=== PATIENT | male | born 1955 | race African-American/Black ===

== ENCOUNTER 2018-01-19 10:02 | Inpatient (IN) | payer MEDICARE, OTHER ==
[~2018-01-19] VITALS: Ht 172.7 cm; Wt 89.6 kg
[~2018-01-19 10:02] MED LIST: AMLODIPINE BESY10 MG PO; CARVEDILOL12.5 MG PO; CLONIDINE HCL0.1 MG PO; DOC-Q-LACE100 MG PO; FUROSEMIDE20 MG PO; GABAPENTIN300 MG PO; HYDRALAZINE HCL50 MG PO; LISINOPRIL10 MG PO; NAPROXEN500 MG PO; NOVOLIN N100 UNIT/1 INJ; OMEPRAZOLE40 MG PO; PANTOPRAZOLE SO40 MG PO; SPIRIVA18 MCG INH; SUCRALFATE1 GM PO; SULFAMETHOXAZO1 EAC1 PO; TAMSULOSIN HCL0.4 MG
--- OUTSIDE RECORDS SUMMARY | 2018-01-19 10:05 | XMS REPORT | Clinical Summary ---
Author Author [employer] Organization [employer] Address Unknown Phone Unavailable Care Team Providers Care Secondary Education Professor Name Role Phone Asked, Pcp PCP Unavailable Allergies Not on File Current Medications Prescription Sig. Disp. Refills Start End Date Status Date clonIDINE HCl (CATAPRES) Take 1 tablet (0.2 mg 30 tablet 0 05/21/20 06/20/20 0.2 MG tablet total) by mouth daily for 17 17 30 days. hydrALAZINE (APRESOLINE) Take 1 tablet (100 mg 90 tablet 0 05/21/20 06/20/20 100 MG tablet total) by mouth every 8 17 17 (eight) hours for 30 days. amLODIPine (NORVASC) 10 Take 1 tablet (10 mg 30 tablet 0 05/21/20 mg tablet total) by mouth daily for 17 17 30 days. insulin GLARGINE (LANTUS) Inject 15 Units under the 4.5 mL 0 05/21/20 06/20/20 100 unit/mL injection skin daily before 17 17 (vial) breakfast for 30 days. insulin lispro (HumaLOG) Inject 0-7 Units under 10 mL 12 05/21/20 100 unit/mL injection the skin 3 (three) times 17 17 a day with meals for 30 days. levoFLOXacin (LEVAQUIN) Take 1 tablet (500 mg 1 tablet 0 05/21/20 500 MG tablet total) by mouth daily for 17 17 1 day. 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 (Primary Dx); Anemia, unspecified type; Normocytic hypochromic anemia 12/01/2017 Lab Lab Teofilo Edmond Jr., MD Severe uncontrolled diabetes mellitus (Primary Dx) 11/24/2017 Lab Lab Teofilo Edmond Jr., MD Hyperglycemic coma (Primary Dx); Hypertensive heart disease with congestive heart failure; Hypothyroidism, unspecified type 05/13/2017 Procedure Pass General Internal Medicine 05/13/2017 Procedure Pass General Internal Medicine 05/12/2017 [facility] General Internal Medicine Felicia Soria, Sepsis, due to - Encounter MD unspecified organism 05/21/2017 Silviano Davis MD (Primary Dx); Todd Muhammad DO DAWIT (acute kidney injury); Hypothermia, initial encounter; Bradycardia; Acute encephalopathy; Anemia, unspecified type; Pneumonia due to infectious organism, unspecified laterality, unspecified part of lung after 01/18/2017 Social History Tobacco Use Types Packs/Day Years Used Date Unknown If Ever Smoked Sex Assigned at Date Recorded Not on file Last Filed Vital Signs Vital Sign Reading Time Taken Blood Pressure 139/62 05/21/2017 1:27 PM CDT Pulse 72 05/21/2017 1:27 PM CDT Temperature 36.1 C (97 F) 05/21/2017 1:27 PM CDT Respiratory Rate 16 05/21/2017 1:27 PM CDT Oxygen Saturation 94% 05/21/2017 1:27 PM CDT Inhaled Oxygen - - Concentration Weight 70.3 kg (155 lb) 05/12/2017 5:00 PM CDT Height 172.7 cm (5' 8") 05/12/2017 3:43 PM CDT Body Mass Index 23.57 05/12/2017 5:00 PM CDT Plan of Treatment Health Maintenance Due Date Last Done Comments FOOT EXAM 1964 OPHTHALMOLOGY EXAM 1965 URINE MICROALBUMIN 1964 COLONOSCOPY 2004 ZOSTER VACCINE 2014 INFLUENZA VACCINE 06/13/2017 Procedures Procedure Name Priority Date/Time Associated Diagnosis Comments CT INSERT NON-TUNNEL CV Routine 05/13/2017 Results for this CATH 11:01 AM CDT procedure are in the results section. INTUBATION Routine 05/13/2017 Results for this 11:01 AM CDT procedure are in the results section. CT CRITICAL CARE, E/M Routine 05/13/2017 Results for this 30-74 MINUTES 11:01 AM CDT procedure are in the results section. ECHOCARDIOGRAM 2D Routine 05/13/2017 Results for this COMPLETE W MMODE SPECTRAL 9:31 AM CDT procedure are in the COLOR DOPPLER (05478) results section. after 01/18/2017 Results * Total iron binding capacity (12/15/2017 10:00 AM) Component Value Ref Range Iron level 80 76 - 198 ug/dL Iron binding capacity 250 (L) 271 - 474 ug/dL % Saturation 32.0 20.0 - 40.0 % Specimen Performing Laboratory Plasma specimen [facility] DEPARTMENT OF PATHOLOGY AND GENOMIC MEDICINE [address] [place] [address] * Occult blood, stool (12/15/2017 10:00 AM) Component Value Ref Range Occult blood, stool Negative for occult blood. Comment: Specimen Information Specimen Source: Stool Specimen Site: non preserved Specimen Performing Laboratory Stool [facility] DEPARTMENT OF PATHOLOGY AND GENOMIC MEDICINE [address] [place] [address] * Manual differential (12/01/2017 1:00 PM) Only the most recent of 7 results within the time period is included. Component Value Ref Range Manual differential PERFORMED Neutrophils 72.0 (H) 36.0 - 66.0 % Lymphocytes 19.0 (L) 24.0 - 44.0 % Monocytes 6.0 0.0 - 6.0 % Eosinophils 1.0 0.0 - 6.0 % Basophils 0.0 0.0 - 1.2 % Metamyelocytes 0 0 - 1 % Promyelocytes 0 0 - 1 % Reactive lymphocytes 2.0 Platelet slide review Decreased (A) Anisocytosis 1+ Polychromasia 1+ Schistocytes 1+ Ovalocytes 1+ Enlarged platelets 1+ Specimen Performing Laboratory [facility] DEPARTMENT OF PATHOLOGY AND GENOMIC MEDICINE [address] [place] [address] Narrative PLS FAX TO [facility] * CBC with platelet and differential (12/01/2017 1:00 PM) Only the most recent of 10 results within the time period is included. Component Value Ref Range WBC 7.2 4.2 - 11.0 k/uL RBC 3.25 (L) 4.04 - 5.86 m/uL HGB 8.4 (L) 13.0 - 17.3 g/dL HCT 25.5 (L) 34.0 - 45.0 % MCV 78.5 (L) 80.0 - 98.0 fL MCH 25.8 (L) 27.0 - 34.0 pg MCHC 32.9 31.5 - 36.5 g/dL RDW - SD 45.3 37.0 - 51.0 fL MPV SEE COMMENTComment: No report 7.4 - 10.4 fL Platelet count 70 (L) 150 - 400 k/uL Nucleated RBC 0.00 /100 WBC Neutrophils 72.0 (H) 36.0 - 66.0 % Lymphocytes 19.0 (L) 24.0 - 44.0 % Monocytes 6.0 0.0 - 6.0 % Eosinophils 1.0 0.0 - 6.0 % Basophils 0.0 0.0 - 1.2 % Specimen Performing Laboratory Blood [facility] DEPARTMENT OF PATHOLOGY AND GENOMIC MEDICINE [address] [place] [address] [place] [address] Narrative PLS FAX TO [employer] * Estimated GFR (11/24/2017 11:00 AM) Only the most recent of 13 results within the time period is included. Component Value Ref Range GFR Non Af Amer 18 (A) mL/min/1.73 m2 GFR Af Amer 22 (A) mL/min/1.73 m2 Comment: Chronic kidney disease: <60 mL/min/1.73m2 Kidney failure: <15 mL/min/1.73m2 The estimated GFR is calculated from the IDMS-traceable Modification of Diet in Renal Disease Equation. The accuracy of the calculation is poor when the creatinine is normal. Calculated values >90 mL/min/1.73m2 are not reported. This equation has not been validated in children (<18 years), women, the elderly (>70 years), or ethnic groups other than Caucasians and Americans. Specimen Performing Laboratory Plasma specimen [facility] DEPARTMENT OF PATHOLOGY AND [facility]IC[facility] [address] [place] [address] [employer] PLS FAX TO [employer] * Thyroid stimulating hormone (11/24/2017 11:00 AM) Only the most recent of 4 results within the time period is included. Component Value Ref Range TSH 0.95 0.38 - 4.82 uIU/mL Specimen Performing Laboratory Plasma specimen [facility] DEPARTMENT OF PATHOLOGY AND GENOMIC MEDICINE [address] [place] [address] Narrative PLS FAX TO [employer] [facility] * Comprehensive metabolic panel (11/24/2017 11:00 AM) Only the most recent of 4 results within the time period is included. Component Value Ref Range Sodium 140 135 - 150 mEq/L Potassium 4.5 3.5 - 5.0 mEq/L Chloride 106 100 - 109 mEq/L CO2 27 24 - 32 mmol/L Anion gap 7 7 - 15 mEq/L Comment: Starting from February , anion gap calculation no longer incorporates potassium. Please note the change. BUN 52 (H) 7 - 18 mg/dL Creatinine 3.5 (H) 0.8 - 1.5 mg/dL Glucose 154 (H) 65 - 100 mg/dL Calcium 7.8 (L) 8.6 - 10.7 mg/dL Protein 6.2 (L) 6.3 - 8.2 g/dL Albumin 2.4 (L) 3.2 - 5.0 g/dL A/G ratio 0.6 (L) 0.7 - 3.8 Alkaline phosphatase 128 (H) 30 - 120 U/L AST 13 (L) 15 - 37 U/L ALT 21 (L) 30 - 65 U/L Total bilirubin 0.4 0.2 - 1.2 mg/dL Specimen Performing Laboratory Plasma specimen [facility] DEPARTMENT OF PATHOLOGY AND GENOMIC MEDICINE [address] [place] [address] Narrative PLS FAX TO [facility] * POC glucose (05/21/2017 11:27 AM) Only the most recent of 45 results within the time period is included. Component Value Ref Range POC glucose 162 (H) 65 - 100 mg/dL Comment: Meter ID: [id number] [employer] Farmworker: Deny Aguirre Specimen Performing Laboratory [facility] DEPARTMENT OF PATHOLOGY AND GENOMIC MEDICINE [address] [place] [address] * Phosphorus level (05/21/2017 6:18 AM) Only the most recent of 7 results within the time period is included. Component Value Ref Range Phosphorus 4.0 2.5 - 4.5 mg/dL Specimen Performing Laboratory Plasma specimen [facility] DEPARTMENT OF PATHOLOGY AND GENOMIC MEDICINE [address] [place] [address] * Magnesium level (05/21/2017 6:18 AM) Only the most recent of 7 results within the time period is included. Component Value Ref Range Magnesium 2.50 (H) 1.60 - 2.40 mg/dL Specimen Performing Laboratory Plasma specimen [facility] DEPARTMENT OF PATHOLOGY AND GENOMIC MEDICINE [address] [facility] [place] [address] * Basic metabolic panel (05/21/2017 6:18 AM) Only the most recent of 9 results within the time period is included. Component Value Ref Range Sodium 146 135 - 150 mEq/L Potassium 4.6 3.5 - 5.0 mEq/L Chloride 112 (H) 100 - 109 mEq/L CO2 25 24 - 32 mmol/L Anion gap 9 7 - 15 mEq/L Comment: Starting from February , anion gap calculation no longer incorporates potassium. Please note the change. BUN 53 (H) 7 - 18 mg/dL Creatinine 4.0 (H) 0.8 - 1.5 mg/dL Glucose 91 65 - 100 mg/dL Calcium 8.8 8.6 - 10.7 mg/dL Specimen Performing Laboratory Plasma specimen [facility] DEPARTMENT OF PATHOLOGY AND GENOMIC MEDICINE [address] [facility] [place] [address] * Smear review (05/21/2017 5:51 AM) Only the most recent of 3 results within the time period is included. Component Value Ref Range Platelet slide review Mkd decreased (A) Polychromasia Few Schistocytes Few Target cells Occasional Specimen Performing Laboratory [facility] DEPARTMENT OF PATHOLOGY AND GENOMIC MEDICINE [address] [place] [address] [place] [address] * Immature platelet fraction (05/21/2017 5:51 AM) Only the most recent of 5 results within the time period is included. Component Value Ref Range IPF percentage 11.1 (H) 1.0 - 5.8 % Specimen Performing Laboratory [facility] DEPARTMENT OF PATHOLOGY AND GENOMIC MEDICINE [address] [place] [address] [place] [address] * PV carotid duplex (05/14/2017 10:04 PM) Specimen Performing Laboratory [address] [address] Narrative Examination: US CAROTID DUPLEX BILATERAL CLINICAL HISTORY: CVA TECHNIQUE: Examination includes full duplex Doppler scan (real-time B mode grayscale, Doppler spectral analysis, Doppler color flow imaging) of the common carotid, internal carotid, external carotid, and vertebral arteries. Velocity parameters are based upon studies using distal internal carotid artery diameter as a denominator for stenosis calculation. COMPARISON:None. FINDINGS: Right common carotid artery demonstrates a peak systolic velocity measuring 79 cm/s. The right internal carotid artery demonstrates a peak systolic velocity measuring 33 cm/s. Right ICA/CC ratio is 0.4. The right external carotid artery demonstrates a peak systolic velocity measuring 76 cm/s. Right vertebral artery demonstrates antegrade flow. Left common carotid artery demonstrates a peak systolic velocity measuring 89 cm /s. Left internal carotid artery demonstrates a peak systolic velocity measuring 42 cm/s. Left ICA/CCA ratio is 0.5. The left external carotid artery demonstrates a peak systolic velocity measuring 61 cm/s. Left vertebral artery demonstrates antegrade flow. IMPRESSION: Normal bilateral carotid Doppler examination. No hemodynamically significant stenosis in either carotid artery (less than 50%). Bilateral antegrade vertebral flow. [facility]-[id number] Procedure Note [facility], Radiology Results Incoming - 05/14/2017 10:34 PM CDT Examination: US CAROTID DUPLEX BILATERAL CLINICAL HISTORY: CVA TECHNIQUE: Examination includes full duplex Doppler scan (real-time B mode grayscale, Doppler spectral analysis, Doppler color flow imaging) of the common carotid, internal carotid, external carotid, and vertebral arteries. Velocity parameters are based upon studies using distal internal carotid artery diameter as a denominator for stenosis calculation. COMPARISON:None. FINDINGS: Right common carotid artery demonstrates a peak systolic velocity measuring 79 cm/s. The right internal carotid artery demonstrates a peak systolic velocity measuring 33 cm/s. Right ICA/CC ratio is 0.4. The right external carotid artery demonstrates a peak systolic velocity measuring 76 cm/s. Right vertebral artery demonstrates antegrade flow. Left common carotid artery demonstrates a peak systolic velocity measuring 89 cm /s. Left internal carotid artery demonstrates a peak systolic velocity measuring 42 cm/s. Left ICA/CCA ratio is 0.5. The left external carotid artery demonstrates a peak systolic velocity measuring 61 cm/s. Left vertebral artery demonstrates antegrade flow. IMPRESSION: Normal bilateral carotid Doppler examination. No hemodynamically significant stenosis in either carotid artery (less than 50%). Bilateral antegrade vertebral flow. [facility]-[id number] * Arterial blood gas (05/14/2017 7:15 AM) Only the most recent of 4 results within the time period is included. Component Value Ref Annual Giving Officer [facility] Collection site RRA O2 therapy VENT Respiratory rate 16 bpm Tidal volume 450.0 mL .PEEP 5 cmH2O pH, arterial 7.390 7.350 - 7.450 units pCO2, arterial 37.0 35.0 - 45.0 mmHg pO2, arterial 77.8 (L) 80.0 - 90.0 mmHg O2 saturation, arterial 96.8 95.0 - 100.0 % Base excess, arterial -2.5 mEq/L Bicarbonate 22.4 21.0 - 28.0 mEq/L O2 content 12.5 VOL% FiO2, inspired O2% 40.0 % Carboxyhemoglobin 1.0 0.0 - 1.4 % Comment: Reference Ranges: Carboxyhemoglobin Non smoker: 0.0 - 2.0% Smoker: 2.1 - 5.0% Heavy smoker: 5.1 - 9% Methemoglobin 0.1 0.0 - 1.0 % Hemoglobin, blood gas 9.2 (L) 14.0 - 18.0 g/dL CMV, pulmonary func 16 pO2, A-a 168.8 mmHg Specimen Performing Laboratory Blood [facility] DEPARTMENT OF PATHOLOGY AND GENOMIC MEDICINE [address] [place] [address]. [place] [address] * XR Chest 1 Vw Portable (05/14/2017 6:48 AM) Only the most recent of 4 results within the time period is included. Specimen Performing Laboratory [place] [address] Narrative EXAMINATION:XR CHEST 1 VW PORTABLE CLINICAL HISTORY:Ventilator Patient COMPARISON:Yesterday IMPRESSION: Support lines and tubes unchanged. Extensive airspace opacities bilaterally have worsened bilaterally. Otherwise stable [facility]-[id number] Procedure Note Hm Interface, Radiology Results Incoming - 05/14/2017 7:09 AM CDT EXAMINATION: XR CHEST 1 VW PORTABLE CLINICAL HISTORY: Ventilator Patient COMPARISON: Yesterday IMPRESSION: Support lines and tubes unchanged. Extensive airspace opacities bilaterally have worsened bilaterally. Otherwise stable [facility]-[id number] * MRI Brain Wo Contrast (05/13/2017 5:56 PM) Specimen Performing Laboratory [employer] [address] [place] [address] Narrative EXAMINATION:MRI BRAIN WO CONTRAST CLINICAL HISTORY:cva COMPARISON: CT brain exam dated 05/12/2017. FINDINGS: Noncontrast MRI of the brain is interpreted. Subtle linear increased diffusion signal in the deep white matter of the posterior right frontal lobe is consistent with subtle recent infarct. There is no hemorrhage or mass effect. Chronic insult is noted within the left thalamus. Chronic insults are noted within the mirna. Chronic insults are noted within the left basal ganglia extending in the white matter. Small chronic insult is noted within the left cerebellum. Mild involutional changes of the brain are otherwise noted. No extra-axial collection or mass effect is seen. No hemorrhage is identified. Major vascular flow-voids are preserved. IMPRESSION: Small linear acute infarct involving the posterior right frontal lobe deep white matter. A preliminary report was provided the patient's nurse, Cheri, at 6:10 PM. She verbalized understanding. [facility]-[id number] Procedure Note Interface, Radiology Results Incoming - 05/13/2017 6:14 PM CDT EXAMINATION: MRI BRAIN WO CONTRAST CLINICAL HISTORY: cva COMPARISON: CT brain exam dated 05/12/2017. FINDINGS: Noncontrast MRI of the brain is interpreted. Subtle linear increased diffusion signal in the deep white matter of the posterior right frontal lobe is consistent with subtle recent infarct. There is no hemorrhage or mass effect. Chronic insult is noted within the left thalamus. Chronic insults are noted within the mirna. Chronic insults are noted within the left basal ganglia extending in the white matter. Small chronic insult is noted within the left cerebellum. Mild involutional changes of the brain are otherwise noted. No extra-axial collection or mass effect is seen. No hemorrhage is identified. Major vascular flow-voids are preserved. IMPRESSION: Small linear acute infarct involving the posterior right frontal lobe deep white matter. A preliminary report was provided the patient's nurse, Cheri, at 6:10 PM. She verbalized understanding. [id number] * MRI Cervical Spine Wo Contrast (05/13/2017 5:56 PM) Specimen Performing Laboratory [facility] [address] [place] [address] Narrative EXAMINATION:MRI CERVICAL SPINE WO CONTRAST CLINICAL HISTORY:epidural abcess COMPARISON: None. FINDINGS: Noncontrast MRI of the cervical spine is interpreted. No definite cord signal abnormality is seen. Subtle increased T2 signal over the cervical cord at the C6-7 level is likely artifactual. There is mild reversal normal cervical lordosis. Bone marrow signal is normal. The cervical canal is developmentally stenotic. No intraspinal collection is identified. C2-3: Unremarkable. C3-4: Mild disc bulge. Minimal spondylosis. Mild canal stenosis. Mild left foraminal narrowing. C4-5: Mild spondylosis with mild disc bulge. Mild bilateral foraminal stenosis and moderate canal stenosis. C5-6: Ankylosis. Slight grade 1 retrolisthesis. Mild bilateral foraminal stenosis. Moderate canal stenosis. C6-7: Shallow right central disc protrusion. Mild spondylosis. Mild left foraminal stenosis. Moderate canal stenosis. C7-T1: Unremarkable. Paraspinous soft tissues are unremarkable. IMPRESSION: No evidence of epidural abscess or other acute abnormality of the cervical spine. Mild cervical spondylosis superimposed on congenitally narrow canal results in multilevel moderate canal stenosis. [facility]-[id number] Procedure Note Hm Interface, Radiology Results Incoming - 05/13/2017 6:06 PM CDT EXAMINATION: MRI CERVICAL SPINE WO CONTRAST CLINICAL HISTORY: epidural abcess COMPARISON: None. FINDINGS: Noncontrast MRI of the cervical spine is interpreted. No definite cord signal abnormality is seen. Subtle increased T2 signal over the cervical cord at the C6-7 level is likely artifactual. There is mild reversal normal cervical lordosis. Bone marrow signal is normal. The cervical canal is developmentally stenotic. No intraspinal collection is identified. C2-3: Unremarkable. C3-4: Mild disc bulge. Minimal spondylosis. Mild canal stenosis. Mild left foraminal narrowing. C4-5: Mild spondylosis with mild disc bulge. Mild bilateral foraminal stenosis and moderate canal stenosis. C5-6: Ankylosis. Slight grade 1 retrolisthesis. Mild bilateral foraminal stenosis. Moderate canal stenosis. C6-7: Shallow right central disc protrusion. Mild spondylosis. Mild left foraminal stenosis. Moderate canal stenosis. C7-T1: Unremarkable. Paraspinous soft tissues are unremarkable. IMPRESSION: No evidence of epidural abscess or other acute abnormality of the cervical spine. Mild cervical spondylosis superimposed on congenitally narrow canal results in multilevel moderate canal stenosis. [facility]-[id number] * Respiratory pathogen panel (05/13/2017 11:30 AM) Component Value Ref Range Respiratory pathogen Negative for all pathogens tested: panel Negative for Adenovirus Negative for Coronavirus HKU1 Negative for Coronavirus NL63 Negative for Coronavirus 229E Negative for Coronavirus OC43 Negative for Human Metapneumovirus Negative for Rhinovirus/Enterovirus Negative for Influenza A Negative for Influenza A/H1 Negative for Influenza A/H3 Negative for Influenza A/H1-2009 Negative for Influenza B Negative for Parainfluenza Virus 1 Negative for Parainfluenza Virus 2 Negative for Parainfluenza Virus 3 Negative for Parainfluenza Virus 4 Negative for Respiratory Syncytial Virus Negative for Bordetella pertussis Negative for Chlamydophila pneumoniae Negative for Mycoplasma pneumoniae This real-time PCR assay detects the presence of nucleic acids (RNA or DNA) for the respiratory pathogens listed. A result of "Not-detected" does not exclude the possibility of the presence of one or more pathogens at concentrations less than the detectable limits of the assay. Comment: Specimen Information Specimen Source: Nares Specimen Site: Left Specimen Performing Laboratory Nares - Left [facility] DEPARTMENT OF PATHOLOGY AND GENOMIC MEDICINE [address] [place] [address] * Streptococcus pneumoniae urinary antigen (05/13/2017 11:30 AM) Component Value Ref Range Strep pneumo urinary Ag Negative for Streptococcus pneumoniae antigen. Comment: Specimen Information Specimen Source: Urine Specimen Site: [place] Specimen Performing Laboratory Urine - [facility] DEPARTMENT OF PATHOLOGY AND [facility] MEDICINE [address] [place] [address] * Legionella urinary antigen (05/13/2017 11:30 AM) Component Value Ref Range Legionella urinary Negative for Legionella serogroup 1 antigen. antigen Comment: Specimen Information Specimen Source: Urine Specimen Site: [place] Specimen Performing Laboratory Urine - [facility] DEPARTMENT OF PATHOLOGY AND GENOMIC MEDICINE [address] [place] [address] * Influenza antigen (05/13/2017 11:30 AM) Component Value Ref Range Influenza antigen Negative for Influenza A/B antigen. Comment: Specimen Information Specimen Source: Nares Specimen Site: Right Specimen Performing Laboratory Nares Right [facility] DEPARTMENT OF PATHOLOGY AND GENOMIC MEDICINE [facility] [place] [address] * ECG ED Preliminary Interpretation - NOT AN ORDER (05/13/2017 11:01 AM) Leana Soria MD 05/13/2017 11:01 AM ECG ED Preliminary Interpretation - Not an Order Performed by: FELICIA SORIA Authorized by: FELICIA SORIA ECG reviewed by ED Physician in the absence of a prime minister: yes Previous ECG: Previous ECG:Unavailable Rate: ECG rate:53 ECG rate assessment: bradycardic Rhythm: Rhythm: sinus bradycardia ST segments: ST segments:Normal T waves: T waves: normal * CRITICAL CARE (05/13/2017 11:01 AM) Leana Soria MD 05/13/2017 11:01 AM Critical Care Performed by: FELICIA SORIA Authorized by: FELICIA SORIA Critical care provider statement: Critical care time (minutes):60 Critical care start time:05/12/2017 2:00 PM Critical care end time:05/12/2017 4:30 PM Critical care time was exclusive of:Separately billable procedures and treating other patients Critical care was necessary to treat or prevent imminent or life-threatening deterioration of the following conditions:Cardiac failure, sepsis, shock and circulatory failure Critical care was time spent personally by me on the following activities:Evaluation of patient's response to treatment, examination of patient, re-evaluation of patient's condition, ordering and review of radiographic studies, ordering and review of laboratory studies, ordering and performing treatments and interventions, discussions with consultants, discussions with primary provider, vascular access procedures, pulse oximetry and ventilator management Elliot 'yes' if you are taking over critical care for this patient from another provider.: no * INTUBATION (05/13/2017 11:01 AM) Leana Soria MD 05/13/2017 11:01 AM Intubation Performed by: FELICIA SORIA Authorized by: FELICIA SORIA Consent: Consent obtained:Emergent situation [place] protocol: Imaging studies available: yes Patient identity confirmed:Arm band Pre-procedure details: Patient status:Altered mental status Mallampati score:2 Pretreatment medications:None Induction:Etomidate Paralytics:Succinylcholine Procedure details: Preoxygenation:Nasal cannula CPR in progress: no Intubation method:Oral Laryngoscope blade:Mac 4 Grade view:3 Difficult airway?: Yes Tube size (mm):7.5 Tube type:Cuffed Number of attempts:1 Cricoid pressure: yes Tube visualized through cords: yes Placement assessment: ETT to lip:25 Tube secured with:ETT majano Breath sounds:Equal Placement verification: chest rise, CXR verification, equal breath sounds and ETCO2 detector Post-procedure details: Patient tolerance of procedure:Tolerated well, no immediate complications * CENTRAL LINE (05/13/2017 11:01 AM) Leana Soria MD 05/13/2017 11:01 AM Central Line Performed by: FELICIA SORIA Authorized by: FELICIA SORIA Consent: Consent obtained:Emergent situation [place] protocol: Patient identity confirmed:Arm band Pre-procedure details: Hand hygiene: Hand hygiene performed prior to insertion Sterile barrier technique: All elements of maximal sterile technique followed Skin preparation:ChloraPrep Skin preparation agent: Skin preparation agent completely dried prior to procedure Sedation: Sedation Type:Systemic Anesthesia (see MAR for exact dosages): Anesthesia method:None Procedure details: Catheter type:Triple lumen Catheter site: femoral vein Catheter Site Laterality:Left Site selection rationale:Site selected due thrombocytopenia and bradycardia Patient position:Flat Landmarks identified: yes Ultrasound guidance: yes Sterile ultrasound techniques: Sterile gel and sterile probe covers were used Number of attempts:2 Successful placement: yes Post-procedure details: Post-procedure:Dressing applied and line sutured Assessment:Blood return through all ports Patient tolerance of procedure:Tolerated well, no immediate complications * Echocardiogram complete w contrast and 3D if needed (05/13/2017 9:31 AM) Component Value Ref Range Velocity Ratio (V1/V2) 0.73 m/s IVS,d 1.23 (A) 0.6 - 1.2 cm EF 64.43 % LVPWD,d 1.01 cm AoV Mean PG 4.74 mmHg AV LVOT peak gradient 4.32 mmHg MV mean gradient 1.78 mmHg MV valve area p 1/2 3.62 cm2 method PV Pk Grad 4.38 mmHg E/A ratio 1.98 E wave decelartion time 114.68 msec LVOT Diam,S 2.18 cm LVOT area 3.73 cm2 LVOT Vmax 1.04 m/s LVOT VTI 0.22 m AoV Peak PG 8.21 mmHg PV Mean Grad 2.10 mmHg MV Peak E Martin 1.25 m/s MV stenosis pressure 1/2 60.83 ms time MV Peak A Martin 0.63 m/s AoV Area, Vmax 2.87 cm2 AoV Area, VTI 3.54 cm2 AoV Vmax 1.43 m/s IVS/LVPW,2D 1.21 Left Atrium Dimension 2.81 cm Anterior LV,d 4.89 cm LV,s 3.17 cm PV VMAX 1.05 m/s PV VTI 0.20 m RVSP (TR) 50.74 mmHg TR Vpeak 3.19 mm/s MV E A ratio 1.97 mmHg TR pk grad 40.74 mmHg MR Vmax 5.06 m/s MR peak grad 4.67 mmHg PV Vmn 0.67 RVSP 50.74 mmHg Ao Root Diameter 3.35 cm LV SYS VOL 39.88 ml LV YUSUF VOL 112.12 ml LV SV Teich 2D 72.24 ml LV Vol s Teich PSAX 39.88 ml LVOT CO 5.88 l/min LVOT HR for LVOT CO 71.99 bpm MV Vmax 1.08 m MV VTI Tips 0.23 m AoV Vmn 1.03 IVS s 2D 1.22 LV FS Cube 2D 35.24 LV FS Teich 2D 35.24 Ao Root Diameter 3.35 cm AoV VTI 0.29 m LV EF,2D 72.84 % MV AE ratio 0.51 LVOT Vmn 0.71 Aov area Vmn 2.68 cm2 LVOT mean grad 2.25 mmHg MAX Pred HR 157.20 85 of MPHR 133.62 Calc MPHR 157.20 bpm IVS pct thck PLAX -0.07 % LV SV Cube 2D 85.01 ml LV vol d cube 2D 116.72 ml LV vol s cube 2D 31.71 ml LVPW pct thck PLAX 95.22 % LVPW s PLAX 1.97 cm MV Decel slope 10.86 m/s2 Pred Exer Dur R1 8.28 Pred METS R1 8.58 Specimen Performing Laboratory [facility] [address] [place] [address] * Troponin (05/13/2017 4:25 AM) Only the most recent of 3 results within the time period is included. Component Value Ref Range Troponin 0.02 0.00 - 0.60 ng/mL Comment: 0.11 - 1.49 ng/ml May indicate increased risk of acute coronary syndrome. >=1.5 ng/ml Consistent with acute myocardial infarction. The diagnostic value of a single normal or non-diagnostic result is questionable. Serial samples at 2-6 hour intervals are required to rule out acute myocardial injury. Specimen Performing Laboratory Plasma specimen [facility] DEPARTMENT OF PATHOLOGY AND GENOMIC MEDICINE [address] [place] [address] * Partial thromboplastin time, activated (05/13/2017 4:25 AM) Only the most recent of 3 results within the time period is included. Component Value Ref Range PTT 52.0 (H) 23.0 - 36.0 sec Comment: PTT therapeutic range for unfractionated heparin is 61.0-112.0 seconds which corresponds to Anti-Xa 0.3-0.7 U/ml. Note: Change in Panic Value The PTT Panic Value is changing from 110 sec. to 100 sec. due to new instrumentation and reagents. Correlation studies have been performed to validate this result. Specimen Performing Laboratory Blood [facility] DEPARTMENT OF PATHOLOGY AND GENOMIC MEDICINE [address] [place] [address] [place] [address] * Prothrombin time with INR (05/13/2017 4:25 AM) Only the most recent of 3 results within the time period is included. Component Value Ref Range Prothrombin time 18.0 (H) 12.0 - 15.0 sec INR 1.47 (H) 0.92 - 1.12 Comment: For patients on anticoagulant therapy, reference ranges below: Indication: INR Value Treatment of Venous Thrombosis, 2.0-3.0 pulmonary emboli, or prophylaxis of a venous thrombosis, or systemic emboli. High dose, high risk patients 3.0-4.5 with mechanical valves. NOTE: INR values over 3.0 are sometimes associated with gastrointestinal hemorrhage, especially values over 4.0. Specimen Performing Laboratory Blood [facility] DEPARTMENT OF PATHOLOGY AND GENOMIC MEDICINE [address] [place] [address] [place] [address] * T3, free (05/13/2017 4:25 AM) Component Value Ref Range T3, free 3.80 2.18 - 3.98 pmol/L Specimen Performing Laboratory Plasma specimen [facility] DEPARTMENT OF PATHOLOGY AND GENOMIC MEDICINE [address] [place] [address] [place] [address] * B natriuretic peptide (05/13/2017 4:25 AM) Component Value Ref Range BNP 506 (H) 0 - 100 pg/mL Specimen Performing Laboratory [facility] DEPARTMENT OF PATHOLOGY AND GENOMIC MEDICINE [address] [place] [address] [place] [address] * Lactic acid level (05/13/2017 4:25 AM) Only the most recent of 3 results within the time period is included. Component Value Ref Range Lactic acid 1.3 0.5 - 2.2 mmol/L Specimen Performing Laboratory Blood [facility] DEPARTMENT OF PATHOLOGY AND GENOMIC MEDICINE [address] [place] [address] [place] [address] * Hemoglobin A1c (05/13/2017 4:25 AM) Component Value Ref Range Hemoglobin A1C 6.4 (H) 4.0 - 6.0 % Comment: Less than 6% - Goal of therapy for Type II Diabetes Less than 7%- Goal of therapy for Type I Diabetes Less than 8%- Acceptable control for Type I or Type II Diabetes Greater than 8%- Unacceptable control; action indicated. (A DA94) Specimen Performing Laboratory [facility] DEPARTMENT OF PATHOLOGY AND GENOMIC MEDICINE [address] [place], [place] [id number] * Ionized calcium (05/13/2017 4:25 AM) Only the most recent of 2 results within the time period is included. Component Value Ref Range pH 7.36 Ionized calcium 1.17 1.11 - 1.32 mmol/L Specimen Performing Laboratory Plasma specimen [facility] DEPARTMENT OF PATHOLOGY AND GENOMIC MEDICINE [address] [place] [address] * Vancomycin level, random (05/13/2017 4:25 AM) Component Value Ref Range Vancomycin, random 15.2 ug/mL Comment: Therapeutic Ranges: Peak 30.0 - 40.0 ug/mL Trough 10.0 - 20.0 ug/mL Specimen Performing Laboratory Blood [facility] DEPARTMENT OF PATHOLOGY AND GENOMIC MEDICINE [address] [place], [place] [id number] * Lipid panel (05/13/2017 4:25 AM) Component Value Ref Range Cholesterol 120 120 - 200 mg/dL Triglycerides 92 50 - 150 mg/dL HDL cholesterol 51 40 - 60 mg/dL LDL cholesterol 42Comment: Result obtained by direct LDL mg/dL measurement Specimen Performing Laboratory Plasma specimen [facility] DEPARTMENT OF PATHOLOGY AND GENOMIC MEDICINE [address] [place] [address] * CT Abdomen Pelvis Wo Contrast (05/12/2017 8:50 PM) Specimen Performing Laboratory [facility] [address] [place] [address] Narrative EXAMINATION:CT ABDOMEN PELVIS WO CONTRAST CLINICAL HISTORY:adrenal adenomas TECHNIQUE: Multiple axial images of the abdomen and pelvis were obtained without intravenous administration of iodinated contrast. Sagittal and coronal computerized reformatted images were also obtained. The lack of intravenous contrast reduces the sensitivity of detecting solid organ disease.Automatic exposure control and iterative reconstruction techniques used to reduce dose. COMPARISON:November 26, 2015 FINDINGS: Interval development of extensive alveolar infiltrate throughout the bilateral lower lobes and right middle lobe with air bronchograms present. A multifocal pneumonia is suspected. Stable 2.9 cm adenoma in the right adrenal gland. Stable 2.9 cm adenoma in the left adrenal gland. Large staghorn calculus filling the lower pole of the left kidney on prior examination has a completely been removed. No residual renal calculi are present. Multiple cysts are present. No hydronephrosis present The liver, gallbladder, spleen, and pancreas are within normal limits No significant lymphadenopathy free fluid present Diffuse calcified atherosclerotic vascular disease throughout the arterial structures. There is a large amount retained stool in colon. Constipation cannot be excluded The bladder is decompressed with a Vargas catheter in place Diffuse calcified atherosclerotic vascular disease throughout the arterial structures. IMPRESSION: Interval development of diffuse alveolar infiltrates in the bilateral lower lobes and right middle lobe worrisome for multifocal pneumonia. Stable bilateral adrenal adenomas Large calculus in the left kidney on prior examination is no longer present [facility]-[id number] Procedure Note [facility], Radiology Results Incoming - 05/12/2017 9:07 PM CDT EXAMINATION: CT ABDOMEN PELVIS WO CONTRAST CLINICAL HISTORY: adrenal adenomas TECHNIQUE: Multiple axial images of the abdomen and pelvis were obtained without intravenous administration of iodinated contrast. Sagittal and coronal computerized reformatted images were also obtained. The lack of intravenous contrast reduces the sensitivity of detecting solid organ disease.Automatic exposure control and iterative reconstruction techniques used to reduce dose. COMPARISON: November 26, 2015 FINDINGS: Interval development of extensive alveolar infiltrate throughout the bilateral lower lobes and right middle lobe with air bronchograms present. A multifocal pneumonia is suspected. Stable 2.9 cm adenoma in the right adrenal gland. Stable 2.9 cm adenoma in the left adrenal gland. Large staghorn calculus filling the lower pole of the left kidney on prior examination has a completely been removed. No residual renal calculi are present. Multiple cysts are present. No hydronephrosis present The liver, gallbladder, spleen, and pancreas are within normal limits No significant lymphadenopathy free fluid present Diffuse calcified atherosclerotic vascular disease throughout the arterial structures. There is a large amount retained stool in colon. Constipation cannot be excluded The bladder is decompressed with a Vargas catheter in place Diffuse calcified atherosclerotic vascular disease throughout the arterial structures. IMPRESSION: Interval development of diffuse alveolar infiltrates in the bilateral lower lobes and right middle lobe worrisome for multifocal pneumonia. Stable bilateral adrenal adenomas Large calculus in the left kidney on prior examination is no longer present [facility]-[id number] * CT Chest Wo Contrast (05/12/2017 8:49 PM) Specimen Performing Laboratory [facility] [address] [place] [address] Narrative EXAMINATION: CT CHEST WO CONTRAST CLINICAL HISTORY: Pulmonary edemapneumonia TECHNIQUE: Multiple axial images of the chest were obtained without intravenous contrast. The lack of intravenous contrast reduces the sensitivity of detecting solid organ disease and evaluating vasculature. Sagittal and coronal computerized reformatted images were also obtained.Automatic exposure control and iterative reconstruction techniques used to reduce dose. COMPARISON: None. FINDINGS: Extensive alveolar infiltrate is present throughout all segments of both lungs. Air bronchograms are noted throughout. Finding is compatible with a multifocal pneumonia. Endotracheal tube terminates above the harlan Small pericardial effusion Small nonspecific subcentimeter mediastinal lymph nodes present No pleural or pericardial effusions present Bilateral adrenal adenomas IMPRESSION: Extensive airspace infiltrates throughout all segments of both lungs worrisome for extensive multifocal pneumonia. Procedure Note Interface, Radiology Results Incoming - 05/12/2017 9:08 PM CDT EXAMINATION: CT CHEST WO CONTRAST CLINICAL HISTORY: Pulmonary edema pneumonia TECHNIQUE: Multiple axial images of the chest were obtained without intravenous contrast. The lack of intravenous contrast reduces the sensitivity of detecting solid organ disease and evaluating vasculature. Sagittal and coronal computerized reformatted images were also obtained.Automatic exposure control and iterative reconstruction techniques used to reduce dose. COMPARISON: None. FINDINGS: Extensive alveolar infiltrate is present throughout all segments of both lungs. Air bronchograms are noted throughout. Finding is compatible with a multifocal pneumonia. Endotracheal tube terminates above the harlan Small pericardial effusion Small nonspecific subcentimeter mediastinal lymph nodes present No pleural or pericardial effusions present Bilateral adrenal adenomas IMPRESSION: Extensive airspace infiltrates throughout all segments of both lungs worrisome for extensive multifocal pneumonia. * Prepare platelet pheresis, 1 Units (05/12/2017 8:20 PM) Component Value Ref Range Product name Apheresis Platelet ACDA LRIRR #1 Unit number [id number] Product code [id number] Dispense status Transfused Blood expiration date 20170513 Blood type code 8400Comment: 22:10 Kay Manjarrez Blood type AB POSITIVE Specimen Performing Laboratory [facility] DEPARTMENT OF PATHOLOGY AND GENOMIC MEDICINE [address] [place] [address] * Prepare RBC, 2 Units (05/12/2017 8:20 PM) Component Value Ref Range Product name Apheresis -1 LR #2 Unit number [id number] Product code [id number] Dispense status Transfused Blood expiration date 20170531 Blood type code 5100Comment: 22:13 Kay Manjarrez Blood type O POSITIVE Product name Apheresis -1 LR #1 Unit number [id number] Product code [id number] Dispense status Transfused Blood expiration date 20170606 Blood type code 5100 Blood type O POSITIVE Specimen Performing Laboratory [facility] DEPARTMENT OF PATHOLOGY AND GENOMIC MEDICINE [address] [place] [address] [place] [address] * Type and screen (05/12/2017 8:20 PM) Component Value Ref Range ABO grouping O Rh type POS Antibody screen (gel) NEG Specimen Performing Laboratory Blood [facility] DEPARTMENT OF PATHOLOGY AND GENOMIC MEDICINE [address] [place] [address] [place] [address] * Sputum culture (05/12/2017 8:14 PM) Component Value Ref Range Sputum culture isolate Normal oral cathy isolated. Comment: Specimen Information Specimen Source: Sputum Specimen Site: Induced Specimen Performing Laboratory Sputum - Induced [facility] DEPARTMENT OF PATHOLOGY AND GENOMIC MEDICINE [address] [place] [address] * Gram stain (05/12/2017 8:14 PM) Only the most recent of 2 results within the time period is included. Component Value Ref Range Gram stain isolate Rare WBC's Occasional Gram positive cocci in pairs Comment: Specimen Information Specimen Source: Sputum Specimen Site: Induced Specimen Performing Laboratory Sputum - Induced [facility] DEPARTMENT OF PATHOLOGY AND GENOMIC MEDICINE [address] [place] [address] * Cortisol, 30 minutes (05/12/2017 7:43 PM) Component Value Ref Range Cortisol, 30 min 10 ug/dL Comment: Normal response to 0.25 mg 1-24 ACTH (cosyntropin) is a peak cortisol concentration of greater than 14 ug/dL at either 30 minutes or 60 minutes post-stimulation. Specimen Performing Laboratory Plasma specimen [facility] DEPARTMENT OF PATHOLOGY AND GENOMIC MEDICINE [address] [place] [address] * Consult to Sepsis Response Team (05/12/2017 7:14 PM) Leana Musa NP 05/12/20177:14 PM Patient has possible sepsis due to the above criteria.ID is managing abx. Sepsis Clinical Assessment Performed by: NAZARIO MUSA Authorized by: NAZARIO MUSA Sepsis Clinical Assessment General Assessment Information Current sepsis score:6 On comfort care?: No If score does not worsen, snooze alerts until:05/13/2017 19:13 CDT SIRS Criteria SIRS criteria met: Temperature < 36.0 C (96.8 F) and Altered mental status Organ Dysfunction Organ dysfunction criteria met: Creatinine > 2.0 mg/dL and Platelet count < 100,000/mcL Sepsis Assessment Clinical suspicion of infection? Yes Time of suspicion of infection:05/12/2017 7:13 PM Clinical suspicion of sepsis?: Yes Sepsis staging:Sepsis Sepsis protocol started?Yes Where did the protocol start?:ED Started Clinical disposition:Remain in room Sepsis Related Vitals Heart rate: 45 Temperature: (!) 83.3 F Respiratory rate: 16 Altered mental status: Unable to assess WBC (k/uL) Date Value 05/12/2017 5.4 05/25/2016 11.6 (H) Weight-Based Fluid Bolus Calculation The recommended weight-based bolus volume: 2,244 mL (dosing weight) Please refer to the [facility] for actual med/fluid administrations. * CK-MB (05/12/2017 7:10 PM) Component Value Ref Range CK-MB 6.7 (H) 0.5 - 3.2 ng/mL Specimen Performing Laboratory Plasma specimen [facility] DEPARTMENT OF PATHOLOGY AND GENOMIC MEDICINE [facility] [place] [address] * Adrenocorticotropic hormone (05/12/2017 7:10 PM) Component Value Ref Range Adrenocorticotropic <1.0 (L) 7.2 - 63.3 pg/mL hormone Specimen Performing Laboratory Blood [facility] DEPARTMENT OF PATHOLOGY AND GENOMIC MEDICINE [address] [place] [address] * T3 (05/12/2017 7:10 PM) Component Value Ref Range T3 59 (L) 80 - 200 ng/dL Specimen Performing Laboratory Plasma specimen [facility] DEPARTMENT OF PATHOLOGY AND GENOMIC MEDICINE [address] [place] [address] * T4, free (05/12/2017 7:10 PM) Component Value Ref Range T4, free 1.39 0.70 - 1.61 ng/dL Specimen Performing Laboratory Plasma specimen [facility] DEPARTMENT OF PATHOLOGY AND GENOMIC MEDICINE [facility] [place] [address] * Lipase level (05/12/2017 7:10 PM) Component Value Ref Range Lipase 99 65 - 230 U/L Specimen Performing Laboratory Plasma specimen [facility] DEPARTMENT OF PATHOLOGY AND GENOMIC MEDICINE [address] [place] [address] * Creatine kinase, total (CPK) (05/12/2017 7:10 PM) Component Value Ref Range Creatine kinase 60 (L) 61 - 224 U/L Specimen Performing Laboratory Plasma specimen [facility] DEPARTMENT OF PATHOLOGY AND GENOMIC MEDICINE [address] [place] [address] * Cortisol level, random (05/12/2017 7:10 PM) Component Value Ref Range Cortisol, random 10 ug/dL Comment: Reference Ranges are not established for non-timed Cortisol levels. Reference Range for Timed Cortisol: 6 - 10 AM 6 - 18 ug/dl 4 - 8 PM 3 - 11 ug/dl Specimen Performing Laboratory Plasma specimen [facility] DEPARTMENT OF PATHOLOGY AND [facility] MEDICINE [address] [place] [address] * ECG 12 lead (05/12/2017 6:18 PM) Only the most recent of 2 results within the time period is included. Component Value Ref Range Ventricular rate [address] interval 140 QRSD interval 130 QT interval 526 QTC interval 465 P axis 1 40 QRS axis 1 55 T wave axis 47 EKG impression Marked sinus bradycardia with premature atrial complexes-Nonspecific intraventricular block-Nonspecific T wave abnormality-Abnormal ECG-In automated comparison with ECG of 12-MAY-2017 14:02,-premature atrial complexes are now present-QRS duration has decreased-Nonspecific T wave abnormality has replaced inverted T waves in Inferior leads-T wave inversion no longer evident in Anterolateral leads- Specimen Performing Laboratory [facility] [address] [place], [place] [id number] * CT Head Wo Contrast (05/12/2017 3:31 PM) Specimen Performing Laboratory [facility] [address] [place] [address] Narrative EXAMINATION: CT HEAD WO CONTRAST CLINICAL HISTORY: STROKE COMPARISON:None TECHNIQUE: Noncontrast CT of the brain was performed from the skull base to the vertex. Both soft tissue and bone reconstruction algorithms are interpreted. CT imaging was performed with iterative reconstruction techniques and/or automated exposure control to reduce radiation dose. FINDINGS: No intracranial hemorrhage, extra-axial collection, or mass-effect is seen. No acute cortical infarct is identified. No hyperdense vessel is seen. Chronic insult is noted in the left thalamus. Chronic ill-defined insult is noted within the deep white matter on the left. Small chronic insult is noted within left cerebellum. There is opacification of the left maxillary sinus with hyperdense material which may represent is inspissated secretions or fungal colonization.. Mastoid air cells are clear. Post treatment changes are noted within the left ocular globe. IMPRESSION: No acute intracranial abnormality identified. Chronic changes as described. [id number] Procedure Note [facility], Radiology Results Incoming - 05/12/2017 3:38 PM CDT EXAMINATION: CT HEAD WO CONTRAST CLINICAL HISTORY: STROKE COMPARISON: None TECHNIQUE: Noncontrast CT of the brain was performed from the skull base to the vertex. Both soft tissue and bone reconstruction algorithms are interpreted. CT imaging was performed with iterative reconstruction techniques and/or automated exposure control to reduce radiation dose. FINDINGS: No intracranial hemorrhage, extra-axial collection, or mass-effect is seen. No acute cortical infarct is identified. No hyperdense vessel is seen. Chronic insult is noted in the left thalamus. Chronic ill-defined insult is noted within the deep white matter on the left. Small chronic insult is noted within left cerebellum. There is opacification of the left maxillary sinus with hyperdense material which may represent is inspissated secretions or fungal colonization.. Mastoid air cells are clear. Post treatment changes are noted within the left ocular globe. IMPRESSION: No acute intracranial abnormality identified. Chronic changes as described. [facility]-[id number] * Blood culture, aerobic & anaerobic (05/12/2017 3:17 PM) Only the most recent of 2 results within the time period is included. Component Value Ref Range Blood culture isolate No growth after 5 days of incubation. Comment: Specimen Information Specimen Source: Blood Specimen Site: Left Wrist Specimen Performing Laboratory Blood [facility] DEPARTMENT OF PATHOLOGY AND GENOMIC MEDICINE [address] [place] [address] * Ammonia level (05/12/2017 3:00 PM) Component Value Ref Range Ammonia 18 3 - 37 umol/L Specimen Performing Laboratory Plasma specimen [facility] DEPARTMENT OF PATHOLOGY AND GENOMIC MEDICINE [address] [place] [address] * Alcohol level, blood (05/12/2017 3:00 PM) Component Value Ref Range Alcohol None Detected mg/dL Comment: Normal None Detected Legal Intoxication in [place] 80 mg/dL (0.08%) Toxic Concentration 200 mg/dL (0.2%) Potentially Fatal 350-500 mg/dL (0.35%-0.5%) Alcohol percent None Detected % Specimen Performing Laboratory Blood [facility] DEPARTMENT OF PATHOLOGY AND GENOMIC MEDICINE [address] [place] [address] * Digoxin level (05/12/2017 3:00 PM) Component Value Ref Range Digoxin 0.2 (L) 0.8 - 2.0 ng/mL Comment: For valid Digoxin results, at least 6 hours should elapse between time of last dose and collection of blood. Otherwise, result may be false high. Therapeutic Range: 0.8 - 2.0 ng/mL Specimen Performing Laboratory Blood [facility] DEPARTMENT OF PATHOLOGY AND GENOMIC MEDICINE [address] [place] [address] * Urinalysis screen and microscopy, with reflex to culture (05/12/2017 2:10 PM) Component Value Ref Range Specimen site Catheterized Color, UA Yellow Appearance, UA Cloudy Specific gravity, UA 1.011 1.001 - 1.035 pH, UA 5.0 5.0 - 8.5 Protein, UA 3+ (A) Negative Glucose, UA Negative Negative Ketones, UA Negative Negative Bilirubin, UA Negative Negative Blood, UA Small (A) Negative Nitrite, UA Negative Negative Urobilinogen, UA Negative <2.0 Leukocyte esterase, UA Large (A) Negative Epithelial cells, UA Many /HPF WBC, UA >200 (H) 0 - 1 /HPF RBC, UA 11 (H) 0 - 1 /HPF Bacteria, UA Few None seen Yeast, UA None seen Yeast with pseudohyphae, None seen UA Specimen Performing Laboratory Urine [facility] DEPARTMENT OF PATHOLOGY AND GENOMIC MEDICINE [address] [place] [address] * Mycoplasma pneumoniae Ab, IgM (05/12/2017 2:10 PM) Component Value Ref Range Mycoplasma pneumo IgM 0.36 <=0.76 U/L Comment: INTERPRETIVE INFORMATION: Mycoplasma pneumoniae Ab, IgM 0.76 U/L or less .......... Negative: No clinically significant amount of M. pneumoniae IgM antibody detected. 0.77 - 0.95 U/L ........... Low Positive: M. pneumoniae- specific IgM presumptively detected. Collection of a follow-up sample in 1-2 weeks is recommended to assure reactivity. 0.96 U/L or greater ....... Positive: Highly significant amount of M. pneumoniae- specific IgM antibody detected. However, low levels of IgM antibodies may occasionally persist for more than 12 months post-infection. Performed by [facility], [address] [place] [address] [email or web address] Javier Spencer MD - Lab. Director Specimen Performing Laboratory Serum [facility] [address] [place] [address] * Urine drugs of abuse screen (05/12/2017 2:10 PM) Component Value Ref Range Amphetamine screen, urine NEG Barbiturate screen, urine NEG Benzodiazepine screen, NEG urine Cocaine screen, urine NEG Methadone screen, urine NEG Opiates screen, urine NEG Phencyclidine screen, NEG urine Cannabinoid screen, urine NEG Comment: Drug screen minimum concentration of detectability Amphetamines 1000 ng/mL Methamphetamines 1000 ng/mL Barbiturates 300 ng/mL Benzodiazepines 300 ng/mL Cocaine 300 ng/mL Methadone 3 00 ng/mL Opiates 300 ng/mL Phencyclidine 25 ng/mL Cannabinoids 50 ng/mL Tricyclics 1000 ng/mL Negative test results indicates presumptive evidence of lack of clinically significant drug concentration in this urine specimen. Positive test results are presumptive evidence of clinically significant drug concentration in this urine specimen. Testing performed for medical purposes only. Specimen Performing Laboratory Urine [facility] DEPARTMENT OF PATHOLOGY AND GENOMIC MEDICINE [address] [place] [address] * Urine culture (05/12/2017 2:10 PM) Component Value Ref Range Urine culture isolate Gram positive cathy 10-1 cfu/ml (A) Comment: Specimen Information Specimen Source: Urine Specimen Site: See Specimen Performing Laboratory Urine [facility] DEPARTMENT OF PATHOLOGY AND GENOMIC MEDICINE [address] [place] [phone] after 01/18/2017 Insurance Payer Benefit Subscriber ID Type Phone Address Plan / Group [employer] xxxxxxxx [facility] MEDICAID [facility] xxxxxxxxx HMO COMM STAR+ [id number]
[2018-01-19 10:55] LABS: BASOPHILS % 0.4 % (0.0-1.0); EOSINOPHILS # (AUTO) 0.1 (0.0-0.4); EOSINOPHILS % 0.9 % (0.0-6.0); HEMATOCRIT 27.6 % (38.2-49.6); HEMOGLOBIN 9.2 g/dL (14.0-18.0); LYMPHOCYTES # (AUTO) 2.4 (1.0-3.2); LYMPHOCYTES % 21.7 % (18.0-39.1); MEAN CORPUSCULAR HEMOGLOBIN 25.4 pg (28-32); MEAN CORPUSCULAR HGB CONC 33.3 g/dL (31-35); MEAN CORPUSCULAR VOLUME 76.2 fL (81-99); MONOCYTES # (AUTO) 0.8 (0.2-0.8); MONOCYTES % 7.5 % (4.4-11.3); NEUTROPHILS # (AUTO) 7.6 (2.1-6.9); NEUTROPHILS % 68.9 % (38.7-80.0); PLATELET COUNT 189 x10e3/uL (140-360); RED BLOOD COUNT 3.62 x10e6/uL (4.3-5.7); RED CELL DISTRIBUTION WIDTH 16.5 % (11.7-14.4)
[2018-01-19] MEDS ORDERED: ONDANSETRON HCL INJ 2 MG/ML VIAL IV STA (10:58)
[2018-01-19] MEDS ORDERED: SODIUM CHLORIDE 0.9% 1000ML 500 ML IV STA (10:58)
[2018-01-19] MEDS ORDERED: SODIUM CHLORIDE 0.9% 1000ML 1,000 ML IV STA (10:58)
[2018-01-19] MEDS ORDERED: PANTOPRAZOLE 40 MG 10ML VIAL IV STA (10:58)
[2018-01-19] MEDS ORDERED: FENTANYL CITRATE/PF 100MCG/2 ML INJ IV ONE (11:00)
[2018-01-19 11:01] LABS: INR 1.2; PROTHROMBIN TIME 14.3 seconds (11.9-14.5)
[2018-01-19 11:02] LABS: PARTIAL THROMBOPLASTIN TIME 32.7 seconds (23.8-35.5)
[2018-01-19 11:11] LABS: MAGNESIUM 1.8 MG/DL (1.3-2.1)
[2018-01-19] MEDS ORDERED: LEVOFLOXACIN 500MG/D5W 100ML 100 ML IV ONE (11:15)
[2018-01-19] MEDS ORDERED: METRONIDAZOLE 500MG/NS 100ML 100 ML IV ONE (11:15)
[2018-01-19 11:25] LABS: ALBUMIN 3.2 g/dL (3.5-5.0); ALBUMIN/GLOBULIN RATIO 0.9 (0.8-2.0); ANION GAP 17.3 mmol/L (8-16); CALCIUM 8.4 mg/dL (8.4-10.2); CREATININE, SERUM 3.93 mg/dL (0.72-1.25); POTASSIUM 4.3 mmol/L (3.5-5.1)
--- NOTE | 2018-01-19 11:27 | Diagnostic Imaging Report ---
PROCEDURE: A single AP view of the chest. COMPARISON: 12/01/16 INDICATIONS: LOSS OF APPETITIE, UPPER ABDOMINAL PAIN FINDINGS: Lines/tubes: None. Lungs: Low lung volumes. Mild central vascular congestion and prominent interstitial lung markings, accentuated by low lung volumes. There is no evidence of pneumonia or pulmonary edema. Pleura: There is no pleural effusion or pneumothorax. Heart and mediastinum: The cardiomediastinal silhouette is enlarged. Bones: No acute bony abnormality. Degenerative changes of the shoulder joints. IMPRESSION: Enlarged cardiomediastinal silhouette, mild central vascular congestion, and prominent interstitial lung markings, accentuated by low lung volumes. Dictated by: Hector Giordano M.D. on 01/19/2018 at 11:27 Electronically approved by: Hector Giordano M.D. on 01/19/2018 at 11:27
[2018-01-19] MEDS ORDERED: SODIUM CHLORIDE 0.9% 1000ML 1,000 ML IV SCH ×2 (11:33→11:45)
[2018-01-19] MEDS ORDERED: ONDANSETRON HCL INJ 2 MG/ML VIAL IV PRN (11:45)
[2018-01-19] MEDS ORDERED: DEXTROSE 50% SYRINGE 50 ML IV PRN (11:45)
--- OUTSIDE RECORDS SUMMARY | 2018-01-19 12:13 | XMS REPORT | Clinical Summary ---
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); Anemia, unspecified type; Normocytic hypochromic anemia 12/01/2017 Lab Lab Teofilo Edmond Jr., MD Severe uncontrolled diabetes mellitus (Primary Dx) 11/24/2017 Lab Lab Teofilo Edmond Jr., MD Hyperglycemic coma (Primary Dx); Hypertensive heart disease with congestive heart failure; Hypothyroidism, unspecified type 05/13/2017 Procedure Pass General Internal Medicine 05/13/2017 Procedure Pass General Internal Medicine 05/12/2017 [facility] General Internal Medicine Felicia Soria, Sepsis, [...] Procedure Name Priority Date/Time Associated Diagnosis Comments CO INSERT NON-TUNNEL CV Routine 05/13/2017 Results for this CATH 11:01 AM CDT procedure are in the results section. INTUBATION Routine 05/13/2017 Results for this 11:01 AM CDT procedure are in the results section. CO CRITICAL CARE, E/M Routine 05/13/2017 Results for this 30-74 MINUTES 11:01 AM CDT procedure are in the results section. ECHOCARDIOGRAM 2D Routine 05/13/2017 Results for this COMPLETE W MMODE SPECTRAL 9:31 AM CDT procedure are in the COLOR DOPPLER (20110) results section. after 01/18/2017 Results * Total iron binding capacity (12/15/2017 10:00 AM) Component Value Ref Range Iron level 80 76 - 198 ug/dL Iron binding capacity 250 (L) 271 - 474 ug/dL % Saturation 32.0 20.0 - 40.0 % Specimen Performing Laboratory Plasma specimen [facility] DEPARTMENT OF PATHOLOGY AND GENOMIC MEDICINE [address] [place] [address] * Occult blood, stool (12/15/2017 10:00 AM) Component Value Ref Range Occult blood, stool Negative for occult blood. Comment: Specimen Information Specimen Source: Stool Specimen Site: non preserved Specimen Performing Laboratory Stool [facility] DEPARTMENT OF PATHOLOGY AND GENOMIC MEDICINE [address] [place] [address] * Manual differential (12/01/2017 1:00 PM) Only [...] Enlarged platelets 1+ Specimen Performing Laboratory [facility] DEPARTMENT OF PATHOLOGY AND GENOMIC MEDICINE [place] [address] Narrative PLS FAX TO [facility] * CBC with platelet and differential [...] 1.2 % Specimen Performing Laboratory Blood [facility] DEPARTMENT OF PATHOLOGY AND GENOMIC MEDICINE [address] [place] [address] [place] [address] Narrative PLS FAX TO [employer] * Estimated GFR (11/24/2017 11:00 AM) Only [...] Americans. Specimen Performing Laboratory Plasma specimen [facility] DEPARTMENT OF PATHOLOGY AND [employer] MEDICINE [address] [place] [address] [facility] PLS FAX TO [employer] * Thyroid stimulating hormone (11/24/2017 11:00 AM) Only the most recent of 4 results within the time period is included. Component Value Ref Range TSH 0.95 0.38 - 4.82 uIU/mL Specimen Performing Laboratory Plasma specimen [facility] DEPARTMENT OF PATHOLOGY AND GENOMIC MEDICINE [address] [place] [address] Narrative PLS FAX TO [facility] * Comprehensive metabolic panel (11/24/2017 11:00 AM) [...] mg/dL Specimen Performing Laboratory Plasma specimen [facility] DEPARTMENT OF PATHOLOGY AND GENOMIC MEDICINE [address] [place] [address] Narrative PLS FAX TO [facility] * POC glucose (05/21/2017 11:27 AM) Only the most recent of 45 results within the time period is included. Component Value Ref Range POC glucose 162 (H) 65 - 100 mg/dL Comment: Meter ID: [id number] Fuel Yard Operator: Deny Aguirre Specimen Performing Laboratory [facility] DEPARTMENT OF PATHOLOGY AND GENOMIC MEDICINE [address] [place] [address] * Phosphorus level (05/21/2017 6:18 AM) Only the most recent of 7 results within the time period is included. Component Value Ref Range Phosphorus 4.0 2.5 - 4.5 mg/dL Specimen Performing Laboratory Plasma specimen [facility] DEPARTMENT OF PATHOLOGY AND GENOMIC MEDICINE [address] [place] [address] * Magnesium level (05/21/2017 6:18 AM) Only the most recent of 7 results within the time period is included. Component Value Ref Range Magnesium 2.50 (H) 1.60 - 2.40 mg/dL Specimen Performing Laboratory Plasma specimen [facility] DEPARTMENT OF PATHOLOGY AND GENOMIC MEDICINE [address] [place] [address] * Basic metabolic panel (05/21/2017 6:18 AM) [...] mg/dL Specimen Performing Laboratory Plasma specimen [facility] DEPARTMENT OF PATHOLOGY AND GENOMIC MEDICINE [address] [facility] [place] [address] * Smear review (05/21/2017 5:51 AM) Only the most recent of 3 results within the time period is included. Component Value Ref Range Platelet slide review Mkd decreased (A) Polychromasia Few Schistocytes Few Target cells Occasional Specimen Performing Laboratory [facility] DEPARTMENT OF PATHOLOGY AND GENOMIC MEDICINE [address] [place] [address] [place] [address] * Immature platelet fraction (05/21/2017 5:51 AM) Only the most recent of 5 results within the time period is included. Component Value Ref Range IPF percentage 11.1 (H) 1.0 - 5.8 % Specimen Performing Laboratory [facility] DEPARTMENT OF PATHOLOGY AND GENOMIC MEDICINE [address] [place] [address] [place] [address] * PV carotid duplex (05/14/2017 10:04 PM) Specimen Performing Laboratory [address] [address] Narrative Examination: US CAROTID DUPLEX BILATERAL CLINICAL [...] (less than 50%). Bilateral antegrade vertebral flow. [facility]-[id number] Procedure Note [facility], Radiology Results Incoming - 05/14/2017 10:34 PM [...] (less than 50%). Bilateral antegrade vertebral flow. [facility]-[id number] * Arterial blood gas (05/14/2017 7:15 AM) Only the most recent of 4 results within the time period is included. Component Value Ref Non Destructive Testing Inspector [facility] Collection site RRA O2 therapy VENT Respiratory [...] 168.8 mmHg Specimen Performing Laboratory Blood [facility] DEPARTMENT OF PATHOLOGY AND GENOMIC MEDICINE [address] [place] [address]. [place] [address] * XR Chest 1 Vw Portable (05/14/2017 6:48 AM) Only the most recent of 4 results within the time period is included. Specimen Performing Laboratory [facility] [place] [address] Narrative EXAMINATION:XR CHEST 1 VW PORTABLE CLINICAL HISTORY:Ventilator Patient COMPARISON:Yesterday IMPRESSION: Support lines and tubes unchanged. Extensive airspace opacities bilaterally have worsened bilaterally. Otherwise stable [facility]-[id number] Procedure Note Hm Interface, Radiology Results Incoming - 05/14/2017 7:09 AM CDT EXAMINATION: XR CHEST 1 VW PORTABLE CLINICAL HISTORY: Ventilator Patient COMPARISON: Yesterday IMPRESSION: Support lines and tubes unchanged. Extensive airspace opacities bilaterally have worsened bilaterally. Otherwise stable [facility]-[id number] * MRI Brain Wo Contrast (05/13/2017 5:56 PM) Specimen Performing Laboratory [facility] [address] [place] [address] Narrative EXAMINATION:MRI BRAIN WO CONTRAST CLINICAL HISTORY:cva [...] Cheri, at 6:10 PM. She verbalized understanding. [facility]-[id number] Procedure Note Interface, Radiology Results Incoming - [...] Cheri, at 6:10 PM. She verbalized understanding. [facility]-[id number] * MRI Cervical Spine Wo Contrast (05/13/2017 5:56 PM) Specimen Performing Laboratory [facility] [address] [place] [address] Narrative EXAMINATION:MRI CERVICAL SPINE WO CONTRAST CLINICAL [...] canal results in multilevel moderate canal stenosis. [facility]-[id number] Procedure Note Hm Interface, Radiology Results Incoming [...] canal results in multilevel moderate canal stenosis. [facility]-[id number] * Respiratory pathogen panel (05/13/2017 11:30 AM) [...] Left Specimen Performing Laboratory Nares - Left [facility] DEPARTMENT OF PATHOLOGY AND GENOMIC MEDICINE [address] [place] [address] * Streptococcus pneumoniae urinary antigen (05/13/2017 11:30 AM) Component Value Ref Range Strep pneumo urinary Ag Negative for Streptococcus pneumoniae antigen. Comment: Specimen Information Specimen Source: Urine Specimen Site: [place] Specimen Performing Laboratory Urine - [facility] DEPARTMENT OF PATHOLOGY AND [facility] MEDICINE [address] [place] [address] * Legionella urinary antigen (05/13/2017 11:30 AM) Component Value Ref Range Legionella urinary Negative for Legionella serogroup 1 antigen. antigen Comment: Specimen Information Specimen Source: Urine Specimen Site: [place] Specimen Performing Laboratory Urine - [facility] DEPARTMENT OF PATHOLOGY AND GENOMIC MEDICINE [address] [place] [address] * Influenza antigen (05/13/2017 11:30 AM) Component Value Ref Range Influenza antigen Negative for Influenza A/B antigen. Comment: Specimen Information Specimen Source: Nares Specimen Site: Right Specimen Performing Laboratory Nares Right [facility] DEPARTMENT OF PATHOLOGY AND GENOMIC MEDICINE [facility] [place] [address] * ECG ED Preliminary Interpretation - NOT AN ORDER (05/13/2017 11:01 AM) Leana Soria MD 05/13/2017 11:01 AM ECG ED Preliminary Interpretation - Not an Order Performed by: FELICIA SORIA Authorized by: FELICIA SORIA ECG reviewed by ED Physician in the absence of a human resources designate: yes Previous ECG: Previous ECG:Unavailable Rate: ECG [...] by: FELICIA SORIA Consent: Consent obtained:Emergent situation [place]ett protocol: Imaging studies available: yes Patient identity [...] by: FELICIA SORIA Consent: Consent obtained:Emergent situation Cro[place]ett protocol: Patient identity confirmed:Arm band Pre-procedure details: [...] R1 8.58 Specimen Performing Laboratory [facility] [address] [place] [address] * Troponin (05/13/2017 4:25 AM) Only the [...] injury. Specimen Performing Laboratory Plasma specimen [facility] DEPARTMENT OF PATHOLOGY AND GENOMIC MEDICINE [place] [address] * Partial thromboplastin time, activated (05/13/2017 4:25 [...] this result. Specimen Performing Laboratory Blood [facility] DEPARTMENT OF PATHOLOGY AND GENOMIC MEDICINE [address] [place] [address] [place] [address] * Prothrombin time with INR (05/13/2017 4:25 [...] over 4.0. Specimen Performing Laboratory Blood [facility] DEPARTMENT OF PATHOLOGY AND GENOMIC MEDICINE [address] [place] [address] [place] [address] * T3, free (05/13/2017 4:25 AM) Component Value Ref Range T3, free 3.80 2.18 - 3.98 pmol/L Specimen Performing Laboratory Plasma specimen [facility] DEPARTMENT OF PATHOLOGY AND GENOMIC MEDICINE [address] [place] [address] [place] [address] * B natriuretic peptide (05/13/2017 4:25 AM) Component Value Ref Range BNP 506 (H) 0 - 100 pg/mL Specimen Performing Laboratory [facility] DEPARTMENT OF PATHOLOGY AND GENOMIC MEDICINE [address] [place] [address] [place] [address] * Lactic acid level (05/13/2017 4:25 AM) Only the most recent of 3 results within the time period is included. Component Value Ref Range Lactic acid 1.3 0.5 - 2.2 mmol/L Specimen Performing Laboratory Blood [facility] DEPARTMENT OF PATHOLOGY AND GENOMIC MEDICINE [address] [place] [address] [place] [address] * Hemoglobin A1c (05/13/2017 4:25 AM) Component [...] indicated. (A DA94) Specimen Performing Laboratory [facility] DEPARTMENT OF PATHOLOGY AND GENOMIC MEDICINE [address] [place], [place] [address] * Ionized calcium (05/13/2017 4:25 AM) Only the most recent of 2 results within the time period is included. Component Value Ref Range pH 7.36 Ionized calcium 1.17 1.11 - 1.32 mmol/L Specimen Performing Laboratory Plasma specimen [facility] DEPARTMENT OF PATHOLOGY AND GENOMIC MEDICINE [address] [place] [address] * Vancomycin level, random (05/13/2017 4:25 AM) Component Value Ref Range Vancomycin, random 15.2 ug/mL Comment: Therapeutic Ranges: Peak 30.0 - 40.0 ug/mL Trough 10.0 - 20.0 ug/mL Specimen Performing Laboratory Blood [facility] DEPARTMENT OF PATHOLOGY AND GENOMIC MEDICINE [address] [place], [place] [address] * Lipid panel (05/13/2017 4:25 AM) Component Value Ref Range Cholesterol 120 120 - 200 mg/dL Triglycerides 92 50 - 150 mg/dL HDL cholesterol 51 40 - 60 mg/dL LDL cholesterol 42Comment: Result obtained by direct LDL mg/dL measurement Specimen Performing Laboratory Plasma specimen [facility] DEPARTMENT OF PATHOLOGY AND GENOMIC MEDICINE [address] [place] [address] * CT Abdomen Pelvis Wo Contrast (05/12/2017 8:50 PM) Specimen Performing Laboratory [facility] [address] [place] [address] Narrative EXAMINATION:CT ABDOMEN PELVIS WO CONTRAST CLINICAL [...] on prior examination is no longer present [facility]-[id number] Procedure Note [facility], Radiology Results Incoming - 05/12/2017 9:07 PM [...] on prior examination is no longer present [facility]-[id number] * CT Chest Wo Contrast (05/12/2017 8:49 PM) Specimen Per[facility] [address] [place] [address] Narrative EXAMINATION: CT CHEST WO CONTRAST CLINICAL [...] Apheresis Platelet ACDA LRIRR #1 Unit number [id number] Product code [id number] Dispense status Transfused Blood expiration date 20170513 Blood type code 8400Comment: 22:10 Kay Manjarrez Blood type AB POSITIVE Specimen Performing Laboratory [facility] DEPARTMENT OF PATHOLOGY AND GENOMIC MEDICINE [address] [place] [address] * Prepare RBC, 2 Units (05/12/2017 8:20 PM) Component Value Ref Range Product name Apheresis -1 LR #2 Unit number [id number] Product code [id number] Dispense status Transfused Blood expiration date 20170531 Blood type code 5100Comment: 22:13 Kay Manjarrez Blood type O POSITIVE Product name Apheresis -1 LR #1 Unit number [id number] Product code [id number] Dispense status Transfused Blood expiration date 20170606 Blood type code 5100 Blood type O POSITIVE Specimen Performing Laboratory [facility] DEPARTMENT OF PATHOLOGY AND GENOMIC MEDICINE [address] [place] [address] [place] [address] * Type and screen (05/12/2017 8:20 PM) Component Value Ref Range ABO grouping O Rh type POS Antibody screen (gel) NEG Specimen Performing Laboratory Blood [facility] DEPARTMENT OF PATHOLOGY AND GENOMIC MEDICINE [address] [place] [address] [place] [address] * Sputum culture (05/12/2017 8:14 PM) Component Value Ref Range Sputum culture isolate Normal oral cathy isolated. Comment: Specimen Information Specimen Source: Sputum Specimen Site: Induced Specimen Performing Laboratory Sputum - Induced [facility] DEPARTMENT OF PATHOLOGY AND GENOMIC MEDICINE [address] [place] [address] * Gram stain (05/12/2017 8:14 PM) Only the most recent of 2 results within the time period is included. Component Value Ref Range Gram stain isolate Rare WBC's Occasional Gram positive cocci in pairs Comment: Specimen Information Specimen Source: Sputum Specimen Site: Induced Specimen Performing Laboratory Sputum - Induced [facility] DEPARTMENT OF PATHOLOGY AND GENOMIC MEDICINE [address] [place] [address] * Cortisol, 30 minutes (05/12/2017 7:43 PM) Component Value Ref Range Cortisol, 30 min 10 ug/dL Comment: Normal response to 0.25 mg 1-24 ACTH (cosyntropin) is a peak cortisol concentration of greater than 14 ug/dL at either 30 minutes or 60 minutes post-stimulation. Specimen Performing Laboratory Plasma specimen [facility] DEPARTMENT OF PATHOLOGY AND GENOMIC MEDICINE [address] [place] [address] * Consult to Sepsis Response Team (05/12/2017 [...] mL (dosing weight) Please refer to the [facility] for actual med/fluid administrations. * CK-MB (05/12/2017 7:10 PM) Component Value Ref Range CK-MB 6.7 (H) 0.5 - 3.2 ng/mL Specimen Performing Laboratory Plasma specimen [facility] DEPARTMENT OF PATHOLOGY AND GENOMIC MEDICINE [facility] [address] * Adrenocorticotropic hormone (05/12/2017 7:10 PM) Component Value Ref Range Adrenocorticotropic <1.0 (L) 7.2 - 63.3 pg/mL hormone Specimen Performing Laboratory Blood [facility] DEPARTMENT OF PATHOLOGY AND GENOMIC MEDICINE [address] [place] [address] * T3 (05/12/2017 7:10 PM) Component Value Ref Range T3 59 (L) 80 - 200 ng/dL Specimen Performing Laboratory Plasma specimen [facility] DEPARTMENT OF PATHOLOGY AND GENOMIC MEDICINE [address] [place] [address] * T4, free (05/12/2017 7:10 PM) Component Value Ref Range T4, free 1.39 0.70 - 1.61 ng/dL Specimen Performing Laboratory Plasma specimen [facility] DEPARTMENT OF PATHOLOGY AND GENOMIC MEDICINE [facility] [address] * Lipase level (05/12/2017 7:10 PM) Component Value Ref Range Lipase 99 65 - 230 U/L Specimen Performing Laboratory Plasma specimen [facility] DEPARTMENT OF PATHOLOGY AND GENOMIC MEDICINE [address] [place] [address] * Creatine kinase, total (CPK) (05/12/2017 7:10 PM) Component Value Ref Range Creatine kinase 60 (L) 61 - 224 U/L Specimen Performing Laboratory Plasma specimen [facility] DEPARTMENT OF PATHOLOGY AND GENOMIC MEDICINE [address] [place] [address] * Cortisol level, random (05/12/2017 7:10 PM) Component Value Ref Range Cortisol, random 10 ug/dL Comment: Reference Ranges are not established for non-timed Cortisol levels. Reference Range for Timed Cortisol: 6 - 10 AM 6 - 18 ug/dl 4 - 8 PM 3 - 11 ug/dl Specimen Performing Laboratory Plasma specimen [facility] DEPARTMENT OF PATHOLOGY AND [facility] MEDICINE [address] [place] [address] * ECG 12 lead (05/12/2017 6:18 PM) Only the most recent of 2 results within the time period is included. Component Value Ref Range Ventricular rate 47 Atrial rate 47 CO interval 140 QRSD interval 130 QT interval [...] evident in Anterolateral leads- Specimen Performing Laboratory [facility] [address]USE [address] [place], [place] [id number] * CT Head Wo Contrast (05/12/2017 3:31 PM) Specimen Performing Laboratory [facility] [address] [place] [address] Narrative EXAMINATION: CT HEAD WO CONTRAST CLINICAL [...] intracranial abnormality identified. Chronic changes as described. [id number] Procedure Note [facility], Radiology Results Incoming - 05/12/2017 3:38 PM [...] intracranial abnormality identified. Chronic changes as described. [facility]-[id number] * Blood culture, aerobic & anaerobic (05/12/2017 3:17 PM) Only the most recent of 2 results within the time period is included. Component Value Ref Range Blood culture isolate No growth after 5 days of incubation. Comment: Specimen Information Specimen Source: Blood Specimen Site: Left Wrist Specimen Performing Laboratory Blood [facility] DEPARTMENT OF PATHOLOGY AND GENOMIC MEDICINE [address] [place] [address] * Ammonia level (05/12/2017 3:00 PM) Component Value Ref Range Ammonia 18 3 - 37 umol/L Specimen Performing Laboratory Plasma specimen [facility] DEPARTMENT OF PATHOLOGY AND GENOMIC MEDICINE [address] [place] [address] * Alcohol level, blood (05/12/2017 3:00 PM) Component Value Ref Range Alcohol None Detected mg/dL Comment: Normal None Detected Legal Intoxication in [place] 80 mg/dL (0.08%) Toxic Concentration 200 mg/dL (0.2%) Potentially Fatal 350-500 mg/dL (0.35%-0.5%) Alcohol percent None Detected % Specimen Performing Laboratory Blood [facility] DEPARTMENT OF PATHOLOGY AND GENOMIC MEDICINE [address] [facility] [address] [place] [address] * Digoxin level (05/12/2017 3:00 PM) Component Value Ref Range Digoxin 0.2 (L) 0.8 - 2.0 ng/mL Comment: For valid Digoxin results, at least 6 hours should elapse between time of last dose and collection of blood. Otherwise, result may be false high. Therapeutic Range: 0.8 - 2.0 ng/mL Specimen Performing Laboratory Blood [facility] DEPARTMENT OF PATHOLOGY AND GENOMIC MEDICINE [address] [place] [address] * Urinalysis screen and microscopy, with reflex [...] seen UA Specimen Performing Laboratory Urine [facility] DEPARTMENT OF PATHOLOGY AND GENOMIC MEDICINE [address] [place] [address] * Mycoplasma pneumoniae Ab, IgM (05/12/2017 2:10 [...] more than 12 months post-infection. Performed by [employer], [address] [place] [address] [email or web address], Javier Spencer MD - Lab. Director Specimen Performing Laboratory Serum [facility] [address] [place] [address] * Urine drugs of abuse screen (05/12/2017 [...] purposes only. Specimen Performing Laboratory Urine [facility] DEPARTMENT OF PATHOLOGY AND GENOMIC MEDICINE [address] [facility] [place] [address] * Urine culture (05/12/2017 2:10 PM) Component Value Ref Range Urine culture isolate Gram positive cathy 10-1 cfu/ml (A) Comment: Specimen Information Specimen Source: Urine Specimen Site: See Specimen Performing Laboratory Urine [facility] DEPARTMENT OF PATHOLOGY AND GENOMIC MEDICINE [address] [place] [address] after 01/18/2017 Insurance Payer Benefit Subscriber ID Type Phone Address Plan / Group [employer] WE[employer] xxxxxxxx O [facility] HMO COMM STAR+ QAMAR
--- OUTSIDE RECORDS SUMMARY | 2018-01-19 12:13 | XMS REPORT ---
Author Author [facility] Address Unknown Phone Unavailable Care Team Providers Care Ore Bridge Operator Name Role Phone HERMANN ACUNA Unavailable Unavailable Problems This patient has no known problems. Allergies, Adverse Reactions, Alerts This patient has no known allergies or adverse reactions. Medications This patient has no known medications. Results Test Description Test Time Test Comments Text Results Atomic Results Result Comments CHEST SINGLE (PORTABLE) [place] [id number] [place] [address] Patient Name: ANUJ GARZA MR #: [id number] : 1955 Age/Sex: 62/M Req #: [id number] Adm Physician: Ordered by: AUGIE RIGGS LASER/ELECTRO OPTICS TECHNICIAN Report #: [id number] Location: ER Room/Bed: Procedure: [id number] DX/CHEST SINGLE (PORTABLE) Exam Date: 01/19/18 Exam Time: 1106 REPORT STATUS: Signed PROCEDURE: A single AP view of the chest. COMPARISON: 12/01/16 INDICATIONS: LOSS OF APPETITIE, UPPER ABDOMINAL PAIN FINDINGS: Lines/tubes: None. Lungs: Low lung volumes. Mild central vascular congestion and prominent interstitial lung markings, accentuated by low lung volumes. There is no evidence of pneumonia or pulmonary edema. Pleura: There is no pleural effusion or pneumothorax. Heart and mediastinum: The cardiomediastinal silhouette is enlarged. Bones: No acute bony abnormality. Degenerative changes of the shoulder joints. IMPRESSION: Enlarged cardiomediastinal silhouette, mild central vascular congestion, and prominent interstitial lung markings, accentuated by low lung volumes. Dictated by: Hector Miller M.D. on 01/19/2018 at 11:27 Electronically approved by: Hector Miller M.D. on 01/19/2018 at 11:27 Dictated By: HECTOR MILLER MD [id number] Transcribed By: TRISTON on 01/19/18 1127 COPY TO: AUGIE RIGGS NP
[2018-01-19 12:34] LABS: BILIRUBIN,URINE NEGATIVE (NEGATIVE); KETONES,URINE NEGATIVE (NEGATIVE); LEUKOCYTE ESTERASE ,URINE NEGATIVE (NEGATIVE); NITRITE,URINE NEGATIVE (NEGATIVE); URINE UROBILINOGEN 0.2 mg/dL (0.2 - 1)
[2018-01-19 12:35] LABS: PROTEIN,URINE DIPSTICK 2+ (NEGATIVE)
[2018-01-19 12:36] LABS: CLARITY,URINE HAZY (CLEAR); COLOR,URINE YELLOW (YELLOW)
[2018-01-19 12:41] VITALS: BP 195/93
[2018-01-19 12:52] LABS: CREATINE KINASE MB 9.4 ng/mL (0-5.0)
--- NOTE | 2018-01-19 12:54 | Diagnostic Imaging Report ---
EXAM: CT Abdomen and Pelvis WITHOUT contrast INDICATION: \S\ABD PAIN \S\[id number] \S\1200 COMPARISON: Renal ultrasound dated 09/27/2016 TECHNIQUE: Abdomen and pelvis were scanned utilizing a multidetector helical scanner from the lung base to the pubic symphysis without administration of IV contrast. Absence of intravenous contrast decreases sensitivity for detection of focal lesions and vascular pathology. Coronal and sagittal reformations were obtained. Routine protocol was performed. IV CONTRAST: None ORAL CONTRAST: Water COMPLICATIONS: None RADIATION DOSE: Total DLP: 451.38 mGy*cm Estimated effective dose: (DLP x 0.015 x size factor) mSv CTDIvol has been reviewed. It is below the limits set by the Radiation Protocol Committee (RPC). FINDINGS: LINES and TUBES: None. LOWER THORAX: Cardiomegaly. Mild posterior right base hazy opacities (series 2, image 1). HEPATOBILIARY: Ill-defined 1 cm hypodensity (series 2, image 22) is too small to characterize on this unenhanced study. Another too small to characterize segment 7 hypodensity (series 2, image 14). No biliary ductal dilation. GALLBLADDER: Not clearly visualized, probably contracted. SPLEEN: No splenomegaly. PANCREAS: No focal masses or ductal dilatation. ADRENALS: 2.5 x 2.3 cm left adrenal and 3.4 x 2.3 cm right adrenal nodules with internal attenuation of 10 Hounsfield units or less, representing adenomas. KIDNEYS/URETERS: No hydronephrosis. There are bilateral renal parenchymal hypodensities which cannot be fully characterized without intravenous contrast and are probably cysts. For example 2.0 cm anterior left inferior pole hypodensity. There is also anterior left inferior pole cortical calcification. No stones. GI TRACT: No abnormal distention or evidence of bowel obstruction. Low rectal wall thickening. Appendix is normal. PELVIC ORGANS/BLADDER: Bladder wall thickening. LYMPH NODES: No lymphadenopathy. VESSELS: Limited evaluation without intravenous contrast. No abdominal aortic aneurysm. Moderate aortoiliac atherosclerotic calcifications. PERITONEUM / RETROPERITONEUM: No free air or fluid. 1.1 cm irregular left retroperitoneal nodule (series 2, image 32), related to prior procedures. BONES: Degenerative changes of spine. L5 vertebral body sclerotic focus is probably a bone island (series 2, image 54). SOFT TISSUES: Partially imaged 4.2 x 2.2 right breast mass versus gynecomastia (series 2, image 1). Mild subcutaneous edema. IMPRESSION: Limited study without intravenous contrast. 1. Mild posterior right lung base haziness may represent atelectasis versus less likely developing pneumonia. 2. Bilateral adrenal nodules, representing adenomas. 3. Low rectal wall thickening, may represent proctitis in the appropriate clinical setting. 4. Bladder wall thickening, can represent cystitis. Please correlate with urinalysis. 5. Partially imaged right breast mass versus gynecomastia. Recommend correlation with physical exam and if indicated nonurgent ultrasound. 6. Renal hypodensities as well as subcentimeter hepatic hypodensities cannot be evaluated on this unenhanced study. If clinically indicated, nonurgent abdominal ultrasound can be obtained for further evaluation. 7. 1.1 cm left retroperitoneal nodule could be related to prior procedures. Recommend attention on follow-up examination. Signed by: Dr. Hector Giordano MD on 01/19/2018 12:50 PM
[2018-01-19 12:56] LABS: BACTERIA,URINE RARE /HPF; EPITHELIAL CELLS,URINE RARE /LPF
[2018-01-19 12:57] LABS: AMORPHOUS SEDIMENT,URINE MODERATE (FEW)
[2018-01-19] MEDS: IPRATROPIUM BROMIDE 0.02% 2.5 ML NEB NEB SCH ×2 (13:00→20:15)
[2018-01-19] MEDS: ALBUTEROL SULF 0.083% NEB SOLN 3 ML NEB NEB SCH ×2 (13:00→20:15)
[2018-01-19] MEDS: LEVOFLOXACIN 250MG/D5W 50ML 50 ML IV SCH (13:00)
--- NOTE | 2018-01-19 13:23 | Diagnostic Imaging Report ---
PROCEDURE:US GALLBLADDER COMPARISON:Same day CT abdomen and pelvis. INDICATIONS:abdominal pain TECHNIQUE: Gutierrez-scale and color doppler transverse and longitudinal images of the right upper quadrant of the abdomen were obtained. FINDINGS: Liver: 14.4 cm in length in the right midclavicular line. Normal hepatic parenchymal echogenicity. No focal hepatic mass. Main portal vein: One cm in caliber. Hepatopedal flow. Gallbladder: No calculi, wall thickening, or pericholecystic fluid. Common Bile Duct: 0.6 cm in caliber. Sonographic Davis's sign: Reported as negative. Right kidney: 10.7 cm in length. Increased parenchymal echogenicity. No solid masses or hydronephrosis. 1.9 x 1.6 x 1.8 cm simple parenchymal cyst in the upper pole. Pancreas: The visualized portions are unremarkable. Inferior vena cava: Patent Aorta: Nonaneurysmal Ascites: None in the right upper quadrant of the abdomen. CONCLUSION: No sonographic evidence of cholelithiasis or acute cholecystitis. Simple right renal cyst. Increased renal cortical echogenicity suggestive of medical renal disease. Dictated by: Todd Fernandez M.D. on 01/19/2018 at 13:23 Electronically approved by: Todd Fernandez M.D. on 01/19/2018 at 13:23
[2018-01-19 13:27] LABS: THYROID STIMULATING HORMONE 0.426 uIU/mL (0.350-4.940)
[2018-01-19] MEDS ORDERED: METRONIDAZOLE 500MG/NS 100ML IV SCH (14:00)
[2018-01-19] MEDS: FENTANYL CITRATE/PF 100MCG/2 ML INJ IV SCH ×3 (14:00→21:42)
[2018-01-19] MEDS: CLONIDINE HCL 0.2 MG/24 HR 1 EA PATCH TOP SCH (14:32)
[2018-01-19] MEDS: HYDRALAZINE HCL 25 MG TAB PO SCH (15:32)
[2018-01-19] MEDS: METRONIDAZOLE 500MG/NS 100ML 100 ML IV SCH ×2 (15:48→21:42)
[2018-01-19 15:59] VITALS: BP 195/93
[2018-01-19 16:00] VITALS: BP 209/84
[2018-01-19 16:11] VITALS: BP 195/93
[2018-01-19] MEDS: INSULIN REGULAR, HUMAN 100 UNIT/1 ML 3ML VIAL SQ SCH ×2 (16:46→21:03)
[2018-01-19 21:12] VITALS: BP 177/88
[2018-01-19] MEDS: ACETAMINOPHEN 325 MG TAB PO PRN (21:35)
[2018-01-20] VITALS (7 sets, daily range): BP systolic 174–211; BP diastolic 74–93
[2018-01-20] MEDS: ALBUTEROL SULF 0.083% NEB SOLN 3 ML NEB NEB SCH ×4 (00:15→19:00)
[2018-01-20] MEDS: IPRATROPIUM BROMIDE 0.02% 2.5 ML NEB NEB SCH ×4 (00:15→19:00)
[2018-01-20] MEDS: HYDRALAZINE HCL 25 MG TAB PO SCH ×4 (00:49→18:21)
[2018-01-20] MEDS: FENTANYL CITRATE/PF 100MCG/2 ML INJ IV SCH ×3 (02:00→10:00)
[2018-01-20] MEDS: METRONIDAZOLE 500MG/NS 100ML 100 ML IV SCH ×3 (06:00→21:14)
[2018-01-20 07:02] LABS: BASOPHILS % 0.4 % (0.0-1.0); EOSINOPHILS % 0.5 % (0.0-6.0); HEMATOCRIT 23.6 % (38.2-49.6); LYMPHOCYTES # (AUTO) 1.6 (1.0-3.2); LYMPHOCYTES % 19.5 % (18.0-39.1); MEAN CORPUSCULAR HEMOGLOBIN 25.2 pg (28-32); MEAN CORPUSCULAR HGB CONC 32.6 g/dL (31-35); MEAN CORPUSCULAR VOLUME 77.1 fL (81-99); MONOCYTES # (AUTO) 0.6 (0.2-0.8); MONOCYTES % 7.3 % (4.4-11.3); NEUTROPHILS # (AUTO) 5.7 (2.1-6.9); NEUTROPHILS % 71.4 % (38.7-80.0); PLATELET COUNT 143 x10e3/uL (140-360); RED BLOOD COUNT 3.06 x10e6/uL (4.3-5.7); RED CELL DISTRIBUTION WIDTH 16.2 % (11.7-14.4)
[2018-01-20 07:21] LABS: HEMOGLOBIN 7.7 g/dL (14.0-18.0)
[2018-01-20] MEDS: INSULIN REGULAR, HUMAN 100 UNIT/1 ML 3ML VIAL SQ SCH ×2 (07:30→12:07)
[2018-01-20 07:31] LABS: ALBUMIN 2.9 g/dL (3.5-5.0); ALBUMIN/GLOBULIN RATIO 0.9 (0.8-2.0); ANION GAP 13.8 mmol/L (8-16); CALCIUM 8.3 mg/dL (8.4-10.2); CREATININE, SERUM 3.9 mg/dL (0.72-1.25); POTASSIUM 4.8 mmol/L (3.5-5.1)
[2018-01-20] MEDS ORDERED: PANTOPRAZOLE 40 MG 10ML VIAL IV SCH (09:00)
[2018-01-20] MEDS: METOPROLOL TARTRATE 50 MG TAB PO SCH ×2 (09:00→17:00)
[2018-01-20 09:15] LABS: LARGE PLATELETS FEW; PLATELET ESTIMATE ADEQUATE; RBC MORPHOLOGY COMMENT NORMAL
[2018-01-20] MEDS: LEVOFLOXACIN 250MG/D5W 50ML 50 ML IV SCH ×2 (11:45→12:03)
[2018-01-20] MEDS ORDERED: DEXTROSE 50% SYRINGE 50 ML IV PRN (13:45)
[2018-01-20] MEDS: QUETIAPINE FUMARATE 25 MG TAB PO SCH ×2 (14:25→21:14)
[2018-01-20] MEDS: GABAPENTIN 300 MG CAP PO SCH ×2 (14:26→20:27)
[2018-01-20] MEDS ORDERED: NIFEDIPINE CR 30 MG TAB PO ONE (14:30)
[2018-01-20] MEDS ORDERED: METOPROLOL TARTRATE 50 MG TAB PO ONE (14:30)
--- NOTE | 2018-01-20 15:48 | Diagnostic Imaging Report ---
EXAM: CT Chest WITHOUT contrast INDICATION: \S\PNEUMONIA \S\[id number] \S\1432 COMPARISON: CT abdomen/pelvis dated 01/19/2018 TECHNIQUE: Chest was scanned utilizing a multidetector helical scanner from the lung apex through the level of the adrenal glands without administration of IV contrast. Absence of intravenous contrast decreases sensitivity for detection of lymphadenopathy and vascular pathology. Coronal and sagittal reformations were obtained. Routine protocol was performed. IV CONTRAST: None COMPLICATIONS: None RADIATION DOSE: Total DLP: 491.08 mGy*cm Estimated effective dose: (DLP x 0.014 x size factor) mSv CTDIvol has been reviewed. It is below the limits set by the Radiation Protocol Committee (RPC). FINDINGS: LINES/ TUBES: None. LUNGS AND AIRWAYS: Evaluation of the lungs are limited by respiratory motion. Mild upper lobe predominant centrilobular emphysematous changes. Unchanged mild bilateral lower lobe hazy opacities. There is increased lower lobe linear atelectasis. Airways are normal. PLEURA: Trace bilateral pleural effusions. HEART AND MEDIASTINUM: The visualized thyroid gland is grossly unremarkable. No mediastinal, hilar or axillary lymphadenopathy. Scattered subcentimeter nonspecific mediastinal lymph nodes. Cardiomegaly. Hypodense blood pool, indicative of anemia. There is no pericardial effusion. Atherosclerotic calcification of coronary arteries. Main pulmonary artery measures 3.5 cm, suggestive of pulmonary hypertension. UPPER ABDOMEN: 3.5 cm right and 3.1 cm left adrenal adenomas. Internal attenuations are below 10 Hounsfield units. BONES: The visualized bony thorax is within normal limits. SOFT TISSUES: Bilateral symmetric gynecomastia. IMPRESSION: New trace bilateral pleural effusions with increased adjacent atelectasis. Unchanged minimal bilateral lower lobe groundglass/hazy opacities, which could represent atelectasis or less likely pneumonia. Please correlate clinically. Bilateral adrenal masses, consistent with adenomas. Signed by: Dr. Hector Giordano MD on 01/20/2018 3:44 PM
[2018-01-20] MEDS: INSULIN LISPRO 100 UNIT/1 ML 3ML VIAL SQ SCH ×2 (16:30→20:28)
[2018-01-20] MEDS: SENNOSIDES 8.6 MG TAB PO SCH (17:15)
[2018-01-20] MEDS: INSULIN DETEMIR 100 UNIT/ML PEN SQ SCH (17:15)
[2018-01-20] MEDS: TAMSULOSIN HCL 0.4 MG CAP PO SCH (20:27)
[2018-01-20] MEDS: HEPARIN SOD (PORCINE) 5,000 UNIT/ML VIAL SC SCH (20:28)
[2018-01-20] MEDS: HYDROCODONE/APAP 7.5MG-325MG 1 EA TAB PO PRN (20:29)
[2018-01-21] VITALS (7 sets, daily range): BP systolic 129–193; BP diastolic 66–94
[2018-01-21] MEDS: HYDRALAZINE HCL 25 MG TAB PO SCH ×4 (00:35→18:02)
[2018-01-21] MEDS: IPRATROPIUM BROMIDE 0.02% 2.5 ML NEB NEB SCH ×4 (01:00→19:00)
[2018-01-21] MEDS: ALBUTEROL SULF 0.083% NEB SOLN 3 ML NEB NEB SCH ×4 (01:00→19:00)
[2018-01-21] MEDS: HYDRALAZINE HCL 20 MG/ML VIAL IV PRN (03:28)
[2018-01-21] MEDS: QUETIAPINE FUMARATE 25 MG TAB PO SCH ×3 (05:38→21:10)
[2018-01-21] MEDS: METRONIDAZOLE 500MG/NS 100ML 100 ML IV SCH ×3 (05:38→21:10)
[2018-01-21] MEDS: NIFEDIPINE CR 30 MG TAB PO SCH ×2 (05:38→09:59)
[2018-01-21] MEDS: HYDROCODONE/APAP 7.5MG-325MG 1 EA TAB PO PRN (05:39)
[2018-01-21 07:43] LABS: BASOPHILS % 0.4 % (0.0-1.0); EOSINOPHILS # (AUTO) 0.1 (0.0-0.4); EOSINOPHILS % 1.1 % (0.0-6.0); HEMATOCRIT 24.9 % (38.2-49.6); HEMOGLOBIN 8.1 g/dL (14.0-18.0); LYMPHOCYTES # (AUTO) 1.9 (1.0-3.2); LYMPHOCYTES % 24.2 % (18.0-39.1); MEAN CORPUSCULAR HEMOGLOBIN 25.6 pg (28-32); MEAN CORPUSCULAR HGB CONC 32.5 g/dL (31-35); MEAN CORPUSCULAR VOLUME 78.5 fL (81-99); MONOCYTES # (AUTO) 0.7 (0.2-0.8); MONOCYTES % 8.3 % (4.4-11.3); NEUTROPHILS # (AUTO) 5.2 (2.1-6.9); NEUTROPHILS % 65.3 % (38.7-80.0); PLATELET COUNT 144 x10e3/uL (140-360); RED BLOOD COUNT 3.17 x10e6/uL (4.3-5.7); RED CELL DISTRIBUTION WIDTH 16.1 % (11.7-14.4)
[2018-01-21] MEDS: PANTOPRAZOLE SOD 40 MG TABEC PO SCH (07:57)
[2018-01-21] MEDS: INSULIN LISPRO 100 UNIT/1 ML 3ML VIAL SQ SCH ×5 (07:59→22:31)
[2018-01-21] MEDS: INSULIN DETEMIR 100 UNIT/ML PEN SQ SCH ×2 (07:59→17:02)
[2018-01-21 08:06] LABS: ANION GAP 12.9 mmol/L (8-16); CALCIUM 8.6 mg/dL (8.4-10.2); CREATININE, SERUM 3.78 mg/dL (0.72-1.25); POTASSIUM 4.9 mmol/L (3.5-5.1)
[2018-01-21] MEDS: METOPROLOL TARTRATE 50 MG TAB PO SCH ×2 (09:59→17:01)
[2018-01-21] MEDS: SENNOSIDES 8.6 MG TAB PO SCH ×2 (09:59→17:01)
[2018-01-21] MEDS: GABAPENTIN 300 MG CAP PO SCH ×3 (09:59→21:09)
[2018-01-21] MEDS: HEPARIN SOD (PORCINE) 5,000 UNIT/ML VIAL SC SCH ×2 (10:00→22:31)
[2018-01-21] MEDS: LEVOFLOXACIN 250MG/D5W 50ML 50 ML IV SCH (11:37)
[2018-01-21] MEDS: TAMSULOSIN HCL 0.4 MG CAP PO SCH (21:09)
[2018-01-21] MEDS ORDERED: SODIUM CHLORIDE 0.9% 250ML 250 ML ONE (21:17)
[2018-01-22] VITALS (7 sets, daily range): BP systolic 160–177; BP diastolic 72–93
[2018-01-22] MEDS: HYDRALAZINE HCL 25 MG TAB PO SCH ×4 (00:24→16:47)
[2018-01-22] MEDS: ALBUTEROL SULF 0.083% NEB SOLN 3 ML NEB NEB SCH ×4 (01:00→20:25)
[2018-01-22] MEDS: IPRATROPIUM BROMIDE 0.02% 2.5 ML NEB NEB SCH ×4 (01:00→20:25)
[2018-01-22] MEDS: METRONIDAZOLE 500MG/NS 100ML 100 ML IV SCH ×3 (05:16→22:25)
[2018-01-22] MEDS: QUETIAPINE FUMARATE 25 MG TAB PO SCH ×3 (05:17→22:26)
[2018-01-22 06:40] LABS: BASOPHILS % 0.4 % (0.0-1.0); EOSINOPHILS # (AUTO) 0.2 (0.0-0.4); EOSINOPHILS % 1.8 % (0.0-6.0); HEMATOCRIT 23.5 % (38.2-49.6); HEMOGLOBIN 7.8 g/dL (14.0-18.0); LYMPHOCYTES # (AUTO) 2.3 (1.0-3.2); LYMPHOCYTES % 27.7 % (18.0-39.1); MEAN CORPUSCULAR HEMOGLOBIN 25.9 pg (28-32); MEAN CORPUSCULAR HGB CONC 33.2 g/dL (31-35); MEAN CORPUSCULAR VOLUME 78.1 fL (81-99); MONOCYTES # (AUTO) 0.8 (0.2-0.8); MONOCYTES % 9.2 % (4.4-11.3); NEUTROPHILS # (AUTO) 4.9 (2.1-6.9); NEUTROPHILS % 60.3 % (38.7-80.0); PLATELET COUNT 141 x10e3/uL (140-360); RED BLOOD COUNT 3.01 x10e6/uL (4.3-5.7)
[2018-01-22 07:04] LABS: ANION GAP 11.9 mmol/L (8-16); CALCIUM 8.4 mg/dL (8.4-10.2); CREATININE, SERUM 3.88 mg/dL (0.72-1.25); POTASSIUM 4.9 mmol/L (3.5-5.1)
[2018-01-22] MEDS: INSULIN LISPRO 100 UNIT/1 ML 3ML VIAL SQ SCH ×4 (07:30→21:49)
[2018-01-22 07:42] LABS: ACANTHOCYTES FEW; ANISOCYTOSIS SLIGHT; HYPOCHROMASIA MODERATE; PLATELET ESTIMATE SLIGHTLY DECREASED; PLATELET MORPHOLOGY COMMENT NORMAL; RBC MORPHOLOGY COMMENT NORMAL
[2018-01-22] MEDS: INSULIN DETEMIR 100 UNIT/ML PEN SQ SCH ×2 (08:15→16:47)
[2018-01-22] MEDS: PANTOPRAZOLE SOD 40 MG TABEC PO SCH (08:15)
[2018-01-22] MEDS: HEPARIN SOD (PORCINE) 5,000 UNIT/ML VIAL SC SCH ×2 (09:26→21:48)
[2018-01-22] MEDS: METOPROLOL TARTRATE 50 MG TAB PO SCH ×2 (09:26→16:46)
[2018-01-22] MEDS: GABAPENTIN 300 MG CAP PO SCH ×3 (09:26→21:47)
[2018-01-22] MEDS: SENNOSIDES 8.6 MG TAB PO SCH ×2 (09:26→16:47)
[2018-01-22] MEDS: NIFEDIPINE CR 30 MG TAB PO SCH (09:26)
[2018-01-22] MEDS: LEVOFLOXACIN 250MG/D5W 50ML 50 ML IV SCH (10:30)
[2018-01-22 10:46] LABS: THYROID STIMULATING HORMONE 0.535 uIU/mL (0.350-4.940)
[2018-01-22 10:50] LABS: FOLATE 9.1 ng/mL (7.0-15.4)
[2018-01-22] MEDS: TAMSULOSIN HCL 0.4 MG CAP PO SCH (21:47)
[2018-01-22] MEDS: HYDRALAZINE HCL 20 MG/ML VIAL IV PRN (22:26)
[2018-01-23] VITALS (7 sets, daily range): BP systolic 152–194; BP diastolic 75–107
[2018-01-23] MEDS: ALBUTEROL SULF 0.083% NEB SOLN 3 ML NEB NEB SCH ×4 (01:10→19:40)
[2018-01-23] MEDS: IPRATROPIUM BROMIDE 0.02% 2.5 ML NEB NEB SCH ×4 (01:10→19:40)
[2018-01-23] MEDS: HYDRALAZINE HCL 20 MG/ML VIAL IV PRN ×4 (01:52→22:15)
[2018-01-23] MEDS: HYDRALAZINE HCL 25 MG TAB PO SCH ×4 (01:52→16:27)
[2018-01-23] MEDS: METRONIDAZOLE 500MG/NS 100ML 100 ML IV SCH ×3 (05:54→23:00)
[2018-01-23] MEDS: QUETIAPINE FUMARATE 25 MG TAB PO SCH ×3 (05:55→22:26)
[2018-01-23 08:33] LABS: BASOPHILS % 0.4 % (0.0-1.0); EOSINOPHILS # (AUTO) 0.1 (0.0-0.4); EOSINOPHILS % 1.4 % (0.0-6.0); HEMATOCRIT 25.2 % (38.2-49.6); HEMOGLOBIN 8.4 g/dL (14.0-18.0); LYMPHOCYTES # (AUTO) 2.8 (1.0-3.2); LYMPHOCYTES % 33.3 % (18.0-39.1); MEAN CORPUSCULAR HEMOGLOBIN 25.8 pg (28-32); MEAN CORPUSCULAR HGB CONC 33.3 g/dL (31-35); MEAN CORPUSCULAR VOLUME 77.5 fL (81-99); MONOCYTES # (AUTO) 0.6 (0.2-0.8); MONOCYTES % 7.4 % (4.4-11.3); NEUTROPHILS # (AUTO) 4.8 (2.1-6.9); NEUTROPHILS % 56.8 % (38.7-80.0); PLATELET COUNT 161 x10e3/uL (140-360); RED BLOOD COUNT 3.25 x10e6/uL (4.3-5.7); RED CELL DISTRIBUTION WIDTH 15.8 % (11.7-14.4)
[2018-01-23 08:49] LABS: ANION GAP 12.9 mmol/L (8-16); CALCIUM 8.3 mg/dL (8.4-10.2); CREATININE, SERUM 4.06 mg/dL (0.72-1.25); POTASSIUM 4.9 mmol/L (3.5-5.1)
[2018-01-23] MEDS: GABAPENTIN 300 MG CAP PO SCH ×3 (09:10→22:26)
[2018-01-23] MEDS: INSULIN DETEMIR 100 UNIT/ML PEN SQ SCH ×2 (09:10→16:27)
[2018-01-23] MEDS: METOPROLOL TARTRATE 50 MG TAB PO SCH ×2 (09:10→16:27)
[2018-01-23] MEDS: SENNOSIDES 8.6 MG TAB PO SCH ×2 (09:11→16:27)
[2018-01-23] MEDS: NIFEDIPINE CR 30 MG TAB PO SCH (09:11)
[2018-01-23] MEDS: HEPARIN SOD (PORCINE) 5,000 UNIT/ML VIAL SC SCH ×2 (09:11→22:10)
[2018-01-23] MEDS: PANTOPRAZOLE SOD 40 MG TABEC PO SCH (09:12)
[2018-01-23] MEDS: INSULIN LISPRO 100 UNIT/1 ML 3ML VIAL SQ SCH ×4 (09:12→22:10)
[2018-01-23] MEDS: LEVOFLOXACIN 250MG/D5W 50ML 50 ML IV SCH (11:04)
[2018-01-23] MEDS: SODIUM CHLORIDE 0.45% 1,000 ML IV SCH (17:40)
[2018-01-23] MEDS ORDERED: PEG (High)/E-LYTE SOLN 4,000 ML BTL PO ONE (20:30)
[2018-01-23] MEDS: IRON SUCROSE 100 MG in SODIUM CHLORIDE 0.9% 100 ML 100 ML IV SCH (22:00)
[2018-01-23] MEDS: TAMSULOSIN HCL 0.4 MG CAP PO SCH (22:26)
[2018-01-24] VITALS (8 sets, daily range): BP systolic 155–178; BP diastolic 77–99
[2018-01-24] MEDS: HYDRALAZINE HCL 25 MG TAB PO SCH ×4 (00:32→17:56)
[2018-01-24] MEDS: ALBUTEROL SULF 0.083% NEB SOLN 3 ML NEB NEB SCH ×4 (00:55→20:05)
[2018-01-24] MEDS: IPRATROPIUM BROMIDE 0.02% 2.5 ML NEB NEB SCH ×4 (00:55→20:05)
[2018-01-24] MEDS: QUETIAPINE FUMARATE 25 MG TAB PO SCH ×3 (05:39→21:19)
[2018-01-24] MEDS: SODIUM CHLORIDE 0.45% 1,000 ML IV SCH ×2 (05:39→13:30)
[2018-01-24] MEDS: METRONIDAZOLE 500MG/NS 100ML 100 ML IV SCH ×3 (05:39→22:50)
[2018-01-24 06:39] LABS: BASOPHILS % 0.4 % (0.0-1.0); EOSINOPHILS # (AUTO) 0.1 (0.0-0.4); EOSINOPHILS % 1.5 % (0.0-6.0); HEMATOCRIT 24.8 % (38.2-49.6); HEMOGLOBIN 7.9 g/dL (14.0-18.0); LYMPHOCYTES # (AUTO) 2.1 (1.0-3.2); LYMPHOCYTES % 25.7 % (18.0-39.1); MEAN CORPUSCULAR HEMOGLOBIN 25.2 pg (28-32); MEAN CORPUSCULAR HGB CONC 31.9 g/dL (31-35); MONOCYTES # (AUTO) 0.7 (0.2-0.8); MONOCYTES % 9.1 % (4.4-11.3); NEUTROPHILS # (AUTO) 5.1 (2.1-6.9); NEUTROPHILS % 62.7 % (38.7-80.0); PLATELET COUNT 166 x10e3/uL (140-360); RED BLOOD COUNT 3.14 x10e6/uL (4.3-5.7); RED CELL DISTRIBUTION WIDTH 15.8 % (11.7-14.4)
[2018-01-24 06:48] LABS: ANION GAP 13.8 mmol/L (8-16); CREATININE, SERUM 3.97 mg/dL (0.72-1.25); POTASSIUM 4.8 mmol/L (3.5-5.1)
[2018-01-24] MEDS: INSULIN LISPRO 100 UNIT/1 ML 3ML VIAL SQ SCH ×4 (07:30→21:00)
[2018-01-24] MEDS: PANTOPRAZOLE SOD 40 MG TABEC PO SCH (07:30)
[2018-01-24] MEDS: INSULIN DETEMIR 100 UNIT/ML PEN SQ SCH ×2 (07:30→16:19)
[2018-01-24] MEDS: NIFEDIPINE CR 30 MG TAB PO SCH (09:00)
[2018-01-24] MEDS: METOPROLOL TARTRATE 50 MG TAB PO SCH ×2 (09:00→16:20)
[2018-01-24] MEDS: GABAPENTIN 300 MG CAP PO SCH ×3 (09:00→20:54)
[2018-01-24] MEDS: HEPARIN SOD (PORCINE) 5,000 UNIT/ML VIAL SC SCH ×2 (09:00→21:00)
[2018-01-24] MEDS: SENNOSIDES 8.6 MG TAB PO SCH ×2 (09:00→16:20)
[2018-01-24 09:29] LABS: PLATELET MORPHOLOGY COMMENT NORMAL
[2018-01-24 09:30] LABS: PLATELET ESTIMATE ADEQUATE
[2018-01-24] MEDS: LEVOFLOXACIN 250MG/D5W 50ML 50 ML IV SCH (11:45)
[2018-01-24 17:26] LABS: CHOL/HDL RATIO 3.7 (3.9-4.7)
[2018-01-24 17:46] LABS: THYROID STIMULATING HORMONE 0.701 uIU/mL (0.350-4.940)
--- NOTE | 2018-01-24 18:29 | Diagnostic Imaging Report ---
PROCEDURE: Frontal and lateral views of the chest. COMPARISON: Chest x-ray 01/19/2018. INDICATIONS: ABDOMINAL PAIN FINDINGS: Lines/tubes: None. Lungs: The lungs are hypo-inflated with perihilar vascular crowding. Mild bibasilar atelectasis. There is no evidence of pneumonia or pulmonary edema. Pleura: There is no pleural effusion or pneumothorax. Heart and mediastinum: The heart and the mediastinum are normal. Bones: No acute bony abnormality. IMPRESSION: 1. Hypoinflated lungs. No acute pulmonary opacities. 2. Multiple overlying EKG wires in the middle of the chest. Dictated by: Jude Rachel M.D. on 01/24/2018 at 18:28 Electronically approved by: Jude Rachel M.D. on 01/24/2018 at 18:28
[2018-01-24 19:19] LABS: CREATININE,URINE RANDOM 51.74 mg/dL (63-166); TOTAL PROTEIN, URINE 171.2 mg/dL (1-14)
[2018-01-24] MEDS: IRON SUCROSE 100 MG in SODIUM CHLORIDE 0.9% 100 ML 100 ML IV SCH (20:17)
--- NOTE | 2018-01-24 20:45 | Diagnostic Imaging Report ---
EXAM: Renal Ultrasound INDICATION: CHRONIC KIDNEY DISEASES. Abdominal pain. COMPARISON: None TECHNIQUE: Transverse and longitudinal images of the kidneys and bladder were obtained. FINDINGS: Right Kidney: Length: 9.9 cm Appearance: Increased echogenicity. Collecting system: No hydronephrosis Stones: None Cyst/Mass: Anechoic lesion in the interpolar region measures 1.6 x 1.6 x 1.6 cm, consistent with a simple cyst. Left Kidney: Length: 9.9 cm Appearance: Increased echogenicity. Collecting system: No hydronephrosis Stones: None Cyst/Mass: Complex septated lesion in the lateral left kidney measures 1.9 x 2.4 x 1.4 cm. Anechoic lesion in the lower pole measures 2.3 x 1.9 x 2.2 cm. Bladder: Wall thickening likely reflect decompression by Vargas catheter. IMPRESSION: 1. Increased echogenicity of the renal cortex bilaterally suggestive of medical renal disease. No hydronephrosis. 2. 2.3 complex cyst in the left kidney. Recommend follow-up ultrasound in relation 6 months to evaluate stability or lack thereof (this could be further evaluated with CT or MRI examination renal mass protocol if renal function permits/if glomerular infiltration rate is greater than 30, gadolinium could be administered if clinically warranted). Signed by: Dr. Irina Oseguera M.D. on 01/24/2018 8:41 PM
[2018-01-24] MEDS: TAMSULOSIN HCL 0.4 MG CAP PO SCH (20:54)
[2018-01-25] MEDS: SODIUM CHLORIDE 0.45% 1,000 ML IV SCH ×3 (00:09→20:28)
[2018-01-25 00:22] VITALS: BP 179/90
[2018-01-25] MEDS: HYDRALAZINE HCL 25 MG TAB PO SCH ×4 (00:46→16:44)
[2018-01-25] MEDS: IPRATROPIUM BROMIDE 0.02% 2.5 ML NEB NEB SCH ×4 (01:15→20:10)
[2018-01-25] MEDS: ALBUTEROL SULF 0.083% NEB SOLN 3 ML NEB NEB SCH ×4 (01:15→20:10)
[2018-01-25 05:01] VITALS: BP 194/96
[2018-01-25] MEDS: QUETIAPINE FUMARATE 25 MG TAB PO SCH ×3 (05:11→20:28)
[2018-01-25] MEDS: METRONIDAZOLE 500MG/NS 100ML 100 ML IV SCH ×3 (05:11→22:28)
[2018-01-25 06:09] LABS: BASOPHILS % 0.2 % (0.0-1.0); EOSINOPHILS # (AUTO) 0.2 (0.0-0.4); EOSINOPHILS % 1.9 % (0.0-6.0); HEMATOCRIT 25.6 % (38.2-49.6); HEMOGLOBIN 8.4 g/dL (14.0-18.0); LYMPHOCYTES % 24.5 % (18.0-39.1); MEAN CORPUSCULAR HEMOGLOBIN 25.5 pg (28-32); MEAN CORPUSCULAR HGB CONC 32.8 g/dL (31-35); MEAN CORPUSCULAR VOLUME 77.8 fL (81-99); MONOCYTES # (AUTO) 0.7 (0.2-0.8); MONOCYTES % 8.2 % (4.4-11.3); NEUTROPHILS # (AUTO) 5.4 (2.1-6.9); NEUTROPHILS % 64.6 % (38.7-80.0); PLATELET COUNT 140 x10e3/uL (140-360); RED BLOOD COUNT 3.29 x10e6/uL (4.3-5.7); RED CELL DISTRIBUTION WIDTH 15.7 % (11.7-14.4)
[2018-01-25] MEDS: HYDRALAZINE HCL 20 MG/ML VIAL IV PRN (06:14)
[2018-01-25 06:45] LABS: ANION GAP 14.9 mmol/L (8-16); CREATININE, SERUM 3.8 mg/dL (0.72-1.25); POTASSIUM 4.9 mmol/L (3.5-5.1)
[2018-01-25] MEDS: INSULIN LISPRO 100 UNIT/1 ML 3ML VIAL SQ SCH ×4 (07:30→20:01)
[2018-01-25] MEDS: PANTOPRAZOLE SOD 40 MG TABEC PO SCH (07:30)
[2018-01-25] MEDS: INSULIN DETEMIR 100 UNIT/ML PEN SQ SCH ×2 (07:30→16:17)
[2018-01-25 08:00] VITALS: BP 210/94
[2018-01-25 08:06] VITALS: BP 171/84
[2018-01-25] MEDS: HEPARIN SOD (PORCINE) 5,000 UNIT/ML VIAL SC SCH ×2 (09:00→20:28)
[2018-01-25] MEDS: NIFEDIPINE CR 30 MG TAB PO SCH (09:00)
[2018-01-25] MEDS: SENNOSIDES 8.6 MG TAB PO SCH ×2 (09:00→16:44)
[2018-01-25] MEDS: METOPROLOL TARTRATE 50 MG TAB PO SCH ×2 (09:00→16:43)
[2018-01-25] MEDS: GABAPENTIN 300 MG CAP PO SCH ×3 (09:00→20:28)
[2018-01-25] MEDS: LEVOFLOXACIN 250MG/D5W 50ML 50 ML IV SCH (11:45)
[2018-01-25 12:02] VITALS: BP 131/65
--- NOTE | 2018-01-25 18:26 | Consultation ---
DATE OF CONSULTATION: January 25, 2018 History is predominantly from the chart and the daughter. Connor Gil is known to our nephrology service. He is a clinic patient of ours with chronic kidney disease, stage 3. He is demented, legally blind, totally dependent on activities of daily living with a left BKA, underlying type-2 diabetes with end-organ damage, underlying hypertension. Admitted with pain apparently. Currently lying supine in no apparent distress. Unable to give any history or follow any commands. Unable to get review of systems due to medical condition. ALLERGIES: NO APPARENT DRUG ALLERGIES. MEDICATIONS: Currently receivin. Iron sucrose 100 mg daily. 2. Levaquin 250 mg IV q.24. 3. Metronidazole. 4. Also receiving IV normal saline at 100 mL an hour. 5. Albuterol. 6. Clonidine 0.2 mg Catapres patch. 7. Gabapentin 300 mg p.o. t.i.d. 8. Insulin. 9. Hydralazine 50 mg p.o. q.6. 10. Hydrocodone p.r.n. 11. Insulin detemir 10 units subcutaneous b.i.d. 12. Metoprolol 50 mg p.o. b.i.d. 13. Nifedipine 60 mg daily. 14. Flomax 0.4 mg daily. 15. Zofran p.r.n. SOCIAL HISTORY: He does not smoke or drink. FAMILY HISTORY: Significant for hypertension. PHYSICAL EXAMINATION GENERAL: Awake. Patient lying supine, arousable though with no apparent distress. VITALS: Blood pressure 131/65. Pulse rate 82. Afebrile. HEAD AND NECK: Corneal opacification noted. LUNGS: Harsh vesicular breath sounds relatively clear. HEART: S1, S2 audible. ABDOMEN: Otherwise soft and nontender. LOWER EXTREMITIES: No edema. IMPRESSION AND PLAN 1. Vfszy-qi-gwavqva kidney failure with underlying chronic kidney disease 3. 2. BPH. 3. Diabetes. 4. Multiple comorbids. 5. There is a complex cyst in the left kidney. Otherwise, approximately 10 cm bilateral echogenic kidneys. Volume status appears dry. 6. Underlying hypertension on multiple antihypertensive medications. Please see orders. Job#: [id number]
[2018-01-25 19:56] VITALS: BP 173/78
[2018-01-25] MEDS: TAMSULOSIN HCL 0.4 MG CAP PO SCH (20:28)
[2018-01-25] MEDS: IRON SUCROSE 100 MG in SODIUM CHLORIDE 0.9% 100 ML 100 ML IV SCH (20:28)
[2018-01-26] VITALS (7 sets, daily range): BP systolic 148–190; BP diastolic 68–94
[2018-01-26] MEDS: HYDRALAZINE HCL 25 MG TAB PO SCH ×5 (00:15→23:45)
[2018-01-26] MEDS: HYDRALAZINE HCL 20 MG/ML VIAL IV PRN ×2 (00:17→05:30)
[2018-01-26] MEDS: IPRATROPIUM BROMIDE 0.02% 2.5 ML NEB NEB SCH ×4 (00:55→19:27)
[2018-01-26] MEDS: ALBUTEROL SULF 0.083% NEB SOLN 3 ML NEB NEB SCH ×4 (00:55→19:27)
[2018-01-26] MEDS: METRONIDAZOLE 500MG/NS 100ML 100 ML IV SCH ×3 (05:19→21:49)
[2018-01-26] MEDS: QUETIAPINE FUMARATE 25 MG TAB PO SCH ×3 (05:19→21:49)
[2018-01-26] MEDS ORDERED: CITRATE OF MAGNESIA 300ML BOTTLE PO ONE (05:30)
[2018-01-26] MEDS: SODIUM CHLORIDE 0.45% 1,000 ML IV SCH ×2 (05:30→16:56)
[2018-01-26 07:15] LABS: ALBUMIN 2.8 g/dL (3.5-5.0); ALBUMIN/GLOBULIN RATIO 0.9 (0.8-2.0); ANION GAP 11.8 mmol/L (8-16); CALCIUM 8.2 mg/dL (8.4-10.2); CREATININE, SERUM 3.65 mg/dL (0.72-1.25); POTASSIUM 4.8 mmol/L (3.5-5.1)
[2018-01-26] MEDS: INSULIN LISPRO 100 UNIT/1 ML 3ML VIAL SQ SCH ×4 (07:30→21:00)
[2018-01-26] MEDS: PANTOPRAZOLE SOD 40 MG TABEC PO SCH (08:30)
[2018-01-26] MEDS: SENNOSIDES 8.6 MG TAB PO SCH ×2 (08:56→16:58)
[2018-01-26] MEDS: HEPARIN SOD (PORCINE) 5,000 UNIT/ML VIAL SC SCH ×2 (08:56→22:40)
[2018-01-26] MEDS: GABAPENTIN 300 MG CAP PO SCH ×3 (08:56→21:48)
[2018-01-26] MEDS: INSULIN DETEMIR 100 UNIT/ML PEN SQ SCH ×2 (08:57→16:58)
[2018-01-26] MEDS ORDERED: NIFEDIPINE CR 30 MG TAB PO SCH (09:00)
[2018-01-26] MEDS: METOPROLOL TARTRATE 50 MG TAB PO SCH ×2 (09:00→16:57)
[2018-01-26] MEDS ORDERED: SODIUM CHLORIDE 0.9% 1000ML 1,000 ML IV ONE (09:30)
--- NOTE | 2018-01-26 10:47 | Cardiology Report ---
DATE OF STUDY: January 24, 2018 ECHOCARDIOGRAM M-MODE: Borderline dilated left atrium. Left ventricular hypertrophy. Normal contractility. Normal mitral and aortic valves. Small posterior pericardial effusion. SECTOR SCAN: Dilated left atrium. Left ventricular hypertrophy. Normal contractility. Ejection fraction is approximately 60%. Mitral, aortic, and tricuspid valves grossly normal. Small posterior pericardial effusion measuring 0.7 cm. CARDIAC DOPPLER STUDY WITH COLOR: Trace mitral and tricuspid regurgitation. Trace pulmonic regurgitation. CONCLUSIONS 1. Small posterior pericardial effusion. 2. Trace mitral and tricuspid regurgitation. 3. Evidence of diastolic dysfunction. CONCLUSIONS 1. Small posterior pericardial effusion measuring approximately 0.7 cm. 2. Concentric left ventricular hypertrophy with ejection fraction of approximately 60%, with evidence of diastolic dysfunction. 3. Trace mitral and tricuspid regurgitation, trace pulmonic regurgitation. Job#: [id number] ND cc:MARSHA NERI MD
[2018-01-26] MEDS: LEVOFLOXACIN 250MG/D5W 50ML 50 ML IV SCH (11:10)
[2018-01-26] MEDS: CLONIDINE HCL 0.2 MG/24 HR 1 EA PATCH TOP SCH (13:48)
--- NOTE | 2018-01-26 18:11 | Diagnostic Imaging Report ---
#[id number] - USBRECOMRT ULTRASOUND OF THE RIGHT BREAST : 01/26/2018 No prior exams were available for comparison. Color flow and real-time ultrasound were performed on the entire right breast. -There is gynecosmastia present without definable mass. Comparison to the left breast demonstrates similar changes. IMPRESSION: BENIGN There is no sonographic evidence of malignancy. Follow-up with ACR/ACS guidelines. Kenneth Ibanez Jr., D.O. cw/:01/26/2018 14:39:05 Tying Machine Operator: AISHWARYA PITTMAN, [facility] letter sent: Normal Exam Ultrasound BI-RADS: 2 Benign
[2018-01-26] MEDS: TAMSULOSIN HCL 0.4 MG CAP PO SCH (21:48)
[2018-01-26] MEDS: NIFEDIPINE CR 30 MG TAB PO SCH (21:48)
[2018-01-26] MEDS: ACETAMINOPHEN 325 MG TAB PO PRN (22:47)
[2018-01-27] VITALS: BP 127/61
[2018-01-27] MEDS: SODIUM CHLORIDE 0.45% 1,000 ML IV SCH (01:30)
[2018-01-27] MEDS: IPRATROPIUM BROMIDE 0.02% 2.5 ML NEB NEB SCH ×2 (02:40→06:51)
[2018-01-27] MEDS: ALBUTEROL SULF 0.083% NEB SOLN 3 ML NEB NEB SCH ×2 (02:40→06:51)
[2018-01-27 04:00] VITALS: BP 140/65
[2018-01-27] MEDS: METRONIDAZOLE 500MG/NS 100ML 100 ML IV SCH (05:29)
[2018-01-27] MEDS: QUETIAPINE FUMARATE 25 MG TAB PO SCH (05:30)
[2018-01-27] MEDS: HYDRALAZINE HCL 25 MG TAB PO SCH (05:40)
[2018-01-27] MEDS: INSULIN LISPRO 100 UNIT/1 ML 3ML VIAL SQ SCH (07:30)
[2018-01-27] MEDS ORDERED: INSULIN DETEMIR 100 UNIT/ML PEN SQ SCH (07:30)
[2018-01-27 08:00] VITALS: BP 162/74
[2018-01-27] MEDS: PANTOPRAZOLE SOD 40 MG TABEC PO SCH (08:42)
[2018-01-27] MEDS: HEPARIN SOD (PORCINE) 5,000 UNIT/ML VIAL SC SCH (08:43)
[2018-01-27] MEDS: METOPROLOL TARTRATE 50 MG TAB PO SCH (08:43)
[2018-01-27] MEDS: GABAPENTIN 300 MG CAP PO SCH (08:43)
[2018-01-27] MEDS: NIFEDIPINE CR 30 MG TAB PO SCH (08:43)
[2018-01-27] MEDS: SENNOSIDES 8.6 MG TAB PO SCH (08:43)
[2018-01-27 08:49] LABS: BASOPHILS % 0.3 % (0.0-1.0); EOSINOPHILS # (AUTO) 0.1 (0.0-0.4); EOSINOPHILS % 1.9 % (0.0-6.0); HEMATOCRIT 24.4 % (38.2-49.6); LYMPHOCYTES # (AUTO) 1.9 (1.0-3.2); LYMPHOCYTES % 26.6 % (18.0-39.1); MEAN CORPUSCULAR HEMOGLOBIN 25.6 pg (28-32); MEAN CORPUSCULAR HGB CONC 32.4 g/dL (31-35); MEAN CORPUSCULAR VOLUME 79.2 fL (81-99); MONOCYTES # (AUTO) 0.5 (0.2-0.8); NEUTROPHILS # (AUTO) 4.6 (2.1-6.9); NEUTROPHILS % 63.6 % (38.7-80.0); PLATELET COUNT 150 x10e3/uL (140-360); RED BLOOD COUNT 3.08 x10e6/uL (4.3-5.7); RED CELL DISTRIBUTION WIDTH 15.9 % (11.7-14.4)
[2018-01-27 08:55] LABS: HEMOGLOBIN 7.9 g/dL (14.0-18.0)
[2018-01-27 09:07] LABS: ALBUMIN 2.7 g/dL (3.5-5.0); ALBUMIN/GLOBULIN RATIO 0.9 (0.8-2.0); ANION GAP 10.7 mmol/L (8-16); CALCIUM 8.5 mg/dL (8.4-10.2); CREATININE, SERUM 3.9 mg/dL (0.72-1.25); POTASSIUM 4.7 mmol/L (3.5-5.1)
[2018-01-27] MEDS ORDERED: EPOETIN ALFA 10000 UNIT/ML VIAL SC SCH (09:15)
--- NOTE | 2018-01-28 13:13 | Discharge Summary ---
The patient presented to the emergency room were he was hospitalized by the emergency room physician to the service of Dr. Cummins. See also history and physical and emergency room records. Initially the patient reported abdominal discomfort. He later stated he had no abdominal discomfort. Course was complicated by the patient's dementia and blindness. He has a history of diabetes mellitus with chronic insulin treatment. Diabetes well controlled prior to admission. Peripheral vascular disease with prior left BKA. He had not kept his last office to my office on the 17 of January. He had not kept his referral appointment to lead scientist because of progressive kidney failure. Nephrology consultants were asked to see the patient while here and did so. See notes. History also includes staghorn calculi and prior partial nephrectomy here. See prior notes. The patient has chronic malignant hypertension. Database was ordered to be obtained and monitored. The patient was significantly anemic. He was seen by his sales floor manager while here. The patient's family stated he had had recent EGD and colonoscopy in [place], and records were requested but have not been forthcoming to this date. Hemoccult was negative. Erythropoietin was administered, Epogen 10,000 units subcutaneous on the . The patient is to follow up with his lead scientist as an outpatient and be considered for chronic erythropoietin. He may need further treatment for his renal failure later. Blood pressure was medically controlled. The patient, per ER and initial admitting MD, was administered empiric antibiotics. He was also prescribed protein pump inhibitors. See also serial orders as documented. AK was ruled out by cardiac markers in ER. The patient was found to have a right breast mass. Radiologist recommended mammogram and ultrasound, and these were ordered. Ultrasound was benign. Mammogram report was pending at the time of discharge. The patient was anxious to be discharged after arrival. Stay here was essentially uneventful. Hemoglobin January 20 was 7.7 grams. No bleeding observed. Hemoglobin 7.9 grams on January 27. White counts normal. Indices low. Platelet counts normal. Pro time, PTT within normal range. INR 1.2. Urinalysis revealed proteinuria. Blood sugars were controlled here medically. A1c 5.1. Natriuretic peptide 209. B12 level 420, normal. Folic acid level 9.1, normal. TSH normal at 0.53. Iron low at 62, TIBC low at 202, percent saturation normal at 31. Urine culture ordered per ER was normal. ER ordered abdominal and pelvic CT. Impression: Mild posterior right lung base haziness may represent atelectasis versus less likely developing pneumonia. Clinically not pneumonia. Bilateral adrenal nodules, adenomas. Low rectal wall thickening. Bladder wall thickening. Right breast mass versus gynecomastia. "Recommend ultrasound." Renal hypodensities. Subcentimeter hepatic hypodensities. Unenhanced study because of the patient's renal failure. One-centimeter left retroperitoneal nodule could be related to prior procedures. Interpreted by Dr. Hector Giordano, radiologist here. Admission BUN 84, creatinine 3.93 January 19. January 26, BUN 62, creatinine 3.65. Ultimately the patient was released for outpatient care and counseled to make a more thorough attempt to keep outpatient appointments and follow up with his lead scientist and primary care physician. FINAL IMPRESSIONS 1. Abdominal pain, resolved. 2. Right benign breast mass. 3. Type 2 diabetes mellitus with nephropathy and advancing renal failure. 4. Secondary anemia. 5. Rectal wall thickening, to follow up with GI. Says recent colonoscopy normal. Records requested and pending. 6. Adrenal adenomas. 7. Diabetic retinopathy with blindness. 8. Peripheral vascular disease with left below-knee amputation, old. 9. Complex renal cyst was seen and will be followed up later with followup imaging for comparison. Contrast studies are not now an option. 10. Malignant hypertension. 11. Peripheral neuropathy. 12. History of gastroesophagitis. The patient will resume his jdshc-ey-edekknsac medical regimen. Prognosis is poor. MARSHA NERI MD Job#: [id number] EV
== END 2018-01-27 11:09 | disposition home or self-care (01) | DRG 177 ==
LOC: ER 10:02 → ERHOLD 12:10 → MED/SURG2 12:12
PROVIDERS: ADMIT Internal Medicine; ATTEND Internal Medicine
DX: J69.0 Pneumonitis due to inhalation of food and vomit (principal); G93.40 Encephalopathy, unspecified; N17.9 Acute kidney failure, unspecified; E11.21 Type 2 diabetes mellitus with diabetic nephropathy; F03.90 Unspecified dementia, unspecified severity, without behavioral disturbance, psychotic disturbance, mood disturbance, and anxiety; E11.42 Type 2 diabetes mellitus with diabetic polyneuropathy; N18.3 Chronic kidney disease, stage 3 (moderate); E11.22 Type 2 diabetes mellitus with diabetic chronic kidney disease; I12.9 Hypertensive chronic kidney disease with stage 1 through stage 4 chronic kidney disease, or unspecified chronic kidney disease; E11.51 Type 2 diabetes mellitus with diabetic peripheral angiopathy without gangrene; Z89.512 Acquired absence of left leg below knee; H54.8 Legal blindness, as defined in USA; N40.0 Benign prostatic hyperplasia without lower urinary tract symptoms; Z79.4 Long term (current) use of insulin; N28.1 Cyst of kidney, acquired; D50.9 Iron deficiency anemia, unspecified; R53.81 Other malaise; R53.1 Weakness; E86.0 Dehydration; T46.5X6A Underdosing of other antihypertensive drugs, initial encounter; D35.00 Benign neoplasm of unspecified adrenal gland; I16.0 Hypertensive urgency; E11.319 Type 2 diabetes mellitus with unspecified diabetic retinopathy without macular edema; N63.10 Unspecified lump in the right breast, unspecified quadrant
CPT/HCPCS: 36415; 51700; 71045; 71046; 71250; 74176; 76705; 76770; 80048; 80053; 80061; 81001; 82270; 82550; 82553; 82570; 82607; 82746; 82948; 83036; 83540; 83690; 83735; 83880; 84156; 84443; 84466; 84484; 85025; 85610; 85730; 86850; 86900; 87086; 93005; 93306; 94640; 97139; 99284; J0360; J1644; J1756; J1956; J2405; J7030; J7050; Q4081

== ENCOUNTER 2018-05-12 10:26 | Inpatient (IN) | payer MEDICARE, OTHER ==
[~2018-05-12] VITALS: Ht 172.7 cm; Wt 67.8 kg
[2018-05-12] MEDS ORDERED: ASPIRIN 81 MG CHEW TAB PO ONE (11:45)
[2018-05-12 12:11] LABS: BASOPHILS % 0.3 % (0.0-1.0); EOSINOPHILS # (AUTO) 0.1 (0.0-0.4); EOSINOPHILS % 0.8 % (0.0-6.0); HEMATOCRIT 26.2 % (38.2-49.6); HEMOGLOBIN 8.7 g/dL (14.0-18.0); LYMPHOCYTES % 21.2 % (18.0-39.1); MEAN CORPUSCULAR HEMOGLOBIN 25.1 pg (28-32); MEAN CORPUSCULAR HGB CONC 33.2 g/dL (31-35); MEAN CORPUSCULAR VOLUME 75.7 fL (81-99); MONOCYTES # (AUTO) 0.8 (0.2-0.8); MONOCYTES % 8.2 % (4.4-11.3); NEUTROPHILS # (AUTO) 6.5 (2.1-6.9); NEUTROPHILS % 68.5 % (38.7-80.0); PLATELET COUNT 166 x10e3/uL (140-360); RED BLOOD COUNT 3.46 x10e6/uL (4.3-5.7); RED CELL DISTRIBUTION WIDTH 16.8 % (11.7-14.4)
[2018-05-12 12:22] LABS: INR 1.24; PROTHROMBIN TIME 14.7 seconds (11.9-14.5)
[2018-05-12 12:23] LABS: PARTIAL THROMBOPLASTIN TIME 33.5 seconds (23.8-35.5)
[2018-05-12 12:34] LABS: ALBUMIN 3.4 g/dL (3.5-5.0); ALBUMIN/GLOBULIN RATIO 0.9 (0.8-2.0); ANION GAP 14.4 mmol/L (8-16); CALCIUM 9.3 mg/dL (8.4-10.2); CREATININE, SERUM 4.52 mg/dL (0.72-1.25); MAGNESIUM 2.1 MG/DL (1.3-2.1); POTASSIUM 4.4 mmol/L (3.5-5.1)
[2018-05-12 12:41] LABS: CREATINE KINASE MB 2.4 ng/mL (0-5.0)
--- NOTE | 2018-05-12 12:49 | Diagnostic Imaging Report ---
Examination: Single AP view of the chest. COMPARISON: None. INDICATION: Elevated blood pressure DISCUSSION: Lines/tubes: None. Lungs: Pulmonary venous congestion. No pneumonia. Pleura: There is no pleural effusion or pneumothorax. Heart and mediastinum: Cardiomegaly. Bones and soft tissues: No acute bony abnormalities. IMPRESSION: 1. Cardiomegaly with pulmonary venous congestion Signed by: Dr. Frederick Santiago M.D. on 05/12/2018 12:45 PM
--- NOTE | 2018-05-12 13:20 | Diagnostic Imaging Report ---
EXAMINATION: Head CT HISTORY: Headache, hypertension COMPARISON: Head CT on 02/27/2016 and brain MRI of 02/29/2016 TECHNIQUE: Multidetector axial images were obtained with, without contrast from the foramen magnum to the vertex . The images were reconstructed using brain and bone algorithms. Thin section brain images were reformatted into coronal and sagittal planes. Intravenous contrast: None. Motion/streaking artifact limits the evaluation of the skull base and posterior cranial fossa. FINDINGS: Parenchyma: 1. Mild progression to moderate chronic microvascular ischemic changes. 2. Again seen chronic lacunar infarct in the left frontal cuellar radiata, left subinsular region, left greater than right thalami, left thalamocapsular region, mirna and left cerebellum. 3. No mass or hemorrhage. No CT evidence of acute territorial vascular insult. Extra-axial spaces:No abnormal density. No extra-axial fluid collections Brain volume: Mild generalized volume loss Ventricles: No hydrocephalus or displacement. Arteries: No density suggestive of thrombus. Dural sinuses: No abnormal density. Extra-axial spaces: No abnormal density. Foramen magnum: No mass, Chiari malformation, or basilar invagination. Sella: No obvious mass. Paranasal/mastoid sinuses: Imaged portions unremarkable. Skull/Scalp: No lytic or blastic lesions. No fractures. Orbits: Postoperative changes in the bilateral lobes are unchanged. IMPRESSION: 1. No acute intracranial hemorrhage or CT evidence of acute territorial cortical infarct. 2. Moderate chronic microvascular ischemic changes and multiple chronic infarcts. Signed by: Dr. Marielle Church M.D. on 05/12/2018 1:16 PM
[2018-05-12 13:37] LABS: BILIRUBIN,URINE NEGATIVE (NEGATIVE); CLARITY,URINE CLEAR (CLEAR); COLOR,URINE YELLOW (YELLOW); KETONES,URINE NEGATIVE (NEGATIVE); LEUKOCYTE ESTERASE ,URINE NEGATIVE (NEGATIVE); NITRITE,URINE NEGATIVE (NEGATIVE); PROTEIN,URINE DIPSTICK 2+ (NEGATIVE); URINE UROBILINOGEN 0.2 mg/dL (0.2 - 1)
[2018-05-12] MEDS ORDERED: FUROSEMIDE INJ 10 MG/ML 4 ML VIAL IV ONE ×2 (13:45→14:00)
[2018-05-12 13:50] LABS: BACTERIA,URINE FEW /HPF; EPITHELIAL CELLS,URINE FEW /LPF; WBC,URINE (MAN) 0-5 /HPF (0-5)
[2018-05-12] MEDS ORDERED: SODIUM CHLORIDE FLUSH 10 ML SYR INJ PRN (14:00)
[2018-05-12] MEDS ORDERED: ASPIRIN 81 MG CHEW TAB PO PRN (14:00)
[2018-05-12] MEDS ORDERED: DEXTROSE 50% SYRINGE 50 ML IV PRN (14:00)
[2018-05-12] MEDS ORDERED: PIPER-TAZ 3.375 GM 50 ML IV ONE ×2 (14:00→17:45)
[2018-05-12] MEDS ORDERED: METOLAZONE 5 MG TAB PO ONE (14:00)
[2018-05-12 16:22] VITALS: BP 181/73
[2018-05-12] MEDS: INSULIN REGULAR, HUMAN 100 UNIT/1 ML 3ML VIAL SQ SCH ×2 (16:30→21:00)
[2018-05-12] MEDS ORDERED: FUROSEMIDE INJ 10 MG/ML 4 ML VIAL IV SCH (17:00)
[2018-05-12 17:24] VITALS: BP 181/73
[2018-05-12] MEDS ORDERED: METOLAZONE 5 MG TAB PO NR (17:45)
[2018-05-12] MEDS ORDERED: SODIUM CHLORIDE 0.9% 250ML 250 ML ONE (17:52)
[2018-05-12 18:05] LABS: CHOL/HDL RATIO 4.4 (3.9-4.7)
[2018-05-12 18:24] LABS: THYROID STIMULATING HORMONE 0.806 uIU/mL (0.350-4.940)
--- NOTE | 2018-05-12 19:03 | History and Physical ---
See also ER notes. The patient was sent to the emergency room by his visiting home nurse. Visiting home nurse told the emergency room that the patient had multiple difficulties including high blood pressure, dyspnea with low O2 saturation at home, low blood sugars, reduced sensorium, weakness, poor oral intake. The patient was hospitalized after being seen by the emergency room physician. This is a chronically ill gentleman with multiple severe medical illnesses related to his chronic diabetes mellitus. See also old records here reviewed. The patient has an element of dementia and is a poor historian. On review of systems he reports he is chronically blind. Denies headache or symptoms of URI. Denies trauma. He denies shortness of breath or chest pain. He denies nausea, vomiting or diarrhea. No abdominal pain per patient. Denies extremity discomfort. He is sedentary. The patient is unaware of contributory family history. HE IS UNAWARE OF ALLERGIES. His history is not reliable. 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 Old left nfcbb-[id number]-rbul amputation. See also home meds listed per computer. PHYSICAL EXAMINATION GENERAL: Patient is cooperative and in no distress. VITALS: Blood pressure 158/73. Pulse is 60 and regular. Respiratory rate 18, not labored. Temperature 96.2. O2 sat here is 100% on room air. HEENT: Patient has scarring of the right cornea. Blind bilaterally and states he does not see light on either eye. Throat is clear. Hydrated mucous membranes. Turgor within normal range. NECK: Flexes. Carotid weak on left without bruit on either side. No palpable goiter. CHEST: Do not feel any breast mass now. The patient is unable to cooperate adequately for pulmonary auscultation. Cardiac sounds S1 and S2 within normal limits. ABDOMEN: Soft. Bowel sounds are normal. Left partial nephrectomy scar. EXTREMITIES: Femoral pulses are palpable. Pulses lower are not palpable. Healed old left ucbjp-gwg-ufiv amputation. NEURO: Deep tendon reflexes depressed. Sensation peripherally reduced. Strength generally reduced and nonfocal. LABS: Available labs and electronic medical record reviewed. Labs include hemoglobin 8.7. On January 24, 2018, complex left renal cyst. An echoic 2.3 cm lesion of the left kidney then. Current blood sugar on arrival was 104, then 50. Then the patient was given carbohydrates, and the sugar was 119. Creatinine 4.52 with BUN 69 and natriuretic peptide 235. Head CT with multiple lacunar infarcts. Chest x-ray compatible with pulmonary venous congestion. CURRENT IMPRESSION 1. Type-2 diabetes mellitus. 2. Retinopathy. 3. Neuropathy. 4. Nephropathy. 5. Peripheral vascular disease with old left gukag-cdw-yymh amputation. 6. Chronic insulin requirements. Plan to continue to monitor the patient's blood sugars and treat as needed. Blood sugars are currently labile at home lately. I was not called today by the patient's home nurse prior to the patient being sent here. 7. Chronic primary hypertension with left ventricular hypertrophy on prior echocardiogram. 8. Multi-infarct dementia. 9. Chronic obstructive pulmonary disease by past records. 10. Benign prostatic hypertrophy by past records. 11. Gastroesophagitis by past records. 12. Anemia secondary to renal failure. PLAN: Control blood pressure. Treat pulmonary venous congestion as able. The patient's chip crusher operator (he has been seeing the patient on prior admissions here and as an outpatient) is seeing the patient. Appreciate input. Patient needs bed sore avoidance. Skin is clear now. Supplemental O2 if needed. Patient may well need placement in a more structured environment when stable enough to leave this hospital. See also initial and followup orders as mentioned. Job#: [id number] KEV
[2018-05-12 20:00] VITALS: BP 196/97
[2018-05-12 20:12] LABS: CREATINE KINASE MB 2.4 ng/mL (0-5.0)
[2018-05-13] VITALS (9 sets, daily range): BP systolic 152–198; BP diastolic 76–91
[2018-05-13] MEDS: AMLODIPINE BESYLATE 10 MG TAB PO SCH ×3 (00:11→08:03)
[2018-05-13 05:50] LABS: BASOPHILS % 0.4 % (0.0-1.0); EOSINOPHILS % 0.4 % (0.0-6.0); HEMATOCRIT 24.7 % (38.2-49.6); HEMOGLOBIN 8.1 g/dL (14.0-18.0); LYMPHOCYTES # (AUTO) 1.5 (1.0-3.2); LYMPHOCYTES % 15.3 % (18.0-39.1); MEAN CORPUSCULAR HEMOGLOBIN 24.9 pg (28-32); MEAN CORPUSCULAR HGB CONC 32.8 g/dL (31-35); MONOCYTES # (AUTO) 0.6 (0.2-0.8); MONOCYTES % 6.4 % (4.4-11.3); NEUTROPHILS # (AUTO) 7.5 (2.1-6.9); NEUTROPHILS % 76.6 % (38.7-80.0); PLATELET COUNT 154 x10e3/uL (140-360); RED BLOOD COUNT 3.25 x10e6/uL (4.3-5.7); RED CELL DISTRIBUTION WIDTH 16.6 % (11.7-14.4)
[2018-05-13] MEDS: TIOTROPIUM 18 MCG INH POWDER INH SCH (06:00)
[2018-05-13 06:06] LABS: ALBUMIN 3.4 g/dL (3.5-5.0); ALBUMIN/GLOBULIN RATIO 0.9 (0.8-2.0); CALCIUM 9.5 mg/dL (8.4-10.2); CREATININE, SERUM 4.53 mg/dL (0.72-1.25)
[2018-05-13 06:31] LABS: CREATINE KINASE MB 2.4 ng/mL (0-5.0)
[2018-05-13] MEDS: INSULIN REGULAR, HUMAN 100 UNIT/1 ML 3ML VIAL SQ SCH ×4 (08:00→21:22)
[2018-05-13] MEDS: TAMSULOSIN HCL 0.4 MG CAP PO SCH (08:02)
[2018-05-13] MEDS: FUROSEMIDE 40 MG TAB PO SCH (08:02)
[2018-05-13] MEDS: PANTOPRAZOLE SOD 40 MG TABEC PO SCH (08:03)
[2018-05-13 12:39] LABS: CREATINE KINASE MB 2.3 ng/mL (0-5.0)
--- NOTE | 2018-05-13 13:45 | Diagnostic Imaging Report ---
EXAMINATION: CHEST 2 VIEWS INDICATION: \S\abn cxr \[id number] \S\[id number] \S\Y COMPARISON: Chest radiograph 05/12/2018 FINDINGS: PA and lateral views TUBES and LINES: None. LUNGS: Lungs are well inflated. Bibasilar atelectasis. Bilateral pulmonary edema. PLEURA: No pleural effusion or pneumothorax. HEART AND MEDIASTINUM: Stable mild enlargement of the cardiac silhouette. BONES AND SOFT TISSUES: No acute osseous lesion. Soft tissues are unremarkable. UPPER ABDOMEN: No free air under the diaphragm. IMPRESSION: Bilateral pulmonary edema, worse when compared to prior exam. Signed by: Dr. Precious Rodríguez M.D. on 05/13/2018 1:42 PM
[2018-05-13] MEDS: CARVEDILOL 12.5 MG TAB PO SCH (17:00)
[2018-05-13] MEDS: CLONIDINE HCL 0.1 MG TAB PO SCH (17:00)
[2018-05-13] MEDS: ATORVASTATIN 10 MG TAB PO SCH (21:06)
[2018-05-14] VITALS (7 sets, daily range): BP systolic 164–189; BP diastolic 70–86
[2018-05-14] MEDS: TIOTROPIUM 18 MCG INH POWDER INH SCH (07:00)
[2018-05-14] MEDS: CARVEDILOL 12.5 MG TAB PO SCH ×2 (09:29→18:25)
[2018-05-14] MEDS: PANTOPRAZOLE SOD 40 MG TABEC PO SCH (09:29)
[2018-05-14] MEDS: TAMSULOSIN HCL 0.4 MG CAP PO SCH (09:29)
[2018-05-14] MEDS: CLONIDINE HCL 0.1 MG TAB PO SCH ×2 (09:29→18:25)
[2018-05-14] MEDS: AMLODIPINE BESYLATE 10 MG TAB PO SCH (09:30)
[2018-05-14] MEDS: FUROSEMIDE 40 MG TAB PO SCH (09:30)
[2018-05-14] MEDS: INSULIN REGULAR, HUMAN 100 UNIT/1 ML 3ML VIAL SQ SCH ×4 (09:30→21:00)
[2018-05-14 19:20] LABS: HEMATOCRIT 22.8 % (38.2-49.6); HEMOGLOBIN 7.2 g/dL (14.0-18.0)
[2018-05-14] MEDS: HYDRALAZINE HCL 25 MG TAB PO SCH (21:57)
[2018-05-14] MEDS: ATORVASTATIN 10 MG TAB PO SCH (21:57)
[2018-05-15] VITALS (8 sets, daily range): BP systolic 140–224; BP diastolic 72–95
[2018-05-15] MEDS: TIOTROPIUM 18 MCG INH POWDER INH SCH (06:00)
[2018-05-15 06:09] LABS: BASOPHILS % 0.5 % (0.0-1.0); EOSINOPHILS % 0.5 % (0.0-6.0); HEMATOCRIT 23.4 % (38.2-49.6); HEMOGLOBIN 7.7 g/dL (14.0-18.0); LYMPHOCYTES % 24.8 % (18.0-39.1); MEAN CORPUSCULAR HEMOGLOBIN 25.2 pg (28-32); MEAN CORPUSCULAR HGB CONC 32.9 g/dL (31-35); MEAN CORPUSCULAR VOLUME 76.7 fL (81-99); MONOCYTES # (AUTO) 0.7 (0.2-0.8); MONOCYTES % 8.3 % (4.4-11.3); NEUTROPHILS # (AUTO) 5.2 (2.1-6.9); NEUTROPHILS % 65.2 % (38.7-80.0); PLATELET COUNT 139 x10e3/uL (140-360); RED BLOOD COUNT 3.05 x10e6/uL (4.3-5.7)
[2018-05-15 06:31] LABS: ALBUMIN 3.3 g/dL (3.5-5.0); ANION GAP 14.8 mmol/L (8-16); CALCIUM 9.2 mg/dL (8.4-10.2); CREATININE, SERUM 5.32 mg/dL (0.72-1.25); POTASSIUM 4.8 mmol/L (3.5-5.1)
[2018-05-15 07:35] LABS: PLATELET ESTIMATE SLIGHTLY DECREASED; PLATELET MORPHOLOGY COMMENT NORMAL; RBC MORPHOLOGY COMMENT NORMAL
[2018-05-15 07:36] LABS: ANISOCYTOSIS SLIGHT; HYPOCHROMASIA MODERATE
[2018-05-15] MEDS: INSULIN REGULAR, HUMAN 100 UNIT/1 ML 3ML VIAL SQ SCH ×4 (08:00→20:50)
[2018-05-15] MEDS: PANTOPRAZOLE SOD 40 MG TABEC PO SCH (08:38)
[2018-05-15] MEDS: HYDRALAZINE HCL 25 MG TAB PO SCH ×3 (08:38→20:30)
[2018-05-15] MEDS: FUROSEMIDE 40 MG TAB PO SCH (08:38)
[2018-05-15] MEDS: AMLODIPINE BESYLATE 10 MG TAB PO SCH (08:38)
[2018-05-15] MEDS: TAMSULOSIN HCL 0.4 MG CAP PO SCH (08:38)
[2018-05-15] MEDS: CARVEDILOL 12.5 MG TAB PO SCH ×2 (08:38→17:27)
[2018-05-15] MEDS: CLONIDINE HCL 0.1 MG TAB PO SCH (08:38)
[2018-05-15] MEDS ORDERED: EPOETIN ALFA 10000 UNIT/ML VIAL SC NR (10:45)
[2018-05-15] MEDS ORDERED: LABETALOL HCL 5 MG/ML 20ML VIAL IV NR (10:45)
[2018-05-15] MEDS ORDERED: CLONIDINE HCL 0.1 MG TAB PO SCH (15:00)
[2018-05-15] MEDS: CLONIDINE HCL 0.3 MG TAB PO SCH ×2 (15:01→20:30)
[2018-05-15] MEDS: ATORVASTATIN 10 MG TAB PO SCH (20:30)
[2018-05-16] VITALS (7 sets, daily range): BP systolic 164–191; BP diastolic 76–94
[2018-05-16 06:07] LABS: BASOPHILS # (AUTO) 0.1 (0.0-0.1); BASOPHILS % 0.6 % (0.0-1.0); EOSINOPHILS # (AUTO) 0.1 (0.0-0.4); EOSINOPHILS % 0.8 % (0.0-6.0); HEMATOCRIT 24.4 % (38.2-49.6); HEMOGLOBIN 8.1 g/dL (14.0-18.0); LYMPHOCYTES % 25.1 % (18.0-39.1); MEAN CORPUSCULAR HEMOGLOBIN 25.3 pg (28-32); MEAN CORPUSCULAR HGB CONC 33.2 g/dL (31-35); MEAN CORPUSCULAR VOLUME 76.3 fL (81-99); MONOCYTES # (AUTO) 0.6 (0.2-0.8); NEUTROPHILS % 64.5 % (38.7-80.0); PLATELET COUNT 150 x10e3/uL (140-360); RED CELL DISTRIBUTION WIDTH 16.9 % (11.7-14.4)
[2018-05-16 06:31] LABS: ANION GAP 17.9 mmol/L (8-16); CALCIUM 9.2 mg/dL (8.4-10.2); CREATININE, SERUM 4.96 mg/dL (0.72-1.25); POTASSIUM 4.9 mmol/L (3.5-5.1)
[2018-05-16] MEDS: TIOTROPIUM 18 MCG INH POWDER INH SCH (07:00)
[2018-05-16] MEDS: PANTOPRAZOLE SOD 40 MG TABEC PO SCH (07:30)
[2018-05-16] MEDS: INSULIN REGULAR, HUMAN 100 UNIT/1 ML 3ML VIAL SQ SCH ×4 (07:30→20:41)
[2018-05-16] MEDS: FUROSEMIDE 40 MG TAB PO SCH (09:28)
[2018-05-16] MEDS: HYDRALAZINE HCL 25 MG TAB PO SCH ×3 (09:28→20:40)
[2018-05-16] MEDS: CARVEDILOL 12.5 MG TAB PO SCH ×2 (09:28→17:03)
[2018-05-16] MEDS: CLONIDINE HCL 0.3 MG TAB PO SCH ×3 (09:28→20:40)
[2018-05-16] MEDS: TAMSULOSIN HCL 0.4 MG CAP PO SCH (09:28)
--- NOTE | 2018-05-16 11:25 | Diagnostic Imaging Report ---
EXAMINATION: CHEST 2 VIEWS INDICATION: Pulmonary edema. COMPARISON: Chest radiograph 05/13/2018. FINDINGS: PA and lateral views TUBES and LINES: None. LUNGS: Mild bilateral pulmonary venous congestion. Bibasilar atelectasis. PLEURA: No pleural effusion or pneumothorax. HEART AND MEDIASTINUM: Stable mild enlargement of the cardiac silhouette. BONES AND SOFT TISSUES: No acute osseous lesion. Soft tissues are unremarkable. UPPER ABDOMEN: No free air under the diaphragm. IMPRESSION: Cardiomegaly and mild pulmonary venous congestion bilaterally. Decreased interstitial edema. Signed by: Dr. Irina Oseguera M.D. on 05/16/2018 11:22 AM
[2018-05-16] MEDS: ATORVASTATIN 10 MG TAB PO SCH (20:41)
[2018-05-16] MEDS ORDERED: INSULIN DETEMIR 100 UNIT/ML PEN SQ SCH (21:00)
[2018-05-17 00:06] VITALS: BP 180/87
[2018-05-17 04:45] VITALS: BP 184/88
[2018-05-17] MEDS: PANTOPRAZOLE SOD 40 MG TABEC PO SCH (07:30)
[2018-05-17] MEDS: INSULIN REGULAR, HUMAN 100 UNIT/1 ML 3ML VIAL SQ SCH (07:30)
[2018-05-17 08:31] VITALS: BP 185/89
[2018-05-17] MEDS: CLONIDINE HCL 0.3 MG TAB PO SCH (08:44)
[2018-05-17] MEDS: HYDRALAZINE HCL 25 MG TAB PO SCH (08:44)
[2018-05-17] MEDS: FUROSEMIDE 40 MG TAB PO SCH (08:45)
[2018-05-17] MEDS: TAMSULOSIN HCL 0.4 MG CAP PO SCH (08:45)
[2018-05-17] MEDS: CARVEDILOL 12.5 MG TAB PO SCH (08:45)
[2018-05-17] MEDS ORDERED: LIPITOR20 MG PO (10:01)
[2018-05-17] MEDS: TIOTROPIUM 18 MCG INH POWDER INH SCH (10:45)
[2018-05-17 12:23] VITALS: BP 160/81
--- NOTE | 2018-05-17 14:59 | Discharge Summary ---
HISTORY OF PRESENT ILLNESS: The patient was sent to the emergency room by his visiting home nurse who reported multiple difficulties including high blood pressure, dyspnea with low O2 saturation at home (O2 saturations here were normal), low blood sugars, reduced sensorium, weakness, poor oral intake. See ER notes. ER physician saw the patient on arrival and admitted the patient for observation. He was subsequently seen by his electrical installation supervisor, who admitted the patient as an inpatient, sees his orders. Per electronic medical record. The patient's blood pressures were monitored and treated medically. His renal status was reassessed. His diabetes was followed and treated medically. Sensorium remained reduced although this has chronically been his baseline. Oral intake here was excellent when this blind gentleman was assisted with feedings. The case was discussed with his family. Hemodialysis was offered, and the family declined. [facility] home placement was recommended, and the family declined. The patient did receive some diuretics here under the guidance of his electrical installation supervisor. See also serial orders, laboratory and imaging studies reviewed daily by electronic medical record here. These include hemoglobin on May 12 of 8.7 with white count 9400, platelet count 166,000. The patient did receive Epogen while here. Floor Plan Adjuster stated intent to continue administering Epogen on an outpatient basis. Iron studies were normal although indices were low. INR 1.24, PTT 33.5. Urinalysis, 6 red cells per high power field. Patient has a long history of nephrolithiasis and partial left renal resection secondary to staghorn prior calculus. RPR nonreactive. Chemistries were monitored including blood sugars, monitored closely with adjustment in treatment serially as indicated. May 12 BUN 69, creatinine 4.52. No significant acidosis or hyperkalemia. Cardiac enzymes negative for acute [place], ordered per ER. Hemoglobin A1c was 5.2. BUN 76, creatinine 5.32 on May 15. Cultures of blood and urine negative. Admission May 12 chest x-ray with cardiomegaly and pulmonary venous congestion. This improved on serial films. ER ordered head CT, compatible with multi infarcts. The patient was given a list of recommended home meds and asked to return to clinic in 5 days. He has had difficulty with keeping outpatient appointments. He already has a visiting home nurse as mentioned above. See also discharge medicine reconciliation list. Prognosis is poor. Final impression as above. Echocardiogram this admission. Left ventricular hypertrophy. Systolic function normal. Ejection fraction 55% to 60%. FINAL IMPRESSION: Chronic type 2 diabetes mellitus with retinopathy, neuropathy, nephropathy. Peripheral vascular disease. Old left sqsfu-sky-beka amputation. This patient is blind. He requires chronic insulin. Primary hypertension with left ventricular hypertrophy. Multi-infarct dementia. Chronic obstructive pulmonary disease. Prostatic hypertrophy. Gastroesophagitis. Anemia secondary to renal failure. Fluid overload on admission secondary to chronic renal failure. Normal ejection fraction LV as mentioned above. MARSHA NERI MD Job#: [id number] EV
== END 2018-05-17 11:54 | disposition home or self-care (01) | DRG 684 ==
LOC: ER 10:26 → ERHOLD 14:09 → IMCU 14:53 → OBSVTOIN 05-14 16:40 → MED/SURG2 05-14 20:15
PROVIDERS: ADMIT Internal Medicine; ATTEND Internal Medicine
DX: N17.9 Acute kidney failure, unspecified (principal); I12.9 Hypertensive chronic kidney disease with stage 1 through stage 4 chronic kidney disease, or unspecified chronic kidney disease; E11.319 Type 2 diabetes mellitus with unspecified diabetic retinopathy without macular edema; E11.40 Type 2 diabetes mellitus with diabetic neuropathy, unspecified; E11.21 Type 2 diabetes mellitus with diabetic nephropathy; Z89.512 Acquired absence of left leg below knee; H54.8 Legal blindness, as defined in USA; Z79.84 Long term (current) use of oral hypoglycemic drugs; I51.7 Cardiomegaly; K21.9 Gastro-esophageal reflux disease without esophagitis; D63.1 Anemia in chronic kidney disease; N40.0 Benign prostatic hyperplasia without lower urinary tract symptoms; J44.9 Chronic obstructive pulmonary disease, unspecified; Z90.5 Acquired absence of kidney; Z79.4 Long term (current) use of insulin; F01.50 Vascular dementia, unspecified severity, without behavioral disturbance, psychotic disturbance, mood disturbance, and anxiety; I73.9 Peripheral vascular disease, unspecified; E11.22 Type 2 diabetes mellitus with diabetic chronic kidney disease; N18.9 Chronic kidney disease, unspecified; I69.398 Other sequelae of cerebral infarction
CPT/HCPCS: 36415; 70450; 71045; 71046; 80048; 80053; 80061; 81001; 81050; 82140; 82150; 82550; 82553; 82575; 82728; 82948; 83036; 83540; 83605; 83690; 83735; 83880; 84100; 84156; 84443; 84466; 84484; 85014; 85018; 85025; 85610; 85730; 86592; 87040; 87086; 93005; 93306; 97139; 99284; G0378; J1940; J2543; J7050; J7799; Q4081

== ENCOUNTER 2019-04-13 11:05 | Emergency (ER) | payer MEDICARE, OTHER ==
[~2019-04-13] VITALS: Ht 172.7 cm; Wt 67.6 kg
[~2019-04-13 11:05] MED LIST changes: +LIPITOR20 MG PO
--- OUTSIDE RECORDS SUMMARY | 2019-04-13 11:11 | XMS REPORT | Clinical Summary ---
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 08/24/2018 doxazosin (CARDURA) 4 MG Take 1 tablet 60 tablet 0 tablet (4 mg total) 8 by mouth every 12 (twelve) hours for 30 days. 08/26/2018 clonIDINE (CATAPRES-TTS) Place 1 patch 4 patch 0 0.3 mg/24 hr (0.3 mg 8 total) on the skin once a week for 30 days. 08/24/2018 hydrALAZINE (APRESOLINE) Take 1 tablet 90 tablet 0 100 MG tablet (100 mg 8 total) by mouth every 8 (eight) hours for 30 days. 08/24/2018 NIFEdipine XL (PROCARDIA Take 1 tablet 60 tablet 0 XL) 60 MG 24 hr tablet (60 mg total) 8 by mouth 2 (two) times a day for 30 days. 08/25/2018 furosemide (LASIX) 40 mg Take 1 tablet 30 tablet 0 tablet (40 mg total) 8 by mouth daily for 30 days. 08/25/2018 pantoprazole (PROTONIX) Take 1 tablet 30 tablet 0 40 MG EC tablet (40 mg total) 8 by mouth daily for 30 days. Active Problems Problem Noted Date CKD (chronic kidney disease) stage 4, GFR 15-29 ml/min 07/25/2018 Anemia 07/15/2018 Sepsis 05/12/2017 Acute hypoxemic respiratory failure 05/12/2017 Pneumonia due to infectious organism 05/12/2017 Bradycardia 05/12/2017 Hypothermia 05/12/2017 Thrombocytopathia 05/12/2017 Acute encephalopathy 05/12/2017 Hypertension Diabetes mellitus Resolved Problems Problem Noted Date Resolved Date Hypoglycemia 07/13/2018 07/25/2018 DAWIT (acute kidney injury) 05/12/2017 07/25/2018 Encounters Care Team Description Date Type Specialty Julio Pena MD 07/23/2018 Anesthesia General Surgery Event Allen Grigsby MD LUE AV fistula creation 07/23/2018 Surgery General Surgery Nikolai Jo MD Morris, David, DO Yerramadha, Muralidhar Reddy, MD Bavare, MD Tray Meyers Matthew Thomas, DO Nichols, Dacia Carter MD Hypoglycemia (Primary Dx); Anemia, unspecified type; Acute UTI; DAWIT (acute kidney injury); CKD (chronic kidney disease) stage 4, GFR 15-29 ml/min 07/13/2018 [facility] General Internal Medicine - Encounter 07/25/2018 Janene Garza MA 07/11/2018 Telephone Cardiovascular after 04/12/2018 Social History Date Tobacco Use Types Packs/Day Years Used Unknown If Ever Smoked Smokeless Tobacco: Never Used Sex Assigned at Date Recorded Not on file Industry Job Start Date Occupation Not on file Not on file Not on file Travel End Travel History Travel Start No recent travel history available. Last Filed Vital Signs Time Taken Vital Sign Reading 07/25/2018 4:11 PM CDT Blood Pressure 177/79 07/25/2018 4:11 PM CDT Pulse 71 07/25/2018 4:11 PM CDT Temperature 36.4 C (97.5 F) 07/25/2018 4:11 PM CDT Respiratory Rate 18 07/25/2018 4:11 PM CDT Oxygen Saturation 98% - Inhaled Oxygen - Concentration 07/18/2018 5:15 AM CDT Weight 65.4 kg (144 lb 2.2 oz) 07/18/2018 5:15 AM CDT Height 167.6 cm (5' 6") 07/18/2018 5:15 AM CDT Body Mass Index 23.26 Plan of Treatment Health Maintenance Due Date Last Done Comments DIABETIC RETINAL EYE EXAM 1954 DIABETIC FOOT EXAM 1964 SHINGLES VACCINES (#1) 2004 INFLUENZA VACCINE 06/13/2019 COLON CANCER SCREENING 12/15/2027 12/15/2017 Procedures Comments Procedure Name Priority Date/Time Associated Diagnosis SMEAR REVIEW Routine 04/03/2019 2:00 PM CDT ESTIMATED GFR Routine 04/03/2019 2:00 PM CDT URINE PROTEIN/CREATININE Routine 04/03/2019 Type 2 diabetes mellitus RATIO, RANDOM 2:00 PM CDT with complication, unspecified whether fdc insulin use (HCC) Chronic kidney disease, stage V (HCC) Parenchymal renal hypertension, 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 BASIC METABOLIC PANEL Routine 04/03/2019 Type 2 diabetes mellitus 2:00 PM CDT with complication, unspecified whether exterminator termite insulin use (HCC) Chronic kidney disease, stage V (HCC) Parenchymal renal hypertension, 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 HEMOGLOBIN & HEMATOCRIT Routine 04/03/2019 Type 2 diabetes mellitus 2:00 PM CDT with complication, unspecified whether fdc insulin use (HCC) Chronic kidney disease, stage V (HCC) Parenchymal renal hypertension, 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 PHOSPHORUS LEVEL Routine 04/03/2019 Type 2 diabetes mellitus 2:00 PM CDT with complication, unspecified whether fdc insulin use (HCC) Chronic kidney disease, stage V (HCC) Parenchymal renal hypertension, 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 MAGNESIUM LEVEL Routine 04/03/2019 Type 2 diabetes mellitus 2:00 PM CDT with complication, unspecified whether fdc insulin use (HCC) Chronic kidney disease, stage V (HCC) Parenchymal renal hypertension, 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 SMEAR REVIEW Routine 03/08/2019 6:30 PM CDT ESTIMATED GFR Routine 03/08/2019 6:30 PM CDT HEMOGLOBIN & HEMATOCRIT Routine 03/08/2019 Type 2 diabetes mellitus 6:30 PM CDT with complication, unspecified whether fdc insulin use (HCC) Chronic kidney disease, stage V (HCC) Parenchymal renal hypertension, 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 BASIC METABOLIC PANEL Routine 03/08/2019 Type 2 diabetes mellitus 6:30 PM CDT with complication, unspecified whether exterminator termite insulin use (HCC) Chronic kidney disease, stage V (HCC) Parenchymal renal hypertension, 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 PARATHYROID HORMONE Routine 01/25/2019 11:20 AM CDT ESTIMATED GFR Routine 01/25/2019 11:20 AM CDT HC COMPLETE BLD COUNT Routine 01/25/2019 Type 2 diabetes mellitus W/AUTO DIFF 11:20 AM CDT with complication, unspecified whether fdc insulin use (HCC) Parenchymal renal hypertension, 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 Chronic kidney disease, stage IV (severe) (HCC) Anemia of chronic renal failure, unspecified CKD stage Hyperpotassemia Avitaminosis D HEMOGLOBIN A1C Routine 01/25/2019 Type 2 diabetes mellitus 11:20 AM CDT with complication, unspecified whether fdc insulin use (HCC) Parenchymal renal hypertension, 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 Chronic kidney disease, stage IV (severe) (HCC) Anemia of chronic renal failure, unspecified CKD stage Hyperpotassemia Avitaminosis D PHOSPHORUS LEVEL Routine 01/25/2019 Type 2 diabetes mellitus 11:20 AM CDT with complication, unspecified whether fdc insulin use (HCC) Parenchymal renal hypertension, 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 Chronic kidney disease, stage IV (severe) (HCC) Anemia of chronic renal failure, unspecified CKD stage Hyperpotassemia Avitaminosis D MAGNESIUM LEVEL Routine 01/25/2019 Type 2 diabetes mellitus 11:20 AM CDT with complication, unspecified whether fdc insulin use (HCC) Parenchymal renal hypertension, 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 Chronic kidney disease, stage IV (severe) (HCC) Anemia of chronic renal failure, unspecified CKD stage Hyperpotassemia Avitaminosis D URINE PROTEIN/CREATININE Routine 01/25/2019 Type 2 diabetes mellitus RATIO, RANDOM 11:20 AM CDT with complication, unspecified whether fdc insulin use (HCC) Parenchymal renal hypertension, 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 Chronic kidney disease, stage IV (severe) (HCC) Anemia of chronic renal failure, unspecified CKD stage Hyperpotassemia Avitaminosis D BASIC METABOLIC PANEL Routine 01/25/2019 Type 2 diabetes mellitus 11:20 AM CDT with complication, unspecified whether exterminator termite insulin use (HCC) Parenchymal renal hypertension, 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 Chronic kidney disease, stage IV (severe) (HCC) Anemia of chronic renal failure, unspecified CKD stage Hyperpotassemia Avitaminosis D ESTIMATED GFR Routine 11/23/2018 10:45 AM SHEETROCK APPLICATOR FERRITIN LEVEL Routine 11/23/2018 Parenchymal renal 10:45 AM SHEETROCK APPLICATOR hypertension, 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 Chronic kidney disease, stage IV (severe) (HCC) Erythropoietin deficiency anemia TOTAL IRON BINDING Routine 11/23/2018 Parenchymal renal CAPACITY 10:45 AM SHEETROCK APPLICATOR hypertension, 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 Chronic kidney disease, stage IV (severe) (HCC) Erythropoietin deficiency anemia HEMOGLOBIN & HEMATOCRIT Routine 11/23/2018 Parenchymal renal 10:45 AM SHEETROCK APPLICATOR hypertension, 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 Chronic kidney disease, stage IV (severe) (HCC) Erythropoietin deficiency anemia URIC ACID LEVEL Routine 11/23/2018 Parenchymal renal 10:45 AM SHEETROCK APPLICATOR hypertension, 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 Chronic kidney disease, stage IV (severe) (HCC) Erythropoietin deficiency anemia BASIC METABOLIC PANEL Routine 11/23/2018 Parenchymal renal 10:45 AM SHEETROCK APPLICATOR hypertension, 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 Chronic kidney disease, stage IV (severe) (HCC) Erythropoietin deficiency anemia URINALYSIS, AUTOMATED Routine 10/01/2018 Parenchymal renal WITH MICROSCOPY 12:00 PM SHEETROCK APPLICATOR hypertension, 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 Chronic kidney disease, stage IV (severe) (HCC) Anemia of chronic renal failure, unspecified CKD stage Avitaminosis D Chronic disease anemia Type 2 diabetes mellitus with complication, unspecified whether fdc insulin use (HCC) Essential hypertension, malignant ESTIMATED GFR Routine 10/01/2018 11:00 AM SHEETROCK APPLICATOR VITAMIN D 25 HYDROXY Routine 10/01/2018 Parenchymal renal LEVEL 11:00 AM SHEETROCK APPLICATOR hypertension, 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 Chronic kidney disease, stage IV (severe) (HCC) Anemia of chronic renal failure, unspecified CKD stage Avitaminosis D Chronic disease anemia Type 2 diabetes mellitus with complication, unspecified whether fdc insulin use (HCC) Essential hypertension, malignant URINE PROTEIN/CREATININE Routine 10/01/2018 Parenchymal renal RATIO, RANDOM 11:00 AM SHEETROCK APPLICATOR hypertension, 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 Chronic kidney disease, stage IV (severe) (HCC) Anemia of chronic renal failure, unspecified CKD stage Avitaminosis D Chronic disease anemia Type 2 diabetes mellitus with complication, unspecified whether exterminator termite insulin use (HCC) Essential hypertension, malignant HC COMPLETE BLD COUNT Routine 10/01/2018 Parenchymal renal W/AUTO DIFF 11:00 AM SHEETROCK APPLICATOR hypertension, 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 Chronic kidney disease, stage IV (severe) (HCC) Anemia of chronic renal failure, unspecified CKD stage Avitaminosis D Chronic disease anemia Type 2 diabetes mellitus with complication, unspecified whether exterminator termite insulin use (HCC) Essential hypertension, malignant PARATHYROID HORMONE Routine 10/01/2018 Parenchymal renal 11:00 AM SHEETROCK APPLICATOR hypertension, 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 Chronic kidney disease, stage IV (severe) (HCC) Anemia of chronic renal failure, unspecified CKD stage Avitaminosis D Chronic disease anemia Type 2 diabetes mellitus with complication, unspecified whether exterminator termite insulin use (HCC) Essential hypertension, malignant HEMOGLOBIN A1C Routine 10/01/2018 Parenchymal renal 11:00 AM SHEETROCK APPLICATOR hypertension, 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 Chronic kidney disease, stage IV (severe) (HCC) Anemia of chronic renal failure, unspecified CKD stage Avitaminosis D Chronic disease anemia Type 2 diabetes mellitus with complication, unspecified whether exterminator termite insulin use (HCC) Essential hypertension, malignant URIC ACID LEVEL Routine 10/01/2018 Parenchymal renal 11:00 AM SHEETROCK APPLICATOR hypertension, 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 Chronic kidney disease, stage IV (severe) (HCC) Anemia of chronic renal failure, unspecified CKD stage Avitaminosis D Chronic disease anemia Type 2 diabetes mellitus with complication, unspecified whether exterminator termite insulin use (HCC) Essential hypertension, malignant THYROID STIMULATING Routine 10/01/2018 Parenchymal renal HORMONE 11:00 AM SHEETROCK APPLICATOR hypertension, 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 Chronic kidney disease, stage IV (severe) (HCC) Anemia of chronic renal failure, unspecified CKD stage Avitaminosis D Chronic disease anemia Type 2 diabetes mellitus with complication, unspecified whether fdc insulin use (HCC) Essential hypertension, malignant PHOSPHORUS LEVEL Routine 10/01/2018 Parenchymal renal 11:00 AM SHEETROCK APPLICATOR hypertension, 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 Chronic kidney disease, stage IV (severe) (HCC) Anemia of chronic renal failure, unspecified CKD stage Avitaminosis D Chronic disease anemia Type 2 diabetes mellitus with complication, unspecified whether exterminator termite insulin use (HCC) Essential hypertension, malignant MAGNESIUM LEVEL Routine 10/01/2018 Parenchymal renal 11:00 AM SHEETROCK APPLICATOR hypertension, 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 Chronic kidney disease, stage IV (severe) (HCC) Anemia of chronic renal failure, unspecified CKD stage Avitaminosis D Chronic disease anemia Type 2 diabetes mellitus with complication, unspecified whether exterminator termite insulin use (HCC) Essential hypertension, malignant FERRITIN LEVEL Routine 10/01/2018 Parenchymal renal 11:00 AM SHEETROCK APPLICATOR hypertension, 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 Chronic kidney disease, stage IV (severe) (HCC) Anemia of chronic renal failure, unspecified CKD stage Avitaminosis D Chronic disease anemia Type 2 diabetes mellitus with complication, unspecified whether exterminator termite insulin use (HCC) Essential hypertension, malignant TOTAL IRON BINDING Routine 10/01/2018 Parenchymal renal CAPACITY 11:00 AM SHEETROCK APPLICATOR hypertension, 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 Chronic kidney disease, stage IV (severe) (HCC) Anemia of chronic renal failure, unspecified CKD stage Avitaminosis D Chronic disease anemia Type 2 diabetes mellitus with complication, unspecified whether fdc insulin use (HCC) Essential hypertension, malignant COMPREHENSIVE METABOLIC Routine 10/01/2018 Parenchymal renal PANEL 11:00 AM SHEETROCK APPLICATOR hypertension, 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 Chronic kidney disease, stage IV (severe) (HCC) Anemia of chronic renal failure, unspecified CKD stage Avitaminosis D Chronic disease anemia Type 2 diabetes mellitus with complication, unspecified whether fdc insulin use (HCC) Essential hypertension, malignant SMEAR REVIEW Routine 07/31/2018 10:00 AM CDT ESTIMATED GFR Routine 07/31/2018 10:00 AM CDT HEMOGLOBIN & HEMATOCRIT Routine 07/31/2018 Chronic kidney disease, 10:00 AM CDT stage V Chronic disease anemia PHOSPHORUS LEVEL Routine 07/31/2018 Chronic kidney disease, 10:00 AM CDT stage V Chronic disease anemia BASIC METABOLIC PANEL Routine 07/31/2018 Chronic kidney disease, 10:00 AM CDT stage V Chronic disease anemia POC GLUCOSE Routine 07/25/2018 4:12 PM CDT ECG 12-LEAD STAT 07/25/2018 12:02 PM CDT POC GLUCOSE Routine 07/25/2018 11:00 AM CDT POC GLUCOSE Routine 07/25/2018 6:42 AM CDT ESTIMATED GFR Routine 07/25/2018 5:54 AM CDT HC COMPLETE BLD COUNT Routine 07/25/2018 W/AUTO DIFF 5:54 AM CDT BASIC METABOLIC PANEL Routine 07/25/2018 5:54 AM CDT POC GLUCOSE Routine 07/24/2018 9:45 PM CDT POC GLUCOSE Routine 07/24/2018 4:50 PM CDT POC GLUCOSE Routine 07/24/2018 4:22 PM CDT POC GLUCOSE Routine 07/24/2018 11:18 AM CDT ZZESTIMATED GFR Routine 07/24/2018 8:09 AM CDT MAGNESIUM LEVEL Routine 07/24/2018 8:09 AM CDT HC COMPLETE BLD COUNT Routine 07/24/2018 W/AUTO DIFF 8:09 AM CDT BASIC METABOLIC PANEL Routine 07/24/2018 8:09 AM CDT POC GLUCOSE Routine 07/24/2018 7:46 AM CDT POC GLUCOSE Routine 07/23/2018 5:37 PM CDT NH AN ELECTIVE Routine 07/23/2018 SUPRAGLOTTIC AIRWAY 4:05 PM CDT Procedure Note - Mckenzie Martino MD - 07/23/2018 4:05 PM CDT Airway Date/Time: 07/23/2018 4:01 PM Performed by: MCKENZIE MARTINO Authorized by: MCKENZIE MARTINO Location: OR Urgency: Elective Difficult Airway: No Anesthesio logist: MCKENZIE MARTINO Performed by: anesthesio logist Preoxygena freddy with 100% O2: Yes C-spine Precaution s Maintained Throughout : Yes Mask Ventilatio n: Not attempted Final Airway Type: Supraglott ic airway Final LMA: Unique LMA Size: 4 Number of Attempts at Approach: 1 ECG PRE/POST OP Routine 07/23/2018 2:15 PM CDT POC GLUCOSE Routine 07/23/2018 11:04 AM CDT POC GLUCOSE Routine 07/23/2018 6:37 AM CDT ZZESTIMATED GFR Routine 07/23/2018 6:22 AM CDT TYPE AND SCREEN Routine 07/23/2018 6:22 AM CDT HC COMPLETE BLD COUNT Routine 07/23/2018 W/AUTO DIFF 6:22 AM CDT BASIC METABOLIC PANEL Routine 07/23/2018 6:22 AM CDT POC GLUCOSE Routine 07/22/2018 8:43 PM CDT POC GLUCOSE Routine 07/22/2018 4:59 PM CDT POC GLUCOSE Routine 07/22/2018 4:40 PM CDT POC GLUCOSE Routine 07/22/2018 11:28 AM CDT POC GLUCOSE Routine 07/22/2018 6:16 AM CDT POC GLUCOSE Routine 07/21/2018 9:42 PM CDT POC GLUCOSE Routine 07/21/2018 4:35 PM CDT POC GLUCOSE Routine 07/21/2018 12:39 PM CDT POC GLUCOSE Routine 07/21/2018 11:14 AM CDT SMEAR REVIEW Timed 07/21/2018 8:40 AM CDT HC COMPLETE BLD COUNT Timed 07/21/2018 W/AUTO DIFF 8:40 AM CDT POC GLUCOSE Routine 07/21/2018 8:34 AM CDT ZZESTIMATED GFR Timed 07/21/2018 6:39 AM CDT PHOSPHORUS LEVEL Timed 07/21/2018 6:39 AM CDT MAGNESIUM LEVEL Timed 07/21/2018 6:39 AM CDT BASIC METABOLIC PANEL Timed 07/21/2018 6:39 AM CDT POC GLUCOSE Routine 07/20/2018 4:46 PM CDT POC GLUCOSE Routine 07/20/2018 11:47 AM CDT POC GLUCOSE Routine 07/20/2018 7:55 AM CDT MANUAL DIFFERENTIAL Timed 07/20/2018 6:40 AM CDT ZZESTIMATED GFR Timed 07/20/2018 6:40 AM CDT PHOSPHORUS LEVEL Timed 07/20/2018 6:40 AM CDT MAGNESIUM LEVEL Timed 07/20/2018 6:40 AM CDT CBC WITH PLATELET AND Timed 07/20/2018 DIFFERENTIAL 6:40 AM CDT BASIC METABOLIC PANEL Timed 07/20/2018 6:40 AM CDT POC GLUCOSE Routine 07/19/2018 8:32 PM CDT POC GLUCOSE Routine 07/19/2018 4:55 PM CDT POC GLUCOSE Routine 07/19/2018 11:16 AM CDT POC GLUCOSE Routine 07/19/2018 7:27 AM CDT MANUAL DIFFERENTIAL Timed 07/19/2018 5:06 AM CDT ZZESTIMATED GFR Timed 07/19/2018 5:06 AM CDT PHOSPHORUS LEVEL Timed 07/19/2018 5:06 AM CDT MAGNESIUM LEVEL Timed 07/19/2018 5:06 AM CDT CBC WITH PLATELET AND Timed 07/19/2018 DIFFERENTIAL 5:06 AM CDT BASIC METABOLIC PANEL Timed 07/19/2018 5:06 AM CDT POC GLUCOSE Routine 07/19/2018 4:02 AM CDT POC GLUCOSE Routine 07/18/2018 8:10 PM CDT TRANSFUSE RED BLOOD CELLS Routine 07/18/2018 5:36 PM CDT TRANSFUSE RED BLOOD CELLS Routine 07/18/2018 5:36 PM CDT TRANSFUSE PLATELETS Routine 07/18/2018 5:36 PM CDT POC GLUCOSE Routine 07/18/2018 4:59 PM CDT POC GLUCOSE Routine 07/18/2018 11:35 AM CDT MANUAL DIFFERENTIAL Timed 07/18/2018 7:46 AM CDT ZZESTIMATED GFR Timed 07/18/2018 7:46 AM CDT PHOSPHORUS LEVEL Timed 07/18/2018 7:46 AM CDT MAGNESIUM LEVEL Timed 07/18/2018 7:46 AM CDT CBC WITH PLATELET AND Timed 07/18/2018 DIFFERENTIAL 7:46 AM CDT BASIC METABOLIC PANEL Timed 07/18/2018 7:46 AM CDT POC GLUCOSE Routine 07/18/2018 7:15 AM CDT POC GLUCOSE Routine 07/17/2018 9:01 PM CDT POC GLUCOSE Routine 07/17/2018 3:56 PM CDT US VEIN MAPPING UPPER Routine 07/17/2018 EXTREMITY BILATERAL 1:44 PM CDT POC GLUCOSE Routine 07/17/2018 10:54 AM CDT POC GLUCOSE Routine 07/17/2018 6:47 AM CDT SMEAR REVIEW Routine 07/17/2018 4:33 AM CDT CBC HEMOGRAM Routine 07/17/2018 4:33 AM CDT ZZESTIMATED GFR Routine 07/17/2018 4:33 AM CDT BASIC METABOLIC PANEL Routine 07/17/2018 4:33 AM CDT POC GLUCOSE Routine 07/16/2018 9:34 PM CDT POC GLUCOSE Routine 07/16/2018 4:42 PM CDT POC GLUCOSE Routine 07/16/2018 11:33 AM CDT MANUAL DIFFERENTIAL Routine 07/16/2018 7:06 AM CDT ZZESTIMATED GFR Routine 07/16/2018 7:06 AM CDT CBC WITH PLATELET AND Routine 07/16/2018 DIFFERENTIAL 7:06 AM CDT BASIC METABOLIC PANEL Routine 07/16/2018 7:06 AM CDT POC GLUCOSE Routine 07/16/2018 6:32 AM CDT HC COMPLETE BLD COUNT Timed 07/15/2018 W/AUTO DIFF 9:56 PM CDT POC GLUCOSE Routine 07/15/2018 8:59 PM CDT TRANSFUSE RED BLOOD CELLS Routine 07/15/2018 8:19 PM CDT POC GLUCOSE Routine 07/15/2018 4:41 PM CDT POC GLUCOSE Routine 07/15/2018 11:11 AM CDT PREPARE RBC Timed 07/15/2018 9:14 AM CDT FLOW CYTOMETRY EVALUATION Routine 07/15/2018 9:14 AM CDT VITAMIN B12 LEVEL Routine 07/15/2018 9:14 AM CDT FOLATE LEVEL Routine 07/15/2018 9:14 AM CDT FERRITIN LEVEL Routine 07/15/2018 9:14 AM CDT MANUAL DIFFERENTIAL Routine 07/15/2018 9:14 AM CDT CBC WITH PLATELET AND Routine 07/15/2018 DIFFERENTIAL 9:14 AM CDT TYPE AND SCREEN Timed 07/15/2018 9:14 AM CDT POC GLUCOSE Routine 07/15/2018 6:36 AM CDT MANUAL DIFFERENTIAL Routine 07/15/2018 4:53 AM CDT ZZESTIMATED GFR Routine 07/15/2018 4:53 AM CDT BASIC METABOLIC PANEL Routine 07/15/2018 4:53 AM CDT CBC WITH PLATELET AND Routine 07/15/2018 DIFFERENTIAL 4:53 AM CDT POC GLUCOSE Routine 07/14/2018 10:15 PM CDT POC GLUCOSE Routine 07/14/2018 4:46 PM CDT POC GLUCOSE Routine 07/14/2018 11:25 AM CDT POC GLUCOSE Routine 07/14/2018 6:35 AM CDT B NATRIURETIC PEPTIDE STAT 07/14/2018 5:15 AM CDT TROPONIN Timed 07/14/2018 5:15 AM CDT POC GLUCOSE Routine 07/14/2018 2:48 AM CDT POC GLUCOSE Routine 07/13/2018 11:40 PM CDT URINALYSIS SCREEN AND Routine 07/13/2018 MICROSCOPY, WITH REFLEX 10:28 PM CDT TO CULTURE URINE CULTURE Routine 07/13/2018 10:28 PM CDT GRAM STAIN Routine 07/13/2018 10:28 PM CDT MANUAL DIFFERENTIAL STAT 07/13/2018 10:05 PM CDT CREATINE KINASE, TOTAL STAT 07/13/2018 (CPK) 10:05 PM CDT TROPONIN STAT 07/13/2018 10:05 PM CDT ZZESTIMATED GFR STAT 07/13/2018 10:05 PM CDT LACTIC ACID LEVEL, SEPSIS STAT 07/13/2018 - NOW AND REPEAT 2X EVERY 10:05 PM CDT 3 HOURS LIPASE LEVEL STAT 07/13/2018 10:05 PM CDT COMPREHENSIVE METABOLIC STAT 07/13/2018 PANEL 10:05 PM CDT CBC WITH PLATELET AND STAT 07/13/2018 DIFFERENTIAL 10:05 PM CDT XR CHEST 1 VW PORTABLE STAT 07/13/2018 9:39 PM CDT POC GLUCOSE Routine 07/13/2018 8:57 PM CDT ZZESTIMATED GFR Routine 06/28/2018 12:30 PM CDT URINE PROTEIN/CREATININE Routine 06/28/2018 Type 2 diabetes mellitus RATIO, RANDOM 12:30 PM CDT with complication, unspecified fdc insulin use status Parenchymal renal hypertension, 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 Chronic kidney disease, stage V Chronic disease anemia Vitamin D deficiency disease URINALYSIS, AUTOMATED Routine 06/28/2018 WITH MICROSCOPY 11:48 AM CDT GRAM STAIN Routine 06/28/2018 11:48 AM CDT URINE CULTURE Routine 06/28/2018 11:48 AM CDT ZZESTIMATED GFR Routine 06/27/2018 10:00 AM CDT PHOSPHORUS LEVEL Routine 06/27/2018 Type 2 diabetes mellitus 10:00 AM CDT with complication, unspecified fdc insulin use status Chronic kidney disease, stage V Chronic disease anemia Avitaminosis D MAGNESIUM LEVEL Routine 06/27/2018 Type 2 diabetes mellitus 10:00 AM CDT with complication, unspecified exterminator termite insulin use status Chronic kidney disease, stage V Chronic disease anemia Avitaminosis D BASIC METABOLIC PANEL Routine 06/27/2018 Type 2 diabetes mellitus 10:00 AM CDT with complication, unspecified exterminator termite insulin use status Chronic kidney disease, stage V Chronic disease anemia Avitaminosis D VITAMIN D 25 HYDROXY Routine 06/27/2018 Type 2 diabetes mellitus LEVEL 10:00 AM CDT with complication, unspecified fdc insulin use status Chronic kidney disease, stage V Chronic disease anemia Avitaminosis D PARATHYROID HORMONE Routine 06/27/2018 Type 2 diabetes mellitus 10:00 AM CDT with complication, unspecified exterminator termite insulin use status Chronic kidney disease, stage V Chronic disease anemia Avitaminosis D HEMOGLOBIN & HEMATOCRIT Routine 06/27/2018 Type 2 diabetes mellitus 10:00 AM CDT with complication, unspecified exterminator termite insulin use status Chronic kidney disease, stage V Chronic disease anemia Avitaminosis D SMEAR REVIEW Routine 06/06/2018 9:00 AM CDT ZZESTIMATED GFR Routine 06/06/2018 9:00 AM CDT BASIC METABOLIC PANEL Routine 06/06/2018 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 HC COMPLETE BLD COUNT Routine 06/06/2018 Benign hypertensive heart W/AUTO DIFF 9:00 AM CDT and renal disease ZZESTIMATED GFR Routine 05/30/2018 10:50 AM CDT BASIC METABOLIC PANEL Routine 05/30/2018 Benign hypertensive heart 10:50 AM CDT and renal disease ZZESTIMATED GFR Routine 05/25/2018 10:00 AM CDT BASIC METABOLIC PANEL Routine 05/25/2018 10:00 AM CDT MANUAL DIFFERENTIAL Routine 05/11/2018 2:20 PM CDT ZZESTIMATED GFR Routine 05/11/2018 2:20 PM CDT CBC WITH PLATELET AND Routine 05/11/2018 Hypertensive heart DIFFERENTIAL 2:20 PM 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, 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 HEMOGLOBIN A1C Routine 05/11/2018 Hypertensive heart 2:20 PM 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 Pathologist [facility] [place] Smear review Scan Not Req [facility] Specimen Performing Organization Address City/State/Zipcode Phone Number [facility] [address] [place] [address] PATHOLOGY AND GENOMIC MEDICINE [address] * Estimated GFR (04/03/2019 2:00 PM CDT) Only the most recent of 7 results within the time period is included. Pathologist [facility] [place] Estimated GFR 20 (A) mL/min/1.73 m2 [facility] Comment: [facility] G1 >=90 Normal or high G2 60-89Mildly decreased [id number] Mildly to moderately decreased [id number] Moderately to severely decreased G4 15-29Severely decreased G5 <15Kidney failure The eGFR was calculated using the Chronic Kidney Disease Epidemiology Collaboration (CKD-EPI) equation. Interpretation is based on recommendations of the National Kidney Foundation-Kidney Disease Outcomes Quality Initiative (NKF-KDOQI) published in 2014. Specimen Plasma specimen Performing Organization Address City/State/Zipcode Phone Number [facility] [address] [place] [place] [address] PATHOLOGY AND GENOMIC MEDICINE [address] * Hemoglobin & hematocrit (04/03/2019 2:00 PM CDT) Only the most recent of 5 results within the time period is included. HGB 7.9 (L) 13.0 - 17.3 g/dL [facility] HCT 25.2 (L) 34.0 - 45.0 % [facility] Specimen Blood Performing Organization Address City/[facility] Phone Number [place] [address] [place] [phone] PATHOLOGY AND [facility] MEDICINE [address] * Urine protein/creatinine ratio, random (04/03/2019 2:00 PM CDT) Only the most recent of 4 results within the time period is included. Protein, urine 151 mg/dL [facility] random [facility] Protein 7.1 6.3 - 8.3 g/dL [facility] Protein 21.27 [facility] clearance, [facility] Creatinine, 59 mg/dL [facility] urine, random [facility] Creatinine 3.50 (H) 0.70 - 1.20 mg/dL [facility] Urine 16.86 [facility] creatinine [facility] Prot/creat 126.16 [facility] ratio, urine [facility] Specimen Urine Performing Organization Address City/[facility] Phone Number [facility] [address] [place] [phone] PATHOLOGY AND [facility] MEDICINE [address] * Phosphorus level (04/03/2019 2:00 PM CDT) Only the most recent of 9 results within the time period is included. Phosphorus 3.2 2.4 - 4.5 mg/dL [facility] Specimen Plasma specimen Performing Organization Address City/[facility] Phone Number [place] [address] [place] [address] PATHOLOGY AND [facility] MEDICINE [address] * Magnesium level (04/03/2019 2:00 PM CDT) Only the most recent of 9 results within the time period is included. Pathologist [facility] [place] Magnesium 2.00 1.60 - 2.40 mg/dL [facility] Specimen Plasma specimen Performing Organization Address City/[facility]/Zipcode Phone Number [facility] [place] [address] PATHOLOGY AND [facility] MEDICINE [address] * Basic metabolic panel (04/03/2019 2:00 PM CDT) Only the most recent of 19 results within the time period is included. Pathologist [facility] Sodium 146 135 - 150 mEq/L [facility] Potassium 4.3 3.5 - 5.0 mEq/L [facility] Chloride 110 98 - 112 mEq/L [facility] CO2 22 (L) 24 - 31 mmol/L [facility] Anion gap 14@ANIO 7 - 15 mEq/L [facility] BUN 42 (H) 7 - 18 mg/dL [facility] Creatinine 3.50 (H) 0.70 - 1.20 mg/dL [facility] Glucose 154 (H) 65 - 100 mg/dL [facility] Calcium 9.3 8.8 - 10.2 mg/dL [facility] Specimen Plasma specimen Performing Organization Address City/[facility]/Zipcode Phone Number [place] [phone] PATHOLOGY AND [facility] MEDICINE [address] * CBC with platelet and differential (01/25/2019 11:20 AM CDT) Only the most recent of 16 results within the time period is included. Pathologist [facility] WBC 8.5 4.2 - 11.0 k/uL [facility] RBC 3.18 (L) 4.04 - 5.86 m/uL [facility] HGB 7.9 (L) 13.0 - 17.3 g/dL [facility] HCT 25.6 (L) 34.0 - 45.0 % [facility] MCV 80.5 80.0 - 98.0 fL [facility] MCH 24.8 (L) 27.0 - 34.0 pg [facility] MCHC 30.9 (L) 31.5 - 36.5 g/dL [facility] RDW - SD 50.9 37.0 - 51.0 fL [facility] MPV SEE COMMENTComment: No report 7.4 - 10.4 fL [facility] Platelet count 100 (L) 150 - 400 k/uL [facility] Nucleated RBC 0.00 /100 WBC [facility] Neutrophils 56.3 36.0 - 66.0 % [facility] Lymphocytes 32.4 24.0 - 44.0 % [facility] Monocytes 7.4 (H) 0.0 - 6.0 % [facility] Eosinophils 1.5 0.0 - 6.0 % [facility] Basophils 0.5 0.0 - 1.2 % [facility] Immature 1.9 (H) 0.0 - 1.0 % [facility] granulocytes [facility] Specimen Blood Performing Organization Address City/State/Zipcode Phone Number [facility] [address] [place] [address] PATHOLOGY AND GENOMIC MEDICINE [facility] [address] [place], [place] [id number] [place] [address] * Parathyroid hormone (01/25/2019 11:20 AM CDT) Only the most recent of 3 results within the time period is included. PTH 111 (H) 15 - 65 pg/mL [facility] Specimen Performing Organization Address City/[facility]/Zipcode Phone Number [facility] DEPARTMENT OF [address] [place] [address] PATHOLOGY AND GENOMIC MEDICINE [facility] [address] [place] [address] [facility] * Hemoglobin A1c (01/25/2019 11:20 AM CDT) Only the most recent of 3 results within the time period is included. Hemoglobin A1C 5.4 4.0 - 6.0 % [facility] Comment: [facility] Less than 6% - Goal of therapy for Type II Diabetes Less than 7%-Goal of therapy for Type I Diabetes Less than 8%-Accepta ble control for Type I or Type II Diabetes Greater than 8%-Unacceptabl e control; action indicated. ([id number]) Specimen Blood Performing Organization Address City/[facility] [place] [address] PATHOLOGY AND [facility] MEDICINE [address] * Total iron binding capacity (11/23/2018 10:45 AM SHEETROCK APPLICATOR) Only the most recent of 2 results within the time period is included. [facility] Iron level 63 59 - 158 ug/dL [facility] Iron binding 191 (L) 271 - 474 ug/dL [facility] % Saturation 33.0 20.0 - 40.0 % [facility] Specimen Plasma specimen Narrative Performed At [facility] FAX TO [facility] DEPARTMENT OF PATHOLOGY AND GENOMIC MEDICINE Performing Organization Address City/State/[place] [address] PATHOLOGY AND GENOMIC MEDICINE [address] * Uric acid level (11/23/2018 10:45 AM SHEETROCK APPLICATOR) Only the most recent of 2 results within the time period is included. Uric acid 9.6 (H) 3.4 - 7.0 mg/dL [facility] Specimen Plasma specimen Narrative Performed At [facility] FAX TO [facility] DEPARTMENT OF PATHOLOGY AND GENOMIC MEDICINE Performing Organization Address City/State/Zipcode Phone Number [facility] [address] [place] [address] PATHOLOGY AND GENOMIC MEDICINE [address] * Ferritin level (11/23/2018 10:45 AM SHEETROCK APPLICATOR) Only the most recent of 3 results within the time period is included. Ferritin level 691 (H) 30 - 400 ng/mL [facility] Specimen Serum Narrative Performed At [facility] FAX TO [facility] DEPARTMENT OF PATHOLOGY AND GENOMIC MEDICINE Performing Organization Address City/State/Zipcode Phone Number [place] [address] [facility] [place] [address] PATHOLOGY AND GENOMIC MEDICINE [address] * Urinalysis, automated with microscopy (10/01/2018 12:00 PM SHEETROCK APPLICATOR) Only the most recent of 2 results within the time period is included. Color, UA Yellow [facility] Appearance, UA Clear [facility] Specific 1.009 1.001 - 1.035 [facility] gravity, [facility] pH, UA 5.0 5.0 - 8.5 [facility] Protein, UA 2+ (A) Negative [facility] Glucose, UA Negative Negative [facility] Ketones, UA Negative Negative [facility] Bilirubin, UA Negative Negative [facility] Blood, UA Negative Negative [facility] Nitrite, UA Negative Negative [facility] Urobilinogen, Negative <2.0 [facility] Leukocyte Negative Negative [facility] esterase, UA [facility] Epithelial Few /HPF [facility] cells, UA [facility] WBC, UA <1 0 - 1 /HPF [facility] RBC, UA 1 0 - 5 /HPF [facility] Bacteria, UA None seen None seen [facility] Yeast, UA None seen [facility] Yeast with None seen [facility] pseudohyphae, [facility] Specimen Urine Performing Organization Address City/State/Zipcode Phone Number [facility] [address] [place] [phone] PATHOLOGY AND GENOMIC MEDICINE [facility] [address] * Vitamin D 25 hydroxy level (10/01/2018 11:00 AM SHEETROCK APPLICATOR) Only the most recent of 2 results within the time period is included. Vitamin D, 15.9 (L) 30.0 - 150.0 ng/mL [facility] 25-hydroxy Comment: [facility] This assay reports the sum of HOSPITAL 25-hydroxy vitamin D3 and 25-hydroxy vitamin D2. Reference range: 0-17 years: Deficiency: less than 20ng/mL Optimum level: greater than or equal to 20 ng/mL. 18 years and older: Deficiency: less than 20ng/mL Insufficiency: 20-29 ng/mL Optimum Level: 30-80 ng/mL The assay reportable range is 3.4155.9 ng/mL. Levels higher than 150 ng/mL may be associated with toxicity. If toxicity is clinically suspected and the reported result is >155.9 ng/mL,contact lab for alternative methods to obtain a definitivelevel. If separate quantitation of 25-hydroxy vitamin D3 and 25-hydroxy vitamin D2 is needed, please contact lab for alternative methods. Specimen Plasma specimen Performing Organization Address City/[facility]/Zipcode Phone Number [facility] DEPARTMENT OF [address] [place] [address] PATHOLOGY AND [facility] MEDICINE [address] * Thyroid stimulating hormone (10/01/2018 11:00 AM SHEETROCK APPLICATOR) TSH 0.56 0.27 - 4.20 uIU/mL [facility] Specimen Plasma specimen Performing Organization Address City/State/Zipcode Phone Number [facility] [address] [place] [phone] PATHOLOGY AND GENOMIC MEDICINE [facility] [address] * Comprehensive metabolic panel (10/01/2018 11:00 AM SHEETROCK APPLICATOR) Only the most recent of 3 results within the time period is included. [facility] Sodium 143 135 - 150 mEq/L [facility] Potassium 5.0 3.5 - 5.0 mEq/L [facility] Chloride 108 98 - 112 mEq/L [facility] CO2 23 (L) 24 - 31 mmol/L [facility] Anion gap 12@ANIO 7 - 15 mEq/L [facility] BUN 52 (H) 7 - 18 mg/dL [facility] Creatinine 3.50 (H) 0.70 - 1.20 mg/dL [facility] Glucose 173 (H) 65 - 100 mg/dL [facility] Calcium 9.0 8.8 - 10.2 mg/dL [facility] Protein 6.7 6.3 - 8.3 g/dL [facility] Albumin 3.2 (L) 3.5 - 5.0 g/dL [facility] A/G ratio 0.9 0.7 - 3.8 [facility] Alkaline 122 0 - 129 U/L [facility] phosphatase [facility] AST 19 10 - 50 U/L [facility] ALT 21 5 - 50 U/L [facility] Total bilirubin 0.5 0.2 - 1.2 mg/dL [facility] Specimen Plasma specimen Performing Organization Address City/State/Zipcode Phone Number [place] [address] [place] [address] PATHOLOGY AND GENOMIC MEDICINE [place] [address] [address] * POC glucose (07/25/2018 4:12 PM CDT) Only the most recent of 52 results within the time period is included. [facility] POC glucose 210 (H) 65 - 100 mg/dL [facility] Comment: OF PATHOLOGY Meter ID: [id number] AND GENOMIC Tacker Off: Rebekah Batista MEDICINE Specimen Performing Organization Address City/State/Zipcode Phone Number [place] [address] [address] [place] [phone] PATHOLOGY AND GENOMIC MEDICINE * ECG 12 lead (07/25/2018 12:02 PM CDT) Ventricular 62 [facility] rate Atrial rate 62 [facility] NH interval 124 [facility] QRSD interval 84 [facility] QT interval 394 [facility] QTC interval 399 [facility] P axis 1 42 [facility] QRS axis 1 66 [facility] T wave axis -4 [facility] EKG impression Normal sinus rhythm-Possible [facility] Inferior infarct , age undetermined-Abnormal ECG-In automated comparison with ECG of 23-JUL-2018 14:15,-premature supraventricular complexes are no longer present-Criteria for Septal infarct are no longer present-Borderline criteria for Inferior infarct are now present-ST now depressed in Inferior leads-T wave inversion now evident in Inferior leads- Specimen Performing Organization Address City/[facility]/Zipcode Phone Number [facility] [address] [place] [address] * Estimated GFR (07/24/2018 8:09 AM CDT) Only the most recent of 16 results within the time period is included. GFR Non Af Amer 17 (A) mL/min/1.73 m2 [facility] OF PATHOLOGY AND GENOMIC MEDICINE GFR Af Amer 20 (A) mL/min/1.73 m2 [facility] Comment: OF PATHOLOGY Chronic kidney disease: <60 AND GENOMIC mL/min/1.73m2 MEDICINE Kidney failure: <15 mL/min/1.73m2 The estimated GFR is calculated from the IDMS-traceable Modification of Diet in Renal Disease Equation. The accuracy of the calculation is poor when the creatinine is normal. Calculated values >90 mL/min/1.73m2 are not reported. This equation has not been validated in children (<18 years), women, the elderly (>70 years), or ethnic groups other than Caucasians and Americans. Specimen Plasma specimen Performing Organization Address City/State/Zipcode Phone Number [facility] [place] [address] PATHOLOGY AND [facility] MEDICINE * ECG Pre/Post Op (07/23/2018 2:15 PM CDT) Ventricular 58 [facility] rate Atrial rate 58 [facility] NH interval 126 [facility] QRSD interval 82 [facility] QT interval 412 H MUSE QTC interval 404 [facility] MUSE P axis 1 72 [facility] QRS axis 1 59 [facility] T wave axis 34 [facility] EKG impression Sinus bradycardia with [facility] MUSE premature supraventricular complexes-Septal infarct , age undetermined-Abnormal ECG-In automated comparison with ECG of 12-MAY-2017 18:18,-QRS duration has decreased-Septal infarct is now present-Nonspecific T wave abnormality, improved in Inferior leads-Nonspecific T wave abnormality no longer evident in Lateral leads-QT has shortened- Specimen Performing Organization Address City/[facility]/Zipcode Phone Number [facility] [address] [place] [address] * Type and screen (07/23/2018 6:22 AM CDT) Only the most recent of 2 results within the time period is included. ABO grouping O [facility] OF PATHOLOGY AND GENOMIC MEDICINE Rh type POS [facility] OF PATHOLOGY AND GENOMIC MEDICINE Antibody screen NEG [facility] (gel) OF PATHOLOGY AND GENOMIC MEDICINE Specimen Blood Performing Organization Address City/[facility]/Zipcode Phone Number [address] [address] PATHOLOGY AND GENOMIC MEDICINE * Manual differential (07/20/2018 6:40 AM CDT) Only the most recent of 8 results within the time period is included. Manual PERFORMED [facility] differential OF PATHOLOGY AND GENOMIC MEDICINE Neutrophils 73.0 (H) 36.0 - 66.0 % [facility] OF PATHOLOGY AND GENOMIC MEDICINE Lymphocytes 18.0 (L) 24.0 - 44.0 % [facility] OF PATHOLOGY AND GENOMIC MEDICINE Monocytes 7.0 (H) 0.0 - 6.0 % [facility] OF PATHOLOGY AND GENOMIC MEDICINE Eosinophils 1.0 0.0 - 6.0 % [facility] OF PATHOLOGY AND GENOMIC MEDICINE Basophils 1.0 0.0 - 1.2 % [facility] OF PATHOLOGY AND GENOMIC MEDICINE Metamyelocytes 0 0 - 1 % [facility] OF PATHOLOGY AND GENOMIC MEDICINE Promyelocytes 0 0 - 1 % [facility] OF PATHOLOGY AND GENOMIC MEDICINE Platelet slide Kacie adequate [facility] review OF PATHOLOGY AND GENOMIC MEDICINE Anisocytosis slight [facility] OF PATHOLOGY AND GENOMIC MEDICINE Polychromasia slight [facility] OF PATHOLOGY AND GENOMIC MEDICINE Tear drop cells Occasional [facility] OF PATHOLOGY AND GENOMIC MEDICINE Schistocytes Occasional [facility] OF PATHOLOGY AND GENOMIC MEDICINE Spherocytes Occasional [facility] OF PATHOLOGY AND GENOMIC MEDICINE Ovalocytes Ocasional [facility] OF PATHOLOGY AND GENOMIC MEDICINE Specimen Performing Organization Address City/State/Zipcode Phone Number [facility] OF [address] [place] [address] PATHOLOGY AND GENOMIC MEDICINE * Transfuse platelets (07/18/2018 5:36 PM CDT) * Transfuse RBC (07/18/2018 5:36 PM CDT) Only the most recent of 4 results within the time period is included. * Pv vein mapping upper extremity (07/17/2018 1:44 PM CDT) Specimen Narrative Performed At EXAM: Bilateral upper extremity vein mapping RADIANT HISTORY: Fistula access planning TECHNIQUE: Bilateral upper extremity venous duplex ultrasound with color flow and Doppler imaging obtained for vein mapping. IMPRESSION: 1.There is no deep venous or superficial vein thrombus in the upper extremities. The right and left internal jugular, subclavian, axillary, brachial, radial, ulnar, basilic, and cephalic veins are patent with no visible thrombus. 2.Bilateral upper extremity vein mapping was performed and was the following: RIGHT ARM--Size(mm)--DEPTH FROM SKIN(mm) Above the antecubital fossa: Brachial at antecubital:3 mm -- 10 mm Median antecubital:3 mm -- 4 mm Cephalic antecubital:3 mm -- 3 mm Cephalic mid arm:3 mm -- 2 mm Cephalic proximal:4 mm -- 5 mm Basilic antecubital:4 mm -- 3 mm Basilic mid arm:3 mm -- 5 mm Basilic proximal:4 mm -- 4 mm Below antecubital fossa: Cephalic wrist:2 mm -- 3 mm Cephalic mid forearm:3 mm -- 3 mm Basilic wrist:2 mm -- 2 mm Basilic mid forearm:2 mm -- 2 mm Arteries--Size(mm): Radial artery:2 mm Ulnar artery:2 mm Brachial artery:3 mm LEFT ARM--Size(mm)--DEPTH FROM SKIN(mm) Above the antecubital fossa: Brachial at antecubital:4 mm -- 9 mm Median antecubital:2 mm -- 3 mm Cephalic antecubital:4 mm -- 3 mm Cephalic mid arm:4 mm -- 4 mm Cephalic proximal:3 mm -- 2 mm Basilic antecubital:2 mm -- 6 mm Basilic mid arm:2 mm -- 2 mm Basilic proximal:4 mm -- 3 mm Below antecubital fossa: Cephalic wrist:3 mm -- 2 mm Cephalic mid forearm:4 mm -- 3 mm Basilic wrist:N/A Basilic mid forearm:3 mm -- 3 mm Arteries--Size(mm): Radial artery:3 mm Ulnar artery:2 mm Brachial artery:4 mm [facility]-[id number] Procedure Note Hm Interface, Radiology Results Incoming - 07/17/2018 3:34 PM CDT EXAM: Bilateral upper extremity vein mapping HISTORY: Fistula access planning TECHNIQUE: Bilateral upper extremity venous duplex ultrasound with color flow and Doppler imaging obtained for vein mapping. IMPRESSION: 1. There is no deep venous or superficial vein thrombus in the upper extremities. The right and left internal jugular, subclavian, axillary, brachial, radial, ulnar, basilic, and cephalic veins are patent with no visible thrombus. 2. Bilateral upper extremity vein mapping was performed and was the following: RIGHT ARM--Size(mm)--DEPTH FROM SKIN(mm) Above the antecubital fossa: Brachial at antecubital: 3 mm -- 10 mm Median antecubital: 3 mm -- 4 mm Cephalic antecubital: 3 mm -- 3 mm Cephalic mid arm: 3 mm -- 2 mm Cephalic proximal: 4 mm -- 5 mm Basilic antecubital: 4 mm -- 3 mm Basilic mid arm: 3 mm -- 5 mm Basilic proximal: 4 mm -- 4 mm Below antecubital fossa: Cephalic wrist: 2 mm -- 3 mm Cephalic mid forearm: 3 mm -- 3 mm Basilic wrist: 2 mm -- 2 mm Basilic mid forearm: 2 mm -- 2 mm Arteries--Size(mm): Radial artery: 2 mm Ulnar artery: 2 mm Brachial artery: 3 mm LEFT ARM--Size(mm)--DEPTH FROM SKIN(mm) Above the antecubital fossa: Brachial at antecubital: 4 mm -- 9 mm Median antecubital: 2 mm -- 3 mm Cephalic antecubital: 4 mm -- 3 mm Cephalic mid arm: 4 mm -- 4 mm Cephalic proximal: 3 mm -- 2 mm Basilic antecubital: 2 mm -- 6 mm Basilic mid arm: 2 mm -- 2 mm Basilic proximal: 4 mm -- 3 mm Below antecubital fossa: Cephalic wrist: 3 mm -- 2 mm Cephalic mid forearm: 4 mm -- 3 mm Basilic wrist: N/A Basilic mid forearm: 3 mm -- 3 mm Arteries--Size(mm): Radial artery: 3 mm Ulnar artery: 2 mm Brachial artery: 4 mm [facility]-[id number] Performing Organization Address City/State/Zipcode Phone Number [facility] [address] [place] [address] * CBC hemogram (07/17/2018 4:33 AM CDT) [facility] WBC 7.0 4.2 - 11.0 k/uL [facility]OM[facility] MEDICINE RBC 3.64 (L) 4.04 - 5.86 m/uL [facility]OMIC MEDICINE HGB 9.4 (L) 13.0 - 17.3 g/dL [facility] AND GENOMIC MEDICINE HCT 29.1 (L) 34.0 - 45.0 % [facility] GENOMIC MEDICINE MCV 79.9 (L) 80.0 - 98.0 fL [facility] GENOMIC MEDICINE MCH 25.8 (L) 27.0 - 34.0 pg [facility] AND GENOMIC MEDICINE MCHC 32.3 31.5 - 36.5 g/dL [facility]Y AND GENOMIC MEDICINE RDW - SD 53.1 (H) 37.0 - 51.0 fL [facility]Y AND GENOMIC MEDICINE MPV SEE COMMENTComment: No report 7.4 - 10.4 fL [facility]Y AND GENOMIC MEDICINE Platelet count 133 (L) 150 - 400 k/uL [facility]Y AND GENOMIC MEDICINE Nucleated RBC 0.00 /100 WBC [facility]OLOGY AND GENOMIC MEDICINE Specimen Performing Organization Address City/[facility]/Zipcode Phone Number [place] [address] [place] [address] PATHOLOGY AND GENOMIC MEDICINE * Flow cytometry evaluation (07/15/2018 9:14 AM CDT) [facility] DEPARTMENT OF PATHOLOGY AND GENOMIC MEDICINE Flow cytometry See link below for PDF Lab [facility] DEPARTMENT evaluation Report OF PATHOLOGY AND GENOMIC MEDICINE Specimen Blood Performing Organization Address City/State/Zipcode Phone Number [facility] DEPARTMENT OF [address] [place] [address] PATHOLOGY AND GENOMIC MEDICINE * Prepare RBC, 2 Units (07/15/2018 9:14 AM CDT) Pathologist [facility] Product name Red Blood Cells -1, Leukored [facility]OMIC MEDICINE Unit number [id number] [facility]OMIC MEDICINE Product code [id number] [facility]Y AND GENOMIC MEDICINE Dispense status Transfused [facility] AND GENOMIC MEDICINE Blood [id number] [facility] expiration date OF PATHOLOGY AND GENOMIC MEDICINE Blood type code 5100 [facility]OLOGY AND GENOMIC MEDICINE Blood type O POSITIVE [facility]OLOGY AND GENOMIC MEDICINE Product name Red Blood Cells -1, Leukored [facility]OLOGY AND GENOMIC MEDICINE Unit number [id number] [facility] AND GENOMIC MEDICINE Product code [id number] [facility]OLOGY AND GENOMIC MEDICINE Dispense status Transfused [facility]OLOGY AND GENOMIC MEDICINE Blood [id number] [facility] expiration date OF PATHOLOGY AND GENOMIC MEDICINE Blood type code 5100 [facility] OF PATHOLOGY AND GENOMIC MEDICINE Blood type O POSITIVE [facility] OF PATHOLOGY AND GENOMIC MEDICINE Specimen Performing Organization Address City/[facility] Phone Number [facility] [address] [place] [address] PATHOLOGY AND GENOMIC MEDICINE * Folate level (07/15/2018 9:14 AM CDT) Pathologist [facility] Folate 5.4 3.4 - 20.0 ng/mL [facility]OLOGY AND GENOMIC MEDICINE Specimen Serum Performing Organization Address City/State/Zipcode Phone Number [facility] [address] [place] [address] PATHOLOGY AND GENOMIC MEDICINE * Vitamin B12 level (07/15/2018 9:14 AM CDT) Pathologist [facility] Vitamin B12 568 231 - 931 pg/mL [facility] Comment: OF PATHOLOGY Significant overlap exists AND GENOMIC between normal and deficiency MEDICINE states. However, most patients with deficiencies will have Serum B12 <200 pg/mL. Specimen Serum Performing Organization Address City/State/[place] [address] PATHOLOGY AND [employer] MEDICINE * Troponin (07/14/2018 5:15 AM CDT) Only the most recent of 2 results within the time period is included. [facility] Troponin <0.30 0.00 - 0.30 ng/mL [facility] Comment: OF PATHOLOGY 0.11 - 1.49 AND GENOMIC ng/mlMay MEDICINE indicate increased risk of acute coronary syndrome. >=1.5 ng/ml Consistent with acute myocardial infarction. The diagnostic value of a single normal or non-diagnostic result is questionable.Serial samples at 2-6 hour intervals are required to rule out acute myocardial injury. Specimen Plasma specimen Performing Organization Address City/[facility]/[place] [address] PATHOLOGY AND [facility] * B natriuretic peptide (07/14/2018 5:15 AM CDT) [facility] BNP 282 (H) 0 - 100 pg/mL [facility] PATHOLOGY [facility] [employer] MEDICINE Specimen Blood Performing Organization Address City/[facility] [place] [address] PATHOLOGY AND [facility] * Urinalysis screen and microscopy, with reflex to culture (07/13/2018 10:28 PM CDT) [facility] Specimen site [facility]OLOGY AND GENOMIC MEDICINE Color, UA Yellow [facility] OF PATHOLOGY AND GENOMIC MEDICINE Appearance, UA Slightly-Cloudy [facility] OF PATHOLOGY AND GENOMIC MEDICINE Specific 1.010 1.001 - 1.035 [facility] gravity, UA OF PATHOLOGY AND GENOMIC MEDICINE pH, UA 5.0 5.0 - 8.5 [facility] OF PATHOLOGY AND GENOMIC MEDICINE Protein, UA 2+ (A) Negative [facility] OF PATHOLOGY AND GENOMIC MEDICINE Glucose, UA Negative Negative [facility] OF PATHOLOGY AND GENOMIC MEDICINE Ketones, UA Negative Negative [facility] OF PATHOLOGY AND GENOMIC MEDICINE Bilirubin, UA Negative Negative [facility] OF PATHOLOGY AND GENOMIC MEDICINE Blood, UA Small (A) Negative [facility] OF PATHOLOGY AND GENOMIC MEDICINE Nitrite, UA Negative Negative [facility] OF PATHOLOGY AND GENOMIC MEDICINE Urobilinogen, Negative <2.0 [facility] UA OF PATHOLOGY AND GENOMIC MEDICINE Leukocyte Trace (A) Negative [facility] esterase, UA OF PATHOLOGY AND GENOMIC MEDICINE Epithelial Few /HPF [facility] cells, UA OF PATHOLOGY AND GENOMIC MEDICINE WBC, UA 7 (H) 0 - 1 /HPF [facility] OF PATHOLOGY AND GENOMIC MEDICINE RBC, UA 3 0 - 5 /HPF [facility] OF PATHOLOGY AND GENOMIC MEDICINE Bacteria, UA Trace None seen [facility] OF PATHOLOGY AND GENOMIC MEDICINE Yeast, UA None seen [facility] OF PATHOLOGY AND GENOMIC MEDICINE Yeast with None seen [facility] pseudohyphae, OF PATHOLOGY UA AND GENOMIC MEDICINE Amorphous Few [facility] crystals OF PATHOLOGY AND GENOMIC MEDICINE Specimen Urine Performing Organization Address City/[facility] Phone Number [facility] [place] [address] [place] [address]. [place] [address] PATHOLOGY AND GENOMIC MEDICINE * Gram stain (07/13/2018 10:28 PM CDT) Only the most recent of 2 results within the time period is included. Gram stain No WBC's or organisms seen. [facility] DE[facility] result Comment: OF PATHOLOGY Specimen Information AND GENOMIC Specimen Source: Urine MEDICINE Specimen Site: [facility] Specimen Urine - [place] Performing Organization Address City/[facility] Phone Number [facility] DEPARTMENT OF [address] [place] [address] PATHOLOGY AND [facility] * Urine culture (07/13/2018 10:28 PM CDT) Only the most recent of 2 results within the time period is included. Urine culture Gram negative rods [facility] DE[facility] isolate 10-1 cfu/ml OF PATHOLOGY (A) AND GENOMIC Comment: MEDICINE Specimen Information Specimen Source: Urine Specimen Site: [facility] Specimen Urine - [place] Performing Organization Address City/[facility] Phone Number [facility] [place] [address] PATHOLOGY AND GENOMIC MEDICINE * Lactic acid level, SEPSIS - Now and repeat 2x every 3 hours (07/13/2018 10:05 PM CDT) Lactic acid 0.8 0.5 - 2.2 mmol/L [facility] OF PATHOLOGY AND GENOMIC MEDICINE Specimen Blood Performing Organization Address City/[facility]/Zipcode Phone Number [facility] [address] [place] [address] PATHOLOGY AND GENOMIC MEDICINE * Lipase level (07/13/2018 10:05 PM CDT) Lipase 13 13 - 60 U/L [facility] OF PATHOLOGY AND GENOMIC MEDICINE Specimen Plasma specimen Performing Organization Address City/State/Zipcode Phone Number [facility] OF [address] [place] [address] PATHOLOGY AND GENOMIC MEDICINE * Creatine kinase, total (CPK) (07/13/2018 10:05 PM CDT) Creatine kinase 83 39 - 308 U/L [facility] OF PATHOLOGY AND GENOMIC MEDICINE Specimen Plasma specimen Performing Organization Address City/[facility]/Zipcode Phone Number [facility] OF [address] [place] [address] PATHOLOGY AND GENOMIC MEDICINE * XR Chest 1 Vw Portable (07/13/2018 9:39 PM CDT) Specimen Narrative Performed At EXAMINATION: XR CHEST 1 VW PORTABLE [facility] CLINICAL HISTORY: hypoglycemia COMPARISON:05/14/2017. IMPRESSION: Mild pulmonary vascular congestion. No focal or confluent airspace consolidation. No pleural effusion or pneumothorax. Cardiac silhouette is enlarged. No acute osseous abnormalities. [facility]-[id number] Procedure Note Hm Interface, Radiology Results Incoming - 07/13/2018 9:47 PM CDT EXAMINATION: XR CHEST 1 VW PORTABLE CLINICAL HISTORY: hypoglycemia COMPARISON: 05/14/2017. IMPRESSION: Mild pulmonary vascular congestion. No focal or confluent airspace consolidation. No pleural effusion or pneumothorax. Cardiac silhouette is enlarged. No acute osseous abnormalities. [facility]-[id number] Performing Organization Address [facility] Hospital[facility] Phone Number [facility] [address] [place] [address] after 04/12/2018 Insurance Type Payer Benefit Subscriber ID Effective Phone Address Plan / Dates Group Medicare MEDICARE MEDICARE xxxxxxxxxxx 2015-P [place], PART A AND resent [place] B O [facility] MEDICAID [facility] xxxxxxxxx 2017-P [employer]+ resent [facility] Advance Directives Patient has advance care planning documents on file. For more information, hui e contact: Bud Tucker [address] [place] [address]
--- OUTSIDE RECORDS SUMMARY | 2019-04-13 11:11 | XMS REPORT ---
[facility] Address Unknown Phone Unavailable Care Team Providers Care Case Briefer Name Role Phone MARSHA NERI Unavailable Unavailable Problems This patient has no known problems. Allergies, Adverse Reactions, Alerts This patient has no known allergies or adverse reactions. Medications This patient has no known medications. Results Test Description Test Time Test Comments Text Results Atomic Results Result Comments CHEST 2 VIEWS 2018-05-16 11:20:00 [facility] [address] [address] Patient Name: ANUJ GARZA MR #: [id number] : 1955 Age/Sex: 62/M Req #: [id number] Adm Physician: MARSHA NERI MD Ordered by: MARSHA NERI MD Report #: [id number] Location: [facility] Room/Bed: [facility] Procedure: [id number] DX/CHEST 2 VIEWS Exam Date: Exam Time: REPORT STATUS: Signed EXAMINATION: CHEST 2 VIEWS INDICATION: Pulmonary edema. COMPARISON: Chest radiograph 05/13/2018. FINDINGS: PA and lateral views TUBES and LINES: None. LUNGS: Mild bilateral pulmonary venous congestion. Bibasilar atelectasis. PLEURA: No pleural effusion or pneumothorax. HEART AND MEDIASTINUM: Stable mild enlargement of the cardiac silhouette. BONES AND SOFT TISSUES: No acute osseous lesion. Soft tissues are unremarkable. UPPER ABDOMEN: No free air under the diaphragm. IMPRESSION: Cardiomegaly and mild pulmonary venous congestion bilaterally. Decreased interstitial edema. Signed by: Dr. Irina Lopez M.D. on 05/16/2018 11:22 AM Dictated By: DAVE LOPEZ MD, MD 21 Transcribed By: MINDA on 05/16/181121 COPY TO: MARSHA NERI MD CHEST 2 VIEWS 2018-05-13 13:40:00 [facility] [address] [place] [address] Patient Name: ANUJ GARZA MR #: [id number] : 1955 Age/Sex: 62/M Req #: [id number] Adm Physician: MARSHA NERI MD Ordered by: MARSHA NERI MD Report #: [id number] Location: [facility] Room/Bed: [address] [place] [address] Procedure: [id number] DX/CHEST 2 VIEWS Exam Date: 05/13/18 Exam Time: 1242 REPORT STATUS: Signed EXAMINATION: CHEST 2 VIEWS INDICATION: COMPARISON: Chest radiograph 05/12/2018 FINDINGS: PA and lateral views TUBES and LINES: None. LUNGS: Lungs are well inflated. Bibasilar atelectasis. Bilateral pulmonary edema. PLEURA: No pleural effusion or pneumothorax. HEART AND MEDIASTINUM: Stable mild enlargement of the cardiac silhouette. BONES AND SOFT TISSUES: No acute osseous lesion. Soft tissues are unremarkable. UPPER ABDOMEN: No free air under the diaphragm. IMPRESSION: Bilateral pulmonary edema, worse when compared to prior exam. Signed by: Dr. Precious Rodríguez M.D. on 05/13/2018 1:42 PM Dictated By: PRECIOUS RODRÍGUEZ MD 1342 T ranscribed By: MINDA on 05/13/18 1342 COPY TO: MARSHA NERI MD CT BRAIN WO 2018-05-12 13:11:00 [place] [address] Patient Name: ANUJ GARZA MR #: [id number] : 1955 Age/Sex: 62/M Req #: [id number] Adm Physician: Ordered by: CHELY ROBBINS MD Report #: [id number] Location: ER Room/Bed: Procedure: [id number] CT/CT BRAIN WO Exam Date: 05/12/18 Exam Time: 1215 REPORT STATUS: Signed EXAMINATION: Head CT HISTORY: Headache, hypertension COMPARISON: Head CT on 02/27/2016 and brain MRI of 02/29/2016 TECHNIQUE: Multidetector axial images were obtained with, without contrast from the foramen magnum to the vertex . The images were reconstructed using brain and bone algorithms. Thin section brain images were reformatted into coronal and sagittal planes. Intravenous contrast: None. Motion/streaking artifact limits the evaluation of the skull base and posterior cranial fossa. FINDINGS: Parenchyma: 1. Mild progression to moderate chronic microvascular ischemic changes. 2. Again seen chronic lacunar infarct in the left frontal cuellar radiata, left subinsular region, left greater than right thalami, left thalamocapsular region, mirna and left cerebellum. 3. No mass or hemorrhage. No CT evidence of acute territorial vascular insult. Extra- axial spaces:No abnormal density. No extra-axial fluid collections Brain volume: Mild generalized volume loss Ventricles: No hydrocephalus or displacement. Arteries: No density suggestive of thrombus. Dural sinuses: No abnormal density. Extra-axial spaces: No abnormal density. Foramen magnum: No mass, Chiari malformation, or basilar invagination. Sella: No obvious mass. Paranasal/mastoid sinuses: Imaged portions unremarkable. Skull/Scalp: No lytic or blastic lesions. No fractures. Orbits: Postoperative changes in the bilateral lobes are unchanged. IMPRESSION: 1. No acute intracranial hemorrhage or CT evidence of acute territorial cortical infarct. 2. Moderate chronic microvascular ischemic changes and multiple chronic infarcts. Signed by: Dr. Zaira Church M.D. on 05/12/2018 1:16 PM Dictated By: ZAIRA CHURCH MD 1316 Transcribed By: MINDA on 05/12/18 1316 COPY TO: CHELY ROBBINS MD CHEST SINGLE (PORTABLE) 2018-05-12 12:44:00 [place] [address] Patient Name: ANUJ GARZA MR #: [id number] : 1955 Age/Sex: 62/M Req #: [id number] Adm Physician: Ordered by: CHELY ROBBINS MD Report #: [id number] Location: ER Room/Bed: Procedure: [id number] DX/CHEST SINGLE (PORTABLE) Exam Date: 05/12/18 Exam Time: 1225 REPORT STATUS: Signed Examination: Single AP view of the chest. COMPARISON: None. INDICATION: Elevated blood pressure DISCUSSION: Lines/tubes: None. Lungs: Pulmonary venous congestion. No pneumonia. Pleura: There is no pleural effusion or pneumothorax. Heart and mediastinum: Cardiomegaly. Bones and soft tissues: No acute bony abnormalities. IMPRESSION: 1. Cardiomegaly with pulmonary venous congestion Signed by: Dr. Stacy Nayak M.D. on 05/12/2018 12:45 PM Dictated By: STACY NAYAK MD 1245 Transcribed By: MINDA on 05/12/18 1245 COPY TO: CHELY ROBBINS MD US BREAST COMPLETE RIGHT [place] [address] Patient Name: ANUJ GARZA MR #: [id number] : 1955 Age/Sex: 62/M Req #: [id number] Adm Physician: MARSHA NERI MD Ordered by: MARSHA NERI MD Report #: [id number] Location: [facility] Room/Bed: [facility] Procedure: [id number] US/US BREAST COMPLETE RIGHT Exam Date: 01/26/18 Exam Time: 1400 REPORT STATUS: Signed #[id number] - USBRECOMRT ULTRASOUND OF THE RIGHT BREAST : 01/26/2018 No prior exams were available for comparison. Color flow and real-time ultrasound were performed on the entire right breast. -There is gynecosmastia present without definable mass. Comparison to the left breast demonstrates similar changes. IMPRESSION: BENIGN There is no sonographic evidence of malignancy. Follow-up with ACR/ACS guidelines. Kenneth Tapia Jr., D.O. cw/:01/26/2018 14:39:05 Community Affairs Manager: AISHWARYA PITTMAN, [facility] letter sent: Normal Exam Ultrasound BI-RADS: 2 Benign Dictated By: KENNETH TAPIA DO 1439 Transcribed By: SCOOTER on 01/26/18 1439 COPY TO: MARSHA NERI MD US RENAL RETROPERITONEAL COMP [place] [address] Patient Name: ANUJ GARZA MR #: [id number] : 1955 Age/Sex: 62/M Req #: [id number] Adm Physician: MARSHA NERI MD Ordered by: KWADWO RINALDI, ISA RINALDI Report #: [id number] Location: MED/SURG2 Room/Bed: [facility] Procedure: [id number] US/US RENAL RETROPERITONEAL COMP Exam Date: 01/24/18 Exam Time: 1939 REPORT STATUS: Signed EXAM: Renal Ultrasound INDICATION: CHRONIC KIDNEY DISEASES. Abdominal pain. COMPARISON: None TECHNIQUE: Transverse and longitudinal images of the kidneys and bladder were obtained. FINDINGS: Right Kidney: Length: 9.9 cm Appearance: Increased echogenicity. Collecting system: No hydronephrosis Stones: None Cyst/Mass: Anechoic lesion in the interpolar region measures 1.6 x 1.6 x 1.6 cm, consistent with a simple cyst. Left Kidney: Length: 9.9 cm Appearance: Increased echogenicity. Collecting system: No hydronephrosis Stones: None Cyst/Mass: Complex septated lesion in the lateral left kidney measures 1.9 x 2.4 x 1.4 cm. Anechoic lesion in the lower pole measures 2.3 x 1.9 x 2.2 cm. Bladder: Wall thickening likely reflect decompression by Vargas catheter. IMPRESSION: 1. Increased echogenicity of the renal cortex bilaterally suggestive of medical renal disease. No hydronephrosis. 2. 2.3 complex cyst in the left kidney. Recommend follow-up ultrasound in relation 6 months to evaluate stability or lack thereof (this could be further evaluated with CT or MRI examination renal mass protocol if renal function permits/if glomerular infiltration rate is greater than 30, gadolinium could be administered if clinically warranted). Signed by: Dr. Irina Lopez M.D. on 01/24/2018 8:41 PM Dictated By: DAVE LOPEZ MD, MD 40 Transcribed By: MINDA on 01/24/182040 COPY TO: ISA BURKETT CHEST 2 VIEWS [place] [address] Patient Name: ANUJ GARZA MR #: [id number] : 1955 Age/Sex: 62/M Req #: [id number] Adm Physician: MARSHA NERI MD Ordered by: MARSHA ENRI MD Report #: [id number] Location: MED/SURG2 Room/Bed: [facility] Procedure: [id number] DX/CHEST 2 VIEWS Exam Date: 01/24/18 Exam Time: 1734 REPORT STATUS: Signed PROCEDURE: Frontal and lateral views of the chest. COMPARISON: Chest x-ray 01/19/2018. INDICATIONS: ABDOMINAL PAIN FINDINGS: Lines/tubes: None. Lungs: The lungs are hypo-inflated with perihilar vascular crowding. Mild bibasilar atelectasis. There is no evidence of pneumonia or pulmonary edema. Pleura: There is no pleural effusion or pneumothorax. Heart and mediastinum: The heart and the mediastinum are normal. Bones: No acute bony abnormality. IMPRESSION: 1. Hypoinflated lungs. No acute pulmonary opacities. 2. Multiple overlying EKG wires in the middle of the chest. Dictated by: Jude Laguerre M.D. on 01/24/2018 at 18:28 Electronically approved by: Jude Laguerre M.D. on 01/24/2018 at 18:28 Dictated By: JUDE LAGUERRE MD Elect ronically Signed By: JUDE LAGUERRE MD on 01/24/181827 Transcribed By: TRISTON on 01/24/181827 COPY TO: MARSHA NERI MD ECHO COMPLETE (ECHOCARDIOGRAM) [place] [address] Patient Name : ANUJ GARZA MR #: [id number] : 1955 Age/Sex: 62/M Adm Physician : MARSHA NERI MD Admit Date : 01/19/18 Location : MED/SURG2 Room/Bed : 208 REPORT: Cardiology Report DATE OF STUDY: January 24, 2018 ECHOCARDIOGRAM M-MODE: Borderline dilated left atrium. Left ventricular hypertrophy. Normal contractility. Normal mitral and aortic valves. Small posterior pericardial effusion. SECTOR SCAN: Dilated left atrium. Left ventricular hypertrophy. Normal contractility. Ejection fraction is approximately 60%. Mitral, aortic, and tricuspid valves grossly normal. Small posterior pericardial effusion measuring 0.7 cm. CARDIAC DOPPLER STUDY WITH COLOR: Trace mitral and tricuspid regurgitation. Trace pulmonic regurgitation. CONCLUSIONS 1. Small posterior pericardial effusion. 2. Trace mitral and tricuspid regurgitation. 3. Evidence of diastolic dysfunction. CONCLUSIONS 1. Small posterior pericardial effusion measuring approximately 0.7 cm. 2. Concentric left ventricular hypertrophy with ejection fraction of approximately 60%, with evidence of diastolic dysfunction. 3. Trace mitral and tricuspid regurgitation, trace pulmonic regurgitation. Job#: [id number] [place] cc: MARSHA NERI MD Signature Date Dictated By: JAJA ALRDIDGE MD Transcribed By: SMEDS on 01/26/18 <Electronically signed by JAJA ALDRIDGE MD><<Signature on File>>01/27/18 1013 COPY TO: CT CHEST WO [place] [address] Patient Name: ANUJ GARZA MR #: [id number] : 1955 Age/Sex: 62/M Req #: [id number] Adm Physician: MARSHA NERI MD Ordered by: JOSE ALFREDO CHERRY MD Report #: [id number] Location: MED/SURG2 Room/Bed: [facility] Procedure: [id number] CT/CT CHEST WO Exam Date: 01/20/18 Exam Time: 1432 REPORT STATUS: Signed EXAM: CT Chest WITHOUT contrast INDICATION: COMPARISON: CT abdomen/pelvis dated 01/19/2018 TECHNIQUE: Chest was scanned utilizing a multidetector helical scanner from the lung apex through the level of the adrenal glands without administration of IV contrast. Absence of intravenous contrast decreases sensitivity for detection of lymphadenopathy and vascular pathology. Coronal and sagittal reformations were obtained. Routine protocol was performed. IV CONTRAST: None COMPLICATIONS: None RADIATION DOSE: Total DLP: 491.08 mGy*cm Estimated effective dose: (DLP x 0.014 x size factor) mSv CTDIvol has been reviewed. It is below the limits set by the Radiation Protocol Committee (RPC). FINDINGS: LINES/ TUBES: None. LUNGS AND AIR WAYS: Evaluation of the lungs are limited by respiratory motion. Mild upper lobe predominant centrilobular emphysematous changes. Unchanged mild bilateral lower lobe hazy opacities. There is increased lower lobe linear atelectasis. Airways are normal. PLEURA: Trace bilateral pleural effusions. HEART AND MEDIASTINUM: The visualized thyroid gland is grossly unremarkable. No mediastinal, hilar or axillary lymphadenopathy. Scattered subcentimeter nonspecific mediastinal lymph nodes. Cardiomegaly. Hypodense blood pool, indicative of anemia. There is no pericardial effusion. Atherosclerotic calcification of coronary arteries. Main pulmonary artery measures 3.5 cm, suggestive of pulmonary hypertension. UPPER ABDOMEN: 3.5 cm right and 3.1 cm left adrenal adenomas. Internal attenuations are below 10 Hounsfield units. BONES: The visualized bony thorax is within normal limits. SOFT TISSUES: Bilateral symmetric gynecomastia. IMPRESSION: New trace bilatera l pleural effusions with increased adjacent atelectasis. Unchanged minimal bilateral lower lobe groundglass/hazy opacities, which could represent atelectasis or less likely pneumonia. Please correlate clinically. Bilateral adrenal masses, consistent with adenomas. Signed by: Dr. Hector Miller MD on 01/20/2018 3:44 PM Dictated By: HECTOR MILLER MD 1544 Transcribed By: MINDA on 01/20/18 1549 COPY TO: JOSE ALFREDO CHERRY MD CHEST SINGLE (PORTABLE) [place] [address] Patient Name: ANUJ GARZA MR #: [id number] : 1955 Age/Sex: 62/M Req #: [id number] Adm Physician: Ordered by: AUGIE RIGGS NP Report #: [id number] Location: ER Room/Bed: Procedure: [id number] DX/CHEST SINGLE (PORTABLE) Exam Date: 01/19/18 Exam [...] at 11:27 Dictated By: HECTOR MILLER MD 112 Transcribed By: TRISTON on 01/19/181126 COPY TO: AUGIE RIGGS PRECISION LATHE OPERATOR US GALLBLADDER [place] [address] Patient Name: ANUJ GARZA MR #: [id number] : 1955 Age/Sex: 62/M Req #: [id number] Adm Physician: MARSHA NERI MD Ordered by: HERMANN ACUNA MD, MD Report #: [id number] Location: MED/SURG2 Room/Bed: [facility] Procedure: [id number] US/US GALLBLADDER Exam Date: Exam Time: REPORT STATUS: Signed PROCEDURE: US GALLBLADDER COMPARISON: Same day CT abdomen and pelvis. INDICATIONS: abdominal pain TECHNIQUE: Gutierrez-scale and color doppler transverse and longitudinal images of the right upper quadrant of the abdomen were obtained. FINDINGS: Liver: 14.4 cm in length in the right midclavicular line. Normal hepatic parenchymal echogenicity. No focal hepatic mass. Main portal vein: One cm in caliber. Hepatopedal flow. Gallbladder: No calculi, wall thickening, or pericholecystic fluid. Common Bile Duct: 0.6 cm in caliber. Sonographic Davis's sign: Reported as negative. Right kidney: 10.7 cm in length. Increased parenchymal echogenicity. No solid masses or hydronephrosis. 1.9 x 1.6 x 1.8 cm simple parenchymal cyst in the upper pole. Pancreas: The visualized portions are unremarkable. Inferior vena cava: Patent Aorta: Nonaneurysmal Ascites: None in the right upper quadrant of the abdomen. CONCLUSION: No sonographic evidence of cholelithiasis or acute cholecystitis. Simple right renal cyst. Increased renal cortical echogenicity suggestive of medical renal disease. Dictated by: Kinza Fernandez M.D. on 01/19/2018 at 13:23 Electronically approved by: Kinza Fernandez M.D. on 01/19/2018 at 13:23 Dictated By: KINZA FERNANDEZ MD 1323 Transcribed By: TRISTON on 01/19/18 1323 COPY TO: HERMANN ACUNA CT ABDOMEN/PELVIS [place] [address] Patient Name: ANUJ GARZA MR #: [id number] : 1955 Age/Sex: 62/M Req #: [id number] Adm Physician: MARSHA NERI MD Ordered by: HERMANN ACUNA MD, MD Report #: [id number] Location: MED/SURG2 Room/Bed: [facility] Procedure: [id number] CT/CT ABDOMEN/PELVIS WO Exam Date: 01/19/18 Exam Time: 1200 REPORT STATUS: Signed EXAM: CT Abdomen and Pelvis WITHOUT contrast INDICATION: COMPARISON: Renal ultrasound dated 09/27/2016 TECHNIQUE: Abdomen and pelvis were scanned utilizing a multidetector helical scanner from the lung base to the pubic symphysis without administration of IV contrast. Absence of intravenous contrast decreases sensitivity for detection of focal lesions and vascular pathology. Coronal and sagittal reformations were obtained. Routine protocol was performed. IV CONTRAST: None ORAL CONTRAST: Water COMPLICATIONS: None RADIATION DOSE: Total DLP: 451.38 mGy*cm Estimated effective dose: (DLP x 0.015 x size factor) mSv CTDIvol has been reviewed. It is below the limits set by the Radiation Protocol Committee (RPC). FINDINGS: LINES and TUBES: None. LOWER THORAX: Cardiomegaly. Mild posterior right base hazy opacities (series 2, image 1). HEPATOBILIARY: Ill-defined 1 cm hypodensity (series 2, image 22) is too small to characterize on this unenhanced study. Another too small to characterize segment 7 hypodensity (series 2, image 14). No biliary ductal dilation. GALLBLADDER: Not clearly visualized, probably contracted. SPLEEN: No splenomegaly. PANCREAS: No focal masses or ductal dilatation. ADRENALS: 2.5 x 2.3 cm left adrenal and 3.4 x 2.3 cm right adrenal nodules with internal attenuation of 10 Hounsfield units or less, representing adenomas. KIDNEYS/URETERS: No hydronephrosis. There are bilateral renal parenchymal hypodensities which cannot be fully characterized without intravenous contrast and are probably cysts. For example 2.0 cm anterior left inferior pole hypodensity. There is also anterior left inferior pole cortical calcification. No stones. GI TRACT: No abnormal distention or evidence of bowel obstruction. Low rectal wall thickening. Appendix is normal. PELVIC ORGANS/BLADDER: Bladder wall thickening. LYMPH NODES: No lymphadenopathy. VESSELS: Limited evaluation without intravenous contrast. No abdominal aortic aneurysm. Moderate aortoiliac atherosclerotic calcifications. PERITONEUM / RETROPERITONEUM: No free air or fluid. 1.1 cm irregular left retroperitoneal nodule (series 2, image 32), related to prior procedures. BONES: Degenerative changes of spine. L5 vertebral body sclerotic focus is probably a bone island (series 2, image 54). SOFT TISSUES: Partially imaged 4.2 x 2.2 right breast mass versus gynecomastia (series 2, image 1). Mild subcutaneous edema. IMPRESSION: Limited study without intravenous contrast. 1. Mild posterior right lung base haziness may represent atelectasis versus less likely developing pneumonia. 2. Bilateral adrenal nodules, representing adenomas. 3. Low rectal wall thickening, may represent proctitis in the appropriate clinical setting. 4. Bladder wall thickening, can represent cystitis. Please correlate with urinaly sis. 5. Partially imaged right breast mass versus gynecomastia. Recommend correlation with physical exam and if indicated nonurgent ultrasound. 6. Renal hypodensities as well as subcentimeter hepatic hypodensities cannot be evaluated on this unenhanced study. If clinically indicated, nonurgent abdominal ultrasound can be obtained for further evaluation. 7. 1.1 cm left retroperitoneal nodule could be related to prior procedures. Recommend attention on follow-up examination. Signed by: Dr. Hector Miller MD on 01/19/2018 12:50 PM Dictated By: HECTOR MILLER MD 1250 Transcribed By: MINDA on 01/19/18 1250 COPY TO: HERMANN ACUNA
--- NOTE | 2019-04-13 12:00 | Diagnostic Imaging Report ---
Examination: Single AP view of the chest. COMPARISON: 05/16/2018. INDICATION: Bleeding from nose. DISCUSSION: Lines/tubes: None. Lungs: The lungs are mildly hypoinflated. Prominence of the pulmonary vasculature bilaterally. Mild patchy density throughout the lungs bilaterally may represent early alveolar pulmonary edema. Pleura: There is no pleural effusion or pneumothorax. Heart and mediastinum: The cardiac silhouette is mildly enlarged. Bones and soft tissues: No acute bony abnormalities. Degenerative changes in the thoracic spine. IMPRESSION: 1. Bilateral pulmonary venous congestion and possibly early edema. Signed by: Dr. Irina Oseguera M.D. on 04/13/2019 11:57 AM
[2019-04-13 12:43] LABS: BASOPHILS % 0.5 % (0.0-1.0); EOSINOPHILS # (AUTO) 0.2 (0.0-0.4); HEMATOCRIT 23.3 % (38.2-49.6); HEMOGLOBIN 7.6 g/dL (14.0-18.0); LYMPHOCYTES # (AUTO) 2.2 (1.0-3.2); LYMPHOCYTES % 25.3 % (18.0-39.1); MEAN CORPUSCULAR HEMOGLOBIN 25.4 pg (28-32); MEAN CORPUSCULAR HGB CONC 32.6 g/dL (31-35); MEAN CORPUSCULAR VOLUME 77.9 fL (81-99); MONOCYTES # (AUTO) 0.7 (0.2-0.8); MONOCYTES % 7.8 % (4.4-11.3); NEUTROPHILS # (AUTO) 5.6 (2.1-6.9); NEUTROPHILS % 63.6 % (38.7-80.0); PLATELET COUNT 138 x10e3/uL (140-360); RED BLOOD COUNT 2.99 x10e6/uL (4.3-5.7); RED CELL DISTRIBUTION WIDTH 19.5 % (11.7-14.4)
[2019-04-13 12:55] LABS: INR 1.09; PARTIAL THROMBOPLASTIN TIME 33.7 seconds (23.8-35.5); PROTHROMBIN TIME 14.6 seconds (11.9-14.5)
[2019-04-13 13:03] LABS: ALBUMIN 3.2 g/dL (3.5-5.0); ALBUMIN/GLOBULIN RATIO 0.9 (0.8-2.0); ANION GAP 14.7 mmol/L (8-16); CALCIUM 8.7 mg/dL (8.4-10.2); CREATININE, SERUM 3.78 mg/dL (0.72-1.25); POTASSIUM 4.7 mmol/L (3.5-5.1)
[2019-04-13 14:08] LABS: BILIRUBIN,URINE NEGATIVE (NEGATIVE); CLARITY,URINE CLOUDY (CLEAR); COLOR,URINE YELLOW (YELLOW); KETONES,URINE NEGATIVE (NEGATIVE); LEUKOCYTE ESTERASE ,URINE LARGE (NEGATIVE); NITRITE,URINE NEGATIVE (NEGATIVE); PROTEIN,URINE DIPSTICK 2+ (NEGATIVE); URINE UROBILINOGEN 0.2 mg/dL (0.2 - 1)
[2019-04-13 14:22] LABS: BACTERIA,URINE MANY /HPF; EPITHELIAL CELLS,URINE FEW /LPF; RBC,URINE 0-5 /HPF (0-5); WBC,URINE (MAN) >50 /HPF (0-5)
[2019-04-13] MEDS ORDERED: CEFTRIAXONE SOD 1 GM/NS 50 ML 50 ML IV NR (15:00)
--- NOTE | 2019-04-13 16:11 | NUR ---
pt's daughter tariq was called to come and roller picker her father as he is being dc'd home.
== END 2019-04-13 17:17 | disposition home or self-care (01) ==
LOC: ER 11:05
DX: D59.9 Acquired hemolytic anemia, unspecified (principal); N39.0 Urinary tract infection, site not specified; I10 Essential (primary) hypertension; E11.9 Type 2 diabetes mellitus without complications; K21.9 Gastro-esophageal reflux disease without esophagitis
CPT/HCPCS: 36415; 71045; 80053; 81001; 83605; 85025; 85610; 85730; 87086; 87186; 93005; 99284; J0696

== ENCOUNTER 2019-08-01 13:26 | Inpatient (IN) | payer MEDICARE, OTHER ==
[~2019-08-01] VITALS: Ht 172.7 cm; Wt 67.6 kg
--- OUTSIDE RECORDS SUMMARY | 2019-08-01 13:31 | XMS REPORT | Clinical Summary ---
Author Author [facility] Organization [place] [facility] Address Unknown Phone Unavailable Care Team Providers Care Doll Surgeon Name Role Phone Teofilo Edmond MD PCP Allergies No Known Allergies Medications End Date Status Medication Sig Dispensed Refills Start Date Active gabapentin (NEURONTIN) Take 300 mg 0 300 mg capsule by mouth 3 (three) times a day. Active amLODIPine (NORVASC) 10 Take 10 mg by 0 mg tablet mouth daily. Active QUEtiapine (SEROquel) 25 Take 25 mg by 0 MG tablet mouth 2 (two) times a day. Active atorvastatin (LIPITOR) 10 Take 10 mg by 0 MG tablet mouth nightly. Active furosemide (LASIX) 20 mg Take 20 mg by 0 tablet mouth daily. Active donepezil (ARICEPT) 5 MG Take 5 mg by 0 tablet mouth nightly. Active clonIDINE HCl (CATAPRES) Take 0.2 mg 0 0.2 MG tablet by mouth nightly. Active hydrALAZINE (APRESOLINE) Take 100 mg 0 100 MG tablet by mouth 3 (three) times a day. Active prednisoLONE sodium Administer 1 0 phosphate 1 % ophthalmic drop to both solution eyes 2 (two) times a day. Active insulin NPH (HumuLIN-N) Inject 25 0 100 unit/mL injection Units under the skin every morning. Active sulfacetamide (BLEPH-10) Administer 1 0 10 % ophthalmic solution drop to both eyes 2 (two) times a day. Active epoetin oren (PROCRIT) Inject under 0 4,000 unit/mL injection the skin. Inject 1 ml SQ every Monday, Monday and Monday08/13/2018 metoprolol tartrate Take 1 tablet 60 tablet [...] 8 by mouth daily for 30 days. 04/25/2019 Discontinued (Stop Taking at Discharge) cefdinir (OMNICEF) 300 MG Take 300 mg 0 capsule by mouth 2 9 (two) times a day. Active Problems Problem Noted Date Delirium 04/15/2019 CKD (chronic kidney disease) stage 4, GFR 15-29 ml/min 07/25/2018 Anemia 07/15/2018 Sepsis 05/12/2017 Acute hypoxemic respiratory failure 05/12/2017 Pneumonia due to infectious organism 05/12/2017 Bradycardia 05/12/2017 Hypothermia 05/12/2017 Thrombocytopathia 05/12/2017 Acute encephalopathy 05/12/2017 Hypertension Diabetes mellitus Encounters Care Team Description Date Type Specialty Vineet Jenkins DO Joglekar, Swati, MD Abouelseoud, Tanseem Hamad Mohamed A, MD Bavare, Arusha Amod, MD Delirium (Primary Dx); Elevated lactic acid level; Chronic kidney disease, unspecified CKD stage; Seizure (HCC); Hypertension, unspecified type; Thrombocytopathia (HCC) 04/15/2019 [facility] General Internal Medicine - Encounter 04/25/2019 04/15/2019 Travel after 07/31/2018 Social History Date Tobacco Use Types Packs/Day Years Used Former Smoker Smokeless Tobacco: Never Used Drinks/Week oz/Week Comments Alcohol Use unknown Never Alcohol Habits Answer Date Recorded How often do you have a drink containing alcohol? Never 04/15/2019 How many drinks containing alcohol do you have on Not asked a typical day when you are drinking? How often do you have six or more drinks on one Not asked occasion? Sex Assigned at Date Recorded Not on file Industry Job Start Date Occupation Not on file Not on file Not on file Travel End Travel History Travel Start No recent travel history available. Last Filed Vital Signs Reading Time Taken Comments Vital Sign 177/70 04/25/2019 4:50 PM CDT Blood Pressure 74 04/25/2019 4:50 PM CDT Pulse 35.8 C (96.5 F) 04/25/2019 4:50 PM CDT Temperature 18 04/25/2019 4:50 PM CDT Respiratory Rate 99% 04/25/2019 4:50 PM CDT Oxygen Saturation - - Inhaled Oxygen Concentration 72.6 kg (160 lb) 04/15/2019 6:36 PM CDT Weight 175.3 cm (5' 9") 04/15/2019 6:36 PM CDT Height 23.63 04/15/2019 6:36 PM CDT Body Mass Index Plan of Treatment Health Maintenance Due Date Last Done Comments DIABETIC RETINAL EYE EXAM 1954 DIABETIC FOOT EXAM 1964 COLONOSCOPY SCREENING 2004 SHINGLES VACCINES (#1) 2004 INFLUENZA VACCINE 06/13/2019 65+ PNEUMOCOCCAL VACCINE 2019 (1 of 2 - PCV13) Procedures Comments Procedure Name Priority Date/Time Associated Diagnosis ESTIMATED GFR Routine 07/04/2019 8:30 PM CDT BASIC METABOLIC PANEL Routine 07/04/2019 8:30 PM CDT MANUAL DIFFERENTIAL Routine 06/03/2019 1:00 PM CDT IMMATURE PLATELET Routine 06/03/2019 FRACTION 1:00 PM CDT ESTIMATED GFR Routine 06/03/2019 1:00 PM CDT MICROALBUMIN, URINE, Routine 06/03/2019 Chronic kidney disease, RANDOM 1:00 PM CDT stage V (HCC) Anemia of chronic renal failure, unspecified CKD stage Hyperpotassemia CBC HEMOGRAM Routine 06/03/2019 Chronic kidney disease, 1:00 PM CDT stage V (HCC) Anemia of chronic renal failure, unspecified CKD stage Hyperpotassemia MAGNESIUM LEVEL Routine 06/03/2019 Chronic kidney disease, 1:00 PM CDT stage V (HCC) Anemia of chronic renal failure, unspecified CKD stage Hyperpotassemia BASIC METABOLIC PANEL Routine 06/03/2019 Chronic kidney disease, 1:00 PM CDT stage V (HCC) Anemia of chronic renal failure, unspecified CKD stage Hyperpotassemia POC GLUCOSE Routine 04/25/2019 4:36 PM CDT POTASSIUM LEVEL Timed 04/25/2019 2:59 PM CDT POC GLUCOSE Routine 04/25/2019 12:35 PM CDT POC GLUCOSE Routine 04/25/2019 11:41 AM CDT IONIZED CALCIUM Routine 04/25/2019 7:29 AM CDT ESTIMATED GFR Timed 04/25/2019 6:55 AM CDT PHOSPHORUS LEVEL Timed 04/25/2019 6:55 AM CDT MAGNESIUM LEVEL Timed 04/25/2019 6:55 AM CDT HC COMPLETE BLD COUNT Timed 04/25/2019 W/AUTO DIFF 6:55 AM CDT BASIC METABOLIC PANEL Timed 04/25/2019 6:55 AM CDT POC GLUCOSE Routine 04/25/2019 6:28 AM CDT POC GLUCOSE Routine 04/24/2019 8:44 PM CDT POC GLUCOSE Routine 04/24/2019 4:35 PM CDT POC GLUCOSE Routine 04/24/2019 11:11 AM CDT POC GLUCOSE Routine 04/24/2019 6:12 AM CDT ESTIMATED GFR Timed 04/24/2019 5:27 AM CDT PHOSPHORUS LEVEL Timed 04/24/2019 5:27 AM CDT MAGNESIUM LEVEL Timed 04/24/2019 5:27 AM CDT HC COMPLETE BLD COUNT Timed 04/24/2019 W/AUTO DIFF 5:27 AM CDT BASIC METABOLIC PANEL Timed 04/24/2019 5:27 AM CDT IONIZED CALCIUM Routine 04/24/2019 5:27 AM CDT POC GLUCOSE Routine 04/23/2019 8:44 PM CDT POC GLUCOSE Routine 04/23/2019 4:54 PM CDT POC GLUCOSE Routine 04/23/2019 11:26 AM CDT POC GLUCOSE Routine 04/23/2019 6:11 AM CDT HC COMPLETE BLD COUNT Routine 04/23/2019 W/AUTO DIFF 4:49 AM CDT PHOSPHORUS LEVEL Routine 04/23/2019 4:49 AM CDT MAGNESIUM LEVEL Routine 04/23/2019 4:49 AM CDT ESTIMATED GFR Routine 04/23/2019 4:49 AM CDT BASIC METABOLIC PANEL Routine 04/23/2019 4:49 AM CDT IONIZED CALCIUM Routine 04/23/2019 4:49 AM CDT URIC ACID LEVEL Routine 04/23/2019 4:49 AM CDT VITAMIN D 25 HYDROXY Routine 04/23/2019 LEVEL 4:49 AM CDT PARATHYROID HORMONE Routine 04/23/2019 4:49 AM CDT B NATRIURETIC PEPTIDE Routine 04/23/2019 4:49 AM CDT POC GLUCOSE Routine 04/22/2019 8:47 PM CDT POC GLUCOSE Routine 04/22/2019 4:14 PM CDT US RENAL Routine 04/22/2019 2:24 PM CDT POC GLUCOSE Routine 04/22/2019 12:08 PM CDT POC GLUCOSE Routine 04/22/2019 6:21 AM CDT ALBUMIN LEVEL Timed 04/22/2019 4:35 AM CDT ESTIMATED GFR Timed 04/22/2019 4:35 AM CDT PHOSPHORUS LEVEL Timed 04/22/2019 4:35 AM CDT MAGNESIUM LEVEL Timed 04/22/2019 4:35 AM CDT HC COMPLETE BLD COUNT Timed 04/22/2019 W/AUTO DIFF 4:35 AM CDT BASIC METABOLIC PANEL Timed 04/22/2019 4:35 AM CDT POC GLUCOSE Routine 04/21/2019 8:19 PM CDT POC GLUCOSE Routine 04/21/2019 4:10 PM CDT POC GLUCOSE Routine 04/21/2019 11:18 AM CDT POC GLUCOSE Routine 04/21/2019 6:34 AM CDT ESTIMATED GFR Timed 04/21/2019 5:39 AM CDT PHOSPHORUS LEVEL Timed 04/21/2019 5:39 AM CDT MAGNESIUM LEVEL Timed 04/21/2019 5:39 AM CDT HC COMPLETE BLD COUNT Timed 04/21/2019 W/AUTO DIFF 5:39 AM CDT BASIC METABOLIC PANEL Timed 04/21/2019 5:39 AM CDT POC GLUCOSE Routine 04/20/2019 9:38 PM CDT POC GLUCOSE Routine 04/20/2019 4:05 PM CDT POC GLUCOSE Routine 04/20/2019 11:16 AM CDT ESTIMATED GFR Timed 04/20/2019 6:36 AM CDT PHOSPHORUS LEVEL Timed 04/20/2019 6:36 AM CDT MAGNESIUM LEVEL Timed 04/20/2019 6:36 AM CDT HC COMPLETE BLD COUNT Timed 04/20/2019 W/AUTO DIFF 6:36 AM CDT BASIC METABOLIC PANEL Timed 04/20/2019 6:36 AM CDT POC GLUCOSE Routine 04/20/2019 6:26 AM CDT POC GLUCOSE Routine 04/19/2019 8:15 PM CDT POC GLUCOSE Routine 04/19/2019 4:[address] HEAD WO CONTRAST STAT 04/19/2019 2:40 PM CDT ESTIMATED GFR Routine 04/19/2019 11:57 AM CDT BASIC METABOLIC PANEL Routine 04/19/2019 11:57 AM CDT HC COMPLETE BLD COUNT Routine 04/19/2019 W/AUTO DIFF 11:57 AM CDT POC GLUCOSE Routine 04/19/2019 11:27 AM CDT POC GLUCOSE Routine 04/19/2019 6:27 AM CDT POC GLUCOSE Routine 04/18/2019 8:38 PM CDT TRANSFUSE RED BLOOD CELLS Routine 04/18/2019 4:00 PM CDT POC GLUCOSE Routine 04/18/2019 3:57 PM CDT POC GLUCOSE Routine 04/18/2019 11:58 AM CDT MANUAL DIFFERENTIAL Routine 04/18/2019 8:42 AM CDT IMMATURE PLATELET Routine 04/18/2019 FRACTION 8:42 AM CDT CBC WITH PLATELET AND Routine 04/18/2019 DIFFERENTIAL 8:42 AM CDT POC GLUCOSE Routine 04/18/2019 6:06 AM CDT ESTIMATED GFR Routine 04/18/2019 4:43 AM CDT COMPREHENSIVE METABOLIC Routine 04/18/2019 PANEL 4:43 AM CDT POC GLUCOSE Routine 04/17/2019 9:49 PM CDT POC GLUCOSE Routine 04/17/2019 4:11 PM CDT POC GLUCOSE Routine 04/17/2019 11:11 AM CDT HEMOGLOBIN A1C Routine 04/17/2019 8:54 AM CDT ESTIMATED GFR Routine 04/17/2019 8:54 AM CDT BASIC METABOLIC PANEL Routine 04/17/2019 8:54 AM CDT POC GLUCOSE Routine 04/17/2019 6:35 AM CDT POC GLUCOSE Routine 04/16/2019 8:24 PM CDT ECHOCARDIOGRAM 2D Routine 04/16/2019 COMPLETE W MMODE SPECTRAL 5:16 PM CDT COLOR DOPPLER ([id number]) POC GLUCOSE Routine 04/16/2019 3:55 PM CDT EEG AWAKE/ASLEEP LESS Routine 04/16/2019 THAN 41 MIN 3:40 PM CDT MRA NECK WO CONTRAST Routine 04/16/2019 12:47 PM CDT MRA HEAD WO CONTRAST Routine 04/16/2019 12:42 PM CDT POC GLUCOSE Routine 04/16/2019 11:[address] RENAL STONE PROTOCOL Routine 04/16/2019 9:33 AM CDT POC GLUCOSE Routine 04/16/2019 7:16 AM CDT LIPID PANEL Routine 04/16/2019 6:49 AM CDT HEMOGLOBIN A1C Routine 04/16/2019 6:49 AM CDT LIPID PANEL Routine 04/16/2019 6:49 AM CDT ESTIMATED GFR Routine 04/16/2019 6:49 AM CDT BASIC METABOLIC PANEL Routine 04/16/2019 6:49 AM CDT HC COMPLETE BLD COUNT Routine 04/16/2019 W/AUTO DIFF 6:49 AM CDT LACTIC ACID LEVEL, SEPSIS Timed 04/16/2019 - NOW AND REPEAT 2X EVERY 6:49 AM CDT 3 HOURS MRI BRAIN WO CONTRAST STAT 04/16/2019 2:16 AM CDT LACTIC ACID LEVEL, SEPSIS Timed 04/16/2019 - NOW AND REPEAT 2X EVERY 12:19 AM CDT 3 HOURS GRAM STAIN Routine 04/15/2019 8:32 PM CDT URINE CULTURE Routine 04/15/2019 8:32 PM CDT URINALYSIS SCREEN AND Routine 04/15/2019 MICROSCOPY, WITH REFLEX 8:23 PM CDT TO CULTURE BLOOD CULTURE, AEROBIC & Routine 04/15/2019 ANAEROBIC 7:04 PM CDT IL CRITICAL CARE, E/M Routine 04/15/2019 30-74 MINUTES 7:00 PM CDT BLOOD CULTURE, AEROBIC & Routine 04/15/2019 ANAEROBIC 6:[address] STROKE BRAIN WO STAT 04/15/2019 CONTRAST 6:18 PM CDT PREPARE RBC Routine 04/15/2019 6:18 PM CDT TYPE AND SCREEN Routine 04/15/2019 6:18 PM CDT B NATRIURETIC PEPTIDE Routine 04/15/2019 6:18 PM CDT ESTIMATED GFR STAT 04/15/2019 6:18 PM CDT LACTIC ACID LEVEL, SEPSIS STAT 04/15/2019 - NOW AND REPEAT 2X EVERY 6:18 PM CDT 3 HOURS MAGNESIUM LEVEL STAT 04/15/2019 6:18 PM CDT PHOSPHORUS LEVEL STAT 04/15/2019 6:18 PM CDT COMPREHENSIVE METABOLIC STAT 04/15/2019 PANEL 6:18 PM CDT PARTIAL THROMBOPLASTIN STAT 04/15/2019 TIME (PTT) 6:18 PM CDT PROTHROMBIN TIME WITH INR STAT 04/15/2019 6:18 PM CDT HC COMPLETE BLD COUNT STAT 04/15/2019 W/AUTO DIFF 6:18 PM CDT SMEAR REVIEW Routine 04/03/2019 2:00 PM CDT ESTIMATED GFR Routine 04/03/2019 2:00 PM CDT URINE PROTEIN/CREATININE Routine 04/03/2019 Type 2 diabetes mellitus RATIO, RANDOM 2:00 PM CDT with complication, unspecified whether diet kitchen cook insulin use (HCC) Chronic kidney disease, stage V (HCC) Parenchymal renal hypertension, 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 BASIC METABOLIC PANEL Routine 04/03/2019 Type 2 diabetes mellitus 2:00 PM CDT with complication, unspecified whether halfway insulin use (HCC) Chronic kidney disease, stage V (HCC) Parenchymal renal hypertension, 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 HEMOGLOBIN & HEMATOCRIT Routine 04/03/2019 Type 2 diabetes mellitus 2:00 PM CDT with complication, unspecified whether diet kitchen cook insulin use (HCC) Chronic kidney disease, stage V (HCC) Parenchymal renal hypertension, 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 PHOSPHORUS LEVEL Routine 04/03/2019 Type 2 diabetes mellitus 2:00 PM CDT with complication, unspecified whether diet kitchen cook insulin use (HCC) Chronic kidney disease, stage V (HCC) Parenchymal renal hypertension, 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 MAGNESIUM LEVEL Routine 04/03/2019 Type 2 diabetes mellitus 2:00 PM CDT with complication, unspecified whether halfway insulin use (HCC) Chronic kidney disease, stage V (HCC) Parenchymal renal hypertension, 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 SMEAR REVIEW Routine 03/08/2019 6:30 PM CDT ESTIMATED GFR Routine 03/08/2019 6:30 PM CDT HEMOGLOBIN & HEMATOCRIT Routine 03/08/2019 Type 2 diabetes mellitus 6:30 PM CDT with complication, unspecified whether diet kitchen cook insulin use (HCC) Chronic kidney disease, stage V (HCC) Parenchymal renal hypertension, 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 BASIC METABOLIC PANEL Routine 03/08/2019 Type 2 diabetes mellitus 6:30 PM CDT with complication, unspecified whether halfway insulin use (HCC) Chronic kidney disease, stage V (HCC) Parenchymal renal hypertension, 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 PARATHYROID HORMONE Routine 01/25/2019 11:20 AM CDT ESTIMATED GFR Routine 01/25/2019 11:20 AM CDT HC COMPLETE BLD COUNT Routine 01/25/2019 Type 2 diabetes mellitus W/AUTO DIFF 11:20 AM CDT with complication, unspecified whether halfway insulin use (HCC) Parenchymal renal hypertension, 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 Chronic kidney disease, stage IV (severe) (HCC) Anemia of chronic renal failure, unspecified CKD stage Hyperpotassemia Avitaminosis D HEMOGLOBIN A1C Routine 01/25/2019 Type 2 diabetes mellitus 11:20 AM CDT with complication, unspecified whether diet kitchen cook insulin use (HCC) Parenchymal renal hypertension, 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 Chronic kidney disease, stage IV (severe) (HCC) Anemia of chronic renal failure, unspecified CKD stage Hyperpotassemia Avitaminosis D PHOSPHORUS LEVEL Routine 01/25/2019 Type 2 diabetes mellitus 11:20 AM CDT with complication, unspecified whether halfway insulin use (HCC) Parenchymal renal hypertension, 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 Chronic kidney disease, stage IV (severe) (HCC) Anemia of chronic renal failure, unspecified CKD stage Hyperpotassemia Avitaminosis D MAGNESIUM LEVEL Routine 01/25/2019 Type 2 diabetes mellitus 11:20 AM CDT with complication, unspecified whether halfway insulin use (HCC) Parenchymal renal hypertension, 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 Chronic kidney disease, stage IV (severe) (HCC) Anemia of chronic renal failure, unspecified CKD stage Hyperpotassemia Avitaminosis D URINE PROTEIN/CREATININE Routine 01/25/2019 Type 2 diabetes mellitus RATIO, RANDOM 11:20 AM CDT with complication, unspecified whether halfway insulin use (HCC) Parenchymal renal hypertension, 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 Chronic kidney disease, stage IV (severe) (HCC) Anemia of chronic renal failure, unspecified CKD stage Hyperpotassemia Avitaminosis D BASIC METABOLIC PANEL Routine 01/25/2019 Type 2 diabetes mellitus 11:20 AM CDT with complication, unspecified whether diet kitchen cook insulin use (HCC) Parenchymal renal hypertension, 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 Chronic kidney disease, stage IV (severe) (HCC) Anemia of chronic renal failure, unspecified CKD stage Hyperpotassemia Avitaminosis D ESTIMATED GFR Routine 11/23/2018 10:45 AM [employer]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 Routine 11/23/2018 Parenchymal renal 10:45 AM 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, 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 Chronic kidney disease, stage IV (severe) (HCC) Erythropoietin deficiency anemia TOTAL IRON BINDING Routine 11/23/2018 Parenchymal renal CAPACITY 10:45 AM 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, 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 Chronic kidney disease, stage IV (severe) (HCC) Erythropoietin deficiency anemia HEMOGLOBIN & HEMATOCRIT Routine 11/23/2018 Parenchymal renal 10:45 AM 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, 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 Chronic kidney disease, stage IV (severe) (HCC) Erythropoietin deficiency anemia URIC ACID LEVEL Routine 11/23/2018 Parenchymal renal 10:45 AM 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, 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 Chronic kidney disease, stage IV (severe) (HCC) Erythropoietin deficiency anemia BASIC METABOLIC PANEL Routine 11/23/2018 Parenchymal renal 10:45 AM 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, 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 Chronic kidney disease, stage IV (severe) (HCC) Erythropoietin deficiency anemia URINALYSIS, AUTOMATED Routine 10/01/2018 Parenchymal renal WITH MICROSCOPY 12:00 PM 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, 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 Chronic kidney disease, stage IV (severe) (HCC) Anemia of chronic renal failure, unspecified CKD stage Avitaminosis D Chronic disease anemia Type 2 diabetes mellitus with complication, unspecified whether halfway insulin use (HCC) Essential hypertension, malignant ESTIMATED GFR Routine 10/01/2018 11:00 AM [employer] VITAMIN D 25 HYDROXY Routine 10/01/2018 Parenchymal renal LEVEL 11:00 AM 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, 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 Chronic kidney disease, stage IV (severe) (HCC) Anemia of chronic renal failure, unspecified CKD stage Avitaminosis D Chronic disease anemia Type 2 diabetes mellitus with complication, unspecified whether diet kitchen cook insulin use (HCC) Essential hypertension, malignant URINE PROTEIN/CREATININE Routine 10/01/2018 Parenchymal renal RATIO, RANDOM 11:00 AM 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, 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 Chronic kidney disease, stage IV (severe) (HCC) Anemia of chronic renal failure, unspecified CKD stage Avitaminosis D Chronic disease anemia Type 2 diabetes mellitus with complication, unspecified whether halfway insulin use (HCC) Essential hypertension, malignant HC COMPLETE BLD COUNT Routine 10/01/2018 Parenchymal renal W/AUTO DIFF 11:00 AM 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, 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 Chronic kidney disease, stage IV (severe) (HCC) Anemia of chronic renal failure, unspecified CKD stage Avitaminosis D Chronic disease anemia Type 2 diabetes mellitus with complication, unspecified whether halfway insulin use (HCC) Essential hypertension, malignant PARATHYROID HORMONE Routine 10/01/2018 Parenchymal renal 11:00 AM 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, 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 Chronic kidney disease, stage IV (severe) (HCC) Anemia of chronic renal failure, unspecified CKD stage Avitaminosis D Chronic disease anemia Type 2 diabetes mellitus with complication, unspecified whether diet kitchen cook insulin use (HCC) Essential hypertension, malignant HEMOGLOBIN A1C Routine 10/01/2018 Parenchymal renal 11:00 AM 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, 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 Chronic kidney disease, stage IV (severe) (HCC) Anemia of chronic renal failure, unspecified CKD stage Avitaminosis D Chronic disease anemia Type 2 diabetes mellitus with complication, unspecified whether halfway insulin use (HCC) Essential hypertension, malignant URIC ACID LEVEL Routine 10/01/2018 Parenchymal renal 11:00 AM 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, 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 Chronic kidney disease, stage IV (severe) (HCC) Anemia of chronic renal failure, unspecified CKD stage Avitaminosis D Chronic disease anemia Type 2 diabetes mellitus with complication, unspecified whether halfway insulin use (HCC) Essential hypertension, malignant THYROID STIMULATING Routine 10/01/2018 Parenchymal renal HORMONE 11:00 AM 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, 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 Chronic kidney disease, stage IV (severe) (HCC) Anemia of chronic renal failure, unspecified CKD stage Avitaminosis D Chronic disease anemia Type 2 diabetes mellitus with complication, unspecified whether halfway insulin use (HCC) Essential hypertension, malignant PHOSPHORUS LEVEL Routine 10/01/2018 Parenchymal renal 11:00 AM 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, 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 Chronic kidney disease, stage IV (severe) (HCC) Anemia of chronic renal failure, unspecified CKD stage Avitaminosis D Chronic disease anemia Type 2 diabetes mellitus with complication, unspecified whether diet kitchen cook insulin use (HCC) Essential hypertension, malignant MAGNESIUM LEVEL Routine 10/01/2018 Parenchymal renal 11:00 AM 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, 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 Chronic kidney disease, stage IV (severe) (HCC) Anemia of chronic renal failure, unspecified CKD stage Avitaminosis D Chronic disease anemia Type 2 diabetes mellitus with complication, unspecified whether diet kitchen cook insulin use (HCC) Essential hypertension, malignant FERRITIN LEVEL Routine 10/01/2018 Parenchymal renal 11:00 AM 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, 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 Chronic kidney disease, stage IV (severe) (HCC) Anemia of chronic renal failure, unspecified CKD stage Avitaminosis D Chronic disease anemia Type 2 diabetes mellitus with complication, unspecified whether halfway insulin use (HCC) Essential hypertension, malignant TOTAL IRON BINDING Routine 10/01/2018 Parenchymal renal CAPACITY 11:00 AM 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, 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 Chronic kidney disease, stage IV (severe) (HCC) Anemia of chronic renal failure, unspecified CKD stage Avitaminosis D Chronic disease anemia Type 2 diabetes mellitus with complication, unspecified whether halfway insulin use (HCC) Essential hypertension, malignant COMPREHENSIVE METABOLIC Routine 10/01/2018 Parenchymal renal PANEL 11:00 AM 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, 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 Chronic kidney disease, stage IV (severe) (HCC) Anemia of chronic renal failure, unspecified CKD stage Avitaminosis D Chronic disease anemia Type 2 diabetes mellitus with complication, unspecified whether diet kitchen cook insulin use (HCC) Essential hypertension, malignant SMEAR [...] AM CDT stage V Chronic disease anemia after 07/31/2018 Results * Estimated GFR (07/04/2019 8:30 PM CDT) Only the most recent of 19 results within the time period is included. Pathologist [facility] Estimated GFR 13 (A) mL/min/1.73 m2 [place] [facility] G[facility] >=90 Normal or high G2 60-89Mildly decreased [id number] Mildly to moderately decreased M2s24-60 Moderately to severely decreased G4 15-29Severely decreased G5 <15Kidney failure The eGFR was calculated using the Chronic Kidney Disease Epidemiology Collaboration (CKD-EPI) equation. Interpretation is based on recommendations of the National Kidney Foundation-Kidney Disease Outcomes Quality Initiative (NKF-KDOQI) published in 2014. Specimen Plasma specimen Narrative Performed At [facility] DEPARTMENT OF FAX TO [phone] PATHOLOGY AND GENOMIC MEDICINE Performing Organization Address City/State/Zipcode Phone Number [facility] [place] DE[place] OF [address] [place] [address] PATHOLOGY AND GENOMIC MEDICINE [facility] [address] [place] [address] HOSPITAL * Basic metabolic panel (07/04/2019 8:30 PM CDT) Only the most recent of 16 results within the time period is included. Pathologist [facility] Sodium 142 135 - 150 mEq/L [facility] Potassium 4.8 3.5 - 5.0 mEq/L [facility] Chloride 104 98 - 112 mEq/L [facility] CO2 21 (L) 24 - 31 mmol/L [facility] Anion gap 17@ANIO (H) 7 - 15 mEq/L [facility] BUN 76 (H) 7 - 18 mg/dL [facility] Creatinine 4.90 (H) 0.70 - 1.20 mg/dL [facility] Glucose 175 (H) 65 - 100 mg/dL [facility] Calcium 9.4 8.8 - 10.2 mg/dL [facility] Specimen Plasma specimen Narrative Performed At [facility] DEPARTMENT OF FAX TO [phone] PATHOLOGY AND GENOMIC MEDICINE Performing Organization Address City/State/Zipcode Phone Number [facility]PARTMENT OF [address] [place] [address] PATHOLOGY AND GENOMIC MEDICINE [place] [id number] * Microalbumin, urine, random (06/03/2019 1:00 PM CDT) Pathologist [facility] Total volume, No volume mL [place] urine [facility] Urine 64 mg/dL [place] creatinine [facility] Urine 65.9 mg/dL [place] microalbumin [facility] Urine 1,030 (H) 0 - 30 mg/g [place] microalbumin/cr [facility] Spec[facility] Urine Performing Organization Address City/[facility] Phone Number [facility] DEPARTMENT OF [address] [place] [address] PATHOLOGY AND GENOMIC MEDICINE [address] * Immature platelet fraction (06/03/2019 1:00 PM CDT) Only the most recent of 2 results within the time period is included. IPF percentage 8.1 (H) 1.0 - 5.8 % [facility] Specimen Performing Organization Address City/State/Zipcode Phone Number [facility] DEPARTMENT OF [address] [place] [address] PATHOLOGY AND GENOMIC MEDICINE [facility] [address] * Manual differential (06/03/2019 1:00 PM CDT) Only the most recent of 2 results within the time period is included. Manual PERFORMED [place] differential [facility] Neutrophils 69.0 (H) 36.0 - 66.0 % [facility] Lymphocytes 20.0 (L) 24.0 - 44.0 % [facility] Monocytes 4.0 0.0 - 6.0 % [facility] Eosinophils 7.0 (H) 0.0 - 6.0 % [facility] Basophils 0.0 0.0 - 1.2 % [facility] Metamyelocytes 0 0 - 1 % [facility] Promyelocytes 0 0 - 1 % [facility] Platelet slide Kacie adequate [place] review [facility] Anisocytosis Moderate [facility] Polychromasia SLIGHT [facility] Basophilic Occasional [place] stippling [facility] Schistocytes Many (A) [facility] Spherocytes Occasional [facility] Enlarged Moderate (A) [place] platelets [facility] Giant platelets Occasional [facility] Specimen Performing Organization Address City/State/Zipcode Phone Number [facility] DEPARTMENT OF [address] [place] [address] PATHOLOGY AND GENOMIC MEDICINE [facility] [address] [facility] [address] * CBC hemogram (06/03/2019 1:00 PM CDT) WBC 5.3 4.2 - 11.0 k/uL [facility] RBC 3.51 (L) 4.04 - 5.86 m/uL [facility] HGB 9.3 (L) 13.0 - 17.3 g/dL [facility] HCT 29.0 (L) 34.0 - 45.0 % [facility] MCV 82.6 80.0 - 98.0 fL [facility] MCH 26.5 (L) 27.0 - 34.0 pg [facility] MCHC 32.1 31.5 - 36.5 g/dL [facility] RDW - SD 54.8 (H) 37.0 - 51.0 fL [facility] MPV SEE COMMENTComment: No report 7.4 - 10.4 fL [facility] Platelet count 46 (LL) 150 - 400 k/uL [place] Comment: EVANGELICAL Results called to and read [place] back by MAHAMED MERA RN [facility]) at 13:39 06/03/2019by _VR_. Nucleated RBC 0.00 /100 WBC [facility] Specimen Blood Performing Organization Address City/State/Zipcode Phone Number [facility] DEPARTMENT OF [address] [place] [address] PATHOLOGY AND GENOMIC MEDICINE [facility] [address] [place] [address] HOSPITAL * Magnesium level (06/03/2019 1:00 PM CDT) Only the most recent of 11 results within the time period is included. Magnesium 2.10 1.60 - 2.40 mg/dL [facility] Specimen Plasma specimen Performing Organization Address City/State/Zipcode Phone Number [facility] DEPARTMENT OF [address] [place] [address] PATHOLOGY AND GENOMIC MEDICINE [facility] [address] [place] [address] HOSPITAL * POC glucose (04/25/2019 4:36 PM CDT) Only the most recent of 40 results within the time period is included. POC glucose 313 (H) 65 - 100 mg/dL [place] Comment: EVANGELICAL Meter ID: [id number] [place] Cash Analyst: Rekha Bills [facility] Specimen Performing Organization Address City/State/Zipcode Phone Number [facility] DEPARTMENT OF [address] [place] [address] PATHOLOGY AND GENOMIC MEDICINE [facility] [address] [place] [address] HOSPITAL * Potassium level (04/25/2019 2:59 PM CDT) Potassium 4.9 3.5 - 5.0 mEq/L [facility] Specimen Plasma specimen Performing Organization Address City/State/[place] [address] PATHOLOGY AND [facility] MEDICINE [address] * Ionized calcium (04/25/2019 7:29 AM CDT) Only the most recent of 3 results within the time period is included. pH 7.35 [facility] Ionized calcium 1.17 1.11 - 1.32 mmol/L [facility] Specimen Plasma specimen Performing Organization Address City/[facility] [place] [address] PATHOLOGY AND [facility] MEDICINE [address] * CBC with platelet and differential (04/25/2019 6:55 AM CDT) Only the most recent of 12 results within the time period is included. WBC 6.6 4.2 - 11.0 k/uL [facility] RBC 3.20 (L) 4.04 - 5.86 m/uL [facility] HGB 8.4 (L) 13.0 - 17.3 g/dL [facility] HCT 26.6 (L) 34.0 - 45.0 % [facility] MCV 83.1 80.0 - 98.0 fL [facility] MCH 26.3 (L) 27.0 - 34.0 pg [facility] MCHC 31.6 31.5 - 36.5 g/dL [facility] RDW - SD 55.5 (H) 37.0 - 51.0 fL [facility] MPV SEE COMMENTComment: No report 7.4 - 10.4 fL [facility] Platelet count 63 (L) 150 - 400 k/uL [facility] Nucleated RBC 0.00 /100 WBC [facility] Neutrophils 57.0 36.0 - 66.0 % [facility] Lymphocytes 30.1 24.0 - 44.0 % [facility] Monocytes 6.9 (H) 0.0 - 6.0 % [facility] Eosinophils 3.0 0.0 - 6.0 % [facility] Basophils 0.6 0.0 - 1.2 % [facility] Immature 2.4 (H) 0.0 - 1.0 % [place] granulocytes [facility] Specimen Blood Performing Organization Address City/State/Zipcode Phone Number [facility] DEPARTMENT [address] [place] [address] PATHOLOGY AND GENOMIC MEDICINE [facility] [address] [place] [address] * Phosphorus level (04/25/2019 6:55 AM CDT) Only the most recent of 11 results within the time period is included. [facility] Phosphorus 3.8 2.4 - 4.5 mg/dL [facility] Specimen Plasma specimen Performing Organization Address City/[facility]/Zipcode Phone Number [facility] [address] [place] [address] PATHOLOGY AND GENOMIC MEDICINE [facility] [address] [place] [address] * Vitamin D 25 hydroxy level (04/23/2019 4:49 AM CDT) Only the most recent of 2 results within the time period is included. [facility] Vitamin D, 17.3 (L) 30.0 - 150.0 ng/mL [place] 25-hydroxy Comment: EVANGELICAL This assay reports the sum of HOSPITAL [...] please contact lab for alternative methods. Specimen Blood Performing Organization Address City/[facility]/Zipcode Phone Number [facility] DEPARTMENT OF [address] [place] [address] PATHOLOGY AND [facility] MEDICINE [address] * Uric acid level (04/23/2019 4:49 AM CDT) Only the most recent of 3 results within the time period is included. Uric acid 9.9 (H) 3.4 - 7.0 mg/dL [facility] Specimen Plasma specimen Performing Organization Address City/[facility] Centercode Phone Number [facility] DEPARTMENT [address] [place] [address] PATHOLOGY AND [facility] MEDICINE [address] * Parathyroid hormone (04/23/2019 4:49 AM CDT) Only the most recent of 3 results within the time period is included. PTH 102 (H) 15 - 65 pg/mL [facility] Specimen Blood Performing Organization Address City/[facility] Centercode Phone Number [facility] DEPARTMENT OF [address] [place] [address] PATHOLOGY AND [facility] MEDICINE [address] * B natriuretic peptide (04/23/2019 4:49 AM CDT) Only the most recent of 2 results within the time period is included. BNP 242 (H) 0 - 100 pg/mL [facility] Specimen Blood Performing Organization Address City/[facility]/Zipcode Phone Number [facility] DEPARTMENT OF [address] [place] [address] PATHOLOGY AND GENOMIC MEDICINE [address] * US Renal (04/22/2019 2:24 PM CDT) Specimen Narrative Performed At EXAMINATION:US RENAL [facility] CLINICAL HISTORY:Renal failurechronic (kidney disease) COMPARISON:None. FINDINGS: The kidneys are normal in size and echogenicity. There is no evidence of any solid renal mass, calculi, or hydronephrosis. The right kidney dtnecroe11.52 cmX5.43 cmX5.90 cm. The left kidney .68 cmX6.05 cm X 6.03 cm The urinary bladder is unremarkable. IMPRESSION: 1.The kidneys of normal size and echotexture. 2. There is no solid renal mass or hydronephrosis. [id number] Procedure Note Hm Interface, Radiology Results Incoming - 04/22/2019 2:38 PM CDT EXAMINATION: US RENAL CLINICAL HISTORY: Renal failure chronic (kidney disease) COMPARISON: None. FINDINGS: The kidneys are normal in size and echogenicity. There is no evidence of any solid renal mass, calculi, or hydronephrosis. The right kidney measures 12.52 cm X 5.43 cm X 5.90 cm. The left kidney measures 10.68 cm X 6.05 cm X 6.03 cm The urinary bladder is unremarkable. IMPRESSION: 1.The kidneys of normal size and echotexture. 2. There is no solid renal mass or hydronephrosis. [id number] Performing Organization Address City/State/Zipcode Phone Number [facility] [address] [place] [address] * Albumin level (04/22/2019 4:35 AM CDT) Albumin 3.1 (L) 3.5 - 5.0 g/dL [facility] Specimen Plasma specimen Performing Organization Address City/State/Zipcode Phone Number [facility] DEPARTMENT OF [address] [place] [address] PATHOLOGY AND GENOMIC MEDICINE [facility] [address] * CT Head Wo Contrast (04/19/2019 2:40 PM CDT) Specimen Narrative Performed At Examination: CT HEAD WO CONTRAST [facility] Clinical History: Altered level of consciousness (LOC)unexplained Comparison: 04/15/2019 Technique: Multiple axial CT images of the brain are obtained without the use of intravenous contrast. CT scans are performed using radiation dose reduction techniques. Technical factors are evaluated and adjusted to ensure appropriate moderation of exposure. Automated dose management technology is applied to adjust radiation dose to minimize exposure, while achieving a diagnostic image. FINDINGS: The visualized paranasal sinuses demonstrates chronic left maxillary, and bilateral ethmoid sinusitis.. The mastoid air cells are well aerated. The ventricles are symmetrical. There is no mass effect or any midline shift. There is no evidence of any extra-axial fluid collection. There is no parenchymal hemorrhage or mass lesion. There is maintenance of the covington-white junction.Periventricular ischemic white matter changes, moderate cortical atrophy is present. A chronic lacunar infarct is seen within the right thalamus. The posterior fossa does not demonstrate any masses. IMPRESSION: 1. There Is no acute intracranial abnormality. 2. Moderate cortical atrophy is present. 3. Periventricular ischemic white matter changes are present. 4. There is no significant interval change from the prior study. [id number] Procedure Note Hm Interface, Radiology Results Incoming - 04/19/2019 2:56 PM CDT Examination: CT HEAD WO CONTRAST Clinical History: Altered level of consciousness (LOC) unexplained Comparison: 04/15/2019 Technique: Multiple axial CT images of the brain are obtained without the use of intravenous contrast. CT scans are performed using radiation dose reduction techniques. Technical factors are evaluated and adjusted to ensure appropriate moderation of exposure. Automated dose management technology is applied to adjust radiation dose to minimize exposure, while achieving a diagnostic image. FINDINGS: The visualized paranasal sinuses demonstrates chronic left maxillary, and bilateral ethmoid sinusitis.. The mastoid air cells are well aerated. The ventricles are symmetrical. There is no mass effect or any midline shift. There is no evidence of any extra-axial fluid collection. There is no parenchymal hemorrhage or mass lesion. There is maintenance of the covington-white junction. Periventricular ischemic white matter changes, moderate cortical atrophy is present. A chronic lacunar infarct is seen within the right thalamus. The posterior fossa does not demonstrate any masses. IMPRESSION: 1. There Is no acute intracranial abnormality. 2. Moderate cortical atrophy is present. 3. Periventricular ischemic white matter changes are present. 4. There is no significant interval change from the prior study. [id number] Performing Organization Address City/State/Zipcode Phone Number [facility] [address] [place] [address] * Transfuse RBC (04/18/2019 4:00 PM CDT) * Comprehensive metabolic panel (04/18/2019 4:43 AM CDT) Only the most recent of 3 results within the time period is included. Pathologist [facility] Sodium 142 135 - 150 mEq/L [facility] Potassium 4.8 3.5 - 5.0 mEq/L [facility] Chloride 107 98 - 112 mEq/L [facility] CO2 24 24 - 31 mmol/L [facility] Anion gap 11@ANIO 7 - 15 mEq/L [facility] BUN 44 (H) 7 - 18 mg/dL [facility] Creatinine 3.70 (H) 0.70 - 1.20 mg/dL [facility] Glucose 189 (H) 65 - 100 mg/dL [facility] Calcium 8.6 (L) 8.8 - 10.2 mg/dL [facility] Protein 6.2 (L) 6.3 - 8.3 g/dL [facility] Albumin 2.9 (L) 3.5 - 5.0 g/dL [facility] A/G ratio 0.9 0.7 - 3.8 [facility] Alkaline 100 0 - 129 U/L [place] phosphatase [facility] AST 24 10 - 50 U/L [facility] ALT 21 5 - 50 U/L [facility] Total bilirubin 0.7 0.2 - 1.2 mg/dL [facility] Specimen Plasma specimen Performing Organization Address City/State/Zipcode Phone Number [facility] DEPARTMENT OF [address] [place] [id number] PATHOLOGY AND GENOMIC MEDICINE [facility] [address] * Hemoglobin A1c (04/17/2019 8:54 AM CDT) Only the most recent of 4 results within the time period is included. Pathologist [facility] Hemoglobin A1C 5.5 4.0 - 5.6 % [place] Comment: [facility] HbA1c cutoffs for diagnosing [facility] diabetes: HOSPITAL 4.0% - 5.6%=normal 5.7% - 6.4%=increased risk for diabetes (prediabetes) >=6.5%=diabetes Goals for glycemic control (ADA 2016) < 7.0%Target for non adults with diabetes. More or less stringent targets may be appropriate for individual patients. <7.5% Target for Children and adolescents with type 1 diabetes. Specimen Blood Performing Organization Address City/State/Zipcode Phone Number [facility] DEPARTMENT OF [address] [place] [address] PATHOLOGY AND GENOMIC MEDICINE [facility] [address] [place] [address] [facility] * Echocardiogram complete w contrast and 3D if needed (04/16/2019 5:16 PM CDT) Velocity Ratio 0.83 m/s [facility] (V1/V2) IVS,d 1.20 cm [facility] EF 53.80 % [facility] Ascending aorta 3.07 cm [facility] LVPWD,d 1.01 cm [facility] AoV Mean PG 2.73 mmHg [facility] AV LVOT peak 3.54 mmHg [facility] gradient MV valve area p 4.36 cm2 [facility] 1/2 method E/A ratio 1.30 [facility] E wave 174.06 msec [facility] decelartion time LVOT Diam,S 2.45 cm [facility] LVOT area 4.71 cm2 [facility] LVOT Vmax 0.96 m/s [facility] LVOT VTI 0.19 m [facility] AoV Peak PG 4.82 mmHg [facility] MV Peak E Martin 0.79 m/s [facility] MV stenosis 50.48 ms [facility] pressure 1/2 time MV Peak A Martin 0.61 m/s [facility] BSA 1.84 m2 [facility] Ao Root 3.36 cm [facility] Diameter AoV Area, Vmax 4.03 cm2 [facility] AoV Area, VTI 3.81 cm2 [facility] AoV Vmax 1.15 m/s [facility] BSA [place] 1.87 m2 [facility] BSA [place] 1.86 m2 [facility] IVS/LVPW,2D 1.19 [facility] Left Atrium 3.68 cm [facility] Dimension Anterior LV,d 5.70 cm [facility] LV,s 4.26 cm [facility] TR Vpeak 2.85 mm/s [facility] BMI 25.06 kg/m2 [facility] MV E A ratio 1.29 [facility] TR pk grad 32.45 mmHg [facility] AoV area i VTI 2.07 cm2/m2 [facility] BSA [place] MR peak grad 67.93 mmHg [facility] Ao Root 3.36 cm [facility] Diameter LV SYS VOL 73.92 ml [facility] LV YUSUF VOL 160.00 ml [facility] LV SI Teich 2D 46.80 ml/m2 [facility] LV SV Teich 2D 86.08 ml [facility] LV Vol s Teich 73.92 ml [facility] PSAX LVOT CI 9.95 l/min/m2 [facility] LVOT CO 18.29 l/min [facility] LVOT HR for 204.08 bpm [facility] LVOT CO LVOT SI 48.73 ml/m2 [facility] AoV Vmn 0.75 [facility] IVS s 2D 1.36 [facility] LV FS Cube 2D 28.18 [facility] LV FS Teich 2D 28.18 [facility] AoV VTI 0.27 m [facility] LV EF,2D 62.96 % [facility] MR Vmax 6.45 m/s [facility] MV AE ratio 0.78 [facility] LVOT Vmn 0.66 [facility] Pt Size 170.18 [facility] Pt Wt 72.57 [facility] Aov area Vmn 4.33 cm2 [facility] LA A_P score P 1.86 [facility] LVOT mean grad 1.88 mmHg [facility] MAX Pred HR 155.28 [facility] 85 of MPHR 131.99 [facility] AoV area I VMN 2.35 cm2/m2 [facility] bsa Calc MPHR 155.28 bpm [facility] IVS pct thck 19.55 % [facility] PLAX LV SI Cube 2D 63.38 ml/m2 [facility] LV SV Cube 2D 116.56 ml [facility] LV vol d cube 185.13 ml [facility] 2D LV vol s cube 68.57 ml [facility] 2D LVPW pct thck 43.55 % [facility] PLAX LVPW s PLAX 1.31 cm [facility] MV Decel slope 4.52 m/s2 [facility] Pred Exer Dur 7.98 [facility] R1 Pred METS R1 8.29 [facility] Specimen Narrative Performed At [facility] Left ventricular systolic function is normal. Left Ventricular ejection fraction is 55 - 60%. Mildly elevated pulmonary artery systolic pressure. [id number] Mm/hg Performing Organization Address City/State/Zipcode Phone Number [employer] [address] [place] [address] * EEG (routine) (04/16/2019 3:40 PM CDT) Narrative Performed At ROUTINE EEG REPORT Patient Name: Connor Gil Date of : 1955 Gender: male Date of Procedure: 04/16/2019 Indication seizure Background activity slow rhythm of 3-4 c/s. Centra activity very poorly organized 2-3 c/s. No focal or lateralizing features detected. Awake Recording: was performed, no abnormality detected Sleep Recording: was not performed Hyperventilation: was not performed Photic Stimulation: was performed, no abnormality detected Impression Generalized slowness of background activity compatible with diffuse encephalopathic process. Clinical correlation required for full interpretation of these findings. ICD10 Code/Diagnosis: Seizure * MRA Neck Wo Contrast (04/16/2019 12:47 PM CDT) Specimen Narrative Performed At EXAMINATION: MRA NECK WO CONTRAST [facility] CLINICAL HISTORY: ischemic stroke COMPARISON:None TECHNIQUE: 2-D and 3-D [id number] MRA images of the cervical vessels were obtained with multiplanar and 3-D reconstructive algorithms. FINDINGS: Aortic Arch: MRA examination shows a left-sided aortic arch with normal branching pattern , there is no evidence of aortic dissection, aneurysms, penetrating ulcer or coarctation. Bilateral common carotid arteries: There is no evidence of flow-limiting stenosis, occlusion, dissection, aneurysms, pseudoaneurysms or vascular malformations. Bilateral carotid bifurcations and cervical ICAs: Shows no evidence of flow-limiting stenosis (by NASCET criteria) , occlusion, dissection, aneurysms, pseudoaneurysms or vascular malformations. Bilateral vertebral arteries: Shows no evidence for flow-limiting stenosis, occlusion, dissection, aneurysms, pseudoaneurysms or vascular malformations. IMPRESSION: Negative for cervical arterial flow-limiting stenosis (by NASCET criteria) , occlusion, dissection, aneurysms, pseudoaneurysms or vascular malformations. [id number] Procedure Note Hm Interface, Radiology Results Incoming - 04/16/2019 1:15 PM CDT EXAMINATION: MRA NECK WO CONTRAST CLINICAL HISTORY: ischemic stroke COMPARISON: None TECHNIQUE: 2-D and 3-D [id number] MRA images of the cervical vessels were obtained with multiplanar and 3-D reconstructive algorithms. FINDINGS: Aortic Arch: MRA examination shows a left-sided aortic arch with normal branching pattern , there is no evidence of aortic dissection, aneurysms, penetrating ulcer or coarctation. Bilateral common carotid arteries: There is no evidence of flow-limiting stenosis, occlusion, dissection, aneurysms, pseudoaneurysms or vascular malformations. Bilateral carotid bifurcations and cervical ICAs: Shows no evidence of flow- limiting stenosis (by NASCET criteria) , occlusion, dissection, aneurysms, pseudoaneurysms or vascular malformations. Bilateral vertebral arteries: Shows no evidence for flow-limiting stenosis, occlusion, dissection, aneurysms, pseudoaneurysms or vascular malformations. IMPRESSION: Negative for cervical arterial flow-limiting stenosis (by NASCET criteria) , occlusion, dissection, aneurysms, pseudoaneurysms or vascular malformations. [id number] Performing Organization Address City/State/Zipcode Phone Number [facility] [address] [place] [address] * MRA Head Wo Contrast (04/16/2019 12:42 PM CDT) Specimen Narrative Performed At EXAMINATION: MRA HEAD WO CONTRAST [facility] CLINICAL HISTORY: ischemic stroke COMPARISON:None TECHNIQUE: [id number] MRA images of the [place] vessels were obtained with multiplanar and 3-D reconstructive algorithms. FINDINGS: Assessment of individual intracranial arteries demonstrate the following: Anterior circulation: - Intracranial right ICA: There is no hemodynamically significant stenosis or aneurysm. - Right middle cerebral artery: There is no hemodynamically significant stenosis or aneurysm. - Right anterior cerebral artery: There is no hemodynamically significant stenosis or aneurysm. - Intracranial left ICA:There is no hemodynamically significant stenosis or aneurysm. - Left middle cerebral artery: There is no hemodynamically significant stenosis or aneurysm. - Left anterior cerebral artery:There is no hemodynamically significant stenosis or aneurysm. Posterior circulation: - Basilar artery: There is no hemodynamically significant stenosis or aneurysm - Right HEAD USHER: Patent. - Left HEAD USHER: Patent. - Bilateral superior cerebral arteries: There is no hemodynamically significant stenosis or aneurysm . - Bilateral PICAs: Partially visualized and patent. - Intradural segment of the vertebral arteries:There is no hemodynamically significant stenosis or aneurysm. IMPRESSION: There is no evidence of intracranial flow-limiting stenosis, occlusion, aneurysm or dissection. [id number] Procedure Note Interface, Radiology Results Incoming - 04/16/2019 1:16 PM CDT EXAMINATION: MRA HEAD WO CONTRAST CLINICAL HISTORY: ischemic stroke COMPARISON: None TECHNIQUE: [id number] MRA images of the [place] vessels were obtained with multiplanar and 3-D reconstructive algorithms. FINDINGS: Assessment of individual intracranial arteries demonstrate the following: Anterior circulation: - Intracranial right ICA: There is no hemodynamically significant stenosis or aneurysm. - Right middle cerebral artery: There is no hemodynamically significant stenosis or aneurysm. - Right anterior cerebral artery: There is no hemodynamically significant stenosis or aneurysm. - Intracranial left ICA:There is no hemodynamically significant stenosis or aneurysm. - Left middle cerebral artery: There is no hemodynamically significant stenosis or aneurysm. - Left anterior cerebral artery:There is no hemodynamically significant stenosis or aneurysm. Posterior circulation: - Basilar artery: There is no hemodynamically significant stenosis or aneurysm - Right HEAD USHER: Patent. - Left HEAD USHER: Patent. - Bilateral superior cerebral arteries: There is no hemodynamically significant stenosis or aneurysm . - Bilateral PICAs: Partially visualized and patent. - Intradural segment of the vertebral arteries:There is no hemodynamically significant stenosis or aneurysm. IMPRESSION: There is no evidence of intracranial flow-limiting stenosis, occlusion, aneurysm or dissection. [id number] Performing Organization Address City/State/Zipcode Phone Number [facility] [address] [place] [address] * CT Renal Stone Protocol (04/16/2019 9:33 AM CDT) Specimen Narrative Performed At EXAMINATION:CT RENAL STONE PROTOCOL [facility] CLINICAL HISTORY:63 years Male pyelo TECHNIQUE:Multiple axial images of the abdomen and pelvis were obtained in helical fashion without intravenous administration of iodinated contrast. Sagittal and coronal computerized reformatted images were also obtained. The lack of intravenous contrast reduces the sensitivity of detecting solid organ disease. CT imaging was performed with iterative reconstruction techniques and/or automated exposure control to reduce radiation dose. COMPARISON:Comparison made with study dated 05/12/2017. IMPRESSION: LOWER CHEST: Trace left pleural effusion and bibasilar atelectasis. ABDOMEN: Liver: The liver is normal in size and contour without discrete mass. Gallbladder/Biliary: The gallbladder is normal. There is no evidence of intra or extrahepatic biliary ductal dilatation. Spleen: The spleen is normal in size. Pancreas: 2.6 cm cyst in the pancreatic uncinate process is incompletely evaluated without IV contrast, but is not appreciably changed from prior study. Adrenal Glands: Stable bilateral adrenal adenomas, measuring 2.9 cm on the right and 2.4 cm and the left. Kidneys: There is mild cortical atrophy involving the kidneys bilaterally. There is no nephrolithiasis. Renal cysts bilaterally are incompletely evaluated without IV contrast and measure up to approximately 2.5 cm. There is no hydronephrosis. Vascular: The abdominal aorta is nonaneurysmal. Nodes: No enlarged retroperitoneal or mesenteric lymphadenopathy. Bowel: There is sigmoid diverticulosis without acute diverticulitis. Ascites/fluid collections: No ascites or fluid collections. PELVIS: Lymphovascular:No adenopathy. Reproductive organs: Unremarkable. Bladder: Urinary bladder is decompressed by Vargas catheter. Other:None. MUSCULOSKELETAL: No suspicious osseous lesions. SUMMARY: 1.No nephrolithiasis. 2.2.6 cm pancreatic cyst in the uncinate process. This is not appreciably changed from prior exam within the confines of noncontrast technique. Further catheterization with pre and postcontrast CT or MRI is recommended if renal function allows. Otherwise, continued noncontrast follow-up is recommended in 12 months. [id number] Procedure Note Hm Interface, Radiology Results Incoming - 04/16/2019 11:08 AM CDT EXAMINATION: CT RENAL STONE PROTOCOL CLINICAL HISTORY:63 years Male pyelo TECHNIQUE: Multiple axial images of the abdomen and pelvis were obtained in helical fashion without intravenous administration of iodinated contrast. Sagittal and coronal computerized reformatted images were also obtained. The lack of intravenous contrast reduces the sensitivity of detecting solid organ disease. CT imaging was performed with iterative reconstruction techniques and/or automated exposure control to reduce radiation dose. COMPARISON: Comparison made with study dated 05/12/2017. IMPRESSION: LOWER CHEST: Trace left pleural effusion and bibasilar atelectasis. ABDOMEN: Liver: The liver is normal in size and contour without discrete mass. Gallbladder/Biliary: The gallbladder is normal. There is no evidence of intra or extrahepatic biliary ductal dilatation. Spleen: The spleen is normal in size. Pancreas: 2.6 cm cyst in the pancreatic uncinate process is incompletely evaluated without IV contrast, but is not appreciably changed from prior study. Adrenal Glands: Stable bilateral adrenal adenomas, measuring 2.9 cm on the right and 2.4 cm and the left. Kidneys: There is mild cortical atrophy involving the kidneys bilaterally. There is no nephrolithiasis. Renal cysts bilaterally are incompletely evaluated without IV contrast and measure up to approximately 2.5 cm. There is no hydronephrosis. Vascular: The abdominal aorta is nonaneurysmal. Nodes: No enlarged retroperitoneal or mesenteric lymphadenopathy. Bowel: There is sigmoid diverticulosis without acute diverticulitis. Ascites/fluid collections: No ascites or fluid collections. PELVIS: Lymphovascular: No adenopathy. Reproductive organs: Unremarkable. Bladder: Urinary bladder is decompressed by Vargas catheter. Other: None. MUSCULOSKELETAL: No suspicious osseous lesions. SUMMARY: 1. No nephrolithiasis. 2. 2.6 cm pancreatic cyst in the uncinate process. This is not appreciably changed from prior exam within the confines of noncontrast technique. Further catheterization with pre and postcontrast CT or MRI is recommended if renal function allows. Otherwise, continued noncontrast follow-up is recommended in 12 months. [id number] Performing Organization Address City/[facility]/Zipcode Phone Number [facility] [address] [place] [address] * Lactic acid level, SEPSIS - Now and repeat 2x every 3 hours (04/16/2019 6:49 AM CDT) Only the most recent of 3 results within the time period is included. Lactic acid 0.8 0.5 - 2.2 mmol/L [facility] Specimen Blood Performing Organization Address City/State/Zipcode Phone Number [facility] DEPARTMENT OF [address] [facility] [place] [address] PATHOLOGY AND GENOMIC MEDICINE [place] [id number] [facility] [address] * Lipid panel (04/16/2019 6:49 AM CDT) Only the most recent of 2 results within the time period is included. Cholesterol 88 0 - 199 mg/dL [facility] Triglycerides 46 0 - 149 mg/dL [facility] HDL cholesterol 46 40 - 9,999 mg/dL [facility] LDL cholesterol 39Comment: Result obtained by 0 - 99 mg/dL [place] direct LDL measurement [facility] Lipid panel See below [place] interpretation Comment: [facility] Total Cholesterol [facility] (mg/dL) H[facility]PITAL LDL Cholesterol (mg/dL) <200 Desirable <100 Optimal 200-239Borderline -[id number] or above optimal >=240High 130-159Borderline- high 160-189High >=190Very high HDL Cholesterol (mg/dL) Triglycerides (mg/dL) <40Low <150 Normal >=60 High 150-199Borderline- high 200-499High >=500Very high Risk Catergories that modify LDL goals. Risk Catergories LDL goal (mg/dL) CHD and CHD risk equivalent <100 (10-year risk >20%) Multiple (2+) risk factors <130 (10-year risk=<20%) 0-1 risk factors <160 (<10-year risk) Defining levels of lipids in metabolic syndrome Triglycerides >=150 mg/dL HDL Cholesterol Men <40 mg/dL Women <50 mg/dL Non-HDL cholesterol is a second target for therapy in persons with high triglycerides (>=200 mg/dL) Specimen Plasma specimen Performing Organization Address City/State/Zipcode Phone Number [facility] [address] [place] [address] PATHOLOGY AND GENOMIC MEDICINE [facility] [address] [place], [place] [id number] [place] [address] * MRI Brain Wo Contrast (04/16/2019 2:16 AM CDT) Specimen Narrative Performed At [facility] EXAMINATION: MRI BRAIN WO CONTRAST CLINICAL HISTORY: Rule out acute Infarct COMPARISON:04/15/[address] TECHNIQUE: Multiplanar and multisequence MRI imaging of the brain was obtained without contrast. FINDINGS: No acute ischemia, intracranial hemorrhage, or mass effect. Parenchymal volume loss, with disproportionate atrophy of the brainstem, particularly affecting the mirna and middle cerebellar peduncles. This can be seen in the setting of neurodegenerative etiologies such as multisystem atrophy, the appropriate clinical setting. Patchy T2 FLAIR hyperintensity throughout the supratentorial white matter and central mirna likely chronic small vessel ischemic change. Small remote ischemic insult involving the left cerebellar hemisphere. Trace left mastoid effusion. There is scattered sinus disease. In particular, T2 markedly hypointense signal lesion within the medial left maxillary sinus (approximately 2.7 cm) results in obstruction of the remainder of the sinus. An underlying mass lesion is not excluded. Prior silicone vitrectomy on the left. Signal abnormalities of the right lobe probably represents evolving phthisis bulbi when correlated with the prior CT. IMPRESSION: No acute ischemia. Parenchymal atrophy with disproportionate involvement of the mirna and the middle cerebellar peduncles. Consider correlation for neuro degenerative etiology such as multisystem atrophy. Abnormal mass lesion resulting in obstruction of the left maxillary sinus. Consider consultation with ENT for direct visualization to exclude neoplasm. 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 [facility]-[id number] Procedure Note Interface, Radiology Results Incoming - 04/16/2019 2:33 AM CDT EXAMINATION: MRI BRAIN WO CONTRAST CLINICAL HISTORY: Rule out acute Infarct COMPARISON: 04/15/[address] TECHNIQUE: Multiplanar and multisequence MRI imaging of the brain was obtained without contrast. FINDINGS: No acute ischemia, intracranial hemorrhage, or mass effect. Parenchymal volume loss, with disproportionate atrophy of the brainstem, particularly affecting the mirna and middle cerebellar peduncles. This can be seen in the setting of neurodegenerative etiologies such as multisystem atrophy, the appropriate clinical setting. Patchy T2 FLAIR hyperintensity throughout the supratentorial white matter and central mirna likely chronic small vessel ischemic change. Small remote ischemic insult involving the left cerebellar hemisphere. Trace left mastoid effusion. There is scattered sinus disease. In particular, T2 markedly hypointense signal lesion within the medial left maxillary sinus (approximately 2.7 cm) results in obstruction of the remainder of the sinus. An underlying mass lesion is not excluded. Prior silicone vitrectomy on the left. Signal abnormalities of the right lobe probably represents evolving phthisis bulbi when correlated with the prior CT. IMPRESSION: No acute ischemia. Parenchymal atrophy with disproportionate involvement of the mirna and the middle cerebellar peduncles. Consider correlation for neuro degenerative etiology such as multisystem atrophy. Abnormal mass lesion resulting in obstruction of the left maxillary sinus. Consider consultation with ENT for direct visualization to exclude neoplasm. 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 [facility]-[id number] Performing Organization Address City/State/Zipcode Phone Number [facility] [address] [place] [address] * Gram stain (04/15/2019 8:32 PM CDT) Gram stain Occasional WBC's [place] result Moderate Gram negative rods [facility] Comment: HOSPITAL Specimen Information Specimen Source: Urine Specimen Site: Catheterized Specimen Urine - Catheterized Performing Organization Address City/State/Zipcode Phone Number [facility] DEPARTMENT OF [address] [place] [address] PATHOLOGY AND GENOMIC MEDICINE [facility] [address] [place] [address] HOSPITAL * Urine culture (04/15/2019 8:32 PM CDT) Urine culture Escherichia coli KALIE isolate >10-5 cfu/ml [facility] characteristics of this assay on this isolate were validated by the Microbiology Laboratory at [facility].This source has not been approved by the U.S. Food and Drug Administration.The results are not intended to be used as the sole means for clinical diagnosis or patient management.The Microbiology Laboratory is authorized under the clinical Laboratory Improvement Amendments of 1988 (CLIA-88) to perform high complexity testing. This isolate is a music producer of ESBL (extended spectrum beta lactamase).This organism may be clinically resistant to penicillins, cephalosporins or aztreonam despite apparent in vitro susceptibility to some of these agents. (A) Comment: Specimen Information Specimen Source: Urine Specimen Site: Catheterized Urine culture Duplicate organism-no further FAR[facility]LL isolate workup (A) [facility] Specimen Urine - Catheterized Antibiotic Method Susceptibility Organism Ampicillin SKYE >16 mcg/mL: Resistant Escherichia coli Amoxicillin/Clavulanate SKYE 8/4 mcg/mL: Resistant Escherichia coli Amikacin SKYE <=4 mcg/mL: Susceptible Escherichia coli Aztreonam SKYE >16 mcg/mL: Resistant Escherichia coli Ceftazidime SKYE 4 mcg/mL: Resistant Escherichia coli Ciprofloxacin SKYE >2 mcg/mL: Resistant Escherichia coli Ceftriaxone SKYE >32 mcg/mL: Resistant Escherichia coli Cefuroxime Sodium SKYE >16 mcg/mL: Resistant Escherichia coli Cefazolin SKYE >32 mcg/mL: Resistant Escherichia coli Cefepime SKYE >16 mcg/mL: Resistant Escherichia coli Nitrofurantoin SKYE <=16 mcg/mL: Susceptible Escherichia coli Gentamicin SKYE <=1 mcg/mL: Susceptible Escherichia coli Imipenem SKYE <=0.25 mcg/mL: Susceptible Escherichia coli Levofloxacin SKYE >4 mcg/mL: Resistant Escherichia coli Meropenem SKYE <=0.125 mcg/mL: Susceptible Escherichia coli Tobramycin SKYE >8 mcg/mL: Resistant Escherichia coli Ampicillin/Sulbactam SKYE 16/8 mcg/mL: Resistant Escherichia coli Trimethoprim/Sulfamethoxazole SKYE 1/19 mcg/mL: Susceptible Escherichia coli Tetracycline SKYE <=1 mcg/mL: Susceptible Escherichia coli Ertapenem SKYE <=0.125 mcg/mL: Susceptible Escherichia coli Tigecycline SKYE <=0.5 mcg/mL: Susceptible Escherichia coli Cefotaxime SKYE mcg/mL: Resistant Escherichia coli Cephalothin SKYE mcg/mL: Resistant Escherichia coli Fosfomycin KB mm: Susceptible Escherichia coli Performing Organization Address City/[facility]/Zipcode Phone Number [facility] DEPARTMENT [address] [place] [address] PATHOLOGY AND GENOMIC MEDICINE [address] [address] HOSPITAL * Urinalysis screen and microscopy, with reflex to culture (04/15/2019 8:23 PM CDT) Specimen site Catheterized [facility] Color, UA Yellow [facility] Appearance, UA Cloudy [facility] Specific 1.008 1.001 - 1.035 [place] gravity, UA [facility] pH, UA 5.0 5.0 - 8.5 [facility] Protein, UA 2+ (A) Negative [facility] Glucose, UA 2+ (A) Negative [facility] Ketones, UA Negative Negative [facility] Bilirubin, UA Negative Negative [facility] Blood, UA Small (A) Negative [facility] Nitrite, UA Negative Negative [facility] Urobilinogen, Negative <2.0 [facility] Leukocyte Large (A) Negative [place] esterase, [facility] Epithelial Few /HPF [place] cells, UA [facility] WBC, UA 166 (H) 0 - 1 /HPF [facility] RBC, UA 6 (H) 0 - 5 /HPF [facility] Bacteria, UA Many (A) None seen [facility] WBC clumps, UA Many (A) [facility] Yeast, UA None seen [facility] Yeast with None seen [place] [facility] Specimen Urine Performing Organization Address City/State/Zipcode Phone Number [facility] DEPART[facility] OF [address] [place] [address] PATHOLOGY AND GENOMIC MEDICINE [place] [facility] [address] [place] [address] [facility] * Blood culture, aerobic & anaerobic (04/15/2019 7:04 PM CDT) Only the most recent of 2 results within the time period is included. Blood culture No growth after 5 days of [place] isolate incubation. [facility] Comment: HOSPITAL Specimen Information Specimen Source: Blood Specimen Site: r wrist Specimen Blood Performing Organization Address City/State/Zipcode Phone Number [facility] DEPARTMENT OF [address] [place] [address] PATHOLOGY AND GENOMIC MEDICINE [place] [facility] [address] [place] [address] HOSPITAL * CRITICAL CARE (04/15/2019 7:00 PM CDT) Narrative Performed At Vineet Jenkins DO 04/19/20198:16 AM Critical Care Performed by: Vineet Jenkins DO Authorized by: Vineet Jenkins DO Critical care provider statement: Critical care time (minutes):35 Critical care time was exclusive of:Separately billable procedures and treating other patients Critical care was necessary to treat or prevent imminent or life-threatening deterioration of the following conditions: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 Critical care was time spent personally by me on the following activities:Development of treatment plan with patient or surrogate, discussions with consultants, discussions with primary provider, evaluation of patient's response to treatment, examination of patient, interpretation of cardiac output measurements, obtaining history from patient or surrogate, ordering and performing treatments and interventions, ordering and review of laboratory studies, ordering and review of radiographic studies, pulse oximetry, re-evaluation of patient's condition and review of old charts * CT Stroke Brain Wo Contrast (04/15/2019 6:18 PM CDT) Specimen Narrative Performed At EXAMINATION:CT STROKE BRAIN WO CONTRAST [facility] CLINICAL HISTORY:Altered level of consciousness (LOC)unexplained Comparison: CT 05/12/2017 and MRI May 13, 2017. Technique: Routine unenhanced brain CT. CT imaging was performed with iterative reconstruction technique and/or automated exposure control to reduce radiation dose. Findings: No acute intracranial hemorrhage, extracerebral fluid collection, midline shift or herniation. No definite acute transcortical infarction. Probable chronic ischemic changes with progression most notable in the left frontal white matter. Right thalamic lacunar infarct. Mild cerebellar volume loss. Intracranial atherosclerosis. Cerebral volume loss with enlargement of the ventricles. No depressed calvarial fracture. Hyperdense appearance of the left globe. The right globe is less hyperdense compared to 05/12/2017. There is opacification of the left maxillary sinus with extension into the nasal cavity and choana. The hyperdense contents reflect inspissated secretions and/or fungal elements. The extension into the nasal cavity and choana could reflect an a ntrochoanal polyp with inverting papilloma thought less likely but not entirely excluded, recommend correlation with direct visual exam. There is opacification of left greater than right ethmoid air cells and sphenoid sinuses and a right maxillary sinus mucous retention cyst. Impression: 1. No acute intracranial hemorrhage or mass effect. Progression of chronic small vessel ischemic changes most notable in the left frontal white matter. Right thalamic lacunar infarct. MRI with diffusion-weighted imaging is more sensitive for the detection of acute ischemia. RESULT NOTIFICATION: These observations were discussed with and acknowledged by VINEET JENKINS at 04/15/2019 6:21 PM. 2. Paranasal sinus inflammatory changes worst in the left maxillary sinus with hyperdense contents which could reflect inspissated secretions and/or fungal elements. There is extension into the left nasal cavity and choana which could reflect a antrochoanal polyp with inverted papilloma thought less likely but not entirely excluded, recommend correlation with direct visual exam. [facility]-[id number] Procedure Note [facility], Radiology Results Incoming - 04/15/2019 6:37 PM CDT EXAMINATION: CT STROKE BRAIN WO CONTRAST CLINICAL HISTORY: Altered level of consciousness (LOC) unexplained Comparison: CT 05/12/2017 and MRI May 13, 2017. Technique: Routine unenhanced brain CT. CT imaging was performed with iterative reconstruction technique and/or automated exposure control to reduce radiation dose. Findings: No acute intracranial hemorrhage, extracerebral fluid collection, midline shift or herniation. No definite acute transcortical infarction. Probable chronic ischemic changes with progression most notable in the left frontal white matter. Right thalamic lacunar infarct. Mild cerebellar volume loss. Intracranial atherosclerosis. Cerebral volume loss with enlargement of the ventricles. No depressed calvarial fracture. Hyperdense appearance of the left globe. The right globe is less hyperdense compared to 05/12/2017. There is opacification of the left maxillary sinus with extension into the nasal cavity and choana. The hyperdense contents reflect inspissated secretions and/or fungal elements. The extension into the nasal cavity and choana could reflect an antrochoanal polyp with inverting papilloma thought less likely but not entirely excluded, recommend correlation with direct visual exam. There is opacification of left greater than right ethmoid air cells and sphenoid sinuses and a right maxillary sinus mucous retention cyst. Impression: 1. No acute intracranial hemorrhage or mass effect. Progression of chronic small vessel ischemic changes most notable in the left frontal white matter. Right thalamic lacunar infarct. MRI with diffusion-weighted imaging is more sensitive for the detection of acute ischemia. RESULT NOTIFICATION: These observations were discussed with and acknowledged by VINEET JENKINS at 04/15/2019 6:21 PM. 2. Paranasal sinus inflammatory changes worst in the left maxillary sinus with hyperdense contents which could reflect inspissated secretions and/or fungal elements. There is extension into the left nasal cavity and choana which could reflect a antrochoanal polyp with inverted papilloma thought less likely but not entirely excluded, recommend correlation with direct visual exam. [facility]-[id number] Performing Organization Address City/State/Zipcode Phone Number [facility] [address] [place] [address] * Partial thromboplastin time, activated (04/15/2019 6:18 PM CDT) Pathologist [facility] PTT 17.8 (L) 23.0 - 36.0 sec [place] Comment: [facility] PTT therapeutic range for [facility] unfractionated heparin is HOSPITAL 61.0-112.0 seconds which corresponds to Anti-Xa 0.3-0.7 U/ml. Note:Change in Panic Value The PTT Panic Value is changing from 110 sec. to 100 sec. due to new instrumentation and reagents. Correlation studies have been performed to validate this result. Specimen Blood Performing Organization Address City/State/Zipcode Phone Number [facility] [address] [place] [address] PATHOLOGY AND GENOMIC MEDICINE [place] CARMEN ROLDAN [address] [place] [address] [facility] * Prothrombin time with INR (04/15/2019 6:18 PM CDT) Pathologist [facility] Prothrombin 15.2 (H) 11.5 - 14.5 sec [place] time [facility] INR 1.23 [place] Comment: CARMEN ROLDAN For patients on anticoagulant MIGDALIA therapy, reference ranges HOSPITAL below: Indication: INR Value Treatment of Venous Thrombosis, 2.0-3.0 pulmonary emboli, or prophylaxis of a venous thrombosis, or systemic emboli. High dose, high risk patients 3.0-4.5 with mechanical valves. NOTE:INR values over 3.0 are sometimes associated with gastrointestinal hemorrhage, especially values over 4.0. Specimen Blood Performing Organization Address City/State/Zipcode Phone Number [facility] OF [address] [place] [address] PATHOLOGY AND GENOMIC MEDICINE [address] * Prepare RBC, 2 Units (04/15/2019 6:18 PM CDT) Product name Red Blood Cells -1, Leukored [facility] Unit number [id number] [facility] Product code [id number] [facility] Dispense status Transfused [facility] Blood [id number] [place] expiration date [facility] Blood type code 5100 [facility] Blood type O POSITIVE [facility] Product name Red Blood Cells -1, Leukored [facility] Unit number [id number] [facility] Product code [id number] [facility] Dispense status Transfused [facility] Blood [id number] [place] expiration date [facility] Blood type code 5100 [facility] Blood type O POSITIVE [facility] Specimen Blood Performing Organization Address City/State/Zipcode Phone Number [facility] [place] [phone] PATHOLOGY AND GENOMIC MEDICINE [address] * Type and screen (04/15/2019 6:18 PM CDT) ABO grouping O [facility] Rh type POS [facility] Antibody screen NEG [place] (gel) [facility] Specimen Blood Performing Organization Address City/State/[place] [address] PATHOLOGY AND GENOMIC MEDICINE [address] * Smear review (04/03/2019 2:00 PM CDT) Only the most recent of 3 results within the time period is included. Smear review Scan Not Req [facility] Specimen Performing Organization Address City/State/Zipcode Phone Number [facility] [place] [address] PATHOLOGY AND [facility] [address] * Hemoglobin & hematocrit (04/03/2019 2:00 PM CDT) Only the most recent of 4 results within the time period is included. Pathologist [facility] HGB 7.9 (L) 13.0 - 17.3 g/dL [facility] HCT 25.2 (L) 34.0 - 45.0 % [facility] Specimen Blood Performing Organization Address City/[facility] [place] [address] PATHOLOGY AND [facility] [address] * Urine protein/creatinine ratio, random (04/03/2019 2:00 PM CDT) Only the most recent of 3 results within the time period is included. Protein, urine 151 mg/dL [place] random [facility] Protein 7.1 6.3 - 8.3 g/dL [facility] Protein 21.27 [place] clearance, [facility] urine [facility] Creatinine, 59 mg/dL [place] urine, random [facility] Creatinine 3.50 (H) 0.70 - 1.20 mg/dL [facility] Urine 16.86 [place] creatinine [facility] Prot/creat 126.16 [place] ratio, urine [facility] Specimen Urine Performing Organization Address City/[facility] Cent[facility] Phone Number [facility] OF [facility] [place] [address] PATHOLOGY AND GENOMIC MEDICINE [address] * Total iron binding capacity (11/23/2018 10:45 AM [employer]) Only the most recent of 2 results within the time period is included. Iron level 63 59 - 158 ug/dL [facility] Iron binding 191 (L) 271 - 474 ug/dL [place] capacity [facility] % Saturation 33.0 20.0 - 40.0 % [facility] Specimen Plasma specimen Narrative Performed At [facility] FAX TO [facility] DEPARTMENT OF PATHOLOGY AND GENOMIC MEDICINE Performing Organization Address City/[facility] Cent[facility] Phone Number [facility] [address] [place] [address] PATHOLOGY AND GENOMIC MEDICINE [address] * Ferritin level (11/23/2018 10:45 AM [employer] WORKER) Only the most recent of 2 results within the time period is included. Ferritin level 691 (H) 30 - 400 ng/mL [facility] Specimen Serum Narrative Performed At [facility] FAX TO [facility] DEPARTMENT OF PATHOLOGY AND GENOMIC MEDICINE Performing Organization Address City/[facility] Centercode Phone Number [facility] [place] [address] PATHOLOGY AND GENOMIC MEDICINE [address] * Urinalysis, automated with microscopy (10/01/2018 12:00 PM [employer] WORK[employer]) Color, UA Yellow [facility] Appearance, UA Clear [facility] Specific 1.009 1.001 - 1.035 [place] gravity, UA [facility] pH, UA 5.0 5.0 - 8.5 [facility] Protein, UA 2+ (A) Negative [facility] Glucose, UA Negative Negative [facility] Ketones, UA Negative Negative [facility] Bilirubin, UA Negative Negative [facility] Blood, UA Negative Negative [facility] Nitrite, UA Negative Negative [facility] Urobilinogen, Negative <2.0 [facility] Leukocyte Negative Negative [place] esterase, UA [facility] Epithelial Few /HPF [place] cells, UA [facility] WBC, UA <1 0 - 1 /HPF [facility] RBC, UA 1 0 - 5 /HPF [facility] Bacteria, UA None seen None seen [facility] Yeast, UA None seen 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 Specimen Plasma specimen Performing Organization Address City/State/[facility] Centercode Phone Number [facility] OF [address] [place] [address] PATHOLOGY AND GENOMIC MEDICINE [place] [address] after 07/31/2018 Additional Health Concerns Resolved Time Infection Noted Time ESBL (C ) 04/18/2019 7:59 AM CDT Insurance Type Payer Benefit Subscriber ID Effective Phone Address Plan / Dates Group Medicare MEDICARE MEDICARE xxxxxxxxxxx 2015-P [place], PART A AND resent [place] B Medicaid MEDICAID MEDICAID xxxxxxxxx 2017- Present Advance Directives For more information, please contact: [phone] Patient [employer] Explanation Type Date Recorded Advance Directives, 04/15/2019 1:52 PM Living Will and Medical Power of Rehabilitation Attendant Advance Directives, Living Will and Medical Power of Rehabilitation Attendant
--- NOTE | 2019-08-01 14:48 | Diagnostic Imaging Report ---
Chest, 1 view, 08/01/2019. Comparison: 04/13/2019. Findings: The cardiomediastinal silhouette and pulmonary vasculature are within normal limits for a portable exam. There is no focal consolidation or pleural effusion. Degenerative changes are noted in the shoulders. There are no acute osseous or soft tissue abnormalities. Impression: No acute cardiopulmonary abnormality. Signed by: Alexi Terry on 08/01/2019 2:45 PM
--- NOTE | 2019-08-01 14:53 | NUR ---
STRAIGHT CATH INSERTED FOR UA VIA ASEPTIC TECHNIQUE PER MD ORDERS; URINE OUTPUT APPROX 200 CC; UA COLLECTED AND SENT TO LAB
[2019-08-01 15:48] LABS: BASOPHILS % 0.3 % (0.0-1.0); EOSINOPHILS # (AUTO) 0.5 (0.0-0.4); EOSINOPHILS % 3.1 % (0.0-6.0); HEMATOCRIT 33.6 % (38.2-49.6); HEMOGLOBIN 10.5 g/dL (14.0-18.0); LYMPHOCYTES # (AUTO) 1.6 (1.0-3.2); LYMPHOCYTES % 10.2 % (18.0-39.1); MEAN CORPUSCULAR HEMOGLOBIN 23.9 pg (28-32); MEAN CORPUSCULAR HGB CONC 31.3 g/dL (31-35); MEAN CORPUSCULAR VOLUME 76.5 fL (81-99); MONOCYTES # (AUTO) 0.7 (0.2-0.8); MONOCYTES % 4.7 % (4.4-11.3); NEUTROPHILS # (AUTO) 12.6 (2.1-6.9); NEUTROPHILS % 81.2 % (38.7-80.0); PLATELET COUNT 226 x10e3/uL (140-360); RED BLOOD COUNT 4.39 x10e6/uL (4.3-5.7); RED CELL DISTRIBUTION WIDTH 20.2 % (11.7-14.4)
[2019-08-01 15:55] LABS: CLARITY,URINE SL CLOUDY (CLEAR); COLOR,URINE YELLOW (YELLOW)
[2019-08-01 15:56] LABS: KETONES,URINE NEGATIVE (NEGATIVE); LEUKOCYTE ESTERASE ,URINE TRACE (NEGATIVE); NITRITE,URINE NEGATIVE (NEGATIVE); PROTEIN,URINE DIPSTICK 2+ (NEGATIVE); URINE UROBILINOGEN 0.2 mg/dL (0.2 - 1)
[2019-08-01 15:57] LABS: BILIRUBIN,URINE NEGATIVE (NEGATIVE)
[2019-08-01 16:00] LABS: INR 1.1; PROTHROMBIN TIME 14.7 seconds (11.9-14.5)
[2019-08-01 16:05] LABS: BACTERIA,URINE MANY /HPF
[2019-08-01 16:09] LABS: ALBUMIN/GLOBULIN RATIO 0.7 (0.8-2.0); ANION GAP 18.9 mmol/L (8-16); CALCIUM 9.2 mg/dL (8.4-10.2); CREATININE, SERUM 4.88 mg/dL (0.72-1.25); POTASSIUM 4.9 mmol/L (3.5-5.1)
[2019-08-01 16:18] LABS: B-TYPE NATRIURETIC PEPTIDE2 92.5 pg/mL (0-100)
[2019-08-01 16:29] LABS: CREATINE KINASE MB 2.7 ng/mL (0-5.0); THYROID STIMULATING HORMONE 0.326 uIU/mL (0.350-4.940)
[2019-08-01] MEDS ORDERED: SODIUM CHLORIDE 0.9% 1000ML 1,000 ML IV SCH (16:39)
[2019-08-01] MEDS ORDERED: CEFTRIAXONE SOD 1 GM VIAL IV SCH (16:45)
[2019-08-01] MEDS ORDERED: CEFTRIAXONE SOD 1 GM/NS 50 ML 50 ML IV SCH (16:45)
[2019-08-01] MEDS ORDERED: SODIUM CHLORIDE FLUSH 10 ML SYR INJ PRN (16:45)
[2019-08-01] MEDS ORDERED: ONDANSETRON HCL INJ 2MG/ML 2ML 2 MG/ML VIAL IV PRN (16:45)
--- OUTSIDE RECORDS SUMMARY | 2019-08-01 17:07 | XMS REPORT | Clinical Summary ---
Author Author [facility]rell [facility] Organization [facility] Address Unknown Phone Unavailable Care Team Providers Care Heel Curver Name Role Phone Teofilo Edmond MD PCP [...] (HCC); Hypertension, unspecified type; Thrombocytopathia (HCC) 04/15/2019 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 BASIC METABOLIC PANEL Routine 04/03/2019 Type 2 diabetes mellitus 2:00 PM CDT with complication, unspecified whether half-way insulin use (HCC) Chronic kidney disease, stage V (HCC) Parenchymal renal hypertension, 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 HEMOGLOBIN & HEMATOCRIT Routine 04/03/2019 Type 2 diabetes mellitus 2:00 PM CDT with complication, unspecified whether intermediate designer insulin use (HCC) Chronic kidney disease, stage V (HCC) Parenchymal renal hypertension, 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 PHOSPHORUS LEVEL Routine 04/03/2019 Type 2 diabetes mellitus 2:00 PM CDT with complication, unspecified whether intermediate designer insulin use (HCC) Chronic kidney disease, stage V (HCC) Parenchymal renal hypertension, 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 MAGNESIUM LEVEL Routine 04/03/2019 Type 2 diabetes mellitus 2:00 PM CDT with complication, unspecified whether half-way insulin use (HCC) Chronic kidney disease, stage V (HCC) Parenchymal renal hypertension, 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 SMEAR REVIEW Routine 03/08/2019 6:30 PM CDT ESTIMATED GFR Routine 03/08/2019 6:30 PM CDT HEMOGLOBIN & HEMATOCRIT Routine 03/08/2019 Type 2 diabetes mellitus 6:30 PM CDT with complication, unspecified whether intermediate designer insulin use (HCC) Chronic kidney disease, stage V (HCC) Parenchymal renal hypertension, 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 BASIC METABOLIC PANEL Routine 03/08/2019 Type 2 diabetes mellitus 6:30 PM CDT with complication, unspecified whether half-way insulin use (HCC) Chronic kidney disease, stage V (HCC) Parenchymal renal hypertension, 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 PARATHYROID HORMONE Routine 01/25/2019 11:20 AM CDT ESTIMATED GFR Routine 01/25/2019 11:20 AM CDT HC COMPLETE BLD COUNT Routine 01/25/2019 Type 2 diabetes mellitus W/AUTO DIFF 11:20 AM CDT with complication, unspecified whether half-way insulin use (HCC) Parenchymal renal hypertension, 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 Chronic kidney disease, stage IV (severe) (HCC) Anemia of chronic renal failure, unspecified CKD stage Hyperpotassemia Avitaminosis D HEMOGLOBIN A1C Routine 01/25/2019 Type 2 diabetes mellitus 11:20 AM CDT with complication, unspecified whether intermediate designer insulin use (HCC) Parenchymal renal hypertension, 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 Chronic kidney disease, stage IV (severe) (HCC) Anemia of chronic renal failure, unspecified CKD stage Hyperpotassemia Avitaminosis D PHOSPHORUS LEVEL Routine 01/25/2019 Type 2 diabetes mellitus 11:20 AM CDT with complication, unspecified whether half-way insulin use (HCC) Parenchymal renal hypertension, 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 Chronic kidney disease, stage IV (severe) (HCC) Anemia of chronic renal failure, unspecified CKD stage Hyperpotassemia Avitaminosis D MAGNESIUM LEVEL Routine 01/25/2019 Type 2 diabetes mellitus 11:20 AM CDT with complication, unspecified whether half-way insulin use (HCC) Parenchymal renal hypertension, 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 Chronic kidney disease, stage IV (severe) (HCC) Anemia of chronic renal failure, unspecified CKD stage Hyperpotassemia Avitaminosis D URINE PROTEIN/CREATININE Routine 01/25/2019 Type 2 diabetes mellitus RATIO, RANDOM 11:20 AM CDT with complication, unspecified whether half-way insulin use (HCC) Parenchymal renal hypertension, 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 Chronic kidney disease, stage IV (severe) (HCC) Anemia of chronic renal failure, unspecified CKD stage Hyperpotassemia Avitaminosis D BASIC METABOLIC PANEL Routine 01/25/2019 Type 2 diabetes mellitus 11:20 AM CDT with complication, unspecified whether intermediate designer insulin use (HCC) Parenchymal renal hypertension, 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 Chronic kidney disease, stage IV (severe) (HCC) Anemia of chronic renal failure, unspecified CKD stage Hyperpotassemia Avitaminosis D ESTIMATED GFR Routine 11/23/2018 10:45 AM PHYSICIAN AIDE FERRITIN LEVEL Routine 11/23/2018 Parenchymal renal 10:45 AM PHYSICIAN AIDE hypertension, 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 Chronic kidney disease, stage IV (severe) (HCC) Erythropoietin deficiency anemia TOTAL IRON BINDING Routine 11/23/2018 Parenchymal renal CAPACITY 10:45 AM PHYSICIAN AIDE hypertension, 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 Chronic kidney disease, stage IV (severe) (HCC) Erythropoietin deficiency anemia HEMOGLOBIN & HEMATOCRIT Routine 11/23/2018 Parenchymal renal 10:45 AM PHYSICIAN AIDE hypertension, 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 Chronic kidney disease, stage IV (severe) (HCC) Erythropoietin deficiency anemia URIC ACID LEVEL Routine 11/23/2018 Parenchymal renal 10:45 AM PHYSICIAN AIDE hypertension, 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 Chronic kidney disease, stage IV (severe) (HCC) Erythropoietin deficiency anemia BASIC METABOLIC PANEL Routine 11/23/2018 Parenchymal renal 10:45 AM PHYSICIAN AIDE hypertension, 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 Chronic kidney disease, stage IV (severe) (HCC) Erythropoietin deficiency anemia URINALYSIS, AUTOMATED Routine 10/01/2018 Parenchymal renal WITH MICROSCOPY 12:00 PM PHYSICIAN AIDE hypertension, 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 Chronic kidney disease, stage IV (severe) (HCC) Anemia of chronic renal failure, unspecified CKD stage Avitaminosis D Chronic disease anemia Type 2 diabetes mellitus with complication, unspecified whether half-way insulin use (HCC) Essential hypertension, malignant ESTIMATED GFR Routine 10/01/2018 11:00 AM PHYSICIAN AIDE VITAMIN D 25 HYDROXY Routine 10/01/2018 Parenchymal renal LEVEL 11:00 AM PHYSICIAN AIDE hypertension, 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 Chronic kidney disease, stage IV (severe) (HCC) Anemia of chronic renal failure, unspecified CKD stage Avitaminosis D Chronic disease anemia Type 2 diabetes mellitus with complication, unspecified whether intermediate designer insulin use (HCC) Essential hypertension, malignant URINE PROTEIN/CREATININE Routine 10/01/2018 Parenchymal renal RATIO, RANDOM 11:00 AM PHYSICIAN AIDE hypertension, 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 Chronic kidney disease, stage IV (severe) (HCC) Anemia of chronic renal failure, unspecified CKD stage Avitaminosis D Chronic disease anemia Type 2 diabetes mellitus with complication, unspecified whether half-way insulin use (HCC) Essential hypertension, malignant HC COMPLETE BLD COUNT Routine 10/01/2018 Parenchymal renal W/AUTO DIFF 11:00 AM PHYSICIAN AIDE hypertension, 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 Chronic kidney disease, stage IV (severe) (HCC) Anemia of chronic renal failure, unspecified CKD stage Avitaminosis D Chronic disease anemia Type 2 diabetes mellitus with complication, unspecified whether half-way insulin use (HCC) Essential hypertension, malignant PARATHYROID HORMONE Routine 10/01/2018 Parenchymal renal 11:00 AM PHYSICIAN AIDE hypertension, 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 Chronic kidney disease, stage IV (severe) (HCC) Anemia of chronic renal failure, unspecified CKD stage Avitaminosis D Chronic disease anemia Type 2 diabetes mellitus with complication, unspecified whether intermediate designer insulin use (HCC) Essential hypertension, malignant HEMOGLOBIN A1C Routine 10/01/2018 Parenchymal renal 11:00 AM PHYSICIAN AIDE hypertension, 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 Chronic kidney disease, stage IV (severe) (HCC) Anemia of chronic renal failure, unspecified CKD stage Avitaminosis D Chronic disease anemia Type 2 diabetes mellitus with complication, unspecified whether half-way insulin use (HCC) Essential hypertension, malignant URIC ACID LEVEL Routine 10/01/2018 Parenchymal renal 11:00 AM PHYSICIAN AIDE hypertension, 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 Chronic kidney disease, stage IV (severe) (HCC) Anemia of chronic renal failure, unspecified CKD stage Avitaminosis D Chronic disease anemia Type 2 diabetes mellitus with complication, unspecified whether half-way insulin use (HCC) Essential hypertension, malignant THYROID STIMULATING Routine 10/01/2018 Parenchymal renal HORMONE 11:00 AM PHYSICIAN AIDE hypertension, 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 Chronic kidney disease, stage IV (severe) (HCC) Anemia of chronic renal failure, unspecified CKD stage Avitaminosis D Chronic disease anemia Type 2 diabetes mellitus with complication, unspecified whether half-way insulin use (HCC) Essential hypertension, malignant PHOSPHORUS LEVEL Routine 10/01/2018 Parenchymal renal 11:00 AM PHYSICIAN AIDE hypertension, 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 Chronic kidney disease, stage IV (severe) (HCC) Anemia of chronic renal failure, unspecified CKD stage Avitaminosis D Chronic disease anemia Type 2 diabetes mellitus with complication, unspecified whether intermediate designer insulin use (HCC) Essential hypertension, malignant MAGNESIUM LEVEL Routine 10/01/2018 Parenchymal renal 11:00 AM PHYSICIAN AIDE hypertension, 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 Chronic kidney disease, stage IV (severe) (HCC) Anemia of chronic renal failure, unspecified CKD stage Avitaminosis D Chronic disease anemia Type 2 diabetes mellitus with complication, unspecified whether intermediate designer insulin use (HCC) Essential hypertension, malignant FERRITIN LEVEL Routine 10/01/2018 Parenchymal renal 11:00 AM PHYSICIAN AIDE hypertension, 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 Chronic kidney disease, stage IV (severe) (HCC) Anemia of chronic renal failure, unspecified CKD stage Avitaminosis D Chronic disease anemia Type 2 diabetes mellitus with complication, unspecified whether half-way insulin use (HCC) Essential hypertension, malignant TOTAL IRON BINDING Routine 10/01/2018 Parenchymal renal CAPACITY 11:00 AM PHYSICIAN AIDE hypertension, 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 Chronic kidney disease, stage IV (severe) (HCC) Anemia of chronic renal failure, unspecified CKD stage Avitaminosis D Chronic disease anemia Type 2 diabetes mellitus with complication, unspecified whether half-way insulin use (HCC) Essential hypertension, malignant COMPREHENSIVE METABOLIC Routine 10/01/2018 Parenchymal renal PANEL 11:00 AM PHYSICIAN AIDE hypertension, 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 Chronic kidney disease, stage IV (severe) (HCC) Anemia of chronic renal failure, unspecified CKD stage Avitaminosis D Chronic disease anemia Type 2 diabetes mellitus with complication, unspecified whether intermediate designer insulin use (HCC) Essential hypertension, malignant SMEAR [...] within the time period is included. Pathologist [facility] Estimated GFR 13 (A) mL/min/1.73 m2 [facility] Comment: JAINISMMercyOne [facility] G1 >=90 Normal or high G2 60-89Mildly decreased [id number] Mildly to moderately decreased [id number] Moderately to severely decreased G4 15-29Severely decreased G5 <15Kidney failure The eGFR was calculated using the Chronic Kidney Disease Epidemiology Collaboration (CKD-EPI) equation. Interpretation is based on recommendations of the National Kidney Foundation-Kidney Disease Outcomes Quality Initiative (NKF-KDOQI) published in 2014. Specimen Plasma specimen Narrative Performed At [facility] DEPARTMENT OF FAX TO [phone] PATHOLOGY AND GENOMIC MEDICINE Performing Organization Address City/State/Zipcode Phone Number [facility] DEPARTMENT OF [address] [place] [address] PATHOLOGY AND GENOMIC MEDICINE [facility] [address] [place] [address] HOSPITAL * Basic metabolic panel (07/04/2019 8:30 PM CDT) Only the most recent of 16 results within the time period is included. Pathologist [facility] Sodium 142 135 - 150 mEq/L [facility] Potassium 4.8 3.5 - 5.0 mEq/L [facility] Chloride 104 98 - 112 mEq/L [facility] CO2 21 (L) 24 - 31 mmol/L [facility] Anion gap 17@ANIO (H) 7 - 15 mEq/L [facility] BUN 76 (H) 7 - 18 mg/dL [facility] Creatinine 4.90 (H) 0.70 - 1.20 mg/dL [facility] Glucose 175 (H) 65 - 100 mg/dL [facility] Calcium 9.4 8.8 - 10.2 mg/dL [facility] Specimen Plasma specimen Narrative Performed At [facility] DEPARTMENT OF FAX TO [phone] PATHOLOGY AND GENOMIC MEDICINE Performing Organization Address City/State/Zipcode Phone Number [facility] [place] DEPARTMENT OF [address] [place] [address] PATHOLOGY AND GENOMIC MEDICINE [place] [id number] * Microalbumin, urine, random (06/03/2019 1:00 PM CDT) Pathologist [facility] Total volume, No volume mL [facility] urine [facility] Urine 64 mg/dL [facility] creatinine [facility] Urine 65.9 mg/dL [facility] microalbumin [facility] Urine 1,030 (H) 0 - 30 mg/g [facility] microalbumin/cr [facility] Specimen Urine Performing Organization Address City/[facility] Cent[facility] Phone Number [facility] DEPARTMENT OF [address] [place] [address] PATHOLOGY AND GENOMIC MEDICINE [address] * Immature platelet fraction (06/03/2019 1:00 PM CDT) Only the most recent of 2 results within the time period is included. IPF percentage 8.1 (H) 1.0 - 5.8 % [facility] Specimen Performing Organization Address City/State/Zipcode Phone Number [facility] [place] DEPARTMENT OF [address] [place] [address] PATHOLOGY AND GENOMIC MEDICINE [facility] [address] * Manual differential (06/03/2019 1:00 PM CDT) Only the most recent of 2 results within the time period is included. Manual PERFORMED [facility] differential [facility] Neutrophils 69.0 (H) 36.0 - 66.0 % [facility] Lymphocytes 20.0 (L) 24.0 - 44.0 % [facility] Monocytes 4.0 0.0 - 6.0 % [facility] Eosinophils 7.0 (H) 0.0 - 6.0 % [facility] Basophils 0.0 0.0 - 1.2 % [facility] Metamyelocytes 0 0 - 1 % [facility] Promyelocytes 0 0 - 1 % [facility] Platelet slide Kacie adequate [facility] review [facility] Anisocytosis Moderate [facility] Polychromasia SLIGHT [facility] Basophilic Occasional [facility] stippling [facility] Schistocytes Many (A) [facility] Spherocytes Occasional [facility] Enlarged Moderate (A) [facility] platelets [facility] Giant platelets Occasional [facility] Specimen Performing Organization Address City/State/Zipcode Phone Number [facility] DEPARTMENT OF [address] [facility] [place] [address] PATHOLOGY AND GENOMIC MEDICINE [facility] [address] [facility] [address] * CBC hemogram (06/03/2019 1:00 PM CDT) WBC 5.3 4.2 - 11.0 k/uL [facility] RBC 3.51 (L) 4.04 - 5.86 m/uL [facility] HGB 9.3 (L) 13.0 - 17.3 g/dL [facility] HCT 29.0 (L) 34.0 - 45.0 % [facility] MCV 82.6 80.0 - 98.[address] [facility] MCH 26.5 (L) 27.0 - 34.[address] [facility] MCHC 32.1 31.5 - 36.5 g/dL [facility] RDW - SD 54.8 (H) 37.0 - 51.[address] [facility] MPV SEE COMMENTComment: No report 7.4 - 10.[address] [facility] Platelet count 46 (LL) 150 - 400 k/uL [facility] Comment: JAINISM Results called to and read LEOMA back by MAHAMED MERA RN [facility]) at 13:39 06/03/2019by _VR_. Nucleated RBC 0.00 /[address] [facility] Specimen Blood Performing Organization Address City/State/Zipcode Phone Number [facility] DEPARTMENT OF [address] [place] [address] PATHOLOGY AND GENOMIC MEDICINE [facility] [address] [place] [address] HOSPITAL * Magnesium level (06/03/2019 1:00 PM CDT) Only the most recent of 11 results within the time period is included. Magnesium 2.10 1.60 - 2.40 mg/dL [facility] Specimen Plasma specimen Performing Organization Address City/State/Zipcode Phone Number [facility] [place] DEPARTMENT OF [address] [place] [address] PATHOLOGY AND GENOMIC MEDICINE [facility] [address] [place] [address] HOSPITAL * POC glucose (04/25/2019 4:36 PM CDT) Only the most recent of 40 results within the time period is included. POC glucose 313 (H) 65 - 100 mg/dL [facility] Comment: JAINISM Meter ID: [id number] [facility]OMA Taker Off Hemp Fiber: Rekha Bills [facility] Specimen Performing Organization Address City/State/Zipcode Phone Number [facility] [place] [place] DEPARTMENT OF [address] [place] [address] PATHOLOGY AND GENOMIC MEDICINE [facility] [address] [place] [address] HOSPITAL * Potassium level (04/25/2019 2:59 PM CDT) Potassium 4.9 3.5 - 5.0 mEq/L [facility] Specimen Plasma specimen Performing Organization Address City/State/[place] [address] PATHOLOGY AND [facility] MEDICINE [address] * Ionized calcium (04/25/2019 7:29 AM CDT) Only the most recent of 3 results within the time period is included. pH 7.35 [facility] Ionized calcium 1.17 1.11 - 1.32 mmol/L [facility] Specimen Plasma specimen Performing Organization Address City/[facility] [place] [facility] [place] [address] PATHOLOGY AND [facility] MEDICINE [address] * CBC with platelet and differential (04/25/2019 6:55 AM CDT) Only the most recent of 12 results within the time period is included. WBC 6.6 4.2 - 11.0 k/uL [facility] RBC 3.20 (L) 4.04 - 5.86 m/uL [facility] HGB 8.4 (L) 13.0 - 17.3 g/dL [facility] HCT 26.6 (L) 34.0 - 45.0 % [facility] MCV 83.1 80.0 - 98.[address] [facility] MCH 26.3 (L) 27.0 - 34.[address] [facility] MCHC 31.6 31.5 - 36.5 g/dL [facility] RDW - SD 55.5 (H) 37.0 - 51.[address] [facility] MPV SEE COMMENTComment: No report 7.4 - 10.[address] [facility] Platelet count 63 (L) 150 - 400 k/uL [facility] Nucleated RBC 0.00 /[address] [facility] Neutrophils 57.0 36.0 - 66.0 % [facility] Lymphocytes 30.1 24.0 - 44.0 % [facility] Monocytes 6.9 (H) 0.0 - 6.0 % [facility] Eosinophils 3.0 0.0 - 6.0 % [facility] Basophils 0.6 0.0 - 1.2 % [facility] Immature 2.4 (H) 0.0 - 1.0 % [facility] granulocytes [facility] Specimen Blood Performing Organization Address City/State/Zipcode Phone Number [facility] DEPARTMENT [address] [place] [address] PATHOLOGY AND GENOMIC MEDICINE [facility] [address] [place] [address] * Phosphorus level (04/25/2019 6:55 AM CDT) Only the most recent of 11 results within the time period is included. [facility] Phosphorus 3.8 2.4 - 4.5 mg/dL [facility] Specimen Plasma specimen Performing Organization Address City/[facility]/Zipcode Phone Number [facility] [address] [place] [address] PATHOLOGY AND GENOMIC MEDICINE [facility] [address] [place] [address] * Vitamin D 25 hydroxy level (04/23/2019 4:49 AM CDT) Only the most recent of 2 results within the time period is included. [facility] Vitamin D, 17.3 (L) 30.0 - 150.0 ng/mL [facility] 25-hydroxy Comment: JAINISM This assay reports the sum of HOSPITAL [...] alternative methods. Specimen Blood Performing Organization Address City/[facility]/Zipcode Phone Number [facility] DEPARTMENT OF [address] [place] [address] PATHOLOGY AND [facility] MEDICINE [address] * Uric acid level (04/23/2019 4:49 AM CDT) Only the most recent of 3 results within the time period is included. Uric acid 9.9 (H) 3.4 - 7.0 mg/dL [facility] Specimen Plasma specimen Performing Organization Address City/[facility] [place] [facility] Centercode Phone Number [facility] DEPARTMENT [address] [place] [address] PATHOLOGY AND [facility] MEDICINE [address] * Parathyroid hormone (04/23/2019 4:49 AM CDT) Only the most recent of 3 results within the time period is included. PTH 102 (H) 15 - 65 pg/mL [facility] Specimen Blood Performing Organization Address City/[facility] [place] [facility] Centercode Phone Number [facility] DEPARTMENT OF [address] [place] [address] PATHOLOGY AND [facility] MEDICINE [address] * B natriuretic peptide (04/23/2019 4:49 AM CDT) Only the most recent of 2 results within the time period is included. BNP 242 (H) 0 - 100 pg/mL [facility] Specimen Blood Performing Organization Address City/[facility]/Zipcode Phone Number [facility] DEPARTMENT OF [address] [place] [address] PATHOLOGY AND GENOMIC MEDICINE [address] * US Renal (04/22/2019 2:24 PM CDT) Specimen Narrative Performed At EXAMINATION:US RENAL [facility] CLINICAL HISTORY:Renal failurechronic (kidney disease) COMPARISON:None. FINDINGS: The kidneys are normal in size and echogenicity. There is no evidence of any solid renal mass, calculi, or hydronephrosis. The right kidney udulgnnu73.52 cmX5.43 cmX5.90 cm. The left kidney sexudkav78.68 cmX6.05 cm X 6.03 cm The urinary bladder is unremarkable. IMPRESSION: 1.The kidneys of normal size and echotexture. 2. There is no solid renal mass or hydronephrosis. [id number] Procedure Note Hm Interface, Radiology Results Incoming [...] is no solid renal mass or hydronephrosis. [facility] [id number] Performing Organization Address City/State/Zipcode Phone Number [facility] [address] [place] [address] * Albumin level (04/22/2019 4:35 AM CDT) Albumin 3.1 (L) 3.5 - 5.0 g/dL [facility] Specimen Plasma specimen Performing Organization Address City/State/Zipcode Phone Number [facility] DEPARTMENT OF [address] [place] [address] PATHOLOGY AND GENOMIC MEDICINE [facility] [address] * CT Head Wo Contrast (04/19/2019 2:40 PM CDT) Specimen Narrative Performed At Examination: CT HEAD WO CONTRAST [facility] Clinical History: Altered level of consciousness (LOC)unexplained [...] significant interval change from the prior study. [id number] Procedure Note Hm Interface, Radiology Results Incoming [...] significant interval change from the prior study. [id number] Performing Organization Address City/State/Zipcode Phone Number [facility] [address] [place] [address] * Transfuse RBC (04/18/2019 4:00 PM CDT) * Comprehensive metabolic panel (04/18/2019 4:43 AM CDT) Only the most recent of 3 results within the time period is included. Pathologist [facility] Sodium 142 135 - 150 mEq/L [facility] Potassium 4.8 3.5 - 5.0 mEq/L [facility] Chloride 107 98 - 112 mEq/L [facility] CO2 24 24 - 31 mmol/L [facility] Anion gap 11@ANIO 7 - 15 mEq/L [facility] BUN 44 (H) 7 - 18 mg/dL [facility] Creatinine 3.70 (H) 0.70 - 1.20 mg/dL [facility] Glucose 189 (H) 65 - 100 mg/dL [facility] Calcium 8.6 (L) 8.8 - 10.2 mg/dL [facility] Protein 6.2 (L) 6.3 - 8.3 g/dL [facility] Albumin 2.9 (L) 3.5 - 5.0 g/dL [facility] A/G ratio 0.9 0.7 - 3.8 [facility] Alkaline 100 0 - 129 U/L [facility] phosphatase [facility] AST 24 10 - 50 U/L [facility] ALT 21 5 - 50 U/L [facility] Total bilirubin 0.7 0.2 - 1.2 mg/dL [facility] Specimen Plasma specimen Performing Organization Address City/State/Zipcode Phone Number [facility] DEPARTMENT OF [address] [place] [phone] PATHOLOGY AND GENOMIC MEDICINE [facility] [address] * Hemoglobin A1c (04/17/2019 8:54 AM CDT) Only the most recent of 4 results within the time period is included. Pathologist [facility] Hemoglobin A1C 5.5 4.0 - 5.6 % [facility] Comment: [facility] HbA1c cutoffs for diagnosing [facility] diabetes: HOSPITAL 4.0% - 5.6%=normal 5.7% - 6.4%=increased risk for diabetes (prediabetes) >=6.5%=diabetes Goals for glycemic control (ADA 2016) < 7.0%Target for non adults with diabetes. More or less stringent targets may be appropriate for individual patients. <7.5% Target for Children and adolescents with type 1 diabetes. Specimen Blood Performing Organization Address City/State/Zipcode Phone Number [facility] DEPARTMENT OF [address] [place] [address] PATHOLOGY AND GENOMIC MEDICINE [facility] [address] [place] [address] [facility] * Echocardiogram complete w contrast and [...] i VTI 2.07 cm2/m2 HM SYNGO BSA [place] MR peak grad 67.93 mmHg HM SYNGO [...] Mm/hg Performing Organization Address City/State/Zipcode Phone Number [employer] [address] [place] [address] * EEG (routine) (04/16/2019 3:40 PM CDT) [...] ischemic stroke COMPARISON:None TECHNIQUE: 2-D and 3-D [id number] MRA images of the cervical vessels were [...] occlusion, dissection, aneurysms, pseudoaneurysms or vascular malformations. [id number] Procedure Note Hm Interface, Radiology Results Incoming - 04/16/2019 1:15 PM CDT EXAMINATION: MRA NECK WO CONTRAST CLINICAL HISTORY: ischemic stroke COMPARISON: None TECHNIQUE: 2-D and 3-D [id number] MRA images of the cervical vessels were [...] occlusion, dissection, aneurysms, pseudoaneurysms or vascular malformations. [id number] Performing Organization Address City/State/Zipcode Phone Number [facility] [address] [place] [address] * MRA Head Wo Contrast (04/16/2019 12:42 PM CDT) Specimen Narrative Performed At EXAMINATION: MRA HEAD WO CONTRAST [facility] CLINICAL HISTORY: ischemic stroke COMPARISON:None TECHNIQUE: [id number] MRA images of the [place] vessels were obtained with multiplanar [...] hemodynamically significant stenosis or aneurysm - Right BATH HOUSE ATTENDANT: Patent. - Left BATH HOUSE ATTENDANT: Patent. - Bilateral superior cerebral arteries: There is no hemodynamically significant stenosis or aneurysm . - Bilateral PICAs: Partially visualized and patent. - Intradural segment of the vertebral arteries:There is no hemodynamically significant stenosis or aneurysm. IMPRESSION: There is no evidence of intracranial flow-limiting stenosis, occlusion, aneurysm or dissection. [id number] Procedure Note Interface, Radiology Results Incoming - 04/16/2019 1:16 PM CDT EXAMINATION: MRA HEAD WO CONTRAST CLINICAL HISTORY: ischemic stroke COMPARISON: None TECHNIQUE: [id number]-[id number] MRA images of the [place] vessels were obtained with multiplanar [...] hemodynamically significant stenosis or aneurysm - Right BATH HOUSE ATTENDANT: Patent. - Left BATH HOUSE ATTENDANT: Patent. - Bilateral superior cerebral arteries: There is no hemodynamically significant stenosis or aneurysm . - Bilateral PICAs: Partially visualized and patent. - Intradural segment of the vertebral arteries:There is no hemodynamically significant stenosis or aneurysm. IMPRESSION: There is no evidence of intracranial flow-limiting stenosis, occlusion, aneurysm or dissection. [id number] Performing Organization Address City/State/Zipcode Phone Number [facility] [address] [place] [address] * CT Renal Stone Protocol (04/16/2019 9:33 [...] noncontrast follow-up is recommended in 12 months. [id number] Procedure Note Hm Interface, Radiology Results Incoming [...] noncontrast follow-up is recommended in 12 months. [id number] Performing Organization Address City/[facility]/Zipcode Phone Number [facility] [address] [place] [address] * Lactic acid level, SEPSIS - Now and repeat 2x every 3 hours (04/16/2019 6:49 AM CDT) Only the most recent of 3 results within the time period is included. Lactic acid 0.8 0.5 - 2.2 mmol/L [facility] Specimen Blood Performing Organization Address City/State/Zipcode Phone Number [facility] DEPARTMENT OF [address] [place] [address] PATHOLOGY AND GENOMIC MEDICINE [place] [id number] [facility] [address] * Lipid panel (04/16/2019 6:49 AM CDT) Only the most recent of 2 results within the time period is included. Cholesterol 88 0 - 199 mg/dL [facility] Triglycerides 46 0 - 149 mg/dL [facility] HDL cholesterol 46 40 - 9,999 mg/dL [facility] LDL cholesterol 39Comment: Result obtained by 0 - 99 mg/dL [facility] direct LDL measurement [facility] Lipid panel See below [facility] interpretation Comment: [facility] Total Cholesterol [facility] (mg/dL) HOSPITAL LDL Cholesterol (mg/dL) <200 Desirable <100 Optimal 200-239Borderline -[id number] 29Near or above optimal >=240High 130-159Borderline- high [...] specimen Performing Organization Address City/State/Zipcode Phone Number [facility] DEPARTMENT [address] [place] [address] PATHOLOGY AND GENOMIC MEDICINE [facility] [address] [place], [place] [phone] [place] [address] * MRI Brain Wo Contrast (04/16/2019 2:16 AM CDT) Specimen Narrative Performed At [facility] EXAMINATION: MRI BRAIN WO CONTRAST CLINICAL HISTORY: [...] signal abnormalities, favored to represent phthisis bulbi. [id number] Procedure Note Interface, Radiology Results Incoming - [...] signal abnormalities, favored to represent phthisis bulbi. [facility]-[id number] Performing Organization Address City/State/Zipcode Phone Number [facility] [address] [place] [address] * Gram stain (04/15/2019 8:32 PM CDT) Gram stain Occasional WBC's [facility] result Moderate Gram negative rods JAINISM Comment: HOSPITAL Specimen Information Specimen Source: Urine Specimen Site: Catheterized Specimen Urine - Catheterized Performing Organization Address City/State/Zipcode Phone Number [facility] DEPARTMENT OF [address] [place] [address] PATHOLOGY AND GENOMIC MEDICINE [facility] [address] [place] [address] HOSPITAL * Urine culture (04/15/2019 8:32 PM CDT) Urine culture Escherichia coli KALIE isolate >10-5 cfu/ml JAINISM [facility] HOSPITAL characteristics of this assay on this isolate were validated by the Microbiology Laboratory at [facility].This source has not been approved by the U.S. Food and Drug Administration.The results are not intended to be used as the sole means for clinical diagnosis or patient management.The Microbiology Laboratory is authorized under the clinical Laboratory Improvement Amendments of 1988 (CLIA-88) to perform high complexity testing. This isolate is a senior producer of ESBL (extended spectrum beta lactamase).This organism may be clinically resistant to penicillins, cephalosporins or aztreonam despite apparent in vitro susceptibility to some of these agents. (A) Comment: Specimen Information Specimen Source: Urine Specimen Site: Catheterized Urine culture Duplicate organism-no further FARRELL isolate workup (A) [facility] Specimen Urine - Catheterized Antibiotic Method Susceptibility [...] mm: Susceptible Escherichia coli Performing Organization Address City/[facility]/Zipcode Phone Number [facility] DEPARTMENT [address] [place] [address] PATHOLOGY AND GENOMIC MEDICINE [address] [address] HOSPITAL * Urinalysis screen and microscopy, with reflex to culture (04/15/2019 8:23 PM CDT) Specimen site Catheterized [facility] Color, UA Yellow [facility] Appearance, UA Cloudy [facility] Specific 1.008 1.001 - 1.035 [facility] gravity, UA [facility] pH, UA 5.0 5.0 - 8.5 [facility] Protein, UA 2+ (A) Negative [facility] Glucose, UA 2+ (A) Negative [facility] Ketones, UA Negative Negative [facility] Bilirubin, UA Negative Negative [facility] Blood, UA Small (A) Negative [facility] Nitrite, UA Negative Negative [facility] Urobilinogen, Negative <2.0 [facility] Leukocyte Large (A) Negative [facility] esterase, [facility] Epithelial Few /HPF [facility] cells, UA [facility] WBC, UA 166 (H) 0 - 1 /HPF [facility] RBC, UA 6 (H) 0 - 5 /HPF [facility] Bacteria, UA Many (A) None seen [facility] WBC clumps, UA Many (A) [facility] Yeast, UA None seen [facility] Yeast with None seen [facility] Specimen Urine Performing Organization Address City/State/Zipcode Phone Number [facility] DEPARTMENT OF [address] [place] [address] PATHOLOGY AND GENOMIC MEDICINE [facility] JAINISM ROLDAN [address] [place] [address] [facility] * Blood culture, aerobic & anaerobic (04/15/2019 7:04 PM CDT) Only the most recent of 2 results within the time period is included. Blood culture No growth after 5 days of [facility] isolate incubation. JAINISM Comment: HOSPITAL Specimen Information Specimen Source: Blood Specimen Site: r wrist Specimen Blood Performing Organization Address City/State/Zipcode Phone Number [facility] DEPARTMENT OF [address] [place] [address] PATHOLOGY AND GENOMIC MEDICINE [facility] JAINISM [address] [place] [address] HOSPITAL * CRITICAL CARE (04/15/2019 7:00 PM CDT) Narrative Performed At Vineet Jenkins DO 04/19/20198:16 AM Critical Care Performed by: Vineet Jenkins DO Authorized by: Vineet Jenkins DO Critical care provider statement: Critical care time (minutes):35 Critical care time was exclusive of:Separately billable procedures and treating other patients Critical care was necessary to treat or prevent imminent or life-threatening deterioration of the following conditions:TRANSMITTER OPERATOR failure or compromise Critical care was time [...] excluded, recommend correlation with direct visual exam. [facility]-[id number] Procedure Note [facility], Radiology Results Incoming - 04/15/2019 6:37 PM [...] excluded, recommend correlation with direct visual exam. [facility]-[id number] Performing Organization Address City/State/Zipcode Phone Number [facility] [address] [place] [address] * Partial thromboplastin time, activated (04/15/2019 6:18 PM CDT) Pathologist [facility] PTT 17.8 (L) 23.0 - 36.0 sec EDISON Comment: CARMEN ROLDAN PTT therapeutic range for [facility] unfractionated heparin is HOSPITAL 61.0-112.0 seconds which corresponds to Anti-Xa 0.3-0.7 U/ml. Note:Change in Panic Value The PTT Panic Value is changing from 110 sec. to 100 sec. due to new instrumentation and reagents. Correlation studies have been performed to validate this result. Specimen Blood Performing Organization Address City/State/Zipcode Phone Number [facility] DEPARTMENT [address] [place] [address] PATHOLOGY AND GENOMIC MEDICINE [facility] CARMEN ROLDAN [address] [place] [address] [facility] * Prothrombin time with INR (04/15/2019 6:18 PM CDT) Pathologist [facility] Prothrombin 15.2 (H) 11.5 - 14.5 sec [facility] time [facility] INR 1.23 [facility] Comment: CARMEN ROLDAN For patients on anticoagulant MIGDALIA therapy, reference ranges HOSPITAL below: Indication: INR Value Treatment of Venous Thrombosis, 2.0-3.0 pulmonary emboli, or prophylaxis of a venous thrombosis, or systemic emboli. High dose, high risk patients 3.0-4.5 with mechanical valves. NOTE:INR values over 3.0 are sometimes associated with gastrointestinal hemorrhage, especially values over 4.0. Specimen Blood Performing Organization Address City/State/Zipcode Phone Number [facility] DEPARTMENT OF [address] [place] [address] PATHOLOGY AND GENOMIC MEDICINE [address] * Prepare RBC, 2 Units (04/15/2019 6:18 PM CDT) Product name Red Blood Cells -1, Leukored [facility] Unit number [id number] [facility] Product code [id number] [facility] Dispense status Transfused [facility] Blood [id number] [facility] expiration date [facility] Blood type code 5100 [facility] Blood type O POSITIVE [facility] Product name Red Blood Cells -1, Leuk[address] [facility] Unit number [id number] [facility] Product [facility] [id number] [facility] Dispense status Transfused [facility] Blood [id number] [facility] expiration date [facility] Blood type [facility] 5100 [facility] Blood type O POSITIVE [facility] Specimen Blood Performing Organization Address City/State/Zipcode Phone Number [facility] DEPARTMENT [place] [phone] PATHOLOGY AND GENOMIC MEDICINE [address] * Type and screen (04/15/2019 6:18 PM CDT) ABO grouping O [facility] Rh type POS [facility] Antibody screen NEG [facility] (gel) [facility] Specimen Blood Performing Organization Address City/State/[place] [address] PATHOLOGY AND GENOMIC MEDICINE [address] * Smear review (04/03/2019 2:00 PM CDT) Only the most recent of 3 results within the time period is included. Smear review Scan Not Req [facility] Specimen Performing Organization Address City/State/Zipcode Phone Number [facility] [place] [address] PATHOLOGY AND [facility] MEDICINE [address] * Hemoglobin & hematocrit (04/03/2019 2:00 PM CDT) Only the most recent of 4 results within the time period is included. Pathologist [facility] HGB 7.9 (L) 13.0 - 17.3 g/dL [facility] HCT 25.2 (L) 34.0 - 45.0 % [facility] Specimen Blood Performing Organization Address City/[facility] [place] [facility] [place] [address] PATHOLOGY AND [facility] MEDICINE [address] * Urine protein/creatinine ratio, random (04/03/2019 2:00 PM CDT) Only the most recent of 3 results within the time period is included. Protein, urine 151 mg/dL [facility] random [facility] Protein 7.1 6.3 - 8.3 g/dL [facility] Protein 21.27 [facility] clearance, [facility] urine [facility] Creatinine, 59 mg/dL [facility] urine, random [facility] Creatinine 3.50 (H) 0.70 - 1.20 mg/dL [facility] Urine 16.86 [facility] creatinine [facility] Prot/creat 126.16 [facility] ratio, urine [facility] Specimen Urine Performing Organization Address City/[facility]/[place] [facility] Centercode Phone Number [facility] DEPARTMENT OF [facility] [place] [address] PATHOLOGY AND GENOMIC MEDICINE [address] * Total iron binding capacity (11/23/2018 10:45 AM PHYSICIAN AIDE) Only the most recent of 2 results within the time period is included. Iron level 63 59 - 158 ug/dL [facility] Iron binding 191 (L) 271 - 474 ug/dL [facility] capacity [facility] % Saturation 33.0 20.0 - 40.0 % [facility] Specimen Plasma specimen Narrative Performed At [facility] FAX TO [facility] DEPARTMENT OF PATHOLOGY AND GENOMIC MEDICINE Performing Organization Address City/[facility]/[place] [facility] Centercode Phone Number [facility] DEPARTMENT [address] [place] [address] PATHOLOGY AND GENOMIC MEDICINE [address] * Ferritin level (11/23/2018 10:45 AM PHYSICIAN AIDE) Only the most recent of 2 results within the time period is included. Ferritin level 691 (H) 30 - 400 ng/mL [facility] Specimen Serum Narrative Performed At [facility] FAX TO [facility] DEPARTMENT OF PATHOLOGY AND GENOMIC MEDICINE Performing Organization Address City/[facility]/[place] [facility] Centercode Phone Number [facility] [place] [address] PATHOLOGY AND GENOMIC MEDICINE [address] * Urinalysis, automated with microscopy (10/01/2018 12:00 PM PHYSICIAN AIDE) Color, UA Yellow [facility] Appearance, UA Clear [facility] Specific 1.009 1.001 - 1.035 [facility] gravity, UA [facility] pH, UA 5.0 5.0 - 8.5 [facility] Protein, UA 2+ (A) Negative [facility] Glucose, UA Negative Negative [facility] Ketones, UA Negative Negative [facility] Bilirubin, UA Negative Negative [facility] Blood, UA Negative Negative [facility] Nitrite, UA Negative Negative [facility] Urobilinogen, Negative <2.0 [facility] Leukocyte Negative Negative [facility] esterase, UA [facility] Epithelial Few /HPF [facility] cells, UA [facility] WBC, UA <1 0 - 1 /HPF [facility] RBC, UA 1 0 - 5 /HPF [facility] Bacteria, UA None seen None seen [facility] Yeast, UA None seen [facility] Yeast with None seen [facility] Specimen Urine Performing Organization Address City/[facility]/[place] [facility] Centercola Phone Number [facility] DEPARTMENT OF [address] [place] [address] PATHOLOGY AND GENOMIC MEDICINE [place] [address] [address] * Thyroid stimulating hormone (10/01/2018 11:00 AM PHYSICIAN AIDE) TSH 0.56 0.27 - 4.20 uIU/mL [facility] Specimen Plasma specimen Performing Organization Address City/State/[place] [facility] Centercode Phone Number [facility] DEPARTMENT OF [address] [place] [address] PATHOLOGY AND GENOMIC MEDICINE [place] [address] [address] after 07/31/2018 Additional Health Concerns Resolved Time Infection Noted Time ESBL (C ) 04/18/2019 7:59 AM CDT Insurance Type Payer Benefit Subscriber ID Effective Phone Address Plan / Dates Group Medicare MEDICARE MEDICARE xxxxxxxxxxx 2015-P FARRE[place], PART A AND resent [place] B Medicaid MEDICAID MEDICAID xxxxxxxxx 2017- Present Advance Directives For more information, please contact: [phone] Patient Fitter Helper Explanation Type Date Recorded Advance Directives, 04/15/2019 1:52 PM Living Will and Medical Power of Weight Engineer Advance Directives, Living Will and Medical Power of Weight Engineer
--- NOTE | 2019-08-01 17:10 | NUR ---
dr farnsworth at bedside
[2019-08-01] MEDS ORDERED: DEXTROSE 50% SYRINGE 50 ML IV PRN ×2 (17:45)
--- NOTE | 2019-08-01 18:30 | NUR ---
Patient received from ER at this time via stretcher. Received bedside report from Jim. Condom catheter in place dislodged during transfer of patient. Patient also present with bowel movement. Cleaned patient, assessed skin. Petechiae noted to be present all over body. Indurated, discolored spot on right medial heel. Left BKA noted, incision healed. Blanchable redness to sacrum; allevyn dressing applied. Right hand 20 ga infusing NS at 125 mL/hr. Patient made comfortable. Warm blanket provided. Bed is low and locked. Patient unable to use call light. Patient is blind. Report given to oncoming supervisor roving nurse.
[2019-08-01 20:00] VITALS: BP_SYST 127; BP_SYST 131; BP_DIAS 62; BP_DIAS 80
[2019-08-01 21:00] VITALS: BP 131/62
[2019-08-01] MEDS: INSULIN LISPRO 100 UNIT/1 ML 3ML VIAL SQ SCH (21:00)
[2019-08-02] VITALS (7 sets, daily range): BP systolic 149–179; BP diastolic 73–86
--- NOTE | 2019-08-02 00:27 | History and Physical ---
HISTORY OF PRESENT ILLNESS: See also ER notes. The patient was brought to the emergency room by his family. The family related increasing symptoms of dementia and agitation. The family stated they were unable to manage the patient and brought him to the emergency room. The patient had an office appointment earlier this week, which he did not keep. PAST MEDICAL HISTORY: History includes primary hypertension, chronic organic brain syndrome, chronic kidney disease, diabetes mellitus with nephropathy and peripheral vascular disease and prior left kuftg-xef-hrao amputation and neuropathy and retinopathy and blindness. The patient is not a reliable historian. REVIEW OF SYSTEMS: On review of systems, he denies headache. Blindness, chronic he has. Denies respiratory symptoms. Denies chest pain. The patient denies nausea, vomiting, diarrhea, or abdominal discomfort. He denies urological symptoms. He has been seeing a wool washer routinely because of his chronic renal failure. The patient is sedentary. Denies new neuromuscular symptoms. ALLERGIES: THE PATIENT STATES HE IS NOT AWARE OF ALLERGIES. FAMILY HISTORY: He states he is unaware of contributory family history. History is not reliable as mentioned. PAST SURGICAL HISTORY: Not totally known by the patient. History includes partial left nephrectomy for staghorn calculus. Left mumue-hgu-oxtl amputation. MEDICATIONS: The patient does not know his medications. PHYSICAL EXAMINATION: VITAL SIGNS: Blood pressure 160/81, respiratory rate 18, pulse 72 regular, temperature 97.5 oral per ER, O2 saturation 100%. HEENT: The patient is blind. Opaque sclerae and lenses. Not pale to exam. Throat grossly clear. PULMONARY: Auscultation, upper airway congestion trace. NECK: With dampened pulses. Bruits not heard. No palpable goiter. CARDIAC: Sounds S1, S2 within normal range. Occasional extrasystole. ABDOMEN: Soft. Bowel sounds normal. Old left flank scar. No bedsores. No palpable mass or megaly. EXTREMITIES: Left jddwf-umb-gkmf amputation. Peripheral pulses are not palpable. Reduced sensation to foot. Onychomycosis. No edema or cyanosis. DTRs depressed. Strength poor. NEUROLOGIC: The patient is disoriented x3. LABORATORY DATA: ER lab includes elevated white count at 15,550 with left shift. Hemoglobin is 10.5 with low indices. Platelet count 226,000. INR is 1.10. Pro-time 14.7, PTT 36. Urinalysis reveals white cells 6-10 per high-power field. Dipstick for leukocyte esterase trace positive. Negative for nitrite. BUN 95, creatinine 4.88, alkaline phosphatase 188, globulin 4.2. TSH is low at 0.326. Lipase normal at 29. Natriuretic peptide is normal at 92. ER had sent cultures of the patient's urine and blood. Chest x-ray, no acute cardiopulmonary abnormality. DJD, shoulders. See also EKG. CURRENT IMPRESSION: 1. Altered mental status. Chronic dementia with exacerbation of symptoms recently. Rule out any recurrent etiology. 2. 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 Indices are low now. Blindness with retinopathy. Peripheral vascular disease and prior left vlpxo-vwk-xlan amputation. Neuropathy. History of chronic insulin required. Primary hypertension. Left ventricular hypertrophy on prior echocardiograms. History of multi-infarct dementia, ongoing now. Chronic obstructive pulmonary disease by past records. Benign prostatic hypertrophy by past records. Prior records with gastroesophagitis. Low TSH. Low red cell indices as mentioned. See also ER orders. Clinically, the patient is not dehydrated. He was prescribed antibiotics by the ER. The patient has an external urinary drainage catheter. To avoid bedsores. Avoid falls. Consider more structured environment upon discharge per the patient's family's wishes. See also followup orders. Teofilo Edmond MD HERB/MODL /[id number]
[2019-08-02 05:27] LABS: BASOPHILS % 0.2 % (0.0-1.0); EOSINOPHILS # (AUTO) 0.2 (0.0-0.4); EOSINOPHILS % 2.4 % (0.0-6.0); HEMATOCRIT 29.6 % (38.2-49.6); HEMOGLOBIN 9.3 g/dL (14.0-18.0); LYMPHOCYTES # (AUTO) 1.3 (1.0-3.2); LYMPHOCYTES % 13.6 % (18.0-39.1); MEAN CORPUSCULAR HEMOGLOBIN 23.8 pg (28-32); MEAN CORPUSCULAR HGB CONC 31.4 g/dL (31-35); MEAN CORPUSCULAR VOLUME 75.7 fL (81-99); MONOCYTES # (AUTO) 0.6 (0.2-0.8); NEUTROPHILS # (AUTO) 7.1 (2.1-6.9); NEUTROPHILS % 77.4 % (38.7-80.0); PLATELET COUNT 98 x10e3/uL (140-360); RED BLOOD COUNT 3.91 x10e6/uL (4.3-5.7)
[2019-08-02] MEDS: TIOTROPIUM 18 MCG INH POWDER INH SCH (06:00)
--- NOTE | 2019-08-02 06:00 | NUR ---
PAGED DR BURKETT FOR CONSULT OF CKD.
[2019-08-02 06:11] LABS: ALBUMIN 2.7 g/dL (3.5-5.0); ALBUMIN/GLOBULIN RATIO 0.8 (0.8-2.0); ANION GAP 15.9 mmol/L (8-16); CALCIUM 8.7 mg/dL (8.4-10.2); CREATININE, SERUM 4.46 mg/dL (0.72-1.25); POTASSIUM 4.9 mmol/L (3.5-5.1)
--- NOTE | 2019-08-02 07:00 | NUR ---
ACCOUNTING MACHINE SERVICER PT AT BED PT IS ALERT AND ORIENTED 1-2 , ASSESSMENT DONE PT RESTING ON BED NO SIGNS OF ANY DISTRESS NOTED IV PATENT BED LOW AND LOCKED CALL LIGHT IN REACH
[2019-08-02] MEDS: PANTOPRAZOLE SOD 40 MG TABEC PO SCH (07:30)
[2019-08-02] MEDS: INSULIN LISPRO 100 UNIT/1 ML 3ML VIAL SQ SCH ×4 (07:30→21:30)
[2019-08-02] MEDS: CARVEDILOL 3.125 MG TAB PO SCH ×2 (08:37→17:00)
[2019-08-02] MEDS: ATORVASTATIN 10 MG TAB PO SCH (08:37)
[2019-08-02] MEDS: CEFTRIAXONE SOD 1 GM/NS 50 ML 50 ML IV SCH (08:37)
[2019-08-02] MEDS ORDERED: ATORVASTATIN 20 MG TAB PO SCH (09:00)
[2019-08-02] MEDS ORDERED: CARVEDILOL 12.5 MG TAB PO SCH (09:00)
--- NOTE | 2019-08-02 11:00 | NUR ---
BLDDER SCAN DONE 35 ML URINE IN THE BLADDER
--- NOTE | 2019-08-02 11:47 | NUR ---
WOUNDCARE CONSULT 64YO M HX: DM,NEUROPATHY,PVDAND LFT BKPatsy VINH 12 MODERATE PUP MAINTAINED LABS: WBC-9.19 , HGB-9.3L,GLUCOSE-164 BLOODCULTURE PENDING ASSESSMENT: RT HEEL WITH BLUISH DARK AREA NOTED [id number] CLOSED MARIBEL SKIN PINK AND BLANCHABLE SACRAL AREA PINK AND BLANCHABLE NO OTHER SUSPICIOUS AREAS NOTED TO BACK OR BOTTOM RT FOOT WITH PILLOW SUSPENSION AND HEEL PROTECTOR LFT NANI HAS HEALTHY BLANCHABLE SKIN WARM TO TOUCH PT ALSO ON ALTERNATING AIR MATTRESS IN PLACE AND SET TO PT WEIGHT RECOMMENDATIONS : NURSING TO MAINTAIN AND PROTECT PT PRESSURE AREAS WITH ALTERNATING MATTRESS, HEEL PROTECTOR AND PILLOW SUSPENSION ALSO PT SITTING OUT OF BED FO MEALS MUCH TOLERATED NURSING TO APPLY VENELEX DAILY TO RIGHT HEEL DTI LEAVE OPEN TO AIR MAINTAIN HEEL PROTECTOR AND PILLOW SUSPENSION Addendum: 08/02/19 at 1206 by Joseph Blake RN Amended: Links added.
[2019-08-02] MEDS: SODIUM BICARBONATE 8.4% SYRING 150 ML in DEXTROSE 5% 1,000 ML IV SCH (13:00)
[2019-08-02] MEDS: TAMSULOSIN HCL 0.4 MG CAP PO SCH (13:45)
[2019-08-02] MEDS ORDERED: AMLODIPINE BESYLATE 10 MG TAB PO ONE (13:45)
--- NOTE | 2019-08-02 14:14 | NUR ---
CALLED AND SPOKE WITH DAUGHTER WHOM STATES NEEDS PLACEMENT IN [place], STATES ANYWHERE BUT [facility], SUGGESTED [facility] AND SHE STATES THAT IS FINE.
[2019-08-02] MEDS: BALSAM PERU/CASTOR OIL 60 GM OINT...G. TP SCH (15:00)
[2019-08-02] MEDS: CLONIDINE HCL 0.1 MG TAB PO SCH (17:00)
--- NOTE | 2019-08-02 17:52 | NUR ---
Esthela Gan with [facility] came by to pickle processor clinicals. States they are not able to accept pt, due to him hollering out. States they can't have that type of behavior at their facility. CM will follow up with pt's daughter tomorrow for another choice.
--- NOTE | 2019-08-02 18:28 | NUR ---
Nutrition Screen Note RD Recommendation for Physician: -Rec ADA 1800 diet as medically appropriate -Diet texture per MOTOR GENERATOR SET OPERATOR -Assist with feeding -If PO <50%, rec Glucerna BID with meals to increase protein-calorie intake Plan of Care: RD following, monitoring for tolerance and adequacy Nutrition reason for involvement: MD Consult no reason stated Primary Diagnose(s): AMS, dementia, UTI PMH: HTN, chronic organic brain syndrome, CKD, DM, neuropathy, PVD, blindness, GERD, hyperlipidemia, enlarged prostate, L BKA Ht: 68in Wt: 149lb BMI: 22.7kg/m2 IBW: 145lb +/- 10% RD Assessment: (08/02) Chart reviewed. Labs and meds reviewed. 64yo M, who was admitted for increasing symptoms of dementia and agitation. Unable to obtain hx from pt. Per RN Xiomy, pt ate ~75% of lunch today with feeding assistance. No family on bedside. No GI issue reported. Per MOTOR GENERATOR SET OPERATOR notes, pt has had decreased appetite for months. Pt with contracted posture during my visit. Unable to evaluate for risk of malnutrition due to lack of history. His last weight recorded on April 2018 and 2018 remained at 149lb, not suspecting any weight loss if current weight is true. Will continue to monitor and follow. Current Diet: cardiac diet (pureed with thin liquid) Malnutrition Evaluation (08/02) Unable to evaluate due to poor historian and no family on bedside. Diet Education Needs Assessment: Diet education not indicated. Nutrition Care Level: low Signed: Karen Horne, MS, RD, LD
--- NOTE | 2019-08-02 19:19 | Consultation ---
DATE OF CONSULTATION: 08/02/2019 HISTORY: History predominantly from chart and electronic records. The patient is arousable, follows commands, but very poor historian, limited participation. REVIEW OF SYSTEMS: He has underlying history of longstanding diabetes; history of peripheral vascular disease, status post left BKA; has ulcer, right foot, which is a diabetic ulcer; history of CKD; congestive heart failure; dyspnea; and underlying dementia; also history of hyperlipidemia. Renal consult for management of underlying kidney disease. He is currently lying supine, in no apparent distress. Denies shortness of breath, nausea, or vomiting. The prior workup had included echo, which showed left ventricular hypertrophy, ejection fraction 55%-60%; history of benign prostatic hypertrophy; he has a complex cyst, left kidney, otherwise 10 cm bilateral kidneys as of 2018. He is currently being treated for urinary tract infection. ALLERGIES: HE HAS NO APPARENT DRUG ALLERGIES. CURRENT MEDICATIONS: The patient is on: 1. Spiriva inhaler. 2. Ondansetron p.r.n. 3. Insulin. 4. Carvedilol 6.25 b.i.d. 5. Atorvastatin 10 mg daily. 6. Normal saline with sodium bicarbonate IV fluid, which I am going to stop. 7. He is also on ceftriaxone. SOCIAL HISTORY: Does not smoke or drink. FAMILY HISTORY: Significant for diabetes. LABORATORY TEST: White count 9.9 and hemoglobin 9.3. He has a sodium 141, potassium 4.9, bicarbonate 17, and creatinine 4.4. Chest x-ray, please see official report, shows no acute cardiopulmonary abnormality. PHYSICAL EXAMINATION: GENERAL: Awake, alert, lying supine, oriented to name. VITAL SIGNS: Blood pressure 153/78, pulse is 77 and afebrile. HEAD AND NECK: Cornea clear. Arcus senilis noted. Oral mucosa limited exam. Neck veins were not distended. LUNGS: Poor gas exchange, but clear. No rales. HEART: S1 and S2 audible. ABDOMEN: Otherwise soft and nontender. EXTREMITIES: Left-sided BKA, right foot. Right leg, no edema. Right foot and ankle protectors. IMPRESSION: Ghqiq-kz-wcxerqu kidney failure, likely chronic kidney disease four with acute kidney injury component, evidence of distal renal tubular acidosis. Serum creatinine improved from yesterday. Plan on starting gentle IV fluids in the form of D5 with bicarbonate. Start p.o. bicarbonate. Poor candidate for long-term dialysis. Continue to monitor kidney function and urine output. The patient is wearing diapers and is nonoliguric on antibiotics for probable urinary tract infection. Cultures pending. MD QUANG Rodriguez/SHANDRA /[id number]
[2019-08-02] MEDS: NPH, HUMAN INSULIN ISOPHANE 100 UNIT/1 ML 3ML VIAL SQ SCH (21:00)
[2019-08-03] VITALS (9 sets, daily range): BP systolic 135–172; BP diastolic 68–82
[2019-08-03] MEDS: SODIUM BICARBONATE 8.4% SYRING 150 ML in DEXTROSE 5% 1,000 ML IV SCH ×2 (05:14→21:36)
[2019-08-03] MEDS: TIOTROPIUM 18 MCG INH POWDER INH SCH (06:00)
[2019-08-03 06:03] LABS: ALBUMIN 2.5 g/dL (3.5-5.0); ALBUMIN/GLOBULIN RATIO 0.8 (0.8-2.0); ANION GAP 13.8 mmol/L (8-16); CALCIUM 8.3 mg/dL (8.4-10.2); CREATININE, SERUM 4.19 mg/dL (0.72-1.25); POTASSIUM 4.8 mmol/L (3.5-5.1)
--- NOTE | 2019-08-03 07:00 | NUR ---
RCD PT AT BED PT IS ALERT AND ORIENTED 1-2 , ASSESSMENT DONE PT RESTING ON BED NO SIGNS OF ANY DISTRESS NOTED IV PATENT BED LOW AND LOCKED CALL LIGHT IN REACH
[2019-08-03] MEDS: PANTOPRAZOLE SOD 40 MG TABEC PO SCH (07:30)
[2019-08-03] MEDS: INSULIN LISPRO 100 UNIT/1 ML 3ML VIAL SQ SCH ×4 (07:30→21:30)
[2019-08-03] MEDS: AMLODIPINE BESYLATE 10 MG TAB PO SCH (09:00)
[2019-08-03] MEDS: CEFTRIAXONE SOD 1 GM/NS 50 ML 50 ML IV SCH (09:00)
[2019-08-03] MEDS: CLONIDINE HCL 0.1 MG TAB PO SCH ×3 (09:00→21:35)
[2019-08-03] MEDS: CARVEDILOL 3.125 MG TAB PO SCH ×2 (09:00→16:56)
[2019-08-03] MEDS: ATORVASTATIN 10 MG TAB PO SCH (09:00)
[2019-08-03] MEDS: BALSAM PERU/CASTOR OIL 60 GM OINT...G. TP SCH (09:00)
[2019-08-03] MEDS: TAMSULOSIN HCL 0.4 MG CAP PO SCH (09:00)
[2019-08-03] MEDS: NPH, HUMAN INSULIN ISOPHANE 100 UNIT/1 ML 3ML VIAL SQ SCH ×2 (10:00→21:30)
[2019-08-03] MEDS: HYDRALAZINE HCL 25 MG TAB PO SCH ×4 (10:00→21:35)
--- NOTE | 2019-08-03 13:23 | NUR ---
Per Dr. Edmond, pt needs 10 days of IV abx at SNF. MARIA L called and spoke to pt's daughter Sabina Gil at [phone]. Informed her that [facility] was unable to accept her dad. She states we can send referral to any place in [place] except [facility]. Maria L informed her of SNFs in [place] - [facility] [place], [facility], and [facility]. States to send to the one closest to their address first then go on from there if he's not accepted. Informed her will send to [facility] [place] Maria L placed call to facility to get fax number to send clinical. But it's a nonworking number. Reached out to Doreen with [facility]. Awaiting fax number.
--- NOTE | 2019-08-03 13:43 | NUR ---
SNF referral was faxed to [facility] at [phone]. Discharge disposition, once approved: [facility] [address] [place] [address]
--- NOTE | 2019-08-03 19:10 | NUR ---
PT RESTING ON BED BED SIDE REPORT GIVEN TO ONCOMING NURSE
[2019-08-04] VITALS (8 sets, daily range): BP systolic 129–173; BP diastolic 67–84
[2019-08-04] MEDS: TIOTROPIUM 18 MCG INH POWDER INH SCH (06:00)
[2019-08-04 06:32] LABS: BASOPHILS % 0.1 % (0.0-1.0); EOSINOPHILS # (AUTO) 0.3 (0.0-0.4); EOSINOPHILS % 4.8 % (0.0-6.0); HEMATOCRIT 26.9 % (38.2-49.6); HEMOGLOBIN 8.5 g/dL (14.0-18.0); LYMPHOCYTES # (AUTO) 1.6 (1.0-3.2); LYMPHOCYTES % 21.8 % (18.0-39.1); MEAN CORPUSCULAR HEMOGLOBIN 23.7 pg (28-32); MEAN CORPUSCULAR HGB CONC 31.6 g/dL (31-35); MEAN CORPUSCULAR VOLUME 74.9 fL (81-99); MONOCYTES # (AUTO) 0.5 (0.2-0.8); MONOCYTES % 7.6 % (4.4-11.3); NEUTROPHILS # (AUTO) 4.6 (2.1-6.9); PLATELET COUNT 62 x10e3/uL (140-360); RED BLOOD COUNT 3.59 x10e6/uL (4.3-5.7); RED CELL DISTRIBUTION WIDTH 19.8 % (11.7-14.4)
[2019-08-04 06:47] LABS: ANION GAP 13.9 mmol/L (8-16); CALCIUM 8.3 mg/dL (8.4-10.2); CREATININE, SERUM 3.64 mg/dL (0.72-1.25); POTASSIUM 4.9 mmol/L (3.5-5.1)
[2019-08-04] MEDS: INSULIN LISPRO 100 UNIT/1 ML 3ML VIAL SQ SCH ×4 (07:30→20:57)
[2019-08-04] MEDS: PANTOPRAZOLE SOD 40 MG TABEC PO SCH (07:30)
--- NOTE | 2019-08-04 07:40 | NUR ---
Received patient this morning, alert and in bed, pulled out his IV, new one inserted to right forearm, bed alarms in place, will monitor.
[2019-08-04 07:53] LABS: EOSINOPHILS % (MANUAL) 4 % (0-7); LYMPHOCYTES % (MANUAL) 21 % (19-48); MONOCYTES % (MANUAL) 6 % (3.4-9.0); NEUTROPHILS % (MANUAL) 69 % (40-74)
[2019-08-04 07:54] LABS: PLATELET ESTIMATE MODERATELY DECREASED; PLATELET MORPHOLOGY COMMENT NORMAL
[2019-08-04 07:55] LABS: RBC MORPHOLOGY COMMENT NORMAL
[2019-08-04] MEDS: CEFTRIAXONE SOD 1 GM/NS 50 ML 50 ML IV SCH (08:47)
[2019-08-04] MEDS: ATORVASTATIN 10 MG TAB PO SCH (08:48)
[2019-08-04] MEDS: CLONIDINE HCL 0.1 MG TAB PO SCH ×3 (08:48→20:43)
[2019-08-04] MEDS: HYDRALAZINE HCL 25 MG TAB PO SCH ×4 (08:48→20:43)
[2019-08-04] MEDS: CARVEDILOL 3.125 MG TAB PO SCH ×2 (08:48→16:24)
[2019-08-04] MEDS: TAMSULOSIN HCL 0.4 MG CAP PO SCH (08:48)
[2019-08-04] MEDS: AMLODIPINE BESYLATE 10 MG TAB PO SCH (08:48)
[2019-08-04] MEDS: NPH, HUMAN INSULIN ISOPHANE 100 UNIT/1 ML 3ML VIAL SQ SCH ×2 (08:53→20:57)
[2019-08-04] MEDS: BALSAM PERU/CASTOR OIL 60 GM OINT...G. TP SCH (10:05)
--- NOTE | 2019-08-04 10:31 | NUR ---
Patient alert and responsive, tolerated meds this morning, appetite good with 100% meal intake. Call to attending and reported urine culture with ESBL, orders to start on Meropenem and d/c ceftriaxone. Will monitor.
[2019-08-04] MEDS: MEROPENEM 500MG/ NS 50ML 50 ML IV SCH ×2 (10:34→20:42)
[2019-08-04] MEDS: SODIUM BICARBONATE 8.4% SYRING 150 ML in DEXTROSE 5% 1,000 ML IV SCH (13:13)
[2019-08-04] MEDS: FERROUS SULFATE 325 MG TAB PO SCH (18:36)
[2019-08-05 00:15] VITALS: BP 188/90
[2019-08-05] MEDS: SODIUM BICARBONATE 8.4% SYRING 150 ML in DEXTROSE 5% 1,000 ML IV SCH (05:15)
[2019-08-05 05:26] LABS: HEMATOCRIT 28.2 % (38.2-49.6); HEMOGLOBIN 9.1 g/dL (14.0-18.0)
[2019-08-05] MEDS: TIOTROPIUM 18 MCG INH POWDER INH SCH (07:35)
[2019-08-05 07:56] VITALS: BP 126/78
[2019-08-05] MEDS: INSULIN LISPRO 100 UNIT/1 ML 3ML VIAL SQ SCH ×3 (08:16→15:38)
--- NOTE | 2019-08-05 09:04 | NUR ---
Updated med list and urine culture result faxed to [facility] at [phone]. Called and notified interactive media director Haylie of referral. She will review clinicals and get back with us shortly.
[2019-08-05] MEDS: MEROPENEM 500MG/ NS 50ML 50 ML IV SCH (09:54)
[2019-08-05] MEDS: NPH, HUMAN INSULIN ISOPHANE 100 UNIT/1 ML 3ML VIAL SQ SCH (09:59)
[2019-08-05 10:30] VITALS: BP 126/78
[2019-08-05] MEDS: CLONIDINE HCL 0.1 MG TAB PO SCH (10:32)
[2019-08-05] MEDS: PANTOPRAZOLE SOD 40 MG TABEC PO SCH (10:32)
[2019-08-05] MEDS: HYDRALAZINE HCL 25 MG TAB PO SCH ×2 (10:32→13:42)
[2019-08-05] MEDS: BALSAM PERU/CASTOR OIL 60 GM OINT...G. TP SCH (10:33)
[2019-08-05] MEDS: AMLODIPINE BESYLATE 10 MG TAB PO SCH (10:33)
[2019-08-05] MEDS: CARVEDILOL 3.125 MG TAB PO SCH (10:33)
[2019-08-05] MEDS: FERROUS SULFATE 325 MG TAB PO SCH (10:33)
[2019-08-05] MEDS: ATORVASTATIN 10 MG TAB PO SCH (10:33)
[2019-08-05] MEDS: TAMSULOSIN HCL 0.4 MG CAP PO SCH (10:33)
[2019-08-05 11:18] VITALS: BP 137/81
--- NOTE | 2019-08-05 12:48 | NUR ---
Spoke with Stella with admissions at [facility]. States she has MOT and daughter currently filling out paperwork. 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 Patient has been accepted to: [facility] [address] [place] [address] Accepting linux network administrator: Uzma Cabrera Accepting MD: Dr. Talisha Manjarrez Rm 106 Nurse to call report to [phone] IMM obtained via telephone. CM called and spoke with pt's daughter Sabina Gil. Informed of IMM. She verbalized understanding. Copy placed in chart. Copy left at bedside. Also informed daughter of bed assignment and obtained consent for ambulance transfer. No preference with ambulance company. The following documents must accompany pt for transfer: PASRR and clinicals Copied chart: Brianne, health unit clerk RTF: completed and given to Brianne Out of hospital DNR: n/a JUAN Ramos was informed of MOT. Message left for Dr. Edmond regarding acceptance to SNF.
[2019-08-05 15:34] VITALS: BP 126/78
--- NOTE | 2019-08-06 06:33 | Discharge Summary ---
See also ER note and history and physical. HOSPITAL COURSE: The patient was brought to the emergency room by the family, who stated they could not handle him at home because of increasing symptoms of dementia and agitation. He was hospitalized through the emergency room and in the emergency room, a stat onsite case manager consultation was ordered. See serial orders per electronic medical record documented. The patient's prior medical illnesses including diabetes mellitus, hypertension, chronic kidney disease with acidosis, peripheral vascular disease, neuropathy, retinopathy, and blindness were documented and monitored and managed medically. A stage I bedsore over the right heel was treated. See orders. The patient has a history of chronic anemia. Hematocrits were monitored. Not critical. The patient was followed by his marine engineering teacher. He was dispensed bicarbonate IV transiently. Antihypertensives were escalated as needed. Urine culture revealed E coli ESBL and this was treated medically and the patient will continue on IV Merrem post discharge at a local convalescent center. See also serial lab studies. Hemoglobin was 9.1 on August 05, 8.5 on August 04. Low indices. Stool for occult blood was ordered, but was not collected. Initial white count was 15,550 and white count fell to normal. IV antibiotics as mentioned above. INR 1.1, PTT 36. Urinalysis with white cells 10 per high-power field, 2+ proteinemia. Serum chemistries monitored. Blood sugars managed medically with IV insulin progressively increased as needed. Admission BUN 95, creatinine 4.88, CO2 of 15, glucose 194, A1c 5.6. Chronic anemia as above. TSH was 3.26, trace low with a normal T4 and normal T3 uptake. Admission chest x-ray, no acute cardiopulmonary abnormality. DJD, shoulders. The patient was supported nutritionally and with physical therapy. Frequent turning, range of motion exercises, wound care ordered. Ultimately, the patient was stable for outpatient long-term care and was admitted to a skilled convalescent center to continue treatment of his chronic acidosis and renal failure. His marine engineering teacher's note indicates dialysis was not indicated. The patient will also be treated for his malignant hypertension and type 2 diabetes mellitus as well as his bedsore. Has systemic acidosis secondary to kidney failure. Hematocrits and blood sugars will be followed up. He will continue transiently on IV antibiotics. See also discharge med reconciliation list as well as prior to admission med list. The patient's prognosis is poor. FINAL IMPRESSION: Altered mental status. Chronic dementia. Multi-infarct dementia. Acute exacerbation. Aggravated by toxic metabolic encephalopathy including exacerbation of chronic metabolic acidosis and urinary tract infection. The patient's BUN was 82 and creatinine was 3.64 post rehydration here. 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 Diabetic nephropathy. The patient is blind from diabetic retinopathy. Peripheral vascular disease. Prior left rpwbs-erz-dxou amputation. Chronic insulin. Pulmonary hypertension. Left ventricular hypertrophy. Chronic obstructive pulmonary disease. Bypass records. Prostatic hypertrophy. Gastroesophagitis. Chronically low TSH with normal T7. Pressure wound over the right heel. Degenerative joint disease as mentioned. Teofilo Edmond MD HERB/MODL /[id number]
== END 2019-08-05 16:39 | disposition home or self-care (01) | DRG 682 ==
LOC: ER 13:26 → ERHOLD 16:42 → MED/SURG2 18:42
PROVIDERS: ADMIT Internal Medicine; ATTEND Internal Medicine
DX: N17.0 Acute kidney failure with tubular necrosis (principal); G92 Toxic encephalopathy; F01.51 Vascular dementia, unspecified severity, with behavioral disturbance; E87.2 Acidosis; N39.0 Urinary tract infection, site not specified; I13.0 Hypertensive heart and chronic kidney disease with heart failure and stage 1 through stage 4 chronic kidney disease, or unspecified chronic kidney disease; N18.4 Chronic kidney disease, stage 4 (severe); N25.89 Other disorders resulting from impaired renal tubular function; E11.22 Type 2 diabetes mellitus with diabetic chronic kidney disease; F03.90 Unspecified dementia, unspecified severity, without behavioral disturbance, psychotic disturbance, mood disturbance, and anxiety; E11.51 Type 2 diabetes mellitus with diabetic peripheral angiopathy without gangrene; Z79.4 Long term (current) use of insulin; E11.319 Type 2 diabetes mellitus with unspecified diabetic retinopathy without macular edema; Z89.512 Acquired absence of left leg below knee; J44.9 Chronic obstructive pulmonary disease, unspecified; N40.0 Benign prostatic hyperplasia without lower urinary tract symptoms; D63.8 Anemia in other chronic diseases classified elsewhere; E11.40 Type 2 diabetes mellitus with diabetic neuropathy, unspecified; H54.7 Unspecified visual loss; E11.621 Type 2 diabetes mellitus with foot ulcer; L97.519 Non-pressure chronic ulcer of other part of right foot with unspecified severity
CPT/HCPCS: 36415; 71045; 80048; 80053; 81001; 82140; 82550; 82553; 82948; 83036; 83540; 83605; 83690; 83880; 84436; 84443; 84466; 84479; 84484; 85014; 85018; 85025; 85610; 85730; 87040; 87086; 87186; 93005; 94664; 96372; 97139; 99284; J0696; J7030; J7070